=== PATIENT | female | born 1955 | race Caucasian/White ===

== ENCOUNTER 2023-03-20 06:59 | Emergency (ER) | payer MEDICARE, OTHER, SELFPAY ==
--- NOTE | ~2023-03-20 | XR_ITS ---
EXAMINATION: XR shoulder RT min 2V, XR humerus RT CLINICAL INFORMATION: Reason for Exam rt arm pain COMPARISON: None. TECHNIQUE: AP external rotated, Grashey, transscapular radiographs of the right shoulder; AP and lateral radiographs of the right humerus FINDINGS: A transverse fracture of the surgical neck of the humerus is present. Minimal inferior subluxation of the humeral head relative to glenoid is noted and may represent pseudosubluxation related to the presence of hemarthrosis. The humeral head demonstrates rotation relative to the glenoid. Marked diffuse osteopenia is present. No erosive osseous lesions identified. The clavicle and scapula appear intact. Chronic appearing posttraumatic deformity of the seventh rib posterior segment is noted. The T5 thoracic vertebral body demonstrates a mild inward deformity of the superior endplate. The T11 vertebral body demonstrates a mild anterior wedge deformity. Findings suspicious for calcified mediastinal and hilar lymph nodes are noted. XR/XR shoulder RT min 2V IMPRESSION: *Acute transverse fracture of the surgical neck of the right humerus with rotation and mild pseudosubluxation of the humeral head. *Marked diffuse osteopenia. *Age indeterminate mild compression deformities of the T5 and T11 vertebral bodies. *Partial visualization of multiple chronic appearing calcified mediastinal and hilar lymph nodes.
--- NOTE | ~2023-03-20 | XR_ITS ---
EXAMINATION: XR shoulder RT min 2V, XR humerus RT CLINICAL INFORMATION: Reason for Exam rt arm pain COMPARISON: None. TECHNIQUE: AP external rotated, Grashey, transscapular radiographs of the right shoulder; AP and lateral radiographs of the right humerus FINDINGS: A transverse fracture of the surgical neck of the humerus is present. Minimal inferior subluxation of the humeral head relative to glenoid is noted and may represent pseudosubluxation related to the presence of hemarthrosis. The humeral head demonstrates rotation relative to the glenoid. Marked diffuse osteopenia is present. No erosive osseous lesions identified. The clavicle and scapula appear intact. Chronic appearing posttraumatic deformity of the seventh rib posterior segment is noted. The T5 thoracic vertebral body demonstrates a mild inward deformity of the superior endplate. The T11 vertebral body demonstrates a mild anterior wedge deformity. Findings suspicious for calcified mediastinal and hilar lymph nodes are noted. XR/XR humerus RT IMPRESSION: *Acute transverse fracture of the surgical neck of the right humerus with rotation and mild pseudosubluxation of the humeral head. *Marked diffuse osteopenia. *Age indeterminate mild compression deformities of the T5 and T11 vertebral bodies. *Partial visualization of multiple chronic appearing calcified mediastinal and hilar lymph nodes.
[2023-03-20 07:04] VITALS: BP 116/79; PULSE 91; RESP 18; TEMP 36.5; O2SAT 98; BMI 21.6
--- NOTE | 2023-03-20 07:19 | ED_ITS ---
HPI - Extremity Problem General Chief complaint: Extremity Injury, Upper Stated complaint: fall r shoulder inj Time Seen by Provider: 03/20/23 07:18 Source: patient and RN notes reviewed Mode of arrival: ambulatory Limitations: no limitations History of Present Illness HPI Narrative: This is a 68-year-old female presenting to the emergency department for evaluation of right shoulder pain status post mechanical fall which occurred yesterday. Patient states that she dropped her keys while carrying in groceries and she tripped and fell on her right shoulder. She denies hitting her head or loss of consciousness. She states that she felt well prior to the fall. She was able to get up and she was able to put away her groceries but noticed she was having difficulty with moving her right arm. She states that since this injury she has had increased pain, bruising, difficulty moving her right arm and shoulder secondary to pain. She has not taken any medications at home to treat her current symptoms. No other complaints or concerns at this time. MD Complaint: extremity pain and extremity swelling Onset (ago): hour(s) Pain Consistency: constant Location: right and upper extremity Quality: aching Radiation: none Relieving factors: nothing Exacerbating factors: nothing Associated symptoms: denies other symptoms Related Data Previous Rx's Medication Instructions Recorded acetaminophen 500 mg tablet 500 mg PO Q6H PRN pain #45 tabs 03/20/23 (Tylenol Extra Strength) ibuprofen 600 mg tablet 600 mg PO Q6H PRN pain #45 tabs 03/20/23 oxycodone 5 mg tablet 5 mg PO Q6H PRN severe pain (scale 03/20/23 score 7-10) #14 tabs Allergies Allergy/AdvReac Type Severity Reaction Status Date / Time No Known Allergies Allergy Verified 03/23/23 16:39 [No Known Allergies*] Review of Systems Review of Systems: Yes all other systems are reviewed and are negative Constitutional: Constitutional: Reports as per [facility] Social History Social History Advance Directives: No Advance Directives Information Provided: No Physical Exam Vital Signs: Vital Signs: Last Vital Signs Temp 97.7 F 03/20/23 07:04 Pulse 91 03/20/23 07:04 Resp 18 03/20/23 07:04 BP 116/79 03/20/23 07:04 Pulse Ox 98 03/20/23 07:04 O2 Del Method Room Air 03/20/23 07:04 BMI result Body Mass Index 21.6 Const: General: cooperative, comfortable and no acute distress Orientation/consciousness: patient oriented x3 Limitations: no limitations HEENT: Head: Yes normal to inspection, Yes normocephalic and Yes atraumatic Ears: hearing grossly normal bilaterally General nose exam: Normal external nose present Face and sinus: Yes normal facial exam Mouth: Normal oral and palatal mucosa present, oropharynx normal and moist mucous membranes Throat: Yes posterior oropharynx normal Eyes: General: appearance normal, both eyes and all related structures Eyelids: Yes eyelids normal Conjunctivae: conjunctivae normal Sclerae: sclerae normal Pupils: Equal, round and reactive pupils present EOM: EOMs intact bilaterally Neck: Neck: Yes normal visual inspection, Yes full ROM and Yes no lymphadenopathy Lymphatic: no lymphadenopathy noted Chest: Chest palpation & inspection: normal inspection of the chest Resp: Effort & Inspection: normal respiratory effort and able to speak in complete sentences Auscultation: clear to auscultation bilaterally, no crackles, no rales, no rhonchi and no wheezes Cardio: Rate: regular rate Rhythm: regular rhythm Heart sounds: S1 normal heart sound present and S2 normal heart sound present GI: Inspection: Yes normal to inspection Skin: General skin exam: no rashes or lesions noted Trauma: no lacerations or abrasions Wounds: no wounds Neuro: General: patient oriented x3 and moves all extremities Cranial nerves: Yes Equal, round and reactive pupils present Extrem: Other: extensive ecchymosis noted to the anterior aspect of the right shoulder from the right humeral head distally to approximately 2 cm just superior to the olecranon. full range of motion of the elbow, limited range of motion of the right shoulder given pain. exquisite pain with internal and external rotation of the right shoulder. strong radial pulse. distal sensation circulation intact General: Yes normal to inspection Left upper extremity: normal to inspection Right lower extremity: normal to inspection Left lower extremity: normal to inspection Course Reevaluation(s) Reevaluation #1: I was called to the radiology room given humeral head fracture, I reviewed imaging with my attending physician, Dr. Harris. I spoke to orthopedic surgeon, Dr. Butt, who recommends outpatient follow-up, no surgery is indicated and to sling. Will await for official report for dispo Time: 08:17 Reevaluation #2: x-ray report revealing an acute transverse fracture of the right humerus with rotation and mild pseudo subluxation of the humeral head. There is also age indeterminate mild compression deformities of the T5 and T11 vertebral bodies. Discussed findings with patient As well as orthopedic follow-up. Will discharge patient on ibuprofen, Tylenol, and oxycodone for severe pain. Given return precautions. Patient understands and agrees with plan. Patient stable for discharge. Time: 09:12 Medications Administered Discontinued Medications Generic Name Dose Route Start Last Admin Trade Name Freq PRN Reason Stop Dose Admin Oxycodone HCl 5 mg 03/20/23 07:41 03/20/23 08:02 Oxycodone Hcl Immed Release 5 Mg Tablet PO 03/20/23 07:42 5 mg ONCE ONE Administration Medical Decision Making Medical Decision Making [facility] Narrative: This is a 68-year-old female, with a history of hypertension, presenting to the emergency department with complaints of right shoulder pain status post mechanical fall which occurred yesterday. She denies hitting her head, dizziness, lightheadedness. on arrival, vital signs within normal limits. Belkys ent has extensive ecchymosis noted to the right shoulder extending down into her biceps. Full range of motion of the right elbow, limited range of motion of the right shoulder secondary to pain. given presentation, will obtain x-rays. Will medicate patient with oxycodone 5 mg p.o. Plan: Xrays, oxycodone Differential Diagnosis Differential Diagnoses: The differential diagnosis associated with the presentation includes Fracture, contusion, dislocation Admission/Observation Consideration of admission/observation: Escalation of care including admission/observation considered Patient would have been admitted to the hospital had her work up had any findings where hospital admission was appropriate and her clinical presentation warranted hospital admission. Consult Healthcare Provider Management of the patient was discussed with: Pillow Filler Dr. Butt Radiology Impression Discussion of test interpretation with radiology: I have reviewed the radiologist's reading. Radiologist Impression: XR/XR humerus RT IMPRESSION: *Acute transverse fracture of the surgical neck of the right humerus with rotation and mild pseudosubluxation of the humeral head. *Marked diffuse osteopenia. *Age indeterminate mild compression deformities of the T5 and T11 vertebral bodies. *Partial visualization of multiple chronic appearing calcified mediastinal and hilar lymph nodes. Discharge Plan Discharge Clinical Impression: Fracture of humeral head, right, closed Patient Disposition: Home, Self-Care Instructions: Arm Fracture in Adults (ED), How to Use a Sling (ED), Proximal Humerus Fracture (ED), Shoulder Immobilizer (ED) Additional Instructions: You were seen in the emergency department today due to right shoulder pain. Your right shoulder is broken. This was discussed with the orthopedic surgeon who reviewed your case and recommends sling, and outpatient follow-up. Please call their office tomorrow morning to make an appointment. Please stay in sling until your seen by the orthopedic surgeon. You are unable to drive until you are medically cleared. It is very dangerous to be operating a vehicle wearing a sling. Please take prescribed medication as directed. Alternate between ibuprofen and Tylenol. You can do this by taking ibuprofen 600 mg every 6 hours. Two hours after taking ibuprofen you may take the tylenol dose. Take oxycodone for severe pain only. Please be advised that this can cause drowsiness, do not drink alcohol or drive while taking this medication. Please be advised that we cannot refill this medication from the emergency room. If you need further pain medication please follow-up with her primary care physician. Follow-up with your primary care physician regarding this visit. If any new or worsening symptoms occur including but not limited to headaches, dizziness, worsening pain, chest pain or shortness of breath, please return for re-evaluation. Prescriptions: New ibuprofen 600 mg tablet 600 mg PO Q6H PRN (Reason: pain) Qty: 45 0RF acetaminophen [Tylenol Extra Strength] 500 mg tablet 500 mg PO Q6H PRN (Reason: pain) Qty: 45 0RF oxycodone 5 mg tablet 5 mg PO Q6H PRN (Reason: severe pain (scale score 7-10)) Qty: 14 0RF Rx Instructions: Partial Fill upon patient request. Referrals: [facility] [place] Orthopedic Surgeons [Provider Group] Interventions: ED Discharge Assessment Last Done: 03/20/23 09:39 Discharge Date/Time: 03/20/23 09:40
[2023-03-20] MEDS: oxyCODONE HCl Immed Release 5 MG TABLET PO (08:02)
--- NOTE | 2023-03-20 08:27 | PC.NURSE ---
continues to rest quietly in room, medicated per the MAR. call briones within reach.
--- NOTE | 2023-03-20 08:52 | PC.NURSE ---
Addendum entered by Jemma Felix RN 03/20/23 09:05: PA in with pt Original Note: RN assumed care, pt assessed, pt reported no pain relief after the administration of pain medication WENDY aware
== END 2023-03-20 09:40 | disposition home or self-care (01) ==
PROVIDERS: Emergency Provider Student in an Organized Health Care Education/Training Program; PCP Internal Medicine
DX: S42.211A Unspecified displaced fracture of surgical neck of right humerus, initial encounter for closed fracture (principal); W01.0XXA Fall on same level from slipping, tripping and stumbling without subsequent striking against object, initial encounter; Y93.9 Activity, unspecified; Y92.9 Unspecified place or not applicable; Y99.9 Unspecified external cause status
CPT/HCPCS: 73030; 73060; 99284

== ENCOUNTER 2023-03-23 15:38 | Emergency (ER) | payer OTHER, SELFPAY ==
--- NOTE | ~2023-03-23 | US_ITS ---
EXAMINATION: US VENOUS WITH DOPPLER UPPER EXTREMITY, RIGHT CLINICAL INFORMATION: History of humeral head fracture. Swelling and pain. COMPARISON: None available. TECHNIQUE: Ultrasound of the upper extremity is performed using compression sonography and color and pulse Doppler flow with assessment of augmentation of flow. There is also imaging and Doppler assessment of the jugular and subclavian veins. Spectral analysis with color-flow imaging is performed. FINDINGS: Respiratory variation, normal compression, and augmented flow are noted throughout the right upper extremity including the axillary, brachial, cubital, and radial and ulnar veins. There is normal flow in the internal jugular and subclavian veins. There is no visible deep or superficial thrombophlebitis. If the patient's symptoms progress, a followup ultrasound in 5 -7 days might be of value to exclude proximal propagation from a nonvisualized distal arm vein. US/US venous duplex UE RT IMPRESSION: No DVT demonstrated in the right upper extremity.
--- NOTE | 2023-03-23 16:33 | ED_ITS ---
HPI - General Adult General Chief complaint: General Medical Stated complaint: fell 03/19 left hand swelling, dizziness Time Seen by Provider: 03/23/23 20:04 Source: patient Mode of arrival: ambulatory Limitations: no limitations History of Present Illness HPI narrative: 68 year old female with no significant pmhx presents to the ED today for evaluation of swelling and bruising to her right arm x1 day. She was evaluated in our ED on 03/20/2023 after a mechanical fall and was found to have an acute transverse fracture of the right humeral neck. Sling was placed at that time. States she has been feeling generally well, taking ibuprofen and Tylenol at home for pain and discomfort. She reports noticing swelling and ecchymoses to her right hand beginning yesterday. She also endorses ecchymoses to her right breast since the fall. Denies pain to her hand. She is not on anticoagulation. States that her neighbor came to her house today and recommended that she come to the ED to have this evaluated. She currently has follow up appointment with ortho on 04/09/22 (in 2 weeks). Denies recent travel or long car rides. Denies sob, chest pain, or palpitations. Related Data Previous Rx's Medication Instructions Recorded acetaminophen 500 mg tablet 500 mg PO Q6H PRN pain #45 tabs 03/20/23 (Tylenol Extra Strength) ibuprofen 600 mg tablet 600 mg PO Q6H PRN pain #45 tabs 03/20/23 oxycodone 5 mg tablet 5 mg PO Q6H PRN severe pain (scale 03/20/23 score 7-10) #14 tabs Allergies Allergy/AdvReac Type Severity Reaction Status Date / Time No Known Allergies Allergy Verified 03/23/23 16:39 [No Known Allergies*] Review of Systems 2 Review of Systems: Constitutional: No fever, chills, fatigue, night sweats, weight changes ENT/Mouth: No ear pain, hearing loss, nasal congestion, sinus pain, rhinorrhea, sore throat Eyes: No eye pain, swelling, redness, vision changes, discharge Cardio: No chest pain, palpitations, PAREDES, orthopnea, peripheral edema Pulm: No SOB, cough, sputum, wheezing, dyspnea, hemoptysis GI: No nausea, vomiting, hematemesis, abdominal pain, diarrhea, constipation, hematochezia, melena : No irregular bleeding, dysuria, frequency, urgency, hesitancy, hematuria, flank pain, urinary flow changes, urinary incontinence or retention MSK: No back pain, neck pain, joint pain, myalgias, +swelling to right hand, wrist Skin: No lesions, rashes Neuro: No weakness, numbness, paresthesias, LOC, dizziness, headache All other systems reviewed and are negative. [facility] Past Medical History Attestation statement: The following information was validated with the patient. Source: old records reviewed and nursing notes reviewed Social History Social History Advance Directives: No Advance Directives Information Provided: No Physical Exam ED Vital Signs: Vital Signs - 24 hr 03/23/23 16:34 03/23/23 20:08 Temperature 98.0 F Pulse Rate 89 89 Respiratory Rate 20 16 Blood Pressure 137/79 135/78 Pulse Oximetry 98 99 Oxygen Delivery Method Room Air Room Air BMI result Body Mass Index 21.7 Const General: cooperative, no acute distress, alert and awake Orientation/consciousness: patient oriented x3 Limitations: no limitations HENMT Head: Yes normal to inspection Ears: hearing grossly normal bilaterally General nose exam: Normal external nose present Eyes General: appearance normal, both eyes and all related structures Conjunctivae: conjunctivae normal Sclerae: sclerae normal Pupils: Equal, round and reactive pupils present Neck Neck: Yes normal visual inspection Chest Other: + see photo below + dependent ecchymosis noted to lateral aspect of the right breast extending up into the axilla in stages of healing, no palpable hematoma, warmth, area of fluctuance. Resp Effort & Inspection: normal respiratory effort Auscultation: clear to auscultation bilaterally Cardio Rate: regular rate Rhythm: regular rhythm Heart sounds: S1 normal heart sound present and S2 normal heart sound present Peripheral pulses: Peripheral pulses 2+ throughout Skin Other: + refer to photos General skin exam: no rashes or lesions noted Neuro General: patient oriented x3 and moves all extremities Cranial nerves: Yes Equal, round and reactive pupils present Extrem Other: + refer to photo below + RUE in sling. dependent non pitting edema noted to dorsal aspect of right hand. minimal ecchymosis noted to the dorsal and ventral aspects of the forearm. full rom intact to right wrist. full rom intact to all MCPs, PIPs, and DIPs on right hand. 2+ radial, ulnar, and brachial pulses. General: Yes normal to inspection and Yes full ROM Course Course Course Narrative: 1648-- I have discussed this case my attending physician Dr. Mcmahon who after reviewing the case and physical exam findings, agrees with venous duplex of the RUE to rule out subclavian clot although presentation is most consistent with dependent edema secondary to shoulder fracture with sling. There is no concern for compartment syndrome at this time. 1999-- Ultrasound right upper extremity does not demonstrate acute clot. Informed patient of imaging results. Advised her to elevate her hand as best she can while she is sleeping to help with the swelling. Advised her to keep her appointment with orthopedic specialists in March. Discussed worrisome signs and symptoms when to return to the ED. Patient has remained stable throughout ED visit today. All questions answered at this time. Patient is agreeable with disposition and stable for discharge. Medical Decision Making Medical Decision Making MDM Narrative: 68 year old female with no significant pmhx presents to the ED today for evaluation of swelling and bruising to her right arm x1 day. Vital signs stable. Patient is nontoxic appearing in no acute distress. On exam there is dependent ecchymosis noted to lateral aspect of the right breast extending up into the axilla in stages of healing, no palpable hematoma, warmth, area of fluctuance. RUE in sling. dependent non pitting edema noted to dorsal aspect of right hand. minimal ecchymosis noted to the dorsal and ventral aspects of the forearm. full rom intact to right wrist. full rom intact to all MCPs, PIPs, and DIPs on right hand. 2+ radial, ulnar, and brachial pulses. Concern for DVT, dependent edema status post fracture. Unlikely compartment syndrome, neurovascular compromise, threat to limb. Plan for US and disposition. Differential Diagnosis Differential Diagnoses: The differential diagnosis associated with the presentation includes As above. Admission/Observation Not indicated. Independent Interpretation I performed an independent interpretation of an: Ultrasound Interpretation: I have reviewed venous duplex ultrasound of the right upper extremity and agree with radiologist's interpretation. Radiology Impression Discussion of test interpretation with radiology: I have reviewed the radiologist's reading. Radiologist Impression: US venous duplex UE RT IMPRESSION: No DVT demonstrated in the right upper extremity External Record Review External record reviewed: Inpatient record Prescription Management I considered prescription management with: Pain Medication Critical Care Time Critical Care Time Critical Care Time: Yes Total Critical Care Time: 31 Attestation: Critical care time in the amount of 31 minutes has been provided to the patient in terms of direct patient care, frequent reevaluation, review and interpretation of medical data and results, and management of potentially life- threatening conditions. This is all outside of any medical procedures. Discharge Plan Discharge Clinical Impression: Localized swelling of right upper extremity Patient Disposition: Home, Self-Care Additional Instructions: The ultrasound of your right arm did not demonstrate acute clot today. The swelling in your arm/hand is likely dependent edema secondary to your arm being immobile post fracture. Please try and elevate the right arm while sleeping which will help alleviate some of the swelling. You may continue taking Tylenol/ibuprofen at home as needed for pain/discomfort. Please call the orthopedic doctor tomorrow and let them know that you were seen in the ED. If symptoms persist or worsen please return to the emergency department. The case of an emergency call 911. Prescriptions: No Action ibuprofen 600 mg tablet 600 mg PO Q6H PRN (Reason: pain) Qty: 45 0RF acetaminophen [Tylenol Extra Strength] 500 mg tablet 500 mg PO Q6H PRN (Reason: pain) Qty: 45 0RF oxycodone 5 mg tablet 5 mg PO Q6H PRN (Reason: severe pain (scale score 7-10)) Qty: 14 0RF Rx Instructions: Partial Fill upon patient request. [place] [facility] [place] [facility] [Provider Group] Interventions: ED Discharge Assessment Last Done: 03/23/23 20:12 Discharge Date/Time: 03/23/23 20:13
[2023-03-23 16:34] VITALS: BP 137/79; PULSE 89; RESP 20; TEMP 36.7; O2SAT 98; BMI 21.7
[2023-03-23 20:08] VITALS: BP 135/78; PULSE 89; RESP 16; O2SAT 99
== END 2023-03-23 20:13 | disposition home or self-care (01) ==
LOC: HO.ED 20:06
PROVIDERS: Emergency Provider Internal Medicine
DX: R60.0 Localized edema (principal); Z79.899 Other long term (current) drug therapy
CPT/HCPCS: 93971; 99282; 99284

== ENCOUNTER 2023-04-07 08:09 | Outpatient (AMB) | payer MEDICARE, OTHER, SELFPAY ==
--- NOTE | 2023-04-07 08:14 | A.OFFVIS_ITS ---
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 Patient reports she fell landing on her right hand. She states that she fell outside when she had too many things in her hands. Pain is more on the anterior aspect of the shoulder, however she is feeling better. 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 The patient presented to the ED on 03/20/2023 status post dropping her keys while carrying groceries causing her to trip and fall, which occurred on 03/19/2023. X-rays of the right upper extremity were obtained. She was placed into a sling and was discharged with a prescription for Ibuprofen 600 mg PO Q6H PRN, Acetaminophen 500 mg PO Q6H PRN, and Oxycodone 5 mg PO PRN for pain. The patient returned to the ED on 03/23/2023 with a complaint of edema and ecchymosis to her right arm. She reported ecchymosis to the right hand and breast presenting on 03/22/2023. An ultrasound was obtained. It was recommended for her to elevated the right upper extremity as much as she can. While in the office today the patient reports a fall where she landed on her right hand. She states she fell outside when she had to many things in her hands when she was coming home from a [employer] get together. She states she went to bed and woke up in the morning with pain and limited ROM. She reports the pain on the anterior aspect of the right shoulder. However, she states she is feeling better. She denies numbness or tingling. The patient denies smoking. She confirms occasional alcohol intake of beer. She denies a medical history of diabetes mellitus. She states she has neighbors that have been helping her since the injury and will be help postoperatively. Patient has no known allergy history. Patient is currently taking, as follows: -Acetaminophen 500 mg PO Q6H PRN -Ibuprofen 600 mg PO Q6H PRN -Oxycodone 5 mg PO Q5H PRN *Patient reports taking Doxycycline and Calcium, but did not states dosage. *Patient reports she takes blood pressure and cold sore medication, but did not state the names. Patient has a medical history, as follows: -Hypertension; per patient. Patient has no known surgical history. Patient has a social history, as follows: -Occasional beer intake. -Denies smoking. [facility] Social History (Updated 04/07/23 @ 08:27 by Serg Nayak) Alcohol intake: current Patient Tobacco Use Status: Current everyday Tobacco user Current occupational status: retired Current occupation: right hand dominant Review of Systems Const All systems reviewed & are unremarkable except as noted in HPI and below Physical Exam Vital Signs: BMI result Body Mass Index 21.6 Const General: cooperative and no acute distress Orientation/consciousness: patient oriented x3 HEENT Head: Yes normal to inspection, Yes normocephalic and Yes atraumatic Eyes General: appearance normal, both eyes and all related structures Neck Neck: Yes normal visual inspection and Yes no lymphadenopathy Resp Effort & Inspection: normal respiratory effort and able to speak in complete sentences Cardio Rate: regular rate Peripheral pulses: Peripheral pulses 2+ throughout GI Inspection: Yes normal to inspection Palpation (GI): Soft to palpation Skin General skin exam: no rashes or lesions noted Neuro General: patient oriented x3 Extrem Other: Right upper extremity: Circumferential resolving ecchymosis and edema at the proximal humerus. No ecchymosis, erythema, or edema of the right hand. Able to perform wrist flexion and extension. Able to perform full finger flexion, extension, abduction, adduction, finger cross, okay sign, and thumbs up without deficit. Able to make a closed fist. Sensation intact. Capillary refill is bris k. Radial pulse intact. Psych Mental Status: mental status grossly normal Assessment & Plan Assessment & Plan (1) Fracture of proximal end of right humerus: Code(s): S42.201A - Unspecified fracture of upper end of right humerus, initial encounter for closed fracture (2) Osteopenia: Code(s): M85.80 - Other specified disorders of bone density and structure, unspecified site Plan Ms. Taylor is a 68-year-old right hand dominant female who presents in the office today, as a new patient, for an evaluation of right shoulder pain. The patient presented to the ED on 03/20/2023 status post dropping her keys while carrying groceries causing her to trip and fall, which occurred on 03/19/2023. X-rays of the right upper extremity were obtained. She was placed into a sling and was discharged with a prescription for Ibuprofen 600 mg PO Q6H PRN, Acetaminophen 500 mg PO Q6H PRN, and Oxycodone 5 mg PO PRN for pain. The patient returned to the ED on 03/23/2023 with a complaint of edema and ecchymosis to her right arm. She reported ecchymosis to the right hand and breast presenting on 03/22/2023. An ultrasound was obtained. It was recommended for her to elevated the right upper extremity as much as she can. While in the office today the patient reports a fall where she landed on her right hand. She states she fell outside when she had to many things in her hands when she was coming home from a [employer] get together. She states she went to bed and woke up in the morning with pain and limited ROM. She reports the pain on the anterior aspect of the right shoulder. However, she states she is feeling better. She denies numbness or tingling. The patient denies smoking. She confirms occasional alcohol intake of beer. She denies a medical history of diabetes mellitus. She states she has neighbors that have been helping her since the injury and will be help postoperatively. Patient has no known allergy history. Patient is currently taking, as follows: -Acetaminophen 500 mg PO Q6H PRN -Ibuprofen 600 mg PO Q6H PRN -Oxycodone 5 mg PO Q5H PRN *Patient reports taking Doxycycline and Calcium, but did not states dosage. *Patient reports she takes blood pressure and cold sore medication, but did not state the names. Patient has a medical history, as follows: -Hypertension; per patient. Patient has no known surgical history. Patient has a social history, as follows: -Occasional beer intake. -Denies smoking. I discussed in detail the procedure and what to expect pre and post operatively. We discussed the risks, benefits and alternatives to the surgery as well as the rehabilitation course. The risks; which include, but are not limited to infection, bleeding, nerve injury, ongoing pain, swelling, and stiffness, perioperative risk of injury to bones and soft tissues, and blood clots. I have answered all questions and with their understanding they have consented to move forward with a right proximal humerus ORIF to be performed next week by Dr. Kristofer Butt. Follow up will be at the post operative appointment, or sooner if needed. X-rays of the right shoulder which were obtained while in the office today and were reviewed by me, Bessie Faustin PA-C, redemonstration of a right proximal humerus fracture with rotation of the humeral head. Osteopenia noted. X-rays of the right shoulder, obtained on 03/20/2023, revealed: *Acute transverse fracture of the surgical neck of the right humerus with rotation and mild pseudosubluxation of the humeral head. *Marked diffuse osteopenia. *Age indeterminate mild compression deformities of the T5 and T11 vertebral bodies. *Partial visualization of multiple chronic appearing calcified mediastinal and hilar lymph nodes. Ultrasound of the right upper extremity, obtained on 03/23/2023, revealed: No DVT demonstrated in the right upper extremity. Orders: Orders XR humerus RT Today S42.291A - Other displaced fracture of upper end of right humerus, initial encounter for closed fracture Patient Instructions: Scribed for Bessie Faustin PA-C by Kami Segundo medical technologist chemistry, on 04/04/2023 at 8:29 am, EST. Coding Level of Care Code New Pt Level 4 (20709) Diagnoses Fracture of proximal end of right humerus S42.201A Osteopenia M85.80
[2023-04-07 08:16] VITALS: BMI 21.6
== END 2023-04-07 08:54 | disposition home or self-care (01) ==
PROVIDERS: PCP Internal Medicine; Visit Provider Physician Assistant
DX: S42.211A Unspecified displaced fracture of surgical neck of right humerus, initial encounter for closed fracture (principal); M85.80 Other specified disorders of bone density and structure, unspecified site
CPT/HCPCS: 99204

== ENCOUNTER 2023-04-07 10:18 | Outpatient (REF) | payer MEDICARE, OTHER, SELFPAY ==
--- NOTE | ~2023-04-07 | XR_ITS ---
EXAMINATION: XR HUMERUS, RIGHT CLINICAL INFORMATION: Right humeral fracture. COMPARISON: Radiograph right humerus 03/20/2023. TECHNIQUE: AP and lateral views of the right humerus. FINDINGS: Increased impaction and displacement of right humeral neck fracture compared to 03/20/2023. Chronic nondisplaced fracture of the right posterior seventh rib. No new fractures. XR/XR humerus RT IMPRESSION: Worsening alignment of the right humeral fracture with significantly increased displacement and impaction.
== END 2023-04-07 10:19 | disposition home or self-care (01) ==
LOC: HO.HOSX 10:18
PROVIDERS: Visit Provider Physician Assistant
DX: S42.201A Unspecified fracture of upper end of right humerus, initial encounter for closed fracture (principal); M85.80 Other specified disorders of bone density and structure, unspecified site
CPT/HCPCS: 73060; 99202

== ENCOUNTER 2023-04-11 09:25 | Day surgery (SDC) | payer MEDICARE, OTHER, SELFPAY ==
--- NOTE | 2023-04-10 08:50 | HO.ANESPROP2 ---
Documented by User: Mare Randhawa NP 04/10/23 08:51 HPI - Anesthesia Eval Consult details Narrative: 68yo F for Right Humerus Fx ORIF Incomplete med hx by surgical provider. Oswaldoley htn and hld per external med history. PMF Active Problems Active Problems: All Active Problems (Updated 04/07/23 @ 08:47 by Kami Segundo) Osteopenia (Acute) Fracture of proximal end of right humerus (Acute) Past Medical History Medical History Hypercholesterolemia HTN (hypertension) Surgical History Surgical History History of foot surgery Social History Social History Alcohol intake: current Patient Tobacco Use Status: Never used Tobacco Use of substances other than those prescribed or required for medical reasons: No Are you DNR?: No Advance Directives: No Advance Directives Information Provided: Yes Current occupational status: retired Current occupation: right hand dominant Meds Allergies Allergy/AdvReac Type Severity Reaction Status Date / Time No Known Allergies Allergy Verified 04/07/23 08:15 [No Known Allergies*] Home Medications Medication Instructions Recorded Confirmed Last Taken Type amlodipine 10 mg tablet 10 mg PO DAILY 04/10/23 04/10/23 04/11/23 History atorvastatin 40 mg tablet 40 mg PO DAILY 04/10/23 04/11/23 03/28/23 History Assessment and Plan Assessment Anesthesia Assessment: Chart Reviewed Documented by User: Steffany Bartlett MD 04/11/23 10:44 [facility] Past Medical History Medical History Hypercholesterolemia HTN (hypertension) Surgical History Surgical History History of foot surgery History of Problems with Anesthesia: No Social History Social History Alcohol intake: current Patient Tobacco Use Status: Never used Tobacco Use of substances other than those prescribed or required for medical reasons: No Are you DNR?: No Advance Directives: No Advance Directives Information Provided: Yes Current occupational status: retired Current occupation: right hand dominant Meds Allergies Allergy/AdvReac Type Severity Reaction Status Date / Time No Known Allergies Allergy Verified 04/07/23 08:15 [No Known Allergies*] Home Medications Medication Instructions Recorded Confirmed Last Taken Type amlodipine 10 mg tablet 10 mg PO DAILY 04/10/23 04/10/23 04/11/23 History atorvastatin 40 mg tablet 40 mg PO DAILY 04/10/23 04/11/23 03/28/23 History Exam Airway Mallampati Class: II TM Dist: >3cm Neck ROM: Full Loose/Missing/Broken Teeth: No Heart: RRR Lungs: CTA Assessment and Plan Assessment Anesthesia Assessment: Anesthesia Plan Discussed Final Anesthetic Review History of Problems with Anesthesia: No NPO: Yes ASA Class: II Final Preanesthetic Review: Meds/Allgs Chart Reviewed, Consent Obtained/Reviewed and Anes Risks/Benef Reviewed Patient Risk: Low Procedure Risk: Intermediate Anesthetic Plan Anesthetic Plan: GA Disposition: Standard PACU
[2023-04-11] VITALS (15 sets, daily range): BP systolic 105–127; BP diastolic 66–83; PULSE 57–86; RESP 14–18; TEMP 36.3–37.4; O2SAT 95–100; BMI 21.3
--- NOTE | ~2023-04-11 | FL_ITS ---
INDICATION: Intraoperative fluoroscopy. FLUOROSCOPY: Fluoroscopy Time: 0.7 seconds Dose/air kerma: 8.49 mGy FINDINGS: Multiple intraoperative fluoroscopic images are submitted during reported procedure of the right humerus. Correlation with operative report. Evaluation is limited secondary to fluoroscopic technique. IMPRESSION: Intra-operative fluoroscopic imaging provided by radiology during reported procedure of the right humerus. Please refer to operative note for further information.
[2023-04-11] MEDS: Lactated Ringers 1,000 ML 100 ML IVCONT ×2 (10:13→17:47)
--- NOTE | 2023-04-11 11:17 | MHC.SHP ---
Pre-Procedural Eval Section A Date of Service: 04/11/23 The patient is an INPATIENT: No Changes since office visit: Yes Cold of Flu in the past 2 weeks, Yes New Medical Problems, Yes Changes in Medication and Yes Patient answered all questions The History & Physical has been completed within 30 days and I have reviewed it.: Yes Section B Chief Complaint: Unspecified fracture of upper end of right humerus Allergies: Allergies Allergy/AdvReac Type Severity Reaction Status Date / Time No Known Allergies Allergy Verified 04/07/23 08:15 [No Known Allergies*] Plan I have reviewed the history and physical and performed a pertinent physical examination on my patient. No changes have occurred unless specified. Time Spent With Patient Time: Total time managing care of this patient today ____ minutes.
--- NOTE | 2023-04-11 14:10 | PM.OP ---
Brief Operative Note Date of Service: 04/11/23 Pre-op diagnosis: right proximal humerus fracture Post-op diagnosis: same Procedure: right proximal humerus ORIF Implants: Amparo Surgeon: Kristofer Butt MD Anesthesia: GETA and regional Was an Captain/Airline Pilot used for this Procedure?: Yes Captain/Airline Pilot: Jennifer Be Estimated blood loss (mL): 200 IV fluids (mL): 1,000 Pathology: none sent Condition: stable Disposition: PACU
--- NOTE | 2023-04-11 17:26 | P.DS_ITS ---
DS: Providers Provider Date of Service: 04/13/23 Primary care physician: Vee Alvarez MD Consults: 04/11/23 16:51 Consult to Hospitalist Routine Comment: Consulting Provider: Hospitalist Reason For Exam: medical management, htn DS: Summary Hospital Course Hospital Course: The patient underwent a successful right humerus open reduction internal fixation, they were transferred to PACU and then to the floor to recover. During their stay, their vitals were stable, afebrile at 97.1. Labs were unremarkable, H/H 10.4/29.8. Prior to discharge, their dressing was clean dry and intact and right upper extremity was in the abduction sling placed appropriately. The plan was to be discharged home and followup with orthopedics out patient in 1 week. Time Attestation Discharge coordination time: Less than 30 minutes Quality: Safe Use of Opioids Does Pt have an Active Cancer Diagnosis on the Problem List?: No Quality: Stroke Does the patient have a stroke diagnosis?: No Physical Exam Vital Signs: Vital Signs: Last Vital Signs Temp 97.6 F 04/11/23 16:36 Pulse 81 04/11/23 16:36 Resp 18 04/11/23 16:36 BP 112/75 04/11/23 16:36 Pulse Ox 99 04/11/23 16:36 O2 Del Method Nasal Cannula 04/11/23 16:36 O2 Flow Rate 2 04/11/23 16:36 BMI result Body Mass Index 21.3 Const: General: cooperative, healthy appearing and no acute distress Resp: Effort & Inspection: normal respiratory effort and able to speak in complete sentences Cardio: Rate: regular rate Peripheral pulses: Peripheral pulses 2+ throughout GI: Palpation (GI): Soft to palpation Skin: Lesions: no lesions Rashes: no rashes Extrem: Other: RUE sling intact. Dressing is c/d/i. Able to perform wrist flexion and extension. Able to move all digits. Radial pulse intact. Sensation intact. Capillary refill is brisk. Discharge Plan Discharge Patient Disposition: Home, Self-Care Referrals: Jennifer Be PA-C [Physician Production Team Member] - 04/19/23 10:45 am Discharge Medications: New celecoxib 200 mg Capsule 200 mg PO BID 30 Days Qty: 60 0RF oxycodone 10 mg tablet 10 mg PO Q3H PRN (Reason: Pain, Moderate(Pain Scale 4-6)) 7 Days Qty: 56 0RF Rx Instructions: Partial Fill upon patient request. docusate sodium 100 mg Capsule 100 mg PO BID 30 Days Qty: 60 0RF oxycodone [OxyContin] 10 mg tablet,oral only,ext.rel.12 hr 10 mg PO Q12H PRN (Reason: pain (scale score 7-10)) 3 Days Qty: 6 0RF Rx Instructions: Partial Fill upon patient request. oxycodone [OxyContin] 10 mg tablet,oral only,ext.rel.12 hr 10 mg PO Q12H 3 Days Qty: 6 0RF Rx Instructions: Partial Fill upon patient request. Continued atorvastatin 40 mg tablet 40 mg PO DAILY amlodipine 10 mg tablet 10 mg PO DAILY ibuprofen 600 mg tablet 600 mg PO Q6H PRN (Reason: pain) Qty: 45 0RF acetaminophen [Tylenol Extra Strength] 500 mg tablet 500 mg PO Q6H PRN (Reason: pain) Qty: 45 0RF Discontinued oxycodone 5 mg tablet 5 mg PO Q6H PRN (Reason: severe pain (scale score 7-10)) Qty: 14 0RF Rx Instructions: Partial Fill upon patient request. Discharge Orders: Discharge Order (Routine); Ordered 04/13/23 Ordered By: Bessie Faustin Diet: Advance to usual diet Activity on Discharge: Use Splints or Immobilizers Activity Restrictions/Additional Instructions: Wear sling at all times, including sleeping-OK to remove for pendulum exercises throughout the day No lifting-OK to move arm at elbow and wrist Do not bathe or shower-- Keep dressing clean, dry and intact until seen at post op appointment in the office. Oxycodone 5mg by mouth every 4 hours as needed for pain Call [facility] orthopedics with any questions or concerns. Follow up with orthopedics in 7-10 days post op
[2023-04-11] MEDS: 0.9 % Sodium Chloride Flush 3 ML SYRINGE IVFLUSH ×2 (17:45→19:42)
[2023-04-11] MEDS: ceFAZolin Sodium/Dextrose,Iso 2 GM/50 ML PIGGYBACK IV (18:14)
[2023-04-11] MEDS: Docusate Sodium 100 MG CAPSULE PO (19:41)
[2023-04-11] MEDS: oxyCODONE HCl ER 10 MG TAB.ER.12H PO (19:41)
[2023-04-11] MEDS: Celecoxib 200 MG CAPSULE PO (19:42)
[2023-04-12 03:34] VITALS: BP 117/70; PULSE 77; RESP 18; TEMP 36.4; O2SAT 98
[2023-04-12] MEDS: Lactated Ringers 1,000 ML 100 ML IVCONT (04:05)
[2023-04-12] MEDS: ceFAZolin Sodium/Dextrose,Iso 2 GM/50 ML PIGGYBACK IV ×3 (04:06→18:05)
[2023-04-12] MEDS: HYDROmorphone HCl 0.5 MG/0.5 ML SYRINGE 0.25 MG IVPUSH (04:11)
[2023-04-12] MEDS: Acetaminophen 325 MG TABLET 650 MG PO (06:35)
[2023-04-12] MEDS: oxyCODONE HCl Immed Release 5 MG TABLET PO (06:36)
[2023-04-12 07:38] VITALS: BP 132/68; PULSE 67; RESP 18; TEMP 36.3; O2SAT 100
[2023-04-12 07:38] LABS: MANUAL DIFF FLAG NO
[2023-04-12 07:46] LABS: Basophils Percent Auto 0.3 % (0-2); Eosinophils Percent Auto 0.3 % (0-4); Hematocrit 28.8 % (37.0-47.0); Hemoglobin 9.9 g/dl (12.0-16.0); Imm Gran Abs Auto 0.03 X10*3/uL (0.00-0.03); Imm Gran Pct Auto 0.4 % (0.0-0.4); Lymphocytes Absolute Auto 1.3 X10*3/uL (1.2-4.9); Lymphocytes Percent Auto 17.8 % (20-40); Mean Corpuscular HGB Conc 34.4 g/dl (31.0-35.0); Mean Corpuscular Hemoglobin 35.5 pg (27.0-33.0); Mean Corpuscular Volume 103.2 fL (80.0-98.0); Mean Platelet Volume 10.3 fL (9.4-12.3); Monocytes Percent Auto 14.7 % (2-11); Neutrophils Absolute Auto 4.7 x10*3/uL (2.0-8.3); Neutrophils Percent Auto 66.5 % (45-73); Platelet Count 204 X10*3/uL (160-400); Red Blood Count 2.79 X10*6/uL (4.20-5.50); Red Cell Distribution Width 12.1 % (11.0-16.0)
[2023-04-12] MEDS: oxyCODONE HCl ER 10 MG TAB.ER.12H PO ×2 (07:50→18:26)
[2023-04-12] MEDS: Celecoxib 200 MG CAPSULE PO ×2 (07:51→18:26)
[2023-04-12] MEDS: Docusate Sodium 100 MG CAPSULE PO ×2 (07:51→18:26)
--- NOTE | 2023-04-12 07:56 | PM.PNORT ---
Subjective Subjective Date of Service: 04/12/23 Interval history: POD1 s/p right humerus ORIF Patient is resting in bed reports uncontrolled pain Pain is not managed No additional complaints Physical Exam Vital Signs: Vital Signs: Last Vital Signs Temp 97.3 F 04/12/23 07:38 Pulse 67 04/12/23 07:38 Resp 18 04/12/23 07:38 BP 132/68 04/12/23 07:38 Pulse Ox 100 04/12/23 07:38 O2 Del Method Room Air 04/12/23 07:38 O2 Flow Rate 2 04/11/23 16:36 BMI result Body Mass Index 21.3 Const: General: cooperative, healthy appearing and no acute distress Resp: Effort & Inspection: normal respiratory effort and able to speak in complete sentences Cardio: Rate: regular rate Peripheral pulses: Peripheral pulses 2+ throughout GI: Palpation (GI): Soft to palpation Skin: Lesions: no lesions Rashes: no rashes Extrem: Other: right shoudler dressing is c/d/i. Able to flex and extend all digits. Sensation intact. Pedal pulse intact. Procedures Date of Service Date of Service: 04/12/23 Progress Note: A&P Assessment and plan (1) Fracture of proximal end of right humerus: Status: Acute Assessment and Plan: Continue pain mgmnt Sling on at all times Encourage ROM at the hand and wrist begin OT for right shoulder s/p ORIF Pain management - Meds adjustement made Dispo planning-Pending OT eval, pain mgmnt (2) Osteopenia: Status: Acute Time Spent With Patient Time: Total time managing care of this patient today ____ minutes. Quality Stroke Does the patient have a stroke diagnosis?: No VTE Prior VTE?: No VTE Risk Level:: Surgical - moderate VTE Device Contraindication: N/A - Device Ordered VTE Drug Contraindication: N/A - Med Ordered
[2023-04-12] MEDS: Acetaminophen 1,000 MG/100 ML PIGGYBACK 400 MG IV ×3 (08:01→20:01)
[2023-04-12 08:05] LABS: Anion Gap 13 (12-20); Blood Urea Nitrogen 9 mg/dL (9-16); Calcium 8.6 mg/dL (8.4-10.2); Carbon Dioxide 22 mmol/L (22-29); Chloride 105 mmol/L (96-108); Creatinine Clr Calc Pharmacy 73.3; Estimated Glomerular Filt Rate > 60; Glucose Fasting 96 mg/dL (60-99); Potassium 3.6 mmol/L (3.3-5.1); Sodium 136 mmol/L (135-145)
--- NOTE | 2023-04-12 08:56 | HO.POSTANES ---
Post Anesthesia Evaluation Post Anesthesia Evaluation Date of Service: 04/12/23 Vital Signs: Vital Signs Temp Pulse Resp BP Pulse Ox O2 Del Method 04/12/23 07:38 97.3 F 67 18 132/68 100 Room Air 04/12/23 03:34 97.5 F 77 18 117/70 98 Room Air Anesthesia: Nerve Block and General Mental Status: Awake Pain Control: Satisfactory (difficulty managing pain) Nausea/Vomiting: None Hydration: Adequate Anesthesia-Related Issues: No Anes. Related Issues
--- NOTE | 2023-04-12 11:19 | HO.PM.IMCN ---
History of Present Illness Data of Consult Service Date: 04/12/23 Requesting physician: Jennifer Be Primary Care Provider: Vee Alvarez MD HPI Reason for consult: medical managemnet, htn 68 year old female with history of htn,hld admitted to orthopedic surgery for management of right humerus fracture with consult placed to hospitalist service for medical management. Blood pressures have been well controlled since admission. She reports pain at surgical site but otherwise has no complaint. Review of Systems Review of Systems: Yes all other systems are reviewed and are negative PMFSH Medical History Hypercholesterolemia HTN (hypertension) Surgical History History of foot surgery Social History Household Members: None Housing: House Do you presently have visiting nurse or other home services: No Alcohol intake: current Comment: counts correct Patient Tobacco Use Status: Never used Tobacco Use of substances other than those prescribed or required for medical reasons: No Currently Displaying Signs/Symptoms of Drug Intoxication Withdrawal: No Have you been hit, kicked, punched, or otherwise hurt by someone within the past year? If so, by whom?: No Do you feel safe in your current relationship?: No Current Relationship Is there a partner from a previous relationship who is making you feel unsafe now?: No Are you made to feel afraid or neglected: No Are you DNR?: No Advance Directives: No Advance Directives Information Provided: Yes Do you have thoughts of harming others: None Do you have a plan to hurt others: No Plan Recently lost weight without trying: No Eating poorly because of decreased appetite: No Nutrition Risks: No Nutritional Risk Patient : No : No Poor oral hygiene: No Current occupational status: retired Current occupation: right hand dominant Meds Allergies Allergy/AdvReac Type Severity Reaction Status Date / Time No Known Allergies Allergy Verified 04/07/23 08:15 [No Known Allergies*] Active Medications: Current Medications Celecoxib (Celecoxib 200 Mg Capsule) 200 mg PO BID [facility] Last Admin: 04/12/23 07:51 Dose: 200 mg Docusate Sodium (Docusate Sodium 100 Mg Capsule) 100 mg PO BID [facility] Last Admin: 04/12/23 07:51 Dose: 100 mg Lactated Ringer's (Lr) 1,000 mls @ 100 mls/hr IVCONT .Q10H [facility] Stop: 04/12/23 14:06 Last Infusion: 04/12/23 08:43 Dose: 0 mls/hr Cefazolin Sodium/Dextrose (Ancef) 2 gm in 50 mls @ 100 mls/hr IV Q8H [facility] Last Infusion: 04/12/23 04:40 Dose: Infused Acetaminophen (Ofirmev) 1,000 mg in 100 mls @ 400 mls/hr IV Q6H [facility] Stop: 04/13/23 02:14 Last Infusion: 04/12/23 09:34 Dose: Infused Ondansetron HCl (Ondansetron Hcl 4 Mg/2 Ml Vial) 4 mg IVPUSH Q8H PRN PRN Reason: Nausea and Vomiting Oxycodone HCl (Oxycodone Hcl Er 10 Mg Tab.Er.12h) 10 mg PO BID [facility] Last Admin: 04/12/23 07:50 Dose: 10 mg Oxycodone HCl (Oxycodone Hcl Immed Release 5 Mg Tablet) 10 mg PO Q3H PRN PRN Reason: Pain, Moderate(Pain Scale 4-6) Sodium Chloride (0.9 % Sodium Chloride Flush 3 Ml Syringe) 3 ml IVFLUSH QSHIFT [facility] Last Admin: 04/12/23 08:08 Dose: Not Given Home Medications Medication Instructions Recorded Confirmed Last Taken Type amlodipine 10 mg tablet 10 mg PO DAILY 04/10/23 04/10/23 04/11/23 History atorvastatin 40 mg tablet 40 mg PO DAILY 04/10/23 04/11/23 03/28/23 History Physical Exam Vital Signs and Narrative: Vital Signs: Last Vital Signs Temp 97.3 F 04/12/23 07:38 Pulse 67 04/12/23 07:38 Resp 18 04/12/23 07:38 BP 132/68 04/12/23 07:38 Pulse Ox 100 04/12/23 07:38 O2 Del Method Room Air 04/12/23 07:38 O2 Flow Rate 2 04/11/23 16:36 BMI result Body Mass Index 21.3 Constitutional - Awake and Alert, No apparent distress Eyes - PERRLA, EOMI Cardiovascular - S1S2, RRR, No edema Respiratory - Normal lung expansion, Normal respiratory effort, No respiratory distress, CTA bilaterally Gastrointestinal - NT / ND; +BS; No rebound or guarding Extremities - no calf tenderness bilaterally, no swelling Skin - Warm/Dry Neurological - Alert & oriented x3 Psychological - Appropriate affect Results Labs 04/12/23 06:56 04/12/23 06:56 Labs: Laboratory Results - last 24 hr 04/12/23 06:56 MCV 103.2 H MCH 35.5 H MCHC 34.4 RDW 12.1 Plt Count 204 MPV 10.3 Immature Gran % (Auto) 0.4 Neut % (Auto) 66.5 Lymph % (Auto) 17.8 L [place] % (Auto) 14.7 H Eos % (Auto) 0.3 Baso % (Auto) 0.3 Lymph # (Auto) 1.3 [place] # (Auto) 1.0 Eos # (Auto) 0.0 Baso # (Auto) 0.0 Abs Immat Gran (auto) 0.03 Absolute Neuts (auto) 4.7 Absolute Nucleated RBC 0.000 Nucleated RBC % (auto) 0.0 Anion Gap 13 Estim Creat Clear Calc 73.3 Estimated GFR > 60 Fasting Glucose 96 Calcium 8.6 Assessment and Plan (1) Fracture of proximal end of right humerus: Status: Acute Plan 68 year old female with history of htn,hld admitted to orthopedic surgery for management of right humerus fracture with consult placed to hospitalist service for medical management. #Right humerus fracture - plan per ortho surgery #htn -blood pressures well controlled -continue amlodipine 10mg daily #hld -continue lipitor Thank you for allowing me to participate in this consult. Signing off at this time. Please do not hesitate to call for further questions.
[2023-04-12] MEDS: oxyCODONE HCl Immed Release 5 MG TABLET 10 MG PO ×4 (11:53→21:41)
[2023-04-12 15:51] VITALS: BP 121/65; PULSE 70; RESP 18; TEMP 36.9; O2SAT 97
[2023-04-12 18:59] VITALS: BP 138/74; PULSE 82; RESP 18; TEMP 36.6; O2SAT 99
[2023-04-12] MEDS: 0.9 % Sodium Chloride Flush 3 ML SYRINGE IVFLUSH (20:02)
[2023-04-13] MEDS: oxyCODONE HCl Immed Release 5 MG TABLET 10 MG PO (03:17)
[2023-04-13 03:21] VITALS: BP 125/74; PULSE 79; RESP 18; TEMP 36.6; O2SAT 95
[2023-04-13] MEDS: Acetaminophen 1,000 MG/100 ML PIGGYBACK 400 MG IV (03:23)
[2023-04-13] MEDS: ceFAZolin Sodium/Dextrose,Iso 2 GM/50 ML PIGGYBACK IV (03:43)
[2023-04-13 06:30] LABS: MANUAL DIFF FLAG NO
[2023-04-13 06:37] LABS: Basophils Percent Auto 0.7 % (0-2); Eosinophils Absolute Auto 0.1 X10*3/uL (0.0-0.4); Eosinophils Percent Auto 2.4 % (0-4); Hematocrit 29.8 % (37.0-47.0); Hemoglobin 10.4 g/dl (12.0-16.0); Imm Gran Abs Auto 0.01 X10*3/uL (0.00-0.03); Imm Gran Pct Auto 0.2 % (0.0-0.4); Lymphocytes Absolute Auto 0.8 X10*3/uL (1.2-4.9); Lymphocytes Percent Auto 15.4 % (20-40); Mean Corpuscular HGB Conc 34.9 g/dl (31.0-35.0); Mean Corpuscular Hemoglobin 36.5 pg (27.0-33.0); Mean Corpuscular Volume 104.6 fL (80.0-98.0); Mean Platelet Volume 10.4 fL (9.4-12.3); Monocytes Absolute Auto 0.9 X10*3/uL (0.1-1.2); Monocytes Percent Auto 17.3 % (2-11); Neutrophils Absolute Auto 3.5 x10*3/uL (2.0-8.3); Platelet Count 187 X10*3/uL (160-400); Red Blood Count 2.85 X10*6/uL (4.20-5.50); Red Cell Distribution Width 12.3 % (11.0-16.0); White Blood Count 5.4 X10*3/uL (4.8-10.8)
[2023-04-13 06:52] LABS: Anion Gap 12 (12-20); Blood Urea Nitrogen 7 mg/dL (9-16); Calcium 8.4 mg/dL (8.4-10.2); Carbon Dioxide 26 mmol/L (22-29); Chloride 107 mmol/L (96-108); Creatinine Clr Calc Pharmacy 79.2; Estimated Glomerular Filt Rate > 60; Glucose Fasting 91 mg/dL (60-99); Potassium 3.6 mmol/L (3.3-5.1); Sodium 141 mmol/L (135-145)
[2023-04-13 07:24] VITALS: BP 115/66; PULSE 77; RESP 12; TEMP 36.2; O2SAT 97
[2023-04-13] MEDS: Celecoxib 200 MG CAPSULE PO (08:03)
[2023-04-13] MEDS: oxyCODONE HCl ER 10 MG TAB.ER.12H PO (08:03)
[2023-04-13] MEDS: 0.9 % Sodium Chloride Flush 3 ML SYRINGE IVFLUSH (08:04)
[2023-04-13] MEDS: Docusate Sodium 100 MG CAPSULE PO (08:04)
--- NOTE | 2023-04-13 08:38 | MHC.CM.PN ---
Pt has been medically cleared for DC, no services recommended.
--- NOTE | 2023-04-13 11:10 | PC.NURSE ---
Patient discharged home follow up with ortho - appt scheduled for 04/19, patient educated on importance of wearing sling at all times. Medication retrieved from pharmacy and given back to patient. All questions answered, patient advised to call ortho with any questions. Patient was taken down in wheelchair by hospital employee.
--- NOTE | 2023-04-16 10:52 | W.PM.OPN ---
Operative Note Operative Note Date of Service: 04/11/23 Narrative: Date of Service: 04/11/23 Pre-op diagnosis: right proximal humerus fracture Post-op diagnosis: same Procedure: right proximal humerus ORIF Implants: Amparo Surgeon: Kristofer Butt MD Anesthesia: GETA and regional Was an Annealing Furnace Tender used for this Procedure?: Yes Annealing Furnace Tender: Jennifer Be Estimated blood loss (mL): 200 IV fluids (mL): 1,000 Pathology: none sent Condition: stable Disposition: PACU procedure in detail: Patient was brought to the operating room and placed beach chair on the surgical table. She was prepped and draped in standard sterile fashion and a time out was called to identify proper site, proper procedure and IV antibiotics per weight were administered. Patient was brought to the operating room and placed in the beach chair position on the surgical table. The limb was prepped and draped in standard sterile fashion and a time out was called to identify proper site, proper procedure and IV antibiotics per weight were administered. I began by making a deltopectoral incision from the coracoid to the pectoralis insertion.? Blunt dissection identified the cephalic vein which was retracted laterally.? Blunt dissection was taken down to the subscapularis. I then bluntly dissected under the deltoid. The humeral head was displaced and rotated 180 deg. I placed a large steinmen pin through the head and reduced the head using direct visualization and biplanar fluoro. Once I was satisfied that the calcar and neck shaft angle had been restored a proximal humerus locking plate was selected. The lesser was retracted with the subscapularis attached. Using biplanar fluoro I placed 3 bicortical shaft screws and 7 screws into the head using standard AO technique. I was satisfied weith the stability and alignement. I then irrigated and repaired the subscapularis/lesser with fiberwire.? I closed in a layered fashion with absorbable suture and jorge and the patient was placed in a sterile dressing and an abduction sling.? She was extubated brought to recovery room stable condition there were no known complications.
== END 2023-04-13 11:12 | disposition home or self-care (01) ==
LOC: HO.SSS 09:27 → HO.S3 16:02
PROVIDERS: Physician Assistant; PCP Internal Medicine; Visit Provider Orthopaedic Surgery
PROC: (CPT 23615; principal; 2023-04-11 11:50)
DX: S42.201A Unspecified fracture of upper end of right humerus, initial encounter for closed fracture (principal); M85.80 Other specified disorders of bone density and structure, unspecified site; W01.0XXA Fall on same level from slipping, tripping and stumbling without subsequent striking against object, initial encounter; Y93.01 Activity, walking, marching and hiking; Y92.89 Other specified places as the place of occurrence of the external cause; Y99.8 Other external cause status; I10 Essential (primary) hypertension; E78.00 Pure hypercholesterolemia, unspecified; Z79.899 Other long term (current) drug therapy
CPT/HCPCS: 23615; 36415; 80048; 85025; 97166; 97535; 99024; C1713; J0131; J0665; J0690; J1100; J1170; J2250; J2371; J2405; J2704; J3010; J7120

== ENCOUNTER → 2023-04-11 09:25 | Outpatient (BNV) | payer MEDICARE, OTHER, SELFPAY | PROVIDERS: PCP Internal Medicine; Visit Provider Physician Assistant | DX: S42.201A Unspecified fracture of upper end of right humerus, initial encounter for closed fracture (principal) | CPT/HCPCS: 99222 ==

== ENCOUNTER → 2023-04-11 09:25 | Outpatient (BNV) | payer MEDICARE, OTHER, SELFPAY | PROVIDERS: PCP Internal Medicine; Visit Provider Orthopaedic Surgery | DX: S42.201A Unspecified fracture of upper end of right humerus, initial encounter for closed fracture (principal) | CPT/HCPCS: 23615; 99024 ==

== ENCOUNTER 2023-04-19 13:47 | Outpatient (REF) | payer MEDICARE, OTHER, SELFPAY ==
--- NOTE | ~2023-04-19 | XR_ITS ---
EXAMINATION: XR SHOULDER, RIGHT CLINICAL INFORMATION: Pain COMPARISON: 04/07/2023 TECHNIQUE: AP view of the right shoulder. FINDINGS: Surgical skin jorge now seen about the right shoulder. There has been ORIF of displaced right humeral neck fracture. Side plate and screws are now seen with improved alignment of the fracture fragments. 7 mm displacement is seen medial aspect of the fracture site. Free bony fragment identified medially. Humeral head remains seated in the glenoid. Air identified superior to the humeral head. Acromioclavicular joint space narrowing and demineralization. Degenerative changes thoracic spine. Surgical skin jorge seen about the XR/XR shoulder RT min 2V IMPRESSION: Right shoulder ORIF. Air identified superior to the right humeral head following surgery 04/11, infected nature not excluded, correlate clinically.
== END 2023-04-19 13:48 | disposition home or self-care (01) ==
LOC: HO.HOSX 13:47
PROVIDERS: Visit Provider Physician Assistant
DX: M25.511 Pain in right shoulder (principal)
CPT/HCPCS: 73030

== ENCOUNTER 2023-04-20 14:04 | Outpatient (AMB) | payer OTHER, SELFPAY ==
--- NOTE | 2023-04-20 14:24 | A.OFFVIS_ITS ---
Intake Intake Visit Reasons: PO-Rt Humerus ORIF 04/11/23 NE Intake Note: Yamilet 68 year old female presents today for a post operative right humerus ORIF on 04/11/23 NE. Patient reports she is doing well, her pain improves daily. She has concerns of lump on the underside of arm. Allergies No Known Allergies [No Known Allergies*] Allergy (Verified 04/20/23 14:26) HPI PO-Rt Humerus ORIF 04/11/23 NE HPI Details 68-year-old female who returns to the [facility] today for post-op right humerus ORIF, 04/11/[address] Butt. She states she has improvement in her pain everyday and is doing well overall. She also c/o a lump on the underside of her arm. She has no other concerns today. [facility] Medical History Hypercholesterolemia HTN (hypertension) Surgical History History of foot surgery Social History Household Members: None Housing: House Do you presently have visiting nurse or other home services: No Alcohol intake: current Comment: counts correct Patient Tobacco Use Status: Never used Tobacco Current occupational status: retired Current occupation: right hand dominant Review of Systems Const All systems reviewed & are unremarkable except as noted in HPI and below Physical Exam Extrem Other: Right shoulder: Incision clean, dry and intact. No erythema or drainage. Sensation is intact. She does have a baseball size hematoma along the bicep region of the shoulder. Results Reviewed Results Reviewed: Xrays were obtained in the office today and personally reviewed by me of the right shoulder show intact hardware with stable fracture pattern Assessment & Plan Assessment & Plan (1) Fracture of proximal end of right humerus: Code(s): S42.201A - Unspecified fracture of upper end of right humerus, initial encounter for closed fracture Qualifiers: Encounter type: subsequent encounter Fracture type: closed Fracture morphology: other fracture Fracture alignment: displaced Fracture healing: with routine healing Qualified Code(s): S42.291D - Other displaced fracture of upper end of right humerus, subsequent encounter for fracture with routine healing Plan Ankita removed today, steri strips applied. She will continue working with her home exercises, no activation of RTC muscles at this time. She will work on scapular and postural training. I would like to see her back in 4 weeks with new x-rays, sooner if needed. Orders: Orders XR shoulder RT min 2V Today M25.511 - Pain in right shoulder Patient Instructions: Scribed for Jennifer Be PA-C, by Kris Conn medical doctor md/medical director, on 04/20/2023 at 2:15 PM EST. Jennifer Fonseca PA-C, have personally reviewed and agree with the information entered by the scribe. Coding Level of Care Code Global (06132) Diagnoses Other closed displaced fracture of proximal end of right humerus with routine healing, subsequent encounter S42.291D Encounter type: subsequent encounter Fracture type: closed Fracture morphology: other fracture Fracture alignment: displaced Fracture healing: with routine healing
== END 2023-04-20 14:53 | disposition home or self-care (01) ==
PROVIDERS: Referring Provider Physician Assistant; Visit Provider Physician Assistant
DX: S42.291D Other displaced fracture of upper end of right humerus, subsequent encounter for fracture with routine healing (principal)
CPT/HCPCS: 99024

== ENCOUNTER → 2023-04-20 14:04 | Outpatient (BNVA) | payer OTHER, SELFPAY | PROVIDERS: Visit Provider Physician Assistant | DX: S42.291D Other displaced fracture of upper end of right humerus, subsequent encounter for fracture with routine healing (principal) | CPT/HCPCS: 99212 ==

== ENCOUNTER 2023-05-22 07:02 | Outpatient (REF) | payer MEDICARE, OTHER, SELFPAY ==
--- NOTE | ~2023-05-22 | XR_ITS ---
EXAMINATION: XR SHOULDER, RIGHT CLINICAL INFORMATION: Pain. COMPARISON: Prior radiographs, most recently 04/21/2023. TECHNIQUE: AP neutral and scapular Y views of the right shoulder are submitted. FINDINGS: There is bony demineralization. An intact orthopedic fixator plate and fixator screws are applied to the proximal right humerus, without hardware failure or loosening noted. There is stable alignment of healing fracture of the right humeral neck. The glenohumeral joint is intact. The acromioclavicular and coracoclavicular intervals are normal. There is mild osteoarthritic change of the acromioclavicular joint. No soft tissue calcification or foreign body is seen. There is no right pneumothorax. XR/XR shoulder RT min 2V IMPRESSION: There is well-maintained alignment of a right humeral neck fracture status-post ORIF. No hardware failure or loosening is seen.
== END 2023-05-22 07:03 | disposition home or self-care (01) ==
LOC: HO.HOSX 07:02
PROVIDERS: Visit Provider Orthopaedic Surgery
DX: S42.291D Other displaced fracture of upper end of right humerus, subsequent encounter for fracture with routine healing (principal)
CPT/HCPCS: 73030; 99212

== ENCOUNTER 2023-05-22 09:37 | Outpatient (AMB) | payer OTHER, MEDICARE, SELFPAY ==
--- NOTE | 2023-05-22 08:24 | A.OFFVIS_ITS ---
Intake Intake Visit Reasons: PO-Rt Humerus ORIF 04/11/23 NE-w/xray Intake Note: Yamilet is a 68 year old female who presents to the office today for a PO Rt Humerus ORIF 04/11/23. Pt states she is feeling well and states she doesn't have to much pain. Pt states she only takes ibuprofen when neccessary. Accompanied by: Friend Allergies No Known Allergies [No Known Allergies*] Allergy (Verified 05/22/23 09:45) HPI PO-Rt Humerus ORIF 04/11/23 NE-w/xray HPI Details 6 weeks s/p ORIF right proximal humerus She says she is doing well and has only minimal pain. She takes Ibuprofen prn for her pain PFSH Medical History Hypercholesterolemia HTN (hypertension) Surgical History (Updated 05/22/23 @ 09:59 by Tiera Avendano MA) History of open reduction and internal fixation (ORIF) procedure (04/11/23) History of foot surgery Social History Household Members: None Housing: House Do you presently have visiting nurse or other home services: No Alcohol intake: current Comment: counts correct Patient Tobacco Use Status: Never used Tobacco Current occupational status: retired Current occupation: right hand dominant Review of Systems Const All systems reviewed & are unremarkable except as noted in HPI and below Physical Exam Const General: no acute distress, alert and awake Orientation/consciousness: patient oriented x3 HEENT Head: Yes normocephalic and Yes atraumatic Eyes EOM: EOMs intact bilaterally Resp Effort & Inspection: normal respiratory effort and able to speak in complete sentences Cardio Jugular venous distension: no JVD Skin General skin exam: turgor normal Rashes: no rashes Neuro General: patient oriented x3 Extrem Other: inc c/d/i SILT lateral deltoid Psych Appearance: grossly normal Affect: normal affect Attitude: cooperative Results Reviewed Results Reviewed: I personally reviewed relevant radiographs. S/p ORIF right prox humerus. Healing fracture. No hardware complications Assessment & Plan Assessment & Plan (1) Fracture of proximal end of right humerus: Code(s): S42.201A - Unspecified fracture of upper end of right humerus, initial encounter for closed fracture Qualifiers: Encounter type: subsequent encounter Fracture alignment: displaced Fracture healing: with routine healing Fracture morphology: other fracture Fracture type: closed Qualified Code(s): S42.291D - Other displaced fracture of upper end of right humerus, subsequent encounter for fracture with routine healing Plan: 6 weeks s/p ORIF right proximal humerus. PT for ROM NO resistance f/u 6 weeks Plan Prepared for Kristofer Butt MD by Hira Lim, medical technologist chemistry, on 05/22/23 at 8:55 AM, EST. Orders: Orders XR shoulder RT min 2V Today M25.519 - Pain in unspecified shoulder PT Evaluation and Treatment Today S42.201A - Unspecified fracture of upper end of right humerus, initial encounter for closed fracture Coding Level of Care Code Global (63856) Diagnoses Other closed displaced fracture of proximal end of right humerus with routine healing, subsequent encounter S42.291D Encounter type: subsequent encounter Fracture alignment: displaced Fracture healing: with routine healing Fracture morphology: other fracture Fracture type: closed
== END 2023-05-22 10:21 | disposition home or self-care (01) ==
PROVIDERS: Referring Provider Orthopaedic Surgery; Visit Provider Orthopaedic Surgery
DX: S42.291D Other displaced fracture of upper end of right humerus, subsequent encounter for fracture with routine healing (principal)
CPT/HCPCS: 99024

== ENCOUNTER 2023-07-03 08:14 | Outpatient (AMB) | payer MEDICARE, SELFPAY ==
--- NOTE | 2023-07-03 08:17 | MHC.OFFVIS ---
Intake Vital Signs 07/03/23 08:27 Height 5 ft 5 in Weight 125 lb BMI 20.8 Handedness Right Intake Visit Reasons: PO-Rt Humerus ORIF 04/11/23 NE-w/xray Intake Note: Yamilet 68 year old right hand dominant female presents today for a post operative visit s/p right humerus ORIF on 04/11/23 NE. Patient reports she is showing improvement with PT. Her ROM is limited and is experiencing pain with over head movement. Allergies No Known Allergies [No Known Allergies*] Allergy (Verified 07/03/23 08:27) HPI PO-Rt Humerus ORIF 04/11/23 NE-w/xray HPI Details Yamilet 68 year old right hand dominant female presents today for a post operative visit s/p right humerus ORIF on 04/11/23 NE. Patient reports she is showing improvement with PT. Her ROM is limited and is experiencing pain with over head movement. [facility] Medical History Hypercholesterolemia HTN (hypertension) Surgical History History of open reduction and internal fixation (ORIF) procedure (04/11/23) History of foot surgery Social History Household Members: None Housing: House Do you presently have visiting nurse or other home services: No Alcohol intake: current Comment: counts correct Patient Tobacco Use Status: Never used Tobacco Current occupational status: retired Current occupation: right hand dominant Physical Exam Vital Signs: BMI result Body Mass Index 20.8 Extrem Other: 25 deg abduction 10 deg ER No pain Well healed incision Results Reviewed Results Reviewed: I personally reviewed relevant radiographs. Healing right proximal humerus fracture No hardware complications Assessment & Plan Assessment & Plan (1) Fracture of proximal end of right humerus: Code(s): S42.201A - Unspecified fracture of upper end of right humerus, initial encounter for closed fracture Qualifiers: Encounter type: subsequent encounter Fracture type: closed Fracture morphology: other fracture Fracture alignment: displaced Fracture healing: with routine healing Qualified Code(s): S42.291D - Other displaced fracture of upper end of right humerus, subsequent encounter for fracture with routine healing Plan: Continue PT F/u 2 months Orders: Orders XR humerus RT Today S42.291D - Other displaced fracture of upper end of right humerus, subsequent encounter for fracture with routine healing Coding Level of Care Code Global (36540) Diagnoses Other closed displaced fracture of proximal end of right humerus with routine healing, subsequent encounter S42.291D Encounter type: subsequent encounter Fracture type: closed Fracture morphology: other fracture Fracture alignment: displaced Fracture healing: with routine healing
[2023-07-03 08:27] VITALS: BMI 20.8
== END 2023-07-03 08:47 | disposition home or self-care (01) ==
PROVIDERS: PCP Student in an Organized Health Care Education/Training Program; Visit Provider Orthopaedic Surgery
DX: S42.291D Other displaced fracture of upper end of right humerus, subsequent encounter for fracture with routine healing (principal)
CPT/HCPCS: 99024

== ENCOUNTER 2023-07-03 09:55 | Outpatient (REF) | payer MEDICARE, OTHER, SELFPAY ==
--- NOTE | ~2023-07-03 | XR_ITS ---
EXAMINATION: XR HUMERUS, RIGHT CLINICAL INFORMATION: ORIF. Fracture. COMPARISON: Most recent right shoulder radiographs dated 05/22/2023. TECHNIQUE: AP and lateral views of the right humerus. FINDINGS: Lateral stabilization plate with fixation screws at the proximal humerus. No hardware fracture. No perihardware lucency to suggest loosening or infection. Redemonstration of a comminuted proximal humeral fracture in unchanged anatomic alignment when compared to prior radiographs. Exact degree of osseous bridging is difficult to evaluate on plain radiographs, however, there appears to be increased sclerosis in the region of the fracture line, likely indicating interval healing. No new fracture or dislocation. No concerning lytic or blastic osseous lesion. XR/XR humerus RT IMPRESSION: 1. Proximal humeral ORIF without evidence of hardware complication. 2. Comminuted proximal humeral fracture in unchanged anatomic alignment with increased sclerosis in the region of the fracture line, likely indicating interval healing.
== END 2023-07-03 09:56 | disposition home or self-care (01) ==
LOC: HO.HOSX 09:55
PROVIDERS: Visit Provider Orthopaedic Surgery
DX: S42.291D Other displaced fracture of upper end of right humerus, subsequent encounter for fracture with routine healing (principal); X58.XXXD Exposure to other specified factors, subsequent encounter
CPT/HCPCS: 73060; 99212

== ENCOUNTER 2023-09-12 08:00 | Outpatient (RCR) | payer MEDICARE, OTHER, SELFPAY ==
--- NOTE | 2023-06-07 09:38 | MHC.PT.EP ---
[facility] [place] Office [place] Office [place] Office [address] John Gaspar [address] [phone] F: [phone] F: [phone] F: [phone] F: [phone] Physical Therapy Plan of Care Date of Evaluation: 06/07/23 Date of Surgery: 04/11/23 Diagnosis: unspecified fracture of upper end of right humerus s/p R proximal humerus fracture (No resistance for 6 weeks, ROM as tolerated) Assessment: Patient is a 68 year old R handed female who presents with s/s consistent with s/p R humerus fracture, ORIF performed on 04/11/23. She does not work but does like to be active in the community and social with friends. Patient past medical history is non-contributory. Current impairments include pain, posture, ROM, strength, activity tolerance and functional mobility. Functional limitations include decreased ability to sleep, dress, push, pull, lift and perform all activities with R UE. Patient is motivated with good rehab potential. Skilled PT will address impairments and functional limitations in order to achieve goals. Frequency and Duration: The patient will be seen 2x/week for 8 weeks Short Term Goals: I with HEP - 2 weeks AAROM flexion and scaption 100 - 4 weeks ER 40 - 4 weeks IR 40 - 4 weeks Initiate strength program - 4 weeks Dock Clerk Goals: AROM flexion and scaption - 120 - 8 weeks SPADI 30/130 or better - 8 weeks Strength 4/5 grossly - 8 weeks ER and IR AROM 55 - 8 weeks Pain free sleep - 8 weeks Treatment Plan: Modalities to reduce pain, spasms and effusion. Manual therapy to restore motion and function. Therapeutic exercise to improve strength and flexibility. Neuromuscular re-education for posture and balance. Therapeutic activities to return to functional activities of daily living. Electronically signed by: Zoran Samano, PT Please sign and return to therapist. Thank you for your referral.
--- NOTE | 2024-01-04 09:52 | MHC.PT.DC ---
[facility] [place] Office [place] Office [place] Office [address] John Gaspar [address] [phone] F: [phone] F: [phone] F: [phone] F: [phone] Physical Therapy Discharge Report Diagnosis: unspecified fracture of upper end of right humerus s/p R proximal humerus fracture (No resistance for 6 weeks, ROM as tolerated) Date of Surgery: 04/11/23 Date of Evaluation: 06/07/23 Date of Discharge: 10/16/23 Treatments to Date: 25 Cancellations to Date: No Shows to Date: Discharge Status: Independent with HEP Patient Elected to Stop Recommend MD Follow-up Discharge Summary: 09/11; Pt likes KT. Pt has 1 remaining visits and will be discharged NV to cont with HEP and f/u with MD. 09/06; Pt c/o sharp pain today with PB flexion modified angle to robert. Pt subs UT for RTC and deltoid muscle. Pt has 2 regina visits remianing. 09/04; Pt exs daily. Pt able to A flex sh 45 flexion. 08/28; Pt conts with working hard with HEP. Pt has slowly improved with function. 08/23; Pt is able to A abd 45 degrees and s/l A to 90 degrees. 5.23; Pt has laxity in AC ligament. KT decreases cracking with 3 strips. Pt working hard with HEP.08/15/23: pt has been progressing slowly still. seemingly discouraged with slow progress. we did discuss options for plan moving forward. pt and PT will discern. 08/09; Pt wasn't able to A perform shelf stack initially, but was able to for a few reps at the end. Pt likes KT. Pt had palpable cracking with movement. DC UB due to it. 08/02; Pt had less cracking with KT. Pt was able to A s/l abd to 90 without assist. 07/31; Pt had less cracking when I stabilized GH head with my hand.Pt was able to A hold her sh for longer periods of time with A/AA exs. 07/26; Pt has a lot of crunching with movement. Trial KT today. Pt was able to A flex and abd sh a little better after working it. 07/24; Pt conts with dif with A ROM. Pt progressed with A/AA and passive exs. 07/20/23: pt progressing slowly. encouraged her much today. updated HEP and issued bands. 07/17; Pt c/o clicking in jt with pulleys. Pt compensated with sh flex and abd. Needed v/c to keep elbow straight. Pt fatigued after exs and reported increased soreness. Pt 07/13/23: pt still have difficulty with ORM due to pain. we discussed this at length. we will intiate strength NV. 07/06/23: pt having difficulty progressing ROM through HEP limited by pain. we did not achieve ROM progress today as pt was more painful than normal. We will continue to pursue this next visit. 07/04/23: pt progressing well with skilled PT. no adverse reactions. ROM is improving with ER but slowly. pt required encouragement with ex and rehab process today. 06/29/23: due to increased soreness since last visit, we have been unable to progress today. we will attempt NV. encouraged her to continue HEP as able. 06/27/23: pt progressing well with skilled PT. no adverse reactions. AAROM flexion to 92. 06/22/23: ER to 24. Flexion to 85. Continue to progress. responded well, improved ROM with PROM today. 06/20/23: PROM abd improving. encouraged pt 1-2 degrees every day for ROM gains. we will continue to progress ROM. still fighting significant compensatory patterns. Responded well to manual intervention today. we will continue to progress ROM as tolerated with pain management. Electronically signed by: Zoran Samano, PT Please sign and return to therapist. Thank you for your referral.
== END 2024-01-04 09:52 | disposition home or self-care (01) ==
LOC: HO.PTCHIC 08:00
PROVIDERS: PCP Student in an Organized Health Care Education/Training Program; Visit Provider Orthopaedic Surgery
DX: S42.201A Unspecified fracture of upper end of right humerus, initial encounter for closed fracture (principal)
CPT/HCPCS: 97110; 97140; 97161

== ENCOUNTER 2023-10-30 08:14 | Outpatient (AMB) | payer MEDICARE, OTHER, SELFPAY ==
[2023-10-30 08:15] VITALS: BMI 20.8
--- NOTE | 2023-10-30 08:15 | MHC.OFFVIS ---
Vital Signs 10/30/23 08:15 Height 5 ft 5 in Weight 125 lb BMI 20.8 Intake Visit Reasons: ov-Rt Humerus ORIF 04/11/23 NE Intake Note: Yamilet 68 year old right hand dominant female presents today for a post operative visit s/p right humerus ORIF on 04/11/23. Patient reports that she has some mild pain with significant zaps of pain. Her ROM is significantly limited and she has been discharged from PT. Allergies No Known Allergies [No Known Allergies*] Allergy (Verified 07/03/23 08:27) HPI HPI ov-Rt Humerus ORIF 04/11/23 NE: Details: Yamilet 68 year old right hand dominant female presents today for a post operative visit s/p right humerus ORIF on 04/11/23. Patient reports that she has some mild pain with significant zaps of pain. Her ROM is significantly limited and she has been discharged from PT. [facility] Medical History Hypercholesterolemia HTN (hypertension) Surgical History History of open reduction and internal fixation (ORIF) procedure (04/11/23) History of foot surgery Social History Household Members: None Housing: House Do you presently have visiting nurse or other home services: No Alcohol intake: current Comment: counts correct Patient Tobacco Use Status: Never used Tobacco Current occupational status: retired Current occupation: right hand dominant Physical Exam Vital Signs: BMI result Body Mass Index 20.8 Extrem Other: 0 deg ER + drop arm passive abd to 70 with pain Results Reviewed Results Reviewed: I personally reviewed relevant radiographs. Right humeral head collapse with protruding hardware Assessment & Plan Assessment & Plan (1) Fracture of proximal end of right humerus: Code(s): S42.201A - Unspecified fracture of upper end of right humerus, initial encounter for closed fracture Category: Medical Qualifiers: Encounter type: subsequent encounter Fracture type: closed Fracture morphology: other fracture Fracture alignment: displaced Fracture healing: with routine healing Qualified Code(s): S42.291D - Other displaced fracture of upper end of right humerus, subsequent encounter for fracture with routine healing Plan: This is a 68-year-old woman who is proximally 6 months status post ORIF right proximal humerus fracture. 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 I recommend reverse total shoulder arthroplasty. She is young and active and healthy and has limited motion with pain. I discussed this with her. I explained the procedure to her. She would like to proceed forward. We will initiate our preoperative process. I discussed the risks benefits and alternatives including but not limited to the risk of pain, infection, stiffness, need for further surgery as well as potential medical complications such as blood clots, pulmonary embolism and cardiac complications. Orders: Orders XR shoulder RT min 2V Today M25.519 - Pain in unspecified shoulder Coding Level of Care Code Est Pt Level 4 (76364) Diagnoses Other closed displaced fracture of proximal end of right humerus with routine healing, subsequent encounter S42.291D Encounter type: subsequent encounter Fracture type: closed Fracture morphology: other fracture Fracture alignment: displaced Fracture healing: with routine healing
== END 2023-10-30 09:19 | disposition home or self-care (01) ==
PROVIDERS: PCP Student in an Organized Health Care Education/Training Program; Visit Provider Orthopaedic Surgery
DX: S42.291D Other displaced fracture of upper end of right humerus, subsequent encounter for fracture with routine healing (principal)
CPT/HCPCS: 99213

== ENCOUNTER 2023-10-30 08:14 | Outpatient (REF) | payer MEDICARE, OTHER, SELFPAY ==
--- NOTE | ~2023-10-30 | XR_ITS ---
EXAMINATION: XR SHOULDER, RIGHT CLINICAL INFORMATION: Shoulder pain COMPARISON: Shoulder radiographs 05/22/2023 and humerus radiographs for a 24 TECHNIQUE: Three views of the right shoulder. FINDINGS: Again seen is an ORIF of a fracture of the proximal humerus in similar alignment with persistent lucency along the fracture margins in the humeral head. Clavicle appears mildly superiorly subluxed with respect to the acromion similar to prior. No evidence of hardware fracture or complication. Soft tissues are unremarkable. XR/XR shoulder RT min 2V IMPRESSION: 1. Again seen is an ORIF of a fracture of the proximal humerus in similar alignment with persistent lucency along the fracture margins in the humeral head. 2. Clavicle appears mildly superiorly subluxed with respect to the acromion similar to prior.
== END 2023-10-30 08:15 | disposition home or self-care (01) ==
LOC: HO.HOSX 08:14
PROVIDERS: PCP Student in an Organized Health Care Education/Training Program; Visit Provider Orthopaedic Surgery
DX: S42.291D Other displaced fracture of upper end of right humerus, subsequent encounter for fracture with routine healing (principal); X58.XXXD Exposure to other specified factors, subsequent encounter
CPT/HCPCS: 73030; 99212

== ENCOUNTER → 2023-12-01 10:50 | Outpatient (BNVA) | payer MEDICARE, OTHER, SELFPAY | PROVIDERS: PCP Student in an Organized Health Care Education/Training Program | DX: Z01.818 Encounter for other preprocedural examination (principal) ==

== ENCOUNTER 2023-12-21 09:28 | Outpatient (AMB) | payer MEDICARE, OTHER, SELFPAY ==
--- NOTE | 2023-12-21 09:42 | A.OFFVIS_ITS ---
Vital Signs 12/21/23 09:45 Height 5 ft 5 in Weight 125 lb BMI 20.8 Intake Visit Reasons: Pre-Op: R Reverse TSA w/NE 12/26/23 Intake Note: Yamilet a 68 year old female who presents today for a preoperative right reverse TSA, DOS 12/26/23. Pain management agreement reviewed and signed. Allergies No Known Allergies [No Known Allergies*] Allergy (Verified 12/21/23 09:45) Medication List - Last Reconciled 12/21/23 by Jennifer Be PA-C acetaminophen (Tylenol Extra Strength) 500 mg PO Q6H PRN amlodipine 10 mg PO DAILY atorvastatin 40 mg PO DAILY doxycycline hyclate 50 mg PO DAILY valacyclovir 500 mg PO BID HPI Comments Details: Ms Taylor is a 68-year-old female who is approximately 8 months status post ORIF right proximal humerus fracture. 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 She is young and active and healthy and has limited motion with pain which is affecting her qualify of life; therefore, she has elected to move forward with surgery. [facility] Medical History Hypercholesterolemia HTN (hypertension) Surgical History History of open reduction and internal fixation (ORIF) procedure (04/11/23) History of foot surgery Social History Household Members: None Housing: House Do you presently have visiting nurse or other home services: No Alcohol intake: current Comment: counts correct Patient Tobacco Use Status: Never used Tobacco Current occupational status: retired Current occupation: right hand dominant Review of Systems Const All systems reviewed & are unremarkable except as noted in HPI and below Physical Exam Vital Signs: BMI result Body Mass Index 20.8 Const General: cooperative, healthy appearing, comfortable, no acute distress, well developed and alert Orientation/consciousness: patient oriented x3 HEENT Head: Yes normal to inspection, Yes normocephalic and Yes atraumatic Eyes General: appearance normal, both eyes and all related structures Neck Neck: Yes normal visual inspection and Yes no lymphadenopathy Resp Effort & Inspection: normal respiratory effort and able to speak in complete sentences Cardio Rate: regular rate Peripheral pulses: Peripheral pulses 2+ throughout GI Inspection: Yes normal to inspection Palpation (GI): Soft to palpation Skin General skin exam: no rashes or lesions noted Neuro General: patient oriented x3 Extrem Other: 0 deg ER + drop arm passive abd to 70 with pain Psych Appearance: grossly normal Mental Status: mental status grossly normal Assessment & Plan Assessment & Plan (1) Fracture of proximal end of right humerus: Code(s): S42.201A - Unspecified fracture of upper end of right humerus, initial encounter for closed fracture Category: Medical Qualifiers: Encounter type: subsequent encounter Fracture alignment: displaced Fracture healing: with routine healing Fracture morphology: other fracture Fracture type: closed Qualified Code(s): S42.291D - Other displaced fracture of upper end of right humerus, subsequent encounter for fracture with routine healing Plan I discussed in detail the procedure and what to expect pre and post operatively.?I discussed the risks benefits and alternatives including but not limited to the risk of pain, infection, stiffness, need for further surgery as well as potential medical complications such as blood clots, pulmonary embolism and cardiac complications. ? I?ve answered all questions and with their understanding they have consented to move forward with Removal hardware right shoulder with right reverse total sh oulder arthroplasty with Dr. Butt The patient was fit for a sling in the office today. Patient Instructions: Scribed for Jennifer Be PA-C, by Kris Conn diagnostic medical sonographer, on 12/21/2023 at 9:45 AM EST.? I, Jennifer Be PA-C, have personally reviewed and agree with the information entered by the scribe. Coding Level of Care Code Est Pt Level 3 (27626) Complex EM visit Add On G2211 Diagnoses Other closed displaced fracture of proximal end of right humerus with routine healing, subsequent encounter S42.291D Encounter type: subsequent encounter Fracture alignment: displaced Fracture healing: with routine healing Fracture morphology: other fracture Fracture type: closed
[2023-12-21 09:45] VITALS: BMI 20.8
== END 2023-12-21 10:09 | disposition home or self-care (01) ==
PROVIDERS: PCP Student in an Organized Health Care Education/Training Program; Visit Provider Physician Assistant
DX: S42.291D Other displaced fracture of upper end of right humerus, subsequent encounter for fracture with routine healing (principal)
CPT/HCPCS: 99024

== ENCOUNTER → 2023-12-21 09:28 | Outpatient (BNVA) | payer MEDICARE, OTHER, SELFPAY | PROVIDERS: PCP Student in an Organized Health Care Education/Training Program; Visit Provider Physician Assistant | DX: Z01.818 Encounter for other preprocedural examination (principal); S42.291D Other displaced fracture of upper end of right humerus, subsequent encounter for fracture with routine healing; X58.XXXD Exposure to other specified factors, subsequent encounter | CPT/HCPCS: 99212 ==

== ENCOUNTER 2023-12-25 10:09 | Outpatient (REF) | payer MEDICARE, OTHER, SELFPAY ==
--- NOTE | ~2023-12-25 | CT_ITS ---
EXAMINATION: CT SHOULDER WITHOUT CONTRAST, RIGHT CLINICAL INFORMATION: Preoperative evaluation. ORIF. Fracture. COMPARISON: Multiple priors, most recent right shoulder radiographs dated 10/30/2023. TECHNIQUE: Contiguous axial CT images of the right shoulder were obtained without contrast. Multiplanar reformats were provided and reviewed. This CT examination was performed using dose optimization techniques as appropriate, variously including the following: *Automated exposure control *Adjustment of mA and/or kV according to patient size (this includes techniques or standardized protocols for targeted exams where dose is matched to indication/reason for exam; i.e. extremities or head) *Use of iterative reconstruction technique DLP: 220 mGy-cm FINDINGS: Redemonstration of a chronic proximal humeral fracture with a lateral stabilization plate and fixation screws. No hardware fracture. No perihardware lucency to suggest loosening or infection. There is a dominant oblique component through the humeral neck with partial osseous bridging ventrally involving approximately 20 percent of the fracture surface. The persistent fracture gap measures up to 0.7 cm medially. Cortical step-off along the superior aspect of the comminuted fracture measures up to 1.0 cm with one of the orthopedic screws extending into the superior joint space. Severe posterior glenohumeral joint space narrowing with moderate marginal osteophytes. Mild bony remodeling of the posterior glenoid with mild retroversion. The glenoid depth measures approximately 1.8 cm. Small glenohumeral joint effusion. No soft tissue mass or fluid collection. No axillary lymphadenopathy. Somewhat nodular areas of linear densities throughout the periphery of the right lung in the subpleural space with associated calcifications. This extends along the right major fissure. Grossly intact rotator cuff tendons; however, evaluation limited on CT examination. CT/CT shoulder RT wo IV con IMPRESSION: 1. Redemonstration of a chronic proximal humeral fracture with a lateral stabilization plate and fixation screws. No evidence of hardware complication. There is partial osseous bridging ventrally involving approximately 20 percent of the fracture surface. The persistent fracture gap measures up to 0.7 cm medially. Cortical step-off along the superior aspect of the comminuted fracture measures up to 1.0 cm with one of the orthopedic screws extending into the superior joint space. 2. Severe glenohumeral osteoarthritis with mild bony remodeling of the posterior glenoid and mild retroversion. Small glenohumeral joint effusion. 3. Somewhat nodular areas of linear densities throughout the periphery of the right lung with associated calcifications. This extends along the right major fissure. Dedicated CT chest could help further evaluate if clinically indicated. Electronically signed by: Brian Oh MD 12/27/2023 12:00 PM EDT RP
== END 2023-12-25 10:10 | disposition home or self-care (01) ==
LOC: HO.CT 10:09
PROVIDERS: PCP Student in an Organized Health Care Education/Training Program; Visit Provider Physician Assistant
DX: M12.811 Other specific arthropathies, not elsewhere classified, right shoulder (principal)
CPT/HCPCS: 73200

== ENCOUNTER 2024-01-03 06:06 | Day surgery (SDC) | payer MEDICARE, OTHER, SELFPAY ==
[2023-12-22 09:56] VITALS: BP 165/86; PULSE 84; RESP 16; O2SAT 98; BMI 20.8
--- NOTE | 2023-12-22 10:20 | P.CONAN_ITS ---
Documented by User: Mare Randhawa NP 01/02/24 10:23 HPI - Anesthesia Eval Consult details Narrative: 68yo F for Right REVERSE Shoulder Total Arthroplasty, 01/03/24 s/p R humerus ORIF 03/2023 with GA-ETT 7 and block - no issues per patient Medically optimized No recent illness No CP/SOB with walking ~ 1 hour daily PMFSH Active Problems Active Problems: All Active Problems Osteopenia (Acute) Fracture of proximal end of right humerus (Acute) Past Medical History Medical History Hx of cold sores Hx of rosacea Osteoporosis Arthritis Hypercholesterolemia HTN (hypertension) Family History Family history of problems with anesthesia: No Surgical History Surgical History Hx of colonoscopy History of open reduction and internal fixation (ORIF) procedure (04/11/23) History of foot surgery History of Problems with Anesthesia: No Social History Social History Household Members: None Housing: House Are you a primary child care attendant to a significant other at home: No Do you presently have visiting nurse or other home services: No (supportive friends) Alcohol intake: current Comment: counts correct Patient Tobacco Use Status: Former Tobacco user Tobacco use type: Cigarette Smoked in Last 30 Days: No Use of substances other than those prescribed or required for medical reasons: No Have you been hit, kicked, punched, or otherwise hurt by someone within the past year? If so, by whom?: No Spiritual Healthcare Practices: none Mormon Healthcare Practices: none Cultural Healthcare Practices: none Are you DNR?: No Advance Directives: No Advance Directives Information Provided: Yes Advance Directives on File: No Recently lost weight without trying: No Nutrition Risks: No Nutritional Risk Poor oral hygiene: No Current occupational status: retired Current occupation: right hand dominant Meds Allergies Allergy/AdvReac Type Severity Reaction Status Date / Time No Known Allergies Allergy Verified 12/21/23 09:45 [No Known Allergies*] Home Medications ?Medication ?Instructions ?Recorded ?Confirmed ?Last Taken ?Type amlodipine 10 mg tablet 10 mg PO DAILY 04/10/23 12/22/23 01/03/24 History atorvastatin 40 mg tablet 40 mg PO BEDTIME 04/10/23 12/22/23 01/02/24 History doxycycline hyclate 50 mg tablet 50 mg PO DAILY 12/01/23 12/22/23 Unknown History valacyclovir 500 mg tablet 500 mg PO BID 12/01/23 12/22/23 01/03/24 History calcium carbonate 600 mg-vitamin 1 tab PO DAILY 12/22/23 12/22/23 12/20/23 History D3 5 mcg (200 unit) tablet cholecalciferol (vitamin D3) 25 25 mcg PO DAILY 12/22/23 12/22/23 12/20/23 History mcg (1,000 unit) capsule (Vitamin D3) Exam Height,Weight and Vital Signs: Height 5 ft 5 in Weight 56.699 kg Last Vital Signs Pulse 84 12/22/23 09:56 Resp 16 12/22/23 09:56 BP 165/86 H 12/22/23 09:56 Pulse Ox 98 12/22/23 09:56 O2 Del Method Room Air 12/22/23 09:56 Pertinent Lab Results Pertinent Lab Results: CBC and BMP from outside facility WNL Narrative Narrative: EKG NSR Nonspecific ST Airway Mallampati Class: II TM Dist: >3cm Neck ROM: Full Loose/Missing/Broken Teeth: Yes (1 x molar pulled, 2 x crowns) Heart: RRR Lungs: CTAB Assessment and Plan Assessment Anesthesia Assessment: Anesthesia Plan Discussed and PAT Visit Final Anesthetic Review Family History of Problems with Anesthesia: No History of Problems with Anesthesia: No Documented by User: Lo Morley MD 01/03/24 08:09 [facility] Past Medical History Medical History Hx of cold sores Hx of rosacea Osteoporosis Arthritis Hypercholesterolemia HTN (hypertension) Surgical History Surgical History Hx of colonoscopy History of open reduction and internal fixation (ORIF) procedure (04/11/23) History of foot surgery Social History Social History Household Members: None Housing: House Are you a primary child care attendant to a significant other at home: No Do you presently have visiting nurse or other home services: No (supportive friends) Alcohol intake: current Comment: counts correct Patient Tobacco Use Status: Former Tobacco user Tobacco use type: Cigarette Smoked in Last 30 Days: No Use of substances other than those prescribed or required for medical reasons: No Have you been hit, kicked, punched, or otherwise hurt by someone within the past year? If so, by whom?: No Spiritual Healthcare Practices: none Mormon Healthcare Practices: none Cultural Healthcare Practices: none Are you DNR?: No Advance Directives: No Advance Directives Information Provided: Yes Advance Directives on File: No Recently lost weight without trying: No Nutrition Risks: No Nutritional Risk Poor oral hygiene: No Current occupational status: retired Current occupation: right hand dominant Meds Allergies Allergy/AdvReac Type Severity Reaction Status Date / Time No Known Allergies Allergy Verified 12/21/23 09:45 [No Known Allergies*] Home Medications ?Medication ?Instructions ?Recorded ?Confirmed ?Last Taken ?Type amlodipine 10 mg tablet 10 mg PO DAILY 04/10/23 12/22/23 01/03/24 History atorvastatin 40 mg tablet 40 mg PO BEDTIME 04/10/23 12/22/23 01/02/24 History doxycycline hyclate 50 mg tablet 50 mg PO DAILY 12/01/23 12/22/23 Unknown History valacyclovir 500 mg tablet 500 mg PO BID 12/01/23 12/22/23 01/03/24 History calcium carbonate 600 mg-vitamin 1 tab PO DAILY 12/22/23 12/22/23 12/20/23 History D3 5 mcg (200 unit) tablet cholecalciferol (vitamin D3) 25 25 mcg PO DAILY 12/22/23 12/22/23 12/20/23 History mcg (1,000 unit) capsule (Vitamin D3) Assessment and Plan Final Anesthetic Review NPO: Yes ASA Class: III Final Preanesthetic Review: No Changes in Pt Med Stat, Meds/Allgs Chart Reviewed, Consent Obtained/Reviewed and Anes Risks/Benef Reviewed Patient Risk: Intermediate Procedure Risk: Intermediate Anesthetic Plan Anesthetic Plan: GA Disposition: Standard PACU
[2023-12-22 12:03] LABS: MRSA Nasal PCR POSITIVE (Negative); SA Nasal PCR POSITIVE (Negative)
[2024-01-03] VITALS (15 sets, daily range): BP systolic 92–132; BP diastolic 57–80; PULSE 74–88; RESP 16–18; TEMP 36.5–36.9; O2SAT 93–97; BMI 20.5
[2024-01-03] MEDS: Lactated Ringers 1,000 ML 100 ML IVCONT ×3 (06:57→23:54)
[2024-01-03] MEDS: vancomycin HCL 1,000 MG in 0.9 % Sodium Chloride 250 ML 270 MG IV ×2 (07:06→19:50)
--- NOTE | 2024-01-03 07:26 | MHC.SHP ---
Pre-Procedural Eval Section A - 24 Hr Update-Section A only Date of Service: 01/03/24 Section B - Complete if H&P > 30 days Chief Complaint: Rtsa RT Details of Present Illness: failed ORIF Relevant Social History: None Present Medications: see Short Stay Collaborative assessment Medical History: No relevant PMH History of Previous Operations: Relevant previous surgery/procedure and date(s) Allergies: Allergies Allergy/AdvReac Type Severity Reaction Status Date / Time No Known Allergies Allergy Verified 12/21/23 09:45 [No Known Allergies*] Plan Diagnosis/Plan: Unchanged I have reviewed the history and physical and performed a pertinent physical examination on my patient. No changes have occurred unless specified. Removal of hardware and shoulder arthroplasty Time Spent With Patient Time: Total time managing care of this patient today ____ minutes.
--- NOTE | 2024-01-03 14:23 | PHA.MEDREC ---
Pharmacy Consult ? Medication Reconciliation Pharmacy has reviewed the medication reconciliation completed by nursing. Claims match home meds.
--- NOTE | 2024-01-03 15:56 | PM.OP ---
Brief Operative Note Date of Service: 01/03/24 Pre-op diagnosis: Right humeral head avascular necrosis Post-op diagnosis: same Procedure: Reverse TSA Removal of hardware Implants: Tornier rTSA Cerclage x 1 Surgeon: Kristofer Butt MD Anesthesia: GETA and regional Was an Plate Gauger used for this Procedure?: Yes Plate Gauger: Bessie Faustin Estimated blood loss (mL): 250 IV fluids (mL): 1,500 Pathology: other Condition: stable Disposition: PACU
[2024-01-03] MEDS: valACYclovir HCL 500 MG TABLET PO (19:46)
[2024-01-03] MEDS: oxyCODONE HCl ER 10 MG TAB.ER.12H PO (19:46)
[2024-01-03] MEDS: Celecoxib 200 MG CAPSULE PO (19:46)
[2024-01-03] MEDS: Atorvastatin Calcium 40 MG TABLET PO (19:46)
[2024-01-03] MEDS: Docusate Sodium 100 MG CAPSULE PO (19:47)
[2024-01-03] MEDS: oxyCODONE HCl Immed Release 5 MG TABLET PO (23:52)
[2024-01-03] MEDS: Acetaminophen 325 MG TABLET 650 MG PO (23:53)
[2024-01-04 03:11] VITALS: BP 101/61; PULSE 74; RESP 18; TEMP 36.6; O2SAT 95
[2024-01-04] MEDS: HYDROmorphone HCl 0.5 MG/0.5 ML SYRINGE 0.25 MG IVPUSH ×2 (03:20→09:10)
[2024-01-04 06:39] LABS: MANUAL DIFF FLAG NO
[2024-01-04 06:46] LABS: Basophils Percent Auto 0.3 % (0-2); Hematocrit 28.4 % (37.0-47.0); Hemoglobin 9.9 g/dl (12.0-16.0); Imm Gran Abs Auto 0.04 X10*3/uL (0.00-0.03); Imm Gran Pct Auto 0.4 % (0.0-0.4); Lymphocytes Absolute Auto 0.6 X10*3/uL (1.2-4.9); Mean Corpuscular HGB Conc 34.9 g/dl (31.0-35.0); Mean Corpuscular Volume 103.3 fL (80.0-98.0); Mean Platelet Volume 10.3 fL (9.4-12.3); Monocytes Absolute Auto 1.3 X10*3/uL (0.1-1.2); Monocytes Percent Auto 13.3 % (2-11); Neutrophils Absolute Auto 7.9 x10*3/uL (2.0-8.3); Platelet Count 166 X10*3/uL (160-400); Red Blood Count 2.75 X10*6/uL (4.20-5.50); Red Cell Distribution Width 13.1 % (11.0-16.0); White Blood Count 9.8 X10*3/uL (4.8-10.8)
[2024-01-04 06:58] LABS: Anion Gap 11 (12-20); Blood Urea Nitrogen 10 mg/dL (9-16); Calcium 8.6 mg/dL (8.4-10.2); Carbon Dioxide 23 mmol/L (22-29); Chloride 108 mmol/L (96-108); Creatinine Clr Calc Pharmacy 70.8; Estimated Glomerular Filt Rate > 60; Glucose Fasting 115 mg/dL (60-99); Potassium 4.2 mmol/L (3.3-5.1); Sodium 138 mmol/L (135-145)
[2024-01-04 07:54] VITALS: BP 114/61; PULSE 72; RESP 18; TEMP 36.7; O2SAT 99
[2024-01-04] MEDS: valACYclovir HCL 500 MG TABLET PO (07:55)
[2024-01-04] MEDS: Celecoxib 200 MG CAPSULE PO (07:55)
[2024-01-04] MEDS: Cholecalciferol (Vitamin D3) 25 MCG TABLET PO (07:55)
[2024-01-04] MEDS: oxyCODONE HCl Immed Release 5 MG TABLET PO (07:55)
[2024-01-04] MEDS: Calcium + Vitamin D 250 MG TABLET 500 MG PO (07:55)
[2024-01-04] MEDS: amLODIPine Besylate 10 MG TABLET PO (07:55)
[2024-01-04] MEDS: Docusate Sodium 100 MG CAPSULE PO (07:56)
[2024-01-04] MEDS: oxyCODONE HCl ER 10 MG TAB.ER.12H PO (07:56)
--- NOTE | 2024-01-04 09:12 | P.DS_ITS ---
DS: Providers Provider Date of Service: 01/04/24 Primary care physician: Vee Alvarez MD DS: Summary Hospital Course Hospital Course: The patient underwent a successful right shoulder removal f hardware with reve rse total shoulder arthroplasty, they were transferred to PACU and then to the floor to recover. During their stay, their vitals were stable, afebrile at 98.1. Labs were unremarkable, H/H 9.9/28.4. POD 1 they were recieved Occupational Therapy services twice a day. Prior to discharge, their dressing was clean dry and intact, and the plan was to be discharged home with VNA services. Time Attestation Discharge Coordination Time (in mins): 30 Quality: Safe Use of Opioids Does Pt have an Active Cancer Diagnosis on the Problem List?: No Quality: Stroke Does the patient have a stroke diagnosis?: No Physical Exam Vital Signs: Vital Signs: Last Vital Signs Temp 98.1 F 01/04/24 07:54 Pulse 72 01/04/24 07:54 Resp 18 01/04/24 07:54 BP 114/61 01/04/24 07:54 Pulse Ox 99 01/04/24 07:54 O2 Del Method Room Air 01/04/24 07:54 BMI result Body Mass Index 20.5 Const: General: cooperative, healthy appearing and no acute distress Resp: Effort & Inspection: normal respiratory effort and able to speak in complete sentences Cardio: Rate: regular rate Peripheral pulses: Peripheral pulses 2+ throughout GI: Palpation (GI): Soft to palpation Skin: Lesions: no lesions Rashes: no rashes Extrem: Other: Right shoulder dressing is c/d/i. Able to flex and extend at the wrist. Sensation intact. Radial pulse intact. DS: Data Data Completed and Pending Pending studies at discharge: Pending at discharge 01/03/24 12:07 Surgical [PTH] Routine Labs on day of discharge: Laboratory Results - last 24 hr 01/04/24 05:27 WBC 9.8 RBC 2.75 L Hgb 9.9 L Hct 28.4 L MCV 103.3 H MCH 36.0 H MCHC 34.9 RDW 13.1 Plt Count 166 MPV 10.3 Immature Gran % (Auto) 0.4 Neut % (Auto) 80.0 H Lymph % (Auto) 6.0 L [place] % (Auto) 13.3 H Eos % (Auto) 0.0 Baso % (Auto) 0.3 Lymph # (Auto) 0.6 L [place] # (Auto) 1.3 H Eos # (Auto) 0.0 Baso # (Auto) 0.0 Abs Immat Gran (auto) 0.04 H Absolute Neuts (auto) 7.9 Absolute Nucleated RBC 0.000 Nucleated RBC % (auto) 0.0 Sodium 138 Potassium 4.2 Chloride 108 Carbon Dioxide 23 Anion Gap 11 L BUN 10 Creatinine 0.68 Estim Creat Clear Calc 70.8 Estimated GFR > 60 Fasting Glucose 115 H Calcium 8.6 Discharge Plan Discharge Patient Disposition: Home, Self-Care Referrals: Jennifer Be PA-C [Physician Registered Nurses] - 01/18/24 11:30 am Discharge Medications: No Action atorvastatin 40 mg tablet 40 mg PO BEDTIME amlodipine 10 mg tablet 10 mg PO DAILY calcium carbonate-vitamin D3 [Calcium + D] 600 mg-5 mcg (200 unit) Tablet 1 tab PO DAILY cholecalciferol (vitamin D3) [Vitamin D3] 25 mcg (1,000 unit) Capsule 25 mcg PO DAILY acetaminophen [Tylenol Extra Strength] 500 mg tablet 500 mg PO Q6H PRN (Reason: pain) Qty: 45 0RF valacyclovir 500 mg tablet 500 mg PO BID doxycycline hyclate 50 mg tablet 50 mg PO DAILY Discharge Orders: Discharge Order (Routine); Ordered 01/04/24 Ordered By: Bessie Faustin Diet: Advance to usual diet Activity on Discharge: Use Splints or Immobilizers Activity Restrictions/Additional Instructions: Wear sling at all times, including sleeping-OK to remove for pendulum exercises throughout the day No lifting-OK to move arm at elbow and wrist Do not bathe or shower - Keep bandage aba, dry and intact Call [facility] orthopedics with any questions or concerns. Follow up with orthopedics in 14 days post op Print Language: Portuguese
--- NOTE | 2024-01-04 09:13 | MHC.CM.PN ---
Addendum entered by vIis Rao 01/04/24 09:20: DP: PT HAS BEEN MEDICALLY CLEARED FOR HOME WITH NEW [facility] FOR O.T. [facility] HAS BEEN NOTIFIED OF TODAY'S DC. Original Note: CM MET WITH PT AT BEDSIDE. PT LIVES ALONE. 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 +HCP ON FILE. PCP DR. VALADEZ. DP: HOME WITH NEW [facility] FOR PT/OT. PT HAS OWN [facility] HOME. CM WILL CONTINUE TO FOLLOW FOR ANY CHANGE TO PLAN.
--- NOTE | 2024-01-04 09:14 | P.F2F_ITS ---
Service Date Service Date: 01/04/24 Encounter Date of encounter: 01/04/24 Reasons for Services Signs and symptoms assessed: s/p right shoulder removal of orthopedic hardware with reverse total soulder arthroplasty. Pt. is considered homebound due to recent surgery. Unable to drive, poor balance, poor gait mechanics. Reason for occupational therapy: home safety and mobility, therapeutic exercises, restore joint function and ADL training Homebound: Leaving the home is medically contraindicated at this time without the asist of a device and/or another person due th the listed conditions above and below. Reason homebound: unsteady gait / fall risk, leg weakness, pain with ambulation, pain with transfers, poor balance / fall risk and unable to drive Certification: Based on the above findings, I certify that this patient is confined to the home and needs intermittent half-way care, physical therapy and/or speech therapy, or continues to need occupational therapy. The patient is under my care, and I have initiated the establishment of the plan of care. The patient will be followed by a physician who will periodically review the plan of care. Time Spent With Patient Time: Total time managing care of this patient today ____ minutes.
--- NOTE | 2024-01-04 09:19 | HO.POSTANES ---
Post Anesthesia Evaluation Post Anesthesia Evaluation Date of Service: 01/03/24 Vital Signs: Vital Signs Temp Pulse Resp BP Pulse Ox O2 Del Method 01/04/24 07:54 98.1 F 72 18 114/61 99 Room Air 01/04/24 03:11 97.8 F 74 18 101/61 95 Room Air Anesthesia: Regional and General Endotracheal-GETA Mental Status: Awake Pain Control: Satisfactory Nausea/Vomiting: None Hydration: Adequate Anesthesia-Related Issues: No Anes. Related Issues
--- NOTE | 2024-01-04 11:30 | P.F2F_ITS ---
Service Date Service Date: 01/04/24 Encounter Date of encounter: 01/04/24 Reasons for Services Signs and symptoms assessed: s/p right shoulder removal of orthopedic hardware with reverse total soulder arthroplasty. Pt. is considered homebound due to recent surgery. Unable to drive, poor balance, poor gait mechanics. Reason for physical therapy: home safety and mobility, therapeutic exercises, restore joint function and ADL training Reason for occupational therapy: home safety and mobility, therapeutic exercises, restore joint function and ADL training Homebound: Leaving the home is medically contraindicated at this time without the asist of a device and/or another person due th the listed conditions above and below. Reason homebound: unsteady gait / fall risk, pain with ambulation and unable to drive Certification: Based on the above findings, I certify that this patient is confined to the home and needs intermittent detention care, physical therapy and/or speech therapy, or continues to need occupational therapy. The patient is under my care, and I have initiated the establishment of the plan of care. The patient will be followed by a physician who will periodically review the plan of care. Time Spent With Patient Time: Total time managing care of this patient today ____ minutes.
--- NOTE | 2024-01-22 14:10 | W.PM.OPN ---
Operative Note Operative Note Date of Service: 01/03/24 Narrative: Date of Service: 01/03/24 Pre-op diagnosis: Right humeral head avascular necrosis Post-op diagnosis: same Procedure: Reverse TSA Removal of hardware Implants: Tornier partially porous-coated 90 mm stem with a 20 mm mechanical press operator and a 40 mm x 9 body with a +12 reverse tray and a +3 39 glenosphere Cerclage x 1 Surgeon: Kristofer Butt MD Anesthesia: GETA and regional Was an Welfare Project Manager used for this Procedure?: Yes Welfare Project Manager: Bessie Faustin Estimated blood loss (mL): 250 IV fluids (mL): 1,500 Pathology: other Condition: stable Disposition: PACU Patient was brought to the operating room and placed in the beach chair position on the surgical table. The limb was prepped and draped in standard sterile fashion and a time out was called to identify proper site, proper procedure and IV antibiotics per weight were administered. I began by making a deltopectoral incision from the coracoid to the pectoralis insertion. Blunt dissection identified the cephalic vein which was retracted laterally. The lateral plate was easily identified and I began removing the fibrous tissue adherent to it using Bovie and blunt dissection. I then sequentially removed the screws and the plate without difficulty. The subscapularis was identified and incised and the hip joint was visualized. The humeral head was in poor condition with partial malunion and partial necrosis and it was piecemeal removed. The proximal femoral shaft was also in poor condition with the bone quality very poor. I removed the remnants of the rotator cuff. The subscapularis was largely torn and on identifiable. Once the remainder of the head was well visualized a neck cut was made in. A starter awl was not required as the proximal humerus was essentially non-existent and the canal was easily identified. At this point it was clear that I would need a long stem given the bone quality adjacent to the locking plate was poor. I then placed my head protector and turned my attention to the glenoid. Posterior anterior and superior glenoid retractors were placed and the biceps was tenotomized and labral tissue was removed. Based on the preoperative CT and templating a guide pin was placed in approximately 5 degrees of retroversion and neutral inclination. Using a wedge Reamer I reamed down to bleeding bone mostly inferiorly and placed the glenoid drill guide. My central screw was drilled to a depth of 35 mm and a 25 mm base plate with a 35 x 6.5 mm screw was placed. implant was placed. I then placed the proximal 2 locking screws superiorly and anterior inferiorly around the central screw. I then placed a provisional glenosphere. I then returned to the humerus where I trialed a 150 mm stem. I was satisfied with the stability and height of the implants. Therefore I irrigated copiously and mixed a bag of bone cement on the back table using 3rd generation cementation technique. I then placed a proximally coated 90 mm distal stem approximately 60 mm past the bony defect. This was attached to a 40 mm x 9 proximal body and there was a 20 mm mechanical press operator. A cement restrictor was placed prior to placement and these were implanted and held in place until the cement was dry. Once all the cement was dry I added a cerclage wire with some remnants of cortical bone that were adjacent to the plate. This established some bone stock in the medial calcar. I then trialed with saved several components and elected to place a +3 39 glenosphere with a +12 offset tray. I was satisfied with the stability of the implants. Full range of motion was achieved and there was no instability. My final glenosphere and reverse tray were placed and the shoulder was reduced. I then irrigated copiously. The Subscapularis was not repairable. I closed in a layered fashion with absorbable suture and jorge and the patient was placed in a sterile dressing and an abduction sling. She was extubated brought to recovery room stable condition there were no known complications.
== END 2024-01-04 11:32 | disposition home health service (06) ==
LOC: HO.SSS 07:34 → HO.S3 14:43
PROVIDERS: Orthopaedic Surgery; Physician Assistant; PCP Internal Medicine; Visit Provider Physician Assistant
PROC: (CPT 23472; principal; 2024-01-03 07:30)
DX: S42.291A Other displaced fracture of upper end of right humerus, initial encounter for closed fracture (principal); S42.201A Unspecified fracture of upper end of right humerus, initial encounter for closed fracture; M87.021 Idiopathic aseptic necrosis of right humerus; I10 Essential (primary) hypertension; Z79.899 Other long term (current) drug therapy
CPT/HCPCS: 23472; 36415; 80048; 85025; 86850; 86900; 86901; 87640; 87641; 88304; 88305; 88311; 97166; C1713; C1776; J0131; J0171; J0665; J1100; J1171; J2003; J2250; J2405; J2704; J3010; J3370; J7120

== ENCOUNTER → 2024-01-03 06:06 | Outpatient (BNV) | payer MEDICARE, OTHER, SELFPAY | PROVIDERS: PCP Internal Medicine; Visit Provider Orthopaedic Surgery | DX: M87.011 Idiopathic aseptic necrosis of right shoulder (principal); Z96.611 Presence of right artificial shoulder joint | CPT/HCPCS: 20680; 23472; 99024; 99212; G0180 ==

== ENCOUNTER 2024-01-18 10:20 | Outpatient (REF) | payer MEDICARE, OTHER, SELFPAY ==
--- NOTE | ~2024-01-18 | XR_ITS ---
EXAMINATION: XR SHOULDER, RIGHT CLINICAL INFORMATION: Pain in the right shoulder COMPARISON: X-ray of the right shoulder 10/30/2023 CT scan of the right shoulder November 2023 TECHNIQUE: AP external rotation, Grashey, scapular Y, and axillary views of the right shoulder. FINDINGS: Reverse right total shoulder arthroplasty noted with the components in usual position. Cerclage wire surrounds proximal humerus. Skin jorge in place. Arthrosis of the acromioclavicular joint. Incidental note made of spondylosis of the partially visualized cervical spine and dorsal spine. XR/XR shoulder RT min 2V IMPRESSION: Reverse right total shoulder arthroplasty without complication by x-ray. Electronically signed by: Radu Ferreira MD 01/18/2024 03:56 PM EDT
== END 2024-01-18 10:21 | disposition home or self-care (01) ==
LOC: HO.HOSX 10:20
PROVIDERS: Visit Provider Physician Assistant
DX: M25.511 Pain in right shoulder (principal); S42.291D Other displaced fracture of upper end of right humerus, subsequent encounter for fracture with routine healing; Z98.890 Other specified postprocedural states
CPT/HCPCS: 73030; 99212

== ENCOUNTER 2024-01-18 11:09 | Outpatient (AMB) | payer MEDICARE, OTHER, SELFPAY ==
--- NOTE | 2024-01-18 11:20 | A.OFFVIS_ITS ---
Intake Visit Reasons: 2WK PO: R Reverse TSA w/NE 01/03/24 Intake Note: Yamilet a 68 year old female who presents today for a post operative visit s/p right reverse TSA on NE. Patient reports she is doing well, states incision area is painful for the past couple of days. She is requesting a refill on her pain medication. Allergies No Known Allergies [No Known Allergies*] Allergy (Verified 01/18/24 11:24) Medication List - Last Reconciled 01/18/24 by Jennifer Be PA-C acetaminophen 650 mg (2 x 325 mg) PO Q6H PRN 30 days amlodipine 10 mg PO DAILY atorvastatin 40 mg PO BEDTIME calcium carbonate-vitamin D3 600 mg-5 mcg (200 unit) 1 tab PO DAILY celecoxib 200 mg PO BID 30 days cholecalciferol (vitamin D3) (Vitamin D3) 25 mcg PO DAILY docusate sodium 100 mg PO BID 30 days doxycycline hyclate 50 mg PO DAILY oxycodone 5 mg PO Q4H PRN 7 days valacyclovir 500 mg PO BID HPI HPI 2WK PO: R Reverse TSA w/NE 01/03/24: Details: 68-year-old female who returns to the office today for a follow-up of post-op right reverse TSA, 01/03/[address] Butt. She reports her incision area is painful for a couple of days. Her pain is aggravated at night that causes her to wake up from sleep. She is requesting a refill on her pain medication. [facility] Medical History Hx of cold sores Hx of rosacea Osteoporosis Arthritis Hypercholesterolemia HTN (hypertension) Surgical History Hx of colonoscopy History of open reduction and internal fixation (ORIF) procedure (04/11/23) History of foot surgery Social History Household Members: None Housing: House Are you a primary critical care educator to a significant other at home: No Do you presently have visiting nurse or other home services: No Alcohol intake: current Comment: counts correct Patient Tobacco Use Status: Former Tobacco user Tobacco use type: Cigarette service: No Current occupational status: retired Current occupation: right hand dominant Review of Systems Const All systems reviewed & are unremarkable except as noted in HPI and below Physical Exam Extrem Other: Right shoulder: Incision clean, dry and intact. No redness or drainage. NVI. Results Reviewed Results Reviewed: Xrays were obtained in the office today and personally reviewed by me of the right shoulder show intact hardware Assessment & Plan Assessment & Plan (1) Fracture of proximal end of right humerus: Code(s): S42.201A - Unspecified fracture of upper end of right humerus, initial encounter for closed fracture Category: Medical Qualifiers: Encounter type: subsequent encounter Fracture alignment: displaced Fracture healing: with routine healing Fracture morphology: other fracture Fracture type: closed Qualified Code(s): S42.291D - Other displaced fracture of upper end of right humerus, subsequent encounter for fracture with routine healing Plan Champlain removed, steri strips applied. She will begin to transition to Outpatient PT to continue working on rom, periscap stabilization No RTC strength, no reaching above or behind the body, no pushing off with the right arm. No driving for another 4 weeks. . She will f/u in 4 weeks, sooner if needed. Orders: Orders PT Evaluation and Treatment Today S42.291D - Other displaced fracture of upper end of right humerus, subsequent encounter for fracture with routine healing Patient Instructions: Scribed for Jennifer Be PA-C, by Kris Conn medical technologist blood bank, on 01/18/2024 at 11:30 AM EST.? I, Jennifer Be PA-C, have personally reviewed and agree with the information entered by the scribe. Coding Level of Care Code Global (63260) Diagnoses Other closed displaced fracture of proximal end of right humerus with routine healing, subsequent encounter S42.291D Encounter type: subsequent encounter Fracture alignment: displaced Fracture healing: with routine healing Fracture morphology: other fracture Fracture type: closed
== END 2024-01-18 13:46 | disposition home or self-care (01) ==
PROVIDERS: PCP Student in an Organized Health Care Education/Training Program; Visit Provider Physician Assistant
DX: S42.291D Other displaced fracture of upper end of right humerus, subsequent encounter for fracture with routine healing (principal)
CPT/HCPCS: 99024

== ENCOUNTER 2024-02-08 08:41 | Outpatient (REF) | payer MEDICARE, OTHER, SELFPAY | END 2024-02-08 08:42 | disposition home or self-care (01) | LOC: HO.HOSX 08:41 | PROVIDERS: Visit Provider Orthopaedic Surgery | DX: M25.511 Pain in right shoulder (principal); Z96.611 Presence of right artificial shoulder joint | CPT/HCPCS: 73030; 99212 ==

== ENCOUNTER 2024-02-08 09:24 | Outpatient (AMB) | payer MEDICARE, OTHER, SELFPAY ==
--- NOTE | 2024-02-08 09:57 | A.OFFVIS_ITS ---
Intake Visit Reasons: PO -Right Reverse TSA & EVENS 01/03/24 Intake Note: Yamilet is a 68 year old right hand dominant female who presents today for a post operative appointment s/p Right Reverse TSA with EVENS 01/03/2024. Patient reports that she is still working with in home therapy and is transitioning to to outpatient PT Monday02/13/24. Her pain has improved, but she is feeling sore. Takes Tylenol for this pain which is helpful. Allergies No Known Allergies [No Known Allergies*] Allergy (Verified 02/08/24 09:58) HPI HPI PO -Right Reverse TSA & EVENS 01/03/24: Details: Yamilet is a 68 year old right hand dominant female who presents today for a post operative appointment s/p Right Reverse TSA with EVENS 01/03/2024. Patient reports that she is still working with in home therapy and is transitioning to to outpatient PT Monday02/13/24. Her pain has improved, but she is feeling sore. Takes Tylenol for this pain which is helpful. [facility] Medical History Hx of cold sores Hx of rosacea Osteoporosis Arthritis Hypercholesterolemia HTN (hypertension) Surgical History Hx of colonoscopy History of open reduction and internal fixation (ORIF) procedure (04/11/23) History of foot surgery Social History Household Members: None Housing: House Are you a primary childcare attendant to a significant other at home: No Do you presently have visiting nurse or other home services: No Alcohol intake: current Comment: counts correct Patient Tobacco Use Status: Former Tobacco user Tobacco use type: Cigarette service: No Current occupational status: retired Current occupation: right hand dominant Physical Exam Extrem Other: Active forward flexion to 100 degrees and active abduction to 60 with 0 degrees of external rotation. Passive external rotation of 35 degrees Passive abduction to 80 degrees Passive forward flexion to 90 Results Reviewed Results Reviewed: I personally reviewed relevant radiographs. Right rTS arthroplasty in expected post operative position with no hardware complications or evidence of loosening Assessment & Plan Assessment & Plan (1) Status post reverse arthroplasty of right shoulder: Code(s): Z96.611 - Presence of right artificial shoulder joint Category: Surgical Plan: Status post the her arthroplasty right shoulder for fracture with revision stem. Doing well. May discontinue sling and continue physical therapy. Follow up 6 weeks. Orders: Orders XR shoulder RT min 2V Today M25.519 - Pain in unspecified shoulder Coding Level of Care Code Global (02362) Diagnoses Status post reverse arthroplasty of right shoulder Z96.611
== END 2024-02-08 10:17 | disposition home or self-care (01) ==
PROVIDERS: PCP Student in an Organized Health Care Education/Training Program; Visit Provider Orthopaedic Surgery
DX: Z96.611 Presence of right artificial shoulder joint (principal)
CPT/HCPCS: 99024

== ENCOUNTER 2024-03-18 11:49 | Outpatient (REF) | payer MEDICARE, OTHER, SELFPAY ==
--- OUTSIDE RECORDS SUMMARY | 2024-03-18 11:53 | XMS_ITS ---
Author Name [facility] [place] Organization [facility] [place] Address [address] [place] [address] Support Name Relationship Address Phone MACY BYRD Next of Kin [address] [place] [address] [phone] LESVIA MILLER Emergency Contact [address] [place], [place] [phone] Insurance Providers: All historical and current Section Date Range: From patient's date of to the date document was created. This section includes the names of all active insurance providers for the patient. Insurance Provider Type of Coverage Plan Name Start of Policy Coverage End of Policy Coverage Group Number Member ID Insurance Provider's Telephone Number Policy James's Name Patient's Relationship to Policy James [facility] PREFERRED PROVIDER ORGANIZAT ION (PPO) ARASELI WALKER* Mar 27, 2016 [id number] [phone] ISIAAS MILLER PATIENT [facility] PRESCRIPT ION [id number] Mar 27, 2019 [id number] ISAIAS MILLER PATIENT [employer] ([id number]) PRESCRIPT ION [facility]ASS [employer] S HEALT H Mar 27, 2014 YGPA [id number] ISAIAS MILLER ISRAGHAV PATIENT [facility] RX PRESCRIPT ION RX Mar 27, 2022 THPRX [id number] ISAIAS MILLER ISRAGHAV PATIENT [facility] RX PRESCRIPT ION RX Mar 27, 2022 THPRX [id number] [phone] PAUL,ISAIAS ISTINA PATIENT [facility] Mar 27, 2019 [facility] [id number] PAULISAIAS ISTINA PATIENT [facility] KEVIN Webb Mar 27, 2019 [facility] EMERG[facility]PARTMENT [id number] 30 ISAIAS MILLER PATIENT Selected Encounter This section includes the information on record at [place] for the Encounter. Date/Time Encounter Type Encounter Description Reason Pro vider Source Apr 21, 2023 01:40 PM Outpatient Encounter COMMUNITY CARE CONSULT IHE Encounter Template Text not used by [facility] Social History: Smoking Status (Most current) and Tobacco Use (All prior to encounter date) This section includes the most current, and the historical, smoking and tobacco- related health factors from the [place] facility where the Encounter took place. Current Smoking Status This section includes the most current smoking, or tobacco-related health factor, from the [place] facility where the Encounter took place. Date/Time Current Smoking Status Comment Jasmeet ity Oct 10, 2015 09:23 AM QUIT TOBACCO USE > 7 YEARS AGO . [facility] Tobacco Use History This section includes a history of the smoking, or tobacco-related health factors, that were collected on or before the date of the Encounter. The data comes from the [place] facility where the Encounter took place. Date/Time Smoking Status/Tobacco Use Comment F acility Oct 05, 2013 08:55 AM QUIT TOBACCO USE > 7 YEARS AGO . [facility] Encounter Notes: All associated encounter notes This section contains the clinical notes associated to the Encounter. Date/Time Encounter Note(s) Provider Source Apr 21, 2023 01:40 PM NONVA NOTE: LOCAL TITLE: [facility] PRESENTING CARE COORD PLAN STANDARD TITLE: NONVA NOTE DATE OF NOTE: APR 21, 2023@13:40 ENTRY DATE: APR 21, 2023@13:40:04 AUTHOR: ROME GUPTA EXP COSIGNER: URGENCY: STATUS: COMPLETED Emergency Notification Intake Date Presenting to the Facility: Feb Method of Contact: Notified from ECR worklist Notification ID: [id number] [facility] Referral #: [facility] Hospital Name: Hospital: [facility] Address: City: [place] State: [place] Zip Code: Phone : [facility] Facility Point of Contact: Name: Pallavi Phone: Chief complaint: FELL ON 03/19 LEFT HAND SWELLING, DIZZINESS Primary Diagnosis: Disposition Discharged Date of discharge: Feb Discharge to Comment: ER Only /es/ ROME POPE Signed: 04/21/2023 13:41 Receipt Acknowledged By: 04/27/2023 13:58 /es/ Dorota Mcintosh RN-BS History Teacher ROME GUPTA BUCHANAN
--- OUTSIDE RECORDS SUMMARY | 2024-03-18 11:53 | XMS_ITS | Encounter Summary ---
Author Name [facility] [place] Address [address] [place] [address] Support Name Relationship Address Phone MACY BYRD Next of Kin [address] [place] [address] [phone] LESVAI MILLER Emergency Contact [address] [place], [place] [phone] Insurance Providers: All historical and current Section Date Range: From patient's date of to the date document was created. This section includes the names of all active insurance providers for the patient. Insurance Provider Type of Coverage Plan Name Start of Policy Coverage End of Policy Coverage Group Number Member ID Insurance Provider's Telephone Number Policy James's Name Patient's Relationship to Policy James [facility] PREFERRED PROVIDER ORGANIZAT ION (PPO) ARASELI WALKER* Mar 27, 2016 [id number] ISAIAS MILLER PATIENT [employer] PRESCRIPT ION [id number] Mar 27, 2019 [id number] [phone] ISAIAS MILLER PATIENT [employer] ([id number]) PRESCRIPT ION [employer] S HEALT H Mar 27, 2014 YGPA [id number] [phone] ISAIAS MILLER ISRAGHAV PATIENT [facility] RX PRESCRIPT ION RX Mar 27, 2022 THPRX [id number] [phone] ISAIAS MILLER ISRAGHAV PATIENT [employer] RX PRESCRIPT ION RX Mar 27, 2022 THPRX [id number] PAUL,ISAIAS ISTINA PATIENT [facility] Mar 27, 2019 [facility] [id number] [phone] ISAIAS MILLER PATIENT [facility] KEVIN Webb Mar 27, 2019 [facility] [id number] 30 ISAIAS MILLER PATIENT Selected Encounter This section includes the information on record at [place] for the Encounter. Date/Time Encounter Type Encounter Description Reason Provider Source Nov 07, 2023 08:53 AM FIT SPECTACLES MULTIFOCAL OPTOMETRY ICD-10-CM Z46.0 Encounter for fit/adjst of spectacles and contact lenses KARTHIK MICHELLE Tracey Encounter Template Text not used by [place] Assessments - Encounter Diagnoses This section includes the primary and secondary diagnoses documented for the Encounter. Date/Time Primary/Secondary Diagnosis Diagnosis Name Provider Source Nov 07, 2023 08:53 AM PRIMARY Encounter for fit/adjst of spectacles and contact lenses YOHANA JIMÉNEZ [facility] Social History: Smoking Status (Most current) and Tobacco Use (All prior to encounter date) This section includes the most current, and the historical, smoking and tobacco- related health factors from the [place] facility where the Encounter took place. Current Smoking Status This section includes the most current smoking, or tobacco-related health factor, from the [place] facility where the Encounter took place. Date/Time Current Smoking Status Comment Jasmeet edward Oct 10, 2015 09:23 AM QUIT TOBACCO USE > 7 YEARS AGO . [facility] Tobacco Use History This section includes a history of the smoking, or tobacco-related health factors, that were collected on or before the date of the Encounter. The data comes from the [place] facility where the Encounter took place. Date/Time Smoking Status/Tobacco Use Comment F abhilash Oct 05, 2013 08:55 AM QUIT TOBACCO USE > 7 YEARS AGO . [facility] Encounter Notes: All associated encounter notes This section contains the clinical notes associated to the Encounter. Date/Time Encounter Note(s) Provider Source Nov 07, 2023 08:53 AM OPTOMETRY NOTE: LOCAL TITLE: OPTOMETRY NOTE STANDARD TITLE: OPTOMETRY NOTE DATE OF NOTE: NOV 07, 2023@08:53 ENTRY DATE: NOV 07, 2023@08:53:14 AUTHOR: JOEY KENYON EXP COSIGNER: URGENCY: STATUS: COMPLETED OPTOMETRY NOTE Has ADDENDA The quote provided below is for informational purposes only. Please verify prior to the creation of a purchase order. LUAN MILLER 6030 RX INFORMATION OD +2.75 -0.75 X165 Add:+2.50 Pzm:0.00 Dir: Prz2:0.00 Dir2: OS +3.00 -1.00 X30 Add:+2.50 Pzm:0.00 Dir: Prz2:0.00 Dir2: FITTING INFORMATION FPD: NPD: Elliott:R:32.5 L:31.5 SEG HT:R:20 L:20 Tint:JENKINS Shade:3 VA Billable Items FRAME: [id number] [place] [address] Right Lens: POLY VA PROGRESSIVE 1.586 POLY Left Lens: POLY [place] PROGRESSIVE 1.586 POLY SOLID TINT ------ The quote provided below is for informational purposes only. Please verify prior to the creation of a purchase order. 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 OPT HT entered consult(s) as requested for provider signature. /rigo Jiménez LPN Licensed Practical Nurse Signed: 11/07/2023 08:58 JOEY KENYON [facility]
--- OUTSIDE RECORDS SUMMARY | 2024-03-18 11:53 | XMS_ITS ---
Author Name [facility] [place] [facility] [place] Organization [place] Address [address] [place] [address] Support Name Relationship Address Phone MACY BYRD Next of Kin [address] [place], [place] [phone] LESVIA MILLER Emergency Contact [address] [place], [place] [phone] Insurance Providers: All historical and current Section [...] ION (PPO) ARASELI WALKER* Mar 27, 2016 [id number] ISAIAS MILLER PATIENT [employer] PRESCRIPT ION [id number] Mar 27, 2019 [id number] [phone] SIAIAS MILLER PATIENT [employer] ([id number]) PRESCRIPT ION MASS [employer] S HEALT H Mar 27, 2014 YGPA [id number] ISAIAS MILLER ISRAGHAV PATIENT [facility] RX PRESCRIPT ION RX Mar 27, 2022 THPRX [id number] ISAIAS MILLER ISRAGHAV PATIENT [employer] RX PRESCRIPT ION RX Mar 27, 2022 THPRX [id number] [phone] ISAIAS MILLER ISRAGHAV PATIENT [facility] Mar 27, 2019 [facility] [id number] WALAS,CHR ISTINA PATIENT [facility] KEVIN Webb Mar 27, 2019 [facility] EMERGENCY DEPARTMENT [id number] 30 ISAIAS MILLER ISRAGHAV PATIENT Selected Encounter This section includes the information on record at [place] for the Encounter. Date/Time Encounter Type Encounter Description Reason Pro vider Source Nov 07, 2023 03:55 PM Outpatient Encounter OPTOMETRY IHE Encounter Template Text not used by [facility] Social History: Smoking Status (Most current) and Tobacco Use (All prior to encounter date) This section includes the most current, and the historical, smoking and tobacco- related health factors from the [place] facility where the Encounter took place. Current Smoking Status This section includes the most current smoking, or tobacco-related health factor, from the [place] facility where the Encounter took place. Date/Time Current Smoking Status Comment Facil ity Oct 10, 2015 09:23 AM QUIT TOBACCO USE > 7 YEARS AGO . [facility] Tobacco Use History This section includes a history of the smoking, or tobacco-related health factors, that were collected on or before the date of the Encounter. The data comes from the [place] facility where the Encounter took place. Date/Time Smoking Status/Tobacco Use Comment F acility Oct 05, 2013 08:55 AM QUIT TOBACCO USE > 7 YEARS AGO . [facility] Encounter Notes: All associated encounter notes This section contains the clinical notes associated to the Encounter. Date/Time Encounter Note(s) Provider Source Nov 07, 2023 03:55 PM ADMINISTRATIVE NOTE: LOCAL TITLE: ADMINISTRATIVE NOTE STANDARD TITLE: ADMINISTRATIVE NOTE DATE OF NOTE: NOV 07, 2023@15:55 ENTRY DATE: NOV 07, 2023@15:55:14 AUTHOR: XIN DE SANTIAGO SA COSIGNER: URGENCY: STATUS: COMPLETED Dispositioned RTC PID 10/27/2025. Changed to 2 year recall. Dispositioned on 11/07/2023. /prudence/ XIN DE SANTIAGO Signed: 11/07/2023 16:07 XIN DE SANTIAGO [facility]
--- OUTSIDE RECORDS SUMMARY | 2024-03-18 11:53 | XMS_ITS | Encounter Summary ---
Author Name [facility] Organization [facility] [place] Address [address] [place] [id number] Support Name Relationship Address Phone MACY BYRD Next of Kin [address] [place] [address] LESVIA MILLER Emergency Contact [address], [place] [id number] Insurance Providers: All historical and current Section Date Range: From patient's date of to the date document was created. This section includes the names of all active insurance providers for the patient. Insurance Provider Type of Coverage Plan Name Start of Policy Coverage End of Policy Coverage Group Number Member ID Insurance Provider's Telephone Number Policy James's Name Patient's Relationship to Policy James [facility] PREFERRED PROVIDER ORGANIZAT ION (PPO) ARASELI WALKER* Mar 27, 2016 [id number] ISAIAS MILLER ISRAGHAV PATIENT [employer] PRESCRIPT ION [id number] Mar 27, 2019 [id number] [phone] ISAIAS MILLER ISRAGHAV PATIENT [employer] ([id number]) PRESCRIPT ION [employer] [facility] H Mar 27, 2014 [id number] [phone] PAUL,ISAIAS ISTINA PATIENT [employer] [facility] PRESCRIPT ION RX Mar 27, 2022 THPRX [id number] [phone] PAUL,ISAIAS ISTINA PATIENT [employer] RX PRESCRIPT ION RX Mar 27, 2022 THPRX [id number] PAUL,ISAIAS ISTINA PATIENT [facility] Mar 27, 2019 [facility] [id number] ISAIAS MILLER PATIENT [facility] KEVIN Webb Mar 27, 2019 [facility] [id number] ISAIAS MILLER PATIENT Selected Encounter This section includes the information on record at AL for the Encounter. Date/Time Encounter Type Encounter Description Reason Provider Source Nov 07, 2023 08:00 AM COMPRE OPH EXAM EST PT 1/> OPTOMETRY ICD-10-CM H25.13 Age-related nuclear cataract, bilateral KARTHIK MICHELLE Tracey Encounter Template Text not used by [place] Assessments - Encounter Diagnoses This section includes the primary and secondary diagnoses documented for the Encounter. Date/Time Primary/Secondary Diagnosis Diagnosis Name Provider Source Nov 07, 2023 09:12 AM PRIMARY Age-related nuclear cataract, bilateral KARTHIK MICHELLE [facility] Nov 07, 2023 09:12 AM SECONDARY Presbyopia KARTHIK MICHELLE [facility] Social History: Smoking Status (Most current) and Tobacco Use (All prior to encounter date) This section includes the most current, and the historical, smoking and tobacco- related health factors from the AL facility where the Encounter took place. Current Smoking Status This section includes the most current smoking, or tobacco-related health factor, from the AL facility where the Encounter took place. Date/Time Current Smoking Status Comment Jasmeet edward Oct 10, 2015 09:23 AM QUIT TOBACCO USE > 7 YEARS AGO . [facility] Tobacco Use History This section includes a history of the smoking, or tobacco-related health factors, that were collected on or before the date of the Encounter. The data comes from the AL facility where the Encounter took place. Date/Time Smoking Status/Tobacco Use Comment Tracey hung Oct 05, 2013 08:55 AM QUIT TOBACCO USE > 7 YEARS AGO . [facility] Encounter Notes: All associated encounter notes This section contains the clinical notes associated to the Encounter. Date/Time Encounter Note(s) Provider Source Nov 07, 2023 07:32 AM OPTOMETRY NOTE: LOCAL TITLE: OPTOMETRY NOTE STANDARD TITLE: OPTOMETRY NOTE DATE OF NOTE: NOV 07, 2023@07:32 ENTRY DATE: NOV 07, 2023@07:32:12 AUTHOR: DIANA AGUILERA JR EXP COSIGNER: KARTHIK MICHELLE URGENCY: STATUS: COMPLETED OPTOMETRY NOTE Has ADDENDA Active problems - Computerized Problem List is the source for the followin. Rosacea Active Outpatient Medications (including Supplies): Active Non-VA Medications Status 1) Non-VA ACETAMINOPHEN 325MG TAB 325MG BY MOUTH EVERY ACTIVE DAY NEEDED 2) Non-VA CALCIUM 250MG/VITAMIN D 125UNIT TAB 600MG BY ACTIVE MOUTH TWICE DAILY 3) Non-VA DOXYCYCLINE TAB 50MG BY MOUTH TWICE DAILY ACTIVE 4) Non-VA MULTIVITAMIN W/MINERAL TAB BY MOUTH ACTIVE 5) Non-VA VALACYCLOVIR HCL 500MG TAB 500MG BY MOUTH ACTIVE DAILY Allergies: Patient has answered NKA All medications including those prescribed by outside VA's, community providers, and all OTC meds were reviewed and reconciled with patient to the best of their abilities. This 68 year old FEMALE is seen today for CEE NAZ: 10/2022 Chief Complaint: Pt. has not noticed changes to vision since last year. Has no new complaints. Feels current glasses work well. Uses them currently for driving and reading. Does not want to be dilated today due to longer drive and having felt dizzy in the past & having to wait in her car for too long. Would like to arrange ride for next time if possible. 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 Ocular Medications: - Uses visine ~ 2-3x per month (-) Pain: (-) JOE: (-) Diplopia: (-) Flashes: (-) Floaters: (-) Amaurosis Fugax/Tia's: (-) Eye Injury: (-) Eye Surgery: (-) TBI FOHx: (+) Glaucoma: Father (-) ARMD/Blindness VITALS (most recent, as listed in the electronic record): B/P: 172/96 (10/10/2015 09:19) Pulse: 91 (10/10/2015 09:19) Temperature: 98.9 F [37.2 C] (10/10/2015 09:19) Weight: 121 lb [54.88 kg] (10/10/2015 09:19) Height: 63.75 in [161.9 cm] (10/10/2015 09:19) BMI: BMI: 21.0 PERTINENT LABS: HEMOGLOBIN A1C TREND No data available (-) Smoker/Length of Time/PPD: Current Rx with last BCVA: OD: +2.75-0.90x022 20/20 OS: +3.00-1.38o952 20/20 Add: +2.50 DVA ( )sc ( x)cc - phoropter OD: 2020-2 OS: 2020-1 Pupils: PERRL (-)APD EOMs: SAFE OU, (-)Pain/Diplopia CVF (facial, peripheral): FTFC OU Subjective Refraction: OD: +2.75-0.17e534 20/20-2 OS: +3.00-1.36i564 2020-1 OU 20/20 Add: +2.50 All the above performed by student, reviewed by attending Anterior segment: Performed by student, repeated by attending * Lids: Tr debris UL OU Conj: white and quiet OU Cornea: clear OU AC: D&Q OU Angles: 4x4 OU Iris: flat and clear OU Lens: 1-2+ NS seen through undilated pupils OU Tonometry: Performed by student, reviewed by attending * [x ] GAT [ ] iCare OD 18 mmHg OS 18 mmHg Time: 8:12 am Fundus exam: Non dilated: XX Pt. deferred. Encouraged to make arrangements to be dilated at next visit Performed by student, repeated by attending * Views to extent seen undilated OU Vit: clear OU (+) PVD OS C/D: 0.30 OD, 0.20 OS; pink healthy & distinct Macula: OD: flat, tr. ERM superior nasally OS: flat & clear PPole: clear OU to extent seen undilated A/V: 2/3 Vessels: normal caliber OU Periph: Not viewed - Undilated 90D performed Assessment/Plan: 1. Nuclear sclerotic cataracts OU - Not visually significant at this time - Pt. ed. on findings - continue to monitor 2. 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 ed. on findings - Is going to look at new frames for 1x clear and 1x sun PAL - Monitor Return to Clinic 2 Year or earlier PRN Suicide Screen: C-SSRS Screening [place]-Suicide Severity Rating Scale (C-SSRS Screener) 1. Over the past month, have you wished you were or wished you could go to sleep and not wake up? No 2. Over the past month, have you had any actual thoughts of killing yourself? No 3. Over the past month, have you been thinking about how you might do this? Response not required due to responses to other questions. 4. Over the past month, have you had these thoughts and had some intention of acting on them? Response not required due to responses to other questions. 5. Over the past month, have you started to work out or worked out the details of how to kill yourself? Response not required due to responses to other questions. 6. If yes, at any time in the past month did you intend to carry out this plan? Response not required due to responses to other questions. 7. In your lifetime, have you ever done anything, started to do anything, or prepared to do anything to end your life (for example, collected pills, obtained a gun, gave away valuables, went to the roof but didn't jump)? No 8. If YES, was this within the past 3 months? Response not required due to responses to other questions. Medication Reconciliation: Outpatient: Has the patient been taking medications as documented in the EMLR? YES: The patient has been taking medications as documented in the EMLR. Essential Medication List for Review used to complete this medication reconciliation. INCLUDED IN THIS LIST: Alphabetical list of active outpatient prescriptions dispensed from this AL (local) and dispensed from another AL or DoD facility (remote) as well as inpatient orders (local, pending and active), local clinic medications, locally documented non-VA medications, and local prescriptions that have or been discontinued in the past 90 days. - All changes in medications, including all non-VA/Herbal/OTC medications were entered into CPRS. - If there were any medications the patient should no longer take, they were discontinued. - The patient/caregiver was instructed to update this list, discard old lists, and take this list to the next appointment, whether with a VA or non-VA provider. Medication List: JLV Link Data on this list may not be complete. Please check JLStockleap. Allergies/ADRs (Tool #5) FACILITY ALLERGY/ADR -------- No Remote Allergy/ADR Data available for this patient [place] [facility] No Known Allergies Med. Reconciliation (Tool #1) INCLUDED IN THIS LIST: Alphabetical list of active outpatient prescriptions dispensed from this VA (local) and dispensed from another VA or DoD facility (remote) as well as inpatient orders (local pending and active), local clinic medications, locally documented non-VA medications, and local prescriptions that have or been discontinued in the past 90 days. Non-VA Meds Last Documented On: Oct 05, 2013 NOTE The display of VA prescriptions dispensed from another AL or [facility] facility (remote) is limited to active outpatient prescription entries matched to National Drug File at the originating site and may not include some items such as investigational drugs, compounds, etc. NOT INCLUDED IN THIS LIST: Medications self-entered by the patient into personal health records (i.e. Glance App) are NOT included in this list. Non-VA medications documented outside this AL, remote inpatient orders (regardless of status) and remote clinic medications are NOT included in this list. The patient and provider must always discuss medications the patient is taking, regardless of where the medication was dispensed or obtained. Non-VA ACETAMINOPHEN 325MG TAB TAKE ONE TABLET BY MOUTH EVERY DAY NEEDED Non-VA CALCIUM 250MG/VITAMIN D 125UNIT TAB TAKE 600MG BY MOUTH TWICE DAILY She also eats dairy products about tid. Non-VA DOXYCYCLINE TAB TAKE 50MG BY MOUTH TWICE DAILY Non-VA MULTIVITAMIN W/MINERAL TAB TAKE BY MOUTH Non-VA VALACYCLOVIR HCL 500MG TAB TAKE ONE TABLET BY MOUTH DAILY SUPPLIES PHARMACY TERMS AND POSSIBLE PATIENT ACTIONS INPT = AL inpatient order IV = VA intravenous medication OUTPT = VA outpatient prescription PHARMACY POSSIBLE PATIENT TERMS EXPLANATION ACTIONS -------- ------ ACTIVE A prescription that can be If you have refills, filled at the local VA pharmacy. you may request a refill of this prescription from your VA pharmacy. CLINIC A medication you received during If you have questions a visit to a VA clinic or about this medication emergency department. contact your VA healthcare team. DISCONTINUED A prescription your provider has Contact your VA stopped. It is no longer healthcare team if you available to be sent to you or need more of this picked up at the AL pharmacy medication. window. A prescription which is too old Contact your VA to fill. This does not refer to healthcare team if you the expiration date of the need more of this medication in the container. medication. NON-VA A medication that came from If this medication someplace other than a VA information is pharmacy. This may be a incorrect or out of prescription from either the VA date, please tell your or non VA providers that was VA healthcare team. filled outside the VA. Or, it may be an [id number] (OTC), herbal, dietary supplements or sample medication. ON HOLD An active prescription that will Contact your VA not be filled until pharmacy pharmacy when you need resolves the issue. more of this medication. PARKED An active prescription that will Contact your VA not be filled until the patient pharmacy when you need requests it. this medication. PENDING This prescription order has been If you have been sent to the pharmacy for review instructed to start and is not ready yet. this medication now, contact your VA pharmacy. SUSPENDED An active prescription that is Contact your AL not scheduled to be filled yet. pharmacy if you need You should receive it before this medication now. you run out. (x) Printed Medication Reconciliation List Offered and Declined by [facility] () Medication Reconciliation List Printed for at Exam () Optometry HT Please Print and Mail Copy of Medication Reconciliation List () AMSA Please Print and Mail Copy of Medication Reconciliation List /prudence/ DIANA AGUILERA JR OPTOMETRY STUDENT Signed: 11/07/2023 14:27 /prudence/ KARTHIK MICHELLE OD HIGH RAW SUGAR BOILER Cosigned: 11/07/2023 14:40 11/07/2023 ADDENDUM STATUS: COMPLETED The optometry technology development intern participated in this exam, I saw this [facility] in conjunction with the optometry student. The entrance tests and refraction were performed by the student and reviewed by me. I personally met with the patient, confirmed the hisory, complaints and the student's findings, and performed slit lamp and fundus evaluation as indicated. I reviewed and agree with the stated findings, assessment and plan. I have added/edited the documentation to reflect my exam findings and changes to the assessment and plan. Ed re today's findings. repeated back the plan and education. All reminders completed by attending and documented in student note. /prudence/ KARTHIK MICHELLE OD H[employer] RAW SUGAR BOILER Signed: 11/07/2023 14:40 DIANA AGUILERA JR AL [facility]
--- OUTSIDE RECORDS SUMMARY | 2024-03-18 11:53 | XMS_ITS | Continuity of Care Document ---
Author Name [facility] Organization [facility] Care Team Providers Care Marketing Operations Associate Name Role Phone [facility] Unavailable Unavailable Problems Combined list of problems from Department of [facility] and [facility] facilities. It does not include entries that were removed or entered in error. Problem Status Onset Date Problem Type Date of Resolution Comments Source Rosacea Active Condition [facility] Diagnosis: ICD-10-CM Z46.0 Encounter for fit/adjst of spectacles and contact lenses Active Diagnosis [facility] Diagnosis: ICD-10-CM H25.13 Age-related nuclear cataract, bilateral Active Diagnosis [facility] Medications Combined list of outpatient medications from Department of [facility] and [facility] facilities.Medications provided include 1) outpatient medications from the last 15 months, and 2) patient-reported medications. Medication Details Route Status Patient Instructions Prescription Expires Prescription Number Last Dispense Date Ordering Provider Order Date Order Qty Source ACETAMINOPH EN 325MG TAB TAKE ONE TABLET BY MOUTH EVERY DAY NEEDED ORAL ACTIVE MANOHAR KENNEDY 2013 [facility] AMLODIPINE BESYLATE (AMLODIPINE BESYLATE), 10 MG, TABLET, ORAL, [employer], 1000 ea. BOTTLE Active [id number] 4 2023 90 Pharmac y Data Transac tion Service Facilit y AMLODIPINE BESYLATE (AMLODIPINE BESYLATE), 10 MG, TABLET, ORAL, [employer], 1000 ea. BOTTLE Active [id number] 4 2023 90 Pharmac y Data Transac tion Service Facilit y ATORVASTATI N CALCIUM (atorvastat in calcium), 40 MG, TABLET, ORAL, [employer], 1000 ea. BOTTLE Active [id number] 4 2023 90 Pharmac y Data Transac tion Service Facilit y CALCIUM 250MG/VITAM IN D 125UNIT TAB TAKE 600MG BY MOUTH TWICE DAILY ORAL ACTIVE MANOHAR KENNEDY 2013 [facility] DOXYCYCLINE HYCLATE (doxycyclin e hyclate), 50 MG, CAPSULE, ORAL, [facility], 500 ea. BOTTLE Active [id number] 4 2023 90 Pharmac y Data Transac tion Service Facilit y DOXYCYCLINE TAB TAKE 50MG BY MOUTH TWICE DAILY ORAL ACTIVE MANOHAR KENNEDY 2013 [facility] IBUPROFEN (ibuprofen) , 600 MG, TABLET, ORAL, [employer], 500 ea. BOTTLE Active [id number] 3 2022 45 Pharmac y Data Transac tion Service Facilit y MULTIVITAMI N W/MINERAL TAB TAKE BY MOUTH ORAL ACTIVE MANOHAR KENNEDY 2013 [facility] OXYCODONE HCL (OXYCODONE HCL), 5MG, TABLET, ORAL, [employer] 100 ea. BOTTLE Active [id number] 3 2022 14 Pharmac y Data Transac tion Service Facilit y OXYCODONE HCL ER (oxycodone HCl), 10 MG, TAB ER 12H, ORAL, AMNEAL PHARMACE, 100 ea. BOTTLE Cancele d [id number] : 2023 0 Pharmac y Data Transac tion Service Facilit y VALACYCLOVI R HCL 500MG TAB TAKE ONE TABLET BY MOUTH DAILY ORAL ACTIVE MANOHAR KENNEDY 2013 [facility] Immunizations Combined list of available immunizations from the Department of Defense and Veterans Affairs facilities. Immunization Series Date Given Administered By Site Reaction Lot Number CVX Code Drug Ditcher Status Comments Source COVID-19, mRNA, LNP-S, PF, 30 mcg/0.3 mL dose 2020 SOPHIA, [employer] (PFR) Not Given COVID-19, mRNA, LNP-S, PF, 30 mcg/0.3 mL dose DoD COVID-19 (PFIZER), MRNA, LNP-S, PF, 30 MCG/0.3 ML DOSE 2 2020 208 complet ed PFR; [id number]; 1 [facility] COVID-19 (PFIZER), MRNA, LNP-S, PF, 30 MCG/0.3 ML DOSE 1 2020 208 complet ed PFR; [id number]; 1 [facility] INFLUENZA, SEASONAL, INJECTABLE 2016 141 complet ed cvs [facility] FLU,3 YRS (HISTORICAL) 2015 88 complet ed CVS [facility] DTAP 2015 20 complet ed Site: Right Deltoid [facility] DTAP, UNSPECIFIED FORMULATION 2015 107 complet ed [facility] FLU,3 YRS (HISTORICAL) 2012 88 complet ed [facility] influenza virus vaccine, split virus (incl. purified surface antigen)-reti red CODE 1 2006 Unknown, Provider [id number] [facility] ([facility]) complet ed influenza virus vaccine, split virus (incl. purified surface antigen)- retired CODE DoD typhoid Vi capsular polysaccharid e vaccine 1 2006 Unknown, Provider [id number] Sanofi Pasteur ([facility]) complet ed typhoid Vi capsular polysacch aride vaccine DoD influenza virus vaccine, split virus (incl. purified surface antigen)-reti red CODE 1 2006 Unknown, Provider [id number] Other ([place]) complet ed influenza virus vaccine, split virus (incl. purified surface antigen)- retired CODE DoD influenza virus vaccine, split virus (incl. purified surface antigen)-reti red CODE 1 2004 Unknown, Provider [id number] Sanofi Pasteur ([facility]) complet ed influenza virus vaccine, split virus (incl. purified surface antigen)- retired CODE [facility] tetanus and diphtheria toxoids, adsorbed, preservative free, for adult use (2 Lf of tetanus toxoid and 2 Lf of diphtheria toxoid) 1 2004 Unknown, Provider [id number] Sanofi Pasteur ([facility]) complet ed tetanus and diphtheri a toxoids, adsorbed, preservat adin free, for adult use (2 Lf of tetanus toxoid and 2 Lf of diphtheri a toxoid) DoD typhoid vaccine, parenteral, other than acetone-kille d, dried 1 2004 Unknown, Provider [id number] Sanofi Pasteur ([facility]) complet ed typhoid vaccine, parentera l, other than acetone-k illed, dried DoD influenza virus vaccine, live, attenuated, for intranasal use 1 2004 Unknown, Provider [id number] [employer] (MED) complet ed influenza virus vaccine, live, attenuate d, for intranasa l use DoD hepatitis B vaccine, adult dosage 3 2003 Unknown, Provider [id number] 43 [employer]line (SKB) complet ed hepatitis B vaccine, adult dosage DoD tuberculin skin test; purified protein derivative solution, intradermal 1 2003 Unknown, Provider [id number] Sanofi Pasteur ([facility]) complet ed tuberculi n skin test; purified protein derivativ e solution, intraderm al DoD influenza virus vaccine, whole virus 1 2002 Unknown, Provider [id number] 16 Sanofi Pasteur ([facility]) complet ed influenza virus vaccine, whole virus DoD hepatitis B vaccine, adult dosage 2 2002 Unknown, Provider [id number] 43 [employer] (SKB) complet ed hepatitis B vaccine, adult dosage DoD meningococcal polysaccharid e vaccine (MPSV4) 1 2002 Unknown, Provider [id number] Sanofi Pasteur ([facility]) complet ed meningoco ccal polysacch aride vaccine (MPSV4) DoD typhoid vaccine, parenteral, other than acetone-kille d, dried 1 2002 Unknown, Provider [id number] Sanofi Pasteur ([facility]) complet ed typhoid vaccine, parentera l, other than acetone-k illed, dried DoD hepatitis B vaccine, adult dosage 1 2002 Unknown, Provider [id number] Merck (MSD) complet ed hepatitis B vaccine, adult dosage DoD influenza virus vaccine, whole virus 1 2001 Unknown, Provider [id number] 16 Sanofi Pasteur ([facility]) complet ed influenza virus vaccine, whole virus DoD tuberculin skin test; purified protein derivative solution, intradermal 1 2001 Unknown, Provider [id number] Sanofi Pasteur (PMC) complet ed tuberculi n skin test; purified protein derivativ e solution, intraderm al DoD influenza virus vaccine, whole virus 1 2000 Unknown, Provider [id number] Sanofi Pasteur (PMC) complet ed influenza virus vaccine, whole virus DoD tuberculin skin test; purified protein derivative solution, intradermal 1 2000 Unknown, Provider [id number] 96 Giovannaelliott (CON) complet ed tuberculi n skin test; purified protein derivativ e solution, intraderm al DoD typhoid vaccine, parenteral, other than acetone-kille d, dried 1 2000 Unknown, Provider [id number] Emma (CON) complet ed typhoid vaccine, parentera l, other than acetone-k illed, dried DoD tuberculin skin test; purified protein derivative solution, intradermal 1 2000 Unknown, Provider 96 () complet ed tuberculi n skin test; purified protein derivativ e solution, intraderm al DoD influenza virus vaccine, whole virus 1 2000 Unknown, Provider [id number] Beth ([facility]) complet ed influenza virus vaccine, whole virus DoD anthrax vaccine 5 1999 Unknown, Provider [id number] [facility] ([facility]) complet ed anthrax vaccine DoD tuberculin skin test; purified protein derivative solution, intradermal 1 1999 Unknown, Provider [id number] Giovannaelliott (CON) complet ed tuberculi n skin test; purified protein derivativ e solution, intraderm al DoD anthrax vaccine 4 1999 Unknown, Provider [id number] [facility] ([facility]) complet ed anthrax vaccine DoD influenza virus vaccine, whole virus 1 1998 Unknown, Provider [id number] Beth ([facility]) complet ed influenza virus vaccine, whole virus DoD anthrax vaccine 3 1998 Unknown, Provider [id number] [facility] [place] ([facility]) complet ed anthrax vaccine DoD anthrax vaccine 2 1998 Unknown, Provider [id number] [facility] ([facility]) complet ed anthrax vaccine DoD anthrax vaccine 1 1998 Unknown, Provider [id number] [facility] ([facility]) complet ed anthrax vaccine DoD tuberculin skin test; purified protein derivative solution, intradermal 1 1998 Unknown, Provider 96 () complet ed tuberculi n skin test; purified protein derivativ e solution, intraderm al DoD measles, mumps and rubella virus vaccine 2 1997 Unknown, Provider [id number] [place] (AB) complet ed measles, mumps and rubella virus vaccine DoD influenza virus vaccine, whole virus 2 1997 Unknown, Provider [id number] Emma (CON) complet ed influenza virus vaccine, whole virus DoD hepatitis A vaccine, adult dosage 3 1997 Unknown, Provider [id number] Merck (MSD) complet ed hepatitis A vaccine, adult dosage DoD hepatitis A vaccine, adult dosage 2 1997 Unknown, Provider [id number] Merck (MSD) complet ed hepatitis A vaccine, adult dosage DoD influenza virus vaccine, whole virus 1 1996 Unknown, Provider 16 () complet ed influenza virus vaccine, whole virus DoD tuberculin skin test; purified protein derivative solution, intradermal 1 1996 Unknown, Provider [id number] Emma (CON) complet ed tuberculi n skin test; purified protein derivativ e solution, intraderm al DoD tuberculin skin test; purified protein derivative solution, intradermal 1 1996 Unknown, Provider [id number] Emma (CON) complet ed tuberculi n skin test; purified protein derivativ e solution, intraderm al DoD yellow fever vaccine 2 1996 Unknown, Provider [id number] Emma (CON) complet ed yellow fever vaccine DoD meningococcal polysaccharid e vaccine (MPSV4) 1 1996 Unknown, Provider [id number] Emma (CON) complet ed meningoco ccal polysacch aride vaccine (MPSV4) DoD hepatitis A vaccine, adult dosage 1 1996 Unknown, Provider [id number] [place] (SKB) complet ed hepatitis A vaccine, adult dosage DoD typhoid vaccine, parenteral, acetone-kille d, dried ([place] ) 2 1996 Unknown, Provider [id number] Beth (Inactive) ([place]) complet ed typhoid vaccine, parentera l, acetone-k illed, dried ([place] ) DoD tetanus and diphtheria toxoids, adsorbed, preservative free, for adult use (2 Lf of tetanus toxoid and 2 Lf of diphtheria toxoid) 1 1994 Unknown, Provider 09 () complet ed tetanus and diphtheri a toxoids, adsorbed, preservat adin free, for adult use (2 Lf of tetanus toxoid and 2 Lf of diphtheri a toxoid) [facility] typhoid vaccine, parenteral, acetone-kille d, dried ([place] ) 1 1992 Unknown, Provider [id number] Merck (MSD) complet ed typhoid vaccine, parentera l, acetone-k illed, dried ([place] ) DoD trivalent poliovirus vaccine, live, oral 1 1984 Unknown, Provider 02 () complet ed trivalent polioviru s vaccine, live, oral DoD yellow fever vaccine 1 1984 Unknown, Provider [id number] [place] (CON) complet ed yellow fever vaccine [facility] Encounters Combined list of: 1) Encounters from Department of Veterans Affairs facilities going back up to thelast 18 months. 2) Encounters from the Department of Defense facilities going back up to 280 months. Location Location Details Encounter Type Encounter Number Reason For Visit Attending Provider ADM Date DC Date Status Disposition Source [facility] EYE EXAM NEW PATIENT [id number] Diagnos is: ICD-10- CM H25.13 Age-rel ated nuclear catarac t, bilater al
PANCHO MICHELLE Y J 10/26 [facility] Outpatient Encounter [id number] 10/26 [facility] [place] [facility] FIT SPECTACLES MULTIFOCAL [id number] Diagnos is: ICD-10- CM Z46.0 Encount er for fit/adj st of spectac les and contact lenses< br/> ERASMO TA 10/26 [facility] [place] [facility] FIT SPECTACLES MULTIFOCAL [id number] Diagnos is: ICD-10- CM Z46.0 Encount er for fit/adj st of spectac les and contact lenses< br/> KRISH SEAMAN LILLY 12/02 [facility] En[facility] [id number] 12/19 [facility] En[facility] [id number] 04/21 [facility] [place] [id number] Diagnos is: ICD-10- CM H25.13 Age-rel ated nuclear catarac t, bilater al
PANCHO MICHELLE 11/06 [facility] FIT SPECTACLES MULTIFOCAL [id number] Diagnos is: ICD-10- CM Z46.0 Encount er for fit/adj st of spectac les and contact lenses< br/> PANCHO MICHELLE 11/06 [facility] Outpatient Encounter [id number] 11/06 [facility] Social History Combined list of available smoking, tobacco, and other social history from Department of Defense and Veterans Affairs facilities. Social History Type Response Date Comment Sour e Tobacco smoking status NHIS QUIT TOBACCO USE > 7 YEARS AGO 10/10/2015 . [facility] History of tobacco use QUIT TOBACCO USE > 7 YEARS AGO 10/05/2013 . [facility] [place] [facility] This section is an empty social history section. DoD
== END 2024-03-18 11:50 | disposition home or self-care (01) ==
LOC: HO.HOSX 11:49
PROVIDERS: Visit Provider Orthopaedic Surgery
DX: M25.511 Pain in right shoulder (principal); Z96.611 Presence of right artificial shoulder joint
CPT/HCPCS: 73030; 99212

== ENCOUNTER 2024-03-18 12:34 | Outpatient (AMB) | payer MEDICARE, OTHER, SELFPAY ==
--- OUTSIDE RECORDS SUMMARY | 2024-03-18 12:37 | XMS_ITS | Clinical Summary ---
Author Organization Unknown Care Team Providers Care Hydrator Operator Name Role Phone GABRIEL JACOBS, ENDER Unavailable Unavailable VALENTINA PT, RAFAELA Unavailable Unavailable ANA PLISSE MACHINE OPERATOR, ZHEN Unavailable Unavailable SPAFFORD OT, MARTIN Unavailable Unavailable CONDINO CONTRACTS INTERN/HERRERA, DUNIA Unavailable Unav ailable Payers Payer Name Policy Type Policy Number Effective Date Expira tion Date MEDICARE.NGS.PDGM [id number] Problems Condition Name Condition Details Condition Category Status Onset Date Resolution Date Last Treatment Date Treating Clinician Comments UNSP FX SHAFT OF HUMER, RIGHT ARM, SUBS FOR FX W ROUTN HEAL Active 2023-03 00:00: 00 PRESENCE OF RIGHT ARTIFICIAL SHOULDER JOINT Active 2023-03 00:00: 00 ESSENTIAL (PRIMARY) HYPERTENSION Active 2023-03 0 00:00: 00 SNF (CURRENT) USE OF ANTIBIOTICS Active 2023-03 00:00: 00 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 Ordering Clinician Indication Dosage Frequency Signature (SIG) Comments Components amlodipine 10 mg tablet 2023-03 00:00: 00 Yes [id number] HTN 1 tablet DAILY 1 tablet DAILY (route: oral) Med Classific ation: Cardiovas cular Therapy Agents atorvastati n 40 mg tablet 2023-03 00:00: 00 Yes [id number] HLD 1 tablet DAILY 1 tablet DAILY (route: oral) Med Classific ation: Cardiovas cular Therapy Agents Calcium 600 + D(3) 600 mg-5 mcg (200 unit) capsule 2023-03 00:00: 00 Yes [id number] SUPPLEMENT 1 capsule DAILY 1 capsule DAILY (route: oral) Med Classific ation: Electroly te Balance-N utritiona l Products Celebrex 200 mg capsule 2023-03 00:00: 00 Yes [id number] ANTI INFLAMMATOR Y 1 capsule 2 TIMES DAILY 1 capsule 2 TIMES DAILY (route: oral) Med Classific ation: Analgesic , Anti-infl ammatory or Antipyret ic docusate sodium 100 mg tablet 2023-03 00:00: 00 Yes [id number] STOOL SOFTNER 1 tablet 2 TIMES DAILY 1 tablet 2 TIMES DAILY (route: oral) Med Classific ation: Gastroint estinal Therapy Agents doxycycline hyclate 50 mg tablet 2023-03 00:00: 00 Yes [id number] ROSACEA 1 tablet DAILY 1 tablet DAILY (route: oral) Med Classific ation: Anti-Infe ctive Agents oxycodone 5 mg tablet 2023-03 00:00: 00 Yes [id number] PAIN 1 tablet EVERY 4 HOURS 1 tablet EVERY 4 HOURS (route: oral) Med Classific ation: Analgesic , Anti-infl ammatory or Antipyret ic Tylenol 325 mg tablet 2023-03 00:00: 00 Yes [id number] PAIN 2 tablet EVERY 6 HOURS 2 tablet EVERY 6 HOURS (route: oral) Med Classific ation: Analgesic , Anti-infl ammatory or Antipyret ic valacyclovi r 500 mg tablet 2023-03 00:00: 00 Yes [id number] COLD SORES 1 tablet 2 TIMES DAILY 1 tablet 2 TIMES DAILY (route: oral) Med Classific ation: Anti-Infe ctive Agents Vitamin D3 25 mcg (1,000 unit) capsule 2023-03 00:00: 00 Yes [id number] SUPPLEMENT 1 capsule DAILY 1 capsule DAILY (route: oral) Med Classific ation: Electroly te Balance-N utritiona l Products Vital Signs Vital Name Observation Time Observation Value Commen ts Temperature 2024-02-06 10:29:00.000 98.4 [degF] Temperature 2024-01-30 10:47:00.000 97.8 [degF] Temperature 2024-01-22 10:49:00.000 97.5 [degF] Temperature 2024-01-19 09:55:00.000 98.4 [degF] Temperature 2024-01-08 14:35:00.000 98.4 [degF] Temperature 2024-01-05 13:15:00.000 97.5 [degF] BMI (%) 2024-01-05 13:15:00.000 20 kg/m2 Height 2024-01-05 13:15:00.000 65 [in_us] Pulse 2024-02-06 10:29:00.000 84 /min Pulse 2024-01-30 10:47:00.000 73 /min Pulse 2024-01-22 10:49:00.000 73 /min Pulse 2024-01-19 09:55:00.000 64 /min Pulse 2024-01-08 14:35:00.000 86 /min Pulse 2024-01-05 13:15:00.000 77 /min O2 Saturation (%) 2024-02-06 10:29:00.000 99 % O2 Saturation (%) 2024-01-30 10:47:00.000 98 % O2 Saturation (%) 2024-01-19 09:55:00.000 99 % O2 Saturation (%) 2024-01-08 14:35:00.000 98 % Respirations 2024-02-06 10:29:00.000 18 /min Respirations 2024-01-30 10:47:00.000 18 /min Respirations 2024-01-22 10:49:00.000 18 /min Respirations 2024-01-19 09:55:00.000 18 /min Respirations 2024-01-08 14:35:00.000 18 /min Respirations 2024-01-05 13:15:00.000 18 /min Weight (lbs) 2024-01-05 13:15:00.000 123 [lb_av] Systolic Blood Pressure 2024-02-06 10:29:00.000 124 mm [Hg] Systolic Blood Pressure 2024-01-30 10:47:00.000 120 mm [Hg] Systolic Blood Pressure 2024-01-22 10:49:00.000 134 mm [Hg] Systolic Blood Pressure 2024-01-19 09:55:00.000 122 mm [Hg] Systolic Blood Pressure 2024-01-08 14:35:00.000 120 mm [Hg] Systolic Blood Pressure 2024-01-05 13:15:00.000 116 mm [Hg] Diastolic Blood Pressure 2024-02-06 10:29:00.000 76 mm [Hg] Diastolic Blood Pressure 2024-01-30 10:47:00.000 68 mm [Hg] Diastolic Blood Pressure 2024-01-22 10:49:00.000 80 mm [Hg] Diastolic Blood Pressure 2024-01-19 09:55:00.000 72 mm [Hg] Diastolic Blood Pressure 2024-01-08 14:35:00.000 76 mm [Hg] Diastolic Blood Pressure 2024-01-05 13:15:00.000 64 mm [Hg] Plan of Treatment Planned Activity Planned Date Details Comments Future Scheduled Test PT/PLISSE MACHINE OPERATOR TO PROVIDE GAIT TRAINING FOR IMPROVED MOBILITY AND /OR TO NORMALIZE GAIT PATTERN [code = PT/PLISSE MACHINE OPERATOR TO PROVIDE GAIT TRAINING FOR IMPROVED MOBILITY AND /OR TO NORMALIZE GAIT PATTERN] Future Scheduled Test PT/PLISSE MACHINE OPERATOR TO IDENTIFY FALL RISK FACTORS; EDUCATE THE PATIENT/CAREGIVER ON WAYS TO REDUCE FALL RISK FACTORS AND ESTABLISH HOME EXERCISE PROGRAM TO MINIMIZE FALL RISK. MAY TEACH THE PATIENT FLOOR RECOVERY WHEN CLINICALLY APPROPRIATE [code = PT/PLISSE MACHINE OPERATOR TO IDENTIFY FALL RISK FACTORS; EDUCATE THE PATIENT/CAREGIVER ON WAYS TO REDUCE FALL RISK FACTORS AND ESTABLISH HOME EXERCISE PROGRAM TO MINIMIZE FALL RISK. MAY TEACH THE PATIENT FLOOR RECOVERY WHEN CLINICALLY APPROPRIATE] Future Scheduled Test PT/PLISSE MACHINE OPERATOR TO PROVIDE STAIR TRAINING [code = PT/PLISSE MACHINE OPERATOR TO PROVIDE STAIR TRAINING] Future Scheduled Test PT / PLISSE MACHINE OPERATOR T O MONITOR AND EDUCATE ON OXYGEN SATURATION DURING ADLS/IADLS, NOTIFY PHYSICIAN AND/OR THE RN CLINICAL OPEN HEARTH FURNACE LABORER FOR PHYSICIAN NOTIFICATION AND IF O2 SATS BELOW PHYSICIAN ORDERED PARAMETERS AFTER 10 MIN OF REST [code = PT / PLISSE MACHINE OPERATOR TO MONITOR AND EDUCATE ON OXYGEN SATURATION DURING ADLS/IADLS, NOTIFY PHYSICIAN AND/OR THE RN CLINICAL OPEN HEARTH FURNACE LABORER FOR PHYSICIAN NOTIFICATION AND IF O2 SATS BELOW PHYSICIAN ORDERED PARAMETERS AFTER 10 MIN OF REST] Future Scheduled Test PT / PLISSE MACHINE OPERATOR M AY EDUCATE ON PAIN MANAGEMENT CLINICALLY INDICATED, INCLUDING NON-PHARMACOLOGICAL PAIN REDUCTION TECHNIQUES [code = PT / PLISSE MACHINE OPERATOR MAY EDUCATE ON PAIN MANAGEMENT CLINICALLY INDICATED, INCLUDING NON-PHARMACOLOGICAL PAIN REDUCTION TECHNIQUES ] Future Scheduled Test AGENCY MAY PERFORM A RESUMPTION OF CARE VISIT FOLLOWING ANY HOSPITAL ADMISSION. PT TO EVALUATE, OBSERVE / ASSESS, AND MONITOR, PLISSE MACHINE OPERATOR TO OBSERVE AND MONITOR, PROVIDE SKILLED THERAPEUTIC INTERVENTION, ACTIVITY, EDUCATION, AND TRAINING TO ADDRESS; [code = AGENCY MAY PERFORM A RESUMPTION OF CARE VISIT FOLLOWING ANY HOSPITAL ADMISSION. PT TO EVALUATE, OBSERVE / ASSESS, AND MONITOR, PLISSE MACHINE OPERATOR TO OBSERVE AND MONITOR, PROVIDE SKILLED THERAPEUTIC INTERVENTION, ACTIVITY, EDUCATION, AND TRAINING TO ADDRESS;] Future Scheduled Test PT / PLISSE MACHINE OPERATOR T O EDUCATE ON SHOULDER REPLACEMENT SELF-MANAGEMENT. [code = PT / PLISSE MACHINE OPERATOR TO EDUCATE ON SHOULDER REPLACEMENT SELF-MANAGEMENT.] Future Scheduled Test PT / PLISSE MACHINE OPERATOR T O OBSERVE WOUND/INCISION AND/OR INTACT DRESSING ON RIGHT SHOULDER AND REPORT EARLY SIGNS AND SYMPTOMS OF WOUND DETERIORATION, COMPLICATIONS, OR INFECTION TO PHYSICIAN AND/OR THE RN CLINICAL OPEN HEARTH FURNACE LABORER FOR PHYSICIAN NOTIFICATION. [code = PT / PLISSE MACHINE OPERATOR TO OBSERVE WOUND/INCISION AND/OR INTACT DRESSING ON RIGHT SHOULDER AND REPORT EARLY SIGNS AND SYMPTOMS OF WOUND DETERIORATION, COMPLICATIONS, OR INFECTION TO PHYSICIAN AND/OR THE RN CLINICAL OPEN HEARTH FURNACE LABORER FOR PHYSICIAN NOTIFICATION.] Future Scheduled Test AGENCY MAY PERFORM A RESUMPTION OF CARE VISIT FOLLOWING ANY HOSPITAL ADMISSION. OT TO EVALUATE, OBSERVE / ASSESS, AND MONITOR, CONTRACTS INTERN TO OBSERVE AND MONITOR, PROVIDE SKILLED THERAPEUTIC INTERVENTION, ACTIVITY, EDUCATION, AND TRAINING TO ADDRESS; SURGICAL ORTHOPEDIC AFTERCARE, R SH CONDITIONING PROGRAM TRAINING, FALL PREVENTION MANAGEMENT, PAIN MANAGEMENT, DECLINE IN ADLS AND IADLS. BATHING/SHOWERING (OT/CONTRACTS INTERN) OT/CONTRACTS INTERN TO MONITOR AND EDUCATE ON OXYGEN SATURATION DURING ADLS/IADLS, NOTIFY PHYSICIAN AND/OR THE RN CLINICAL OPEN HEARTH FURNACE LABORER FOR PHYSICIAN NOTIFICATION AND IF O2 SATS BELOW 90% AFTER 10 MIN OF REST. OT / CONTRACTS INTERN TO IDENTIFY FALL RISK FACTORS; EDUCATE THE PATIENT/CAREGIVER ON WAYS TO REDUCE FALL RISK FACTORS AND ESTABLISH HOME EXERCISE PROGRAM TO MINIMIZE FALL RISK. MAY TEACH THE PATIENT FLOOR RECOVERY WHEN CLINICALLY APPROPRIATE. OT/PHUONG TO TEACH SHOULDER REPLACEMENT REPAIR SELF-MANAGEMENT [code = AGENCY MAY PERFORM A RESUMPTION OF CARE VISIT FOLLOWING ANY HOSPITAL ADMISSION. OT TO EVALUATE, OBSERVE / ASSESS, AND MONITOR, CONTRACTS INTERN TO OBSERVE AND MONITOR, PROVIDE SKILLED THERAPEUTIC INTERVENTION, ACTIVITY, EDUCATION, AND TRAINING TO ADDRESS; SURGICAL ORTHOPEDIC AFTERCARE, R SH CONDITIONING PROGRAM TRAINING, FALL PREVENTION MANAGEMENT, PAIN MANAGEMENT, DECLINE IN ADLS AND IADLS. BATHING/SHOWERING (OT/CONTRACTS INTERN) OT/CONTRACTS INTERN TO MONITOR AND EDUCATE ON OXYGEN SATURATION DURING ADLS/IADLS, NOTIFY PHYSICIAN AND/OR THE RN CLINICAL OPEN HEARTH FURNACE LABORER FOR PHYSICIAN NOTIFICATION AND IF O2 SATS BELOW 90% AFTER 10 MIN OF REST. OT / CONTRACTS INTERN TO IDENTIFY FALL RISK FACTORS; EDUCATE THE PATIENT/CAREGIVER ON WAYS TO REDUCE FALL RISK FACTORS AND ESTABLISH HOME EXERCISE PROGRAM TO MINIMIZE FALL RISK. MAY TEACH THE PATIENT FLOOR RECOVERY WHEN CLINICALLY APPROPRIATE. OT/PHUNOG TO TEACH SHOULDER REPLACEMENT REPAIR SELF-MANAGEMENT] Goal 2024-02-06 Patient Goal - HEAL WITHOUT COMPLICATIONS Goal Provider Goal - PT LTG: PATIENT WILL DEMONSTRATE REDUCED GAIT DEVIATIONS TO REDUCE THE RISK FOR FALLING AND MINIMIZE STRAIN ON KNEES/HIPS AND BACK EVIDENCED BY IMPROVED HEEL STRIKE AND ADEQUATE STEP LENGTH WITHOUT AD TO WALK INDEPENDENTLY IN ORDER TO ACCESS ALL AREAS OF THE HOME AND TRANSPORTATION WITHIN 3 WEEKS PT LTG: PATIENT WILL DEMONSTRATE REDUCED FALL RISK EVIDENCED BY IMPROVED SELF- SELECTED WALKING SPEED (SSWS CUT SCORE 0.6 TO 0.9 INDICATES MODERATE FALL RISK, 0.6 M/S INDICATES HIGH FALL RISK) FROM 0.8M/SEC TO 1.0M/SEC WITHIN 3 WEEKS Goal Provider Goal - PT LTG: PATIENT/CAREGIVER WILL DEMONSTRATE ADHERENCE TO FALL REDUCTION SELF-MANAGEMENT AND REDUCING FALL RISK FACTORS TO MINIMIZE FALL RISK BY END OF EPISODE. Goal Provider Goal - PT LTG: PATIENT WILL DEMONSTRATE IMPROVED ABILITY TO SAFELY NEGOTIATE STAIRS FROM CGA TO INDEPENDENT WITH RAIL IN ORDER TO SAFELY ENTER AND EXIT HOME WITHIN 3 WEEKS Goal Provider Goal - PT LTG: PATIENT WILL MAINTAIN OXYGEN SATURATION WITHIN PHYSICIAN ORDERED PARAMETERS THROUGHOUT EPISODE OF CARE. Goal Provider Goal - PT GOAL: PATIENT WILL DEMONSTRATE UNDERSTANDING OF PAIN MANAGEMENT TECHNIQUES EVIDENCED BY REDUCED PAIN Goal Provider Goal - Goal Provider Goal - PT GOAL: PATIENT WILL DEMONSTRATE OPTIMAL OUTCOMES INCLUDING INCREASED ROM AND STRENGTH WITH NO COMPLICATIONS FOLLOWING SHOULDER REPLACEMENT BY END OF EPISODE. Goal Provider Goal - PT GOAL: THE PATIENT WILL NOT DEMONSTRATE ANY WOUND COMPLICATIONS DURING THE EPISODE OF CARE. Goal Provider Goal - OT STG: PATIENT WILL DEMONSTRATE IMPROVED SHOWER ROUTINE WITH SBA WITHIN 2 WEEKS. OT LTG: PATIENT WILL DEMONSTRATE IMPROVED ABILITY TO PERFORM BATHING/SHOWERING AND REDUCE CAREGIVER BURDEN FROM MIN ASSIST TO INDEPENDENT WITHIN 6 WEEKS. OT LTG: PATIENT WILL MAINTAIN OXYGEN SATURATION WITHIN PHYSICIAN ORDERED PARAMETERS THROUGHOUT THE EPISODE OF CARE. OT LTG: PATIENT/CAREGIVER WILL BE ABLE TO IMPLEMENT RECOMMENDATIONS SPECIFIC TO FALL REDUCTION FOR IMPROVED ADL/IADL COMPLETION AND HOME SAFETY BY END OF EPISODE. OT LTG: PATIENT WILL BE INDEPENDENT WITH IMPLEMENTATION OF HEP WITHIN 8 WEEKS. OT GOAL: PATIENT WILL DEMONSTRATE OPTIMAL OUTCOMES INCLUDING INCREASED ROM AND STRENGTH TO IMPROVE INDEPENDENCE WITH ADLS AND WITH NO COMPLICATIONS FOLLOWING SHOULDER REPLACEMENT BY END OF EPISODE Reason for Visit INDEPENDENT IN THE HOME Encounters Start Date/Time End Date/Time Encounter Type Admission Type Attending [facility] Care Department Encounter ID Discharge Date Discharge Status Discharge Condition Discharge Reason Percent Goals Met 2024-01-05 00:00:00 2024-02-06 00:00:00 Outpatient RAFAELA CONNER [facility] [id number] 2024-02-06 00:00:00 DISCHARGE TO HOME OR SELF CARE INDEPENDEN T IN THE HOME HH ONLY - OUT PATIENT 100.00
--- OUTSIDE RECORDS SUMMARY | 2024-03-18 12:37 | XMS_ITS | Clinical Summary ---
Author Organization Unknown Care Team Providers Care Food Checkers And Cashiers Supervisor Name Role Phone GABRIEL JACOBS, ENDER Unavailable Unavailable VALENTINA PT, RAFAELA Unavailable Unavailable ANA BISCUITWARE BRUSHER, ZHEN Unavailable Unavailable SPAFFORD OT, MARTIN Unavailable Unavailable CONDINO NEWSCAST DIRECTOR/HERRREA, DUNIA Unavailable Unav ailable Payers Payer Name Policy Type Policy Number Effective Date Expira tion Date MEDICARE.NGS.PDGM [id number] Problems Condition Name Condition Details Condition Category Status Onset Date Resolution Date Last Treatment Date Treating Clinician Comments UNSP FX SHAFT OF HUMER, RIGHT ARM, SUBS FOR FX W ROUTN HEAL Active 2023-03 00:00: 00 PRESENCE OF RIGHT ARTIFICIAL SHOULDER JOINT Active 2023-03 00:00: 00 ESSENTIAL (PRIMARY) HYPERTENSION Active 2023-03 0 00:00: 00 LONGTERM (CURRENT) USE OF ANTIBIOTICS Active 2023-03 00:00: 00 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 Active 2023-03 [...] 10 mg tablet 2023-03 00:00: 00 Yes [id number] HTN 1 tablet DAILY 1 tablet DAILY (route: oral) Med Classific ation: Cardiovas cular Therapy Agents atorvastati n 40 mg tablet 2023-03 00:00: 00 Yes [id number] HLD 1 tablet DAILY 1 tablet DAILY (route: oral) Med Classific ation: Cardiovas cular Therapy Agents Calcium 600 + D(3) 600 mg-5 mcg (200 unit) capsule 2023-03 00:00: 00 Yes [id number] SUPPLEMENT 1 capsule DAILY 1 capsule DAILY (route: oral) Med Classific ation: Electroly te Balance-N utritiona l Products Celebrex 200 mg capsule 2023-03 00:00: 00 Yes [id number] ANTI INFLAMMATOR Y 1 capsule 2 TIMES DAILY 1 capsule 2 TIMES DAILY (route: oral) Med Classific ation: Analgesic , Anti-infl ammatory or Antipyret ic docusate sodium 100 mg tablet 2023-03 00:00: 00 Yes [id number] STOOL SOFTNER 1 tablet 2 TIMES DAILY 1 tablet 2 TIMES DAILY (route: oral) Med Classific ation: Gastroint estinal Therapy Agents doxycycline hyclate 50 mg tablet 2023-03 00:00: 00 Yes [id number] ROSACEA 1 tablet DAILY 1 tablet DAILY (route: oral) Med Classific ation: Anti-Infe ctive Agents oxycodone 5 mg tablet 2023-03 00:00: 00 Yes [id number] PAIN 1 tablet EVERY 4 HOURS 1 tablet EVERY 4 HOURS (route: oral) Med Classific ation: Analgesic , Anti-infl ammatory or Antipyret ic Tylenol 325 mg tablet 2023-03 00:00: 00 Yes [id number] PAIN 2 tablet EVERY 6 HOURS 2 tablet EVERY 6 HOURS (route: oral) Med Classific ation: Analgesic , Anti-infl ammatory or Antipyret ic valacyclovi r 500 mg tablet 2023-03 00:00: 00 Yes [id number] COLD SORES 1 tablet 2 TIMES DAILY 1 tablet 2 TIMES DAILY (route: oral) Med Classific ation: Anti-Infe ctive Agents Vitamin D3 25 mcg (1,000 unit) capsule 2023-03 00:00: 00 Yes [id number] SUPPLEMENT 1 capsule DAILY 1 capsule DAILY [...] Planned Date Details Comments Future Scheduled Test PT/BISCUITWARE BRUSHER TO PROVIDE GAIT TRAINING FOR IMPROVED MOBILITY AND /OR TO NORMALIZE GAIT PATTERN [code = PT/BISCUITWARE BRUSHER TO PROVIDE GAIT TRAINING FOR IMPROVED MOBILITY AND /OR TO NORMALIZE GAIT PATTERN] Future Scheduled Test PT/BISCUITWARE BRUSHER TO IDENTIFY FALL RISK FACTORS; EDUCATE THE PATIENT/CAREGIVER ON WAYS TO REDUCE FALL RISK FACTORS AND ESTABLISH HOME EXERCISE PROGRAM TO MINIMIZE FALL RISK. MAY TEACH THE PATIENT FLOOR RECOVERY WHEN CLINICALLY APPROPRIATE [code = PT/BISCUITWARE BRUSHER TO IDENTIFY FALL RISK FACTORS; EDUCATE THE PATIENT/CAREGIVER ON WAYS TO REDUCE FALL RISK FACTORS AND ESTABLISH HOME EXERCISE PROGRAM TO MINIMIZE FALL RISK. MAY TEACH THE PATIENT FLOOR RECOVERY WHEN CLINICALLY APPROPRIATE] Future Scheduled Test PT/BISCUITWARE BRUSHER TO PROVIDE STAIR TRAINING [code = PT/BISCUITWARE BRUSHER TO PROVIDE STAIR TRAINING] Future Scheduled Test PT / BISCUITWARE BRUSHER T O MONITOR AND EDUCATE ON OXYGEN SATURATION DURING ADLS/IADLS, NOTIFY PHYSICIAN AND/OR THE RN CLINICAL MANAGER LANDSCAPE FOR PHYSICIAN NOTIFICATION AND IF O2 SATS BELOW PHYSICIAN ORDERED PARAMETERS AFTER 10 MIN OF REST [code = PT / BISCUITWARE BRUSHER TO MONITOR AND EDUCATE ON OXYGEN SATURATION DURING ADLS/IADLS, NOTIFY PHYSICIAN AND/OR THE RN CLINICAL MANAGER LANDSCAPE FOR PHYSICIAN NOTIFICATION AND IF O2 SATS BELOW PHYSICIAN ORDERED PARAMETERS AFTER 10 MIN OF REST] Future Scheduled Test PT / BISCUITWARE BRUSHER M AY EDUCATE ON PAIN MANAGEMENT CLINICALLY INDICATED, INCLUDING NON-PHARMACOLOGICAL PAIN REDUCTION TECHNIQUES [code = PT / BISCUITWARE BRUSHER MAY EDUCATE ON PAIN MANAGEMENT CLINICALLY INDICATED, INCLUDING NON-PHARMACOLOGICAL PAIN REDUCTION TECHNIQUES ] Future Scheduled Test AGENCY MAY PERFORM A RESUMPTION OF CARE VISIT FOLLOWING ANY HOSPITAL ADMISSION. PT TO EVALUATE, OBSERVE / ASSESS, AND MONITOR, BISCUITWARE BRUSHER TO OBSERVE AND MONITOR, PROVIDE SKILLED THERAPEUTIC INTERVENTION, ACTIVITY, EDUCATION, AND TRAINING TO ADDRESS; [code = AGENCY MAY PERFORM A RESUMPTION OF CARE VISIT FOLLOWING ANY HOSPITAL ADMISSION. PT TO EVALUATE, OBSERVE / ASSESS, AND MONITOR, BISCUITWARE BRUSHER TO OBSERVE AND MONITOR, PROVIDE SKILLED THERAPEUTIC INTERVENTION, ACTIVITY, EDUCATION, AND TRAINING TO ADDRESS;] Future Scheduled Test PT / BISCUITWARE BRUSHER T O EDUCATE ON SHOULDER REPLACEMENT SELF-MANAGEMENT. [code = PT / BISCUITWARE BRUSHER TO EDUCATE ON SHOULDER REPLACEMENT SELF-MANAGEMENT.] Future Scheduled Test PT / BISCUITWARE BRUSHER T O OBSERVE WOUND/INCISION AND/OR INTACT DRESSING ON RIGHT SHOULDER AND REPORT EARLY SIGNS AND SYMPTOMS OF WOUND DETERIORATION, COMPLICATIONS, OR INFECTION TO PHYSICIAN AND/OR THE RN CLINICAL MANAGER LANDSCAPE FOR PHYSICIAN NOTIFICATION. [code = PT / BISCUITWARE BRUSHER TO OBSERVE WOUND/INCISION AND/OR INTACT DRESSING ON RIGHT SHOULDER AND REPORT EARLY SIGNS AND SYMPTOMS OF WOUND DETERIORATION, COMPLICATIONS, OR INFECTION TO PHYSICIAN AND/OR THE RN CLINICAL MANAGER LANDSCAPE FOR PHYSICIAN NOTIFICATION.] Future Scheduled Test AGENCY MAY PERFORM A RESUMPTION OF CARE VISIT FOLLOWING ANY HOSPITAL ADMISSION. OT TO EVALUATE, OBSERVE / ASSESS, AND MONITOR, NEWSCAST DIRECTOR TO OBSERVE AND MONITOR, PROVIDE SKILLED THERAPEUTIC INTERVENTION, ACTIVITY, EDUCATION, AND TRAINING TO ADDRESS; SURGICAL ORTHOPEDIC AFTERCARE, R SH CONDITIONING PROGRAM TRAINING, FALL PREVENTION MANAGEMENT, PAIN MANAGEMENT, DECLINE IN ADLS AND IADLS. BATHING/SHOWERING (OT/NEWSCAST DIRECTOR) OT/NEWSCAST DIRECTOR TO MONITOR AND EDUCATE ON OXYGEN SATURATION DURING ADLS/IADLS, NOTIFY PHYSICIAN AND/OR THE RN CLINICAL MANAGER LANDSCAPE FOR PHYSICIAN NOTIFICATION AND IF O2 SATS BELOW 90% AFTER 10 MIN OF REST. OT / NEWSCAST DIRECTOR TO IDENTIFY FALL RISK FACTORS; EDUCATE THE PATIENT/CAREGIVER ON WAYS TO REDUCE FALL RISK FACTORS AND ESTABLISH HOME EXERCISE PROGRAM TO MINIMIZE FALL RISK. MAY TEACH THE PATIENT FLOOR RECOVERY WHEN CLINICALLY APPROPRIATE. OT/PHUONG TO TEACH SHOULDER REPLACEMENT REPAIR SELF-MANAGEMENT [code = AGENCY MAY PERFORM A RESUMPTION OF CARE VISIT FOLLOWING ANY HOSPITAL ADMISSION. OT TO EVALUATE, OBSERVE / ASSESS, AND MONITOR, NEWSCAST DIRECTOR TO OBSERVE AND MONITOR, PROVIDE SKILLED THERAPEUTIC INTERVENTION, ACTIVITY, EDUCATION, AND TRAINING TO ADDRESS; SURGICAL ORTHOPEDIC AFTERCARE, R SH CONDITIONING PROGRAM TRAINING, FALL PREVENTION MANAGEMENT, PAIN MANAGEMENT, DECLINE IN ADLS AND IADLS. BATHING/SHOWERING (OT/NEWSCAST DIRECTOR) OT/NEWSCAST DIRECTOR TO MONITOR AND EDUCATE ON OXYGEN SATURATION DURING ADLS/IADLS, NOTIFY PHYSICIAN AND/OR THE RN CLINICAL MANAGER LANDSCAPE FOR PHYSICIAN NOTIFICATION AND IF O2 SATS BELOW 90% AFTER 10 MIN OF REST. OT / NEWSCAST DIRECTOR TO IDENTIFY FALL RISK FACTORS; EDUCATE THE PATIENT/CAREGIVER ON WAYS TO REDUCE FALL RISK FACTORS AND ESTABLISH HOME EXERCISE PROGRAM TO MINIMIZE FALL RISK. MAY TEACH THE PATIENT FLOOR RECOVERY WHEN CLINICALLY APPROPRIATE. OT/PHUONG TO TEACH SHOULDER REPLACEMENT REPAIR SELF-MANAGEMENT] Goal [...] End Date/Time Encounter Type Admission Type Attending [facility] Care Department Encounter ID Discharge Date Discharge Status Discharge Condition Discharge Reason Percent Goals Met 2024-01-05 00:00:00 2024-02-06 00:00:00 Outpatient RAFAELA CONNER [facility] [id number] 2024-02-06 00:00:00 DISCHARGE TO HOME OR SELF CARE INDEPENDEN T IN THE HOME HH ONLY - OUT PATIENT 100.00
--- NOTE | 2024-03-18 12:43 | A.OFFVIS_ITS ---
Intake Visit Reasons: PO -Right Reverse TSA & EVENS 01/03/24 Intake Note: Yamilet is a 69 year old right hand dominant female who presents today for a post operative visit s/p Right Reverse TSA & EVENS 01/03/2024. Patient reports that she is doing well, she has some soreness after PT but no pain. She is concerned of a popping that she is feeling when she is getting dressed or doing some AROM, sometimes while at PT. Allergies No Known Allergies [No Known Allergies*] Allergy (Verified 02/08/24 09:58) HPI HPI PO -Right Reverse TSA & EVENS 01/03/24: Details: Yamilet is a 69 year old right hand dominant female who presents today for a post operative visit s/p Right Reverse TSA & EVENS 01/03/2024. Patient reports that she is doing well, she has some soreness after PT but no pain. She is concerned of a popping that she is feeling when she is getting dressed or doing some AROM, sometimes while at PT. PFSH Medical History Hx of cold sores Hx of rosacea Osteoporosis Arthritis Hypercholesterolemia HTN (hypertension) Surgical History Hx of colonoscopy History of open reduction and internal fixation (ORIF) procedure (04/11/23) History of foot surgery Social History Household Members: None Housing: House Are you a primary primary care provider to a significant other at home: No Do you presently have visiting nurse or other home services: No Alcohol intake: current Comment: counts correct Patient Tobacco Use Status: Former Tobacco user Tobacco use type: Cigarette service: No Current occupational status: retired Current occupation: right hand dominant Physical Exam Extrem Other: Incision clean dry and intact. Abduction to 40 degrees. Deltoid intact. Forward flexion to 90. External rotation to 15 degrees. Results Reviewed Results Reviewed: I personally reviewed relevant radiographs. Right reverse total shoulder arthroplasty in position unchanged from prior. No hardware complications. Assessment & Plan Assessment & Plan (1) Status post reverse arthroplasty of right shoulder: Code(s): Z96.611 - Presence of right artificial shoulder joint Category: Surgical Plan: Yamilet continues to improve. Continue physical therapy. Follow up in 3 months. No heavy lifting but otherwise no restrictions. Orders: Orders XR shoulder RT min 2V Today M25.519 - Pain in unspecified shoulder Coding Level of Care Code Global (27981) Diagnoses Status post reverse arthroplasty of right shoulder Z96.611
== END 2024-03-18 13:08 | disposition home or self-care (01) ==
PROVIDERS: PCP Internal Medicine; Visit Provider Orthopaedic Surgery
DX: Z96.611 Presence of right artificial shoulder joint (principal)
CPT/HCPCS: 99024

== ENCOUNTER 2024-06-20 08:40 | Outpatient (REF) | payer MEDICARE, OTHER, SELFPAY ==
--- NOTE | ~2024-06-20 | XR_ITS ---
EXAMINATION: XR SHOULDER 2 OR MORE VIEWS RIGHT HISTORY: M25.519 - Pain in unspecified shoulder COMPARISON: Comparison is made with the prior examination dated 03/18/2024. FINDINGS: Three views of the right shoulder are submitted. The patient is again noted to be status post reverse total shoulder arthroplasty. The orthopedic elements are in anatomic alignment. Again seen is a large amount of callus on the proximal humerus. There is no evidence of acute fracture or dislocation. The soft tissues are unremarkable. XR/XR shoulder RT min 2V IMPRESSION: Status post reverse left shoulder arthroplasty. Electronically signed by: Luiz Ulrich MD 06/20/2024 09:36 AM EDT
== END 2024-06-20 08:41 | disposition home or self-care (01) ==
LOC: HO.HOSX 08:40
PROVIDERS: Visit Provider Orthopaedic Surgery
DX: M25.511 Pain in right shoulder (principal); Z96.611 Presence of right artificial shoulder joint
CPT/HCPCS: 73030; 99212

== ENCOUNTER 2024-06-20 09:19 | Outpatient (AMB) | payer MEDICARE, OTHER, SELFPAY ==
--- NOTE | 2024-06-20 09:46 | A.OFFVIS_ITS ---
Vital Signs 06/20/24 09:55 Height 5 ft 5 in Weight 125 lb BMI 20.8 Intake Visit Reasons: OV- Right Reverse TSA & EVENS 01/03/24 Intake Note: Yamilet is a 69 year old right hand dominant female who presents today for a post operative visit s/p Right Reverse TSA & EVENS 01/03/2024. At her last visit she was given restrictions of no heavy lifting. Patient reports that she is doing well , she feels some popping and clicking. She was working with physical therapy but was discharged and she has been doing home exercise. She has no pain. Allergies No Known Allergies [No Known Allergies*] Allergy (Verified 02/08/24 09:58) HPI HPI OV- Right Reverse TSA & EVENS 01/03/24: Details: The patient is a 69-year-old female presenting with concerns about her right shoulder joint function following rTSA for for failed ORIF approximately five months ago. She has engaged seriously with her post-surgical rehabilitation program, engaging in two months of physical therapy and ongoing home exercises with the use of bands and pulleys. She reports no pain but mentions experiencing occasional popping and cracking in her shoulder. The patient indicates that the noises are not accompanied by pain but by minor soreness, which does not require medication. Her post-surgical recovery includes gradually increasing range of motion, which is facilitated by adherence to prescribed exercises and avoiding heavy lifting. She reports functional improvements in her ability to conduct daily activities. [facility] Medical History Hx of cold sores Hx of rosacea Osteoporosis Arthritis Hypercholesterolemia HTN (hypertension) Surgical History Hx of colonoscopy History of open reduction and internal fixation (ORIF) procedure (04/11/23) History of foot surgery Social History Household Members: None Housing: House Are you a primary overnight caregiver to a significant other at home: No Do you presently have visiting nurse or other home services: No Alcohol intake: current Comment: counts correct Patient Tobacco Use Status: Former Tobacco user Tobacco use type: Cigarette service: No Current occupational status: retired Current occupation: right hand dominant Physical Exam Vital Signs: BMI result Body Mass Index 20.8 Extrem Other: - Musculoskeletal- Forward flexion of the shoulder to 90 degrees. Abduction to about 70 degrees with recruitment. External rotation to approximately 15 degrees. She can get her hand to her right pocket in the hand to the back of h er head. Incision is clean dry and intact Results Reviewed Results Reviewed: I personally reviewed relevant radiographs. Right reverse total shoulder arthroplasty with no changes compared to prior. No hardware complications. Assessment & Plan Assessment & Plan (1) Status post reverse arthroplasty of right shoulder: Code(s): Z96.611 - Presence of right artificial shoulder joint Category: Surgical Plan: I discussed with the patient that her current post-surgical rehabilitation is progressing well, with expected outcomes such as popping due to tendon movement over bone irregularities but not indicating any structural defects. I reassured the patient of the adequacy of her at-home therapy, emphasizing the importance of avoiding heavy lifting to promote long-term joint integrity. The benefits of continuing a balanced exercise routine tailored to her current physical ability were discussed, alongside the option of taking Celecoxib for soreness. A follow- up was scheduled in six months to continue monitoring her recovery progression. The patient will maintain her current home exercise routine, focusing on moder ate shoulder movements while avoiding heavy lifting. She may continue using Celecoxib for occasional soreness. Regular activities, including light use of equipment such as bands and light weights, are encouraged, but professional physical therapy is optional unless the patient notes a need for further intervention. These measures are intended to support ongoing recovery and mobility. A follow-up is scheduled in six months to monitor progress and adjust care as necessary. - Continue with post-surgical home exercises focusing on moderate shoulder movements. - Avoid heavy lifting to protect the joint. - Celecoxib can be taken as needed for occasional soreness. - Regular physical therapy is optional unless further guidance is desired. - Schedule a follow-up appointment in six months. - Enjoy vacations but be cautious with physical activities. Patient was informed and verbally consented to the use of an ambient scribe for clinic note documentation during this visit. Orders: Orders XR shoulder RT min 2V Today M25.519 - Pain in unspecified shoulder Coding Level of Care Code Est Pt Level 3 (86512) Diagnoses Status post reverse arthroplasty of right shoulder Z96.611
[2024-06-20 09:55] VITALS: BMI 20.8
== END 2024-06-20 10:32 | disposition home or self-care (01) ==
LOC: HO.HOS 09:20
PROVIDERS: PCP Internal Medicine; Visit Provider Orthopaedic Surgery
DX: Z47.1 Aftercare following joint replacement surgery (principal); Z96.611 Presence of right artificial shoulder joint
CPT/HCPCS: 99213

== ENCOUNTER → 2024-06-20 09:21 | Outpatient (BNV) | payer MEDICARE, OTHER, SELFPAY | PROVIDERS: Visit Provider Radiology Diagnostic Radiology | DX: M25.511 Pain in right shoulder (principal) | CPT/HCPCS: 73030 ==

== ENCOUNTER 2024-06-24 09:57 | Outpatient (RCR) | payer MEDICARE, OTHER, SELFPAY ==
--- NOTE | 2024-02-13 14:21 | MHC.PT.EP ---
[facility] [place] Office [place] Office [place] Office [address] John Gaspar [address] [phone] F: [phone] F: [phone] F: [phone] F: [phone] Physical Therapy Plan of Care Date of Evaluation: 02/13/24 Date of Surgery: 01/03/2024 Diagnosis: PRE SURGICAL DX: Fracture of proximal end of RIGHT humerus (DOI: 03/18/23, DOS: 04/11/23 ORIF) (per MD) POST SURGICAL DX: RIGHT shoulder pain and weakness s/p reverse TSA with removal of hardware (DOS: 01/03/24) RS Assessment: Yamilet is a 68 yo female who was referred by Jennifer Be PA-C for pre-surgical Dx of fracture of proximal end of RIGHT humerus (DOI:03/18/23). PT diagnosis is post surgical RIGHT shoulder pain and weakness s/p reverse TSA and removal of hardware (DOS:01/03/24). Pt recovery of first surgery (ORIF performed 04/11/23) was impeded by avascular necrosis and osteoporosis, leading to reverse TSA surgery. Therefore fair prognosis for current rehabilitation is given. Impairments include decreased shoulder ROM, decreased shoulder strength, and mild swelling at incision site resulting in their inability to reach, lift, or carry without limitation. These deficits are impacting their ability to participate in household ADLs and playing bowling. Pt will benefit from skilled PT to address impairments and meet their goals. Frequency and Duration: The patient will be seen 2x/week for 4 weeks Short Term Goals: 2 weeks Patient will be able to perform HEP to independently manage condition. Patient will decrease visualized swelling above incision site to improve shoulder mobility. [ End ] Senior Care Goals: 4 weeks Patient will increase shoulder flexion ROM to 90 deg to be able to reach upper cabinets. Patient will increase bicep strength to 4/5 to be able to carry 2 lb without limitation. Treatment Plan: Modalities to reduce pain, spasms and effusion. Manual therapy to restore motion and function. Therapeutic exercise to improve strength and flexibility. Neuromuscular re-education for posture and balance. Therapeutic activities to return to functional activities of daily living. Electronically signed by: Racelle Doss, PT, DPT Please sign and return to therapist. Thank you for your referral.
--- NOTE | 2024-06-24 15:37 | MHC.PT.DC ---
[facility] [place] [facility] [place] Office [place] Office [address] John Gaspar [address] [phone] F: [phone] F: [phone] F: [phone] F: [phone] Physical Therapy Discharge Report Diagnosis: PRE SURGICAL DX: Fracture of proximal end of RIGHT humerus (DOI: 03/18/23, DOS: 04/11/23 ORIF) (per MD) POST SURGICAL DX: RIGHT shoulder pain and weakness s/p reverse TSA with removal of hardware (DOS: 01/03/24) RS Date of Surgery: 01/03/2024 Date of Evaluation: 02/13/24 Date of Discharge: 06/24/24 Treatments to Date: 18 Cancellations to Date: No Shows to Date: Discharge Status: Achieved Goals Improved Function Independent with HEP Discharge Summary: Yamilet has made significant progress since beginning PT. Imaging performed by ortho shows good alignment of joint components and continued bone healing. She can perform ADLs with more independence and without pain. We discuss continued progress with HEP slowly, no heavy lifting, still small, light items close to body. She is appropriate for discharge from PT this session and agrees to plan. Electronically signed by: Angelina Doss, PT, DPT Please sign and return to therapist. Thank you for your referral.
== END 2024-06-24 15:37 | disposition home or self-care (01) ==
LOC: HO.PT 09:57
PROVIDERS: PCP Internal Medicine; Visit Provider Physician Assistant
DX: S42.291D Other displaced fracture of upper end of right humerus, subsequent encounter for fracture with routine healing (principal); Z96.611 Presence of right artificial shoulder joint
CPT/HCPCS: 97110; 97116; 97140; 97161; 97162; 97530; 97535

== ENCOUNTER 2024-12-16 08:14 | Outpatient (REF) | payer MEDICARE, OTHER, SELFPAY ==
--- NOTE | ~2024-12-16 | XR_ITS ---
EXAMINATION: XR SHOULDER, RIGHT CLINICAL INFORMATION: M25.519 - Pain in unspecified shoulder COMPARISON: 06/20/2024, 03/18/2024, 01/18/2024. TECHNIQUE: Three views of the right shoulder. FINDINGS: Bony demineralization is present. Redemonstration of reverse shoulder arthroplasty in place. The humeral and glenoid components are in anatomic alignment and grossly appear well seated. There is a proximal humeral metadiaphyseal cerclage wire. Again noted is a large amount of bony callus in the proximal humerus abutting the prosthetic element. This has a similar appearance. There is no definite acute fracture or dislocation. The soft tissues are unremarkable in appearance. Old healed right rib fracture noted. XR/XR shoulder RT min 2V IMPRESSION: No significant interval change in the appearance of the right shoulder. Electronically signed by: Shreyas Brush MD 12/16/2024 09:43 AM EDT
--- OUTSIDE RECORDS SUMMARY | 2024-12-16 09:20 | XMS_ITS | Clinical Summary ---
Author Organization [facility] [address] [facility] Address [address] [place] [id number] Phone Care Team Providers Care Tibco Developer Name Role Phone Vee Alvarez MD Primary Care Provider [phone] Allergies No known active allergies Medications CALCIUM CARBONATE ORAL Calcium Carb-Choleca lciferol 1000-800 MG-UNIT Tab Take by mouth. Active cholecalciferol (VITAMIN D-3) 25 mcg (1,000 unit) capsule Take 1 Capsule by mouth daily. 09/25/2023 Active doxycycline (VIBRAMYCIN) 50 mg capsule Take 1 Capsule by mouth daily. 08/30/2021 Active valACYclovir (VALTREX) 500 mg tablet 250 mg. 08/30/2021 Active celecoxib (CeleBREX) 200 mg capsule Take 1 capsule (200 mg total) by mouth 2 (two) times a day. 01/03/2024 Active amLODIPine (NORVASC) 10 mg tablet Take 1 tablet (10 mg total) by mouth 1 (one) time each day. 90 tablet 1 10/09/2024 Active atorvastatin (LIPITOR) 40 mg tablet Take 1 tablet (40 mg total) by mouth at bedtime. at bedtime. 90 tablet 1 10/09/2024 Active Active Problems Problem Noted Date Diagnosed Date Vaginal discharge 04/28/2022 Overview (03/05/2024): Last Assessment & Plan: GC/CT and wet prep collected, will treat as indicated. Patient asymptomatic. Mixed hyperlipidemia 06/23/2021 Assessment & Plan (10/09/2024 11:12 AM EDT): Continue with atorvastatin Orders: Lipid panel with reflex to direct LDL; Future Abnormal CT scan of lung 06/22/2021 Overview (03/05/2024): CT on 12multiple pleural-based nodules of the right upper lobe, right middle lobe and right lower lobe, abutting the right minor fissure and right major fissure. The largest measures 0.9 x 1.0 x 1.8 cm centimeters centered on image 116, and this may represent rounded atelectasis. There are also multiple pleural-based nodules of the left upper lobe and left lower lobe. Closed fracture of left distal fibula 01/15/2020 Essential hypertension 06/20/2017 Overview (03/05/2024): Last Assessment & Plan: BP elevated. Did not take medication today. Asympatomic. Has f/u with PCP scheduled. 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 Orders: Vitamin D 25 hydroxy; Future Compression fracture of L4 v ertebra ([facility] V24, [facility] V28) 02/03/2014 Overview (03/05/2024): Dr. Ez Adams Nontraumatic rupture of tendons of foot and ankl e 04/15/2010 Overview (03/05/2024): Scheduled for tendinorrhaphy by Dr. Jorge Young 01/25/2010 Michelle 12/26/2007 Encounters Date Type Department Care Team Description 12/09/2024 10:07 AM EDT - 12/09/2024 11:59 PM EDT Hospital Encounter XRAY - [place] [address] [place] [address] Rib pain on left side Discharge Disposition: Home or Self Care 12/09/2024 9:45 AM EDT Office Visit [address] [phone] Riley Rand PA Rib pain on left side (Primary Dx); Age related osteoporosis, unspecified pathological fracture presence; Essential hypertension 10/09/2024 10:30 AM EDT Office Visit [address] [phone] Vee Alvarez MD Encounter for annual wellness visit (AWV) in Medicare patient (Primary Dx); Essential hypertension; Mixed hyperlipidemia; Pathological fracture of vertebra due to age-related osteoporosis with routine healing, subsequent encounter; Acute right-sided low back pain without sciatica; Mammogram declined from Last 3 Months Immunizations Name Administration Dates Next Due Anthrax 09/18/1999, 0,10/29/1998,10/15,10/01/1998 DTaP (Infanrix) 6wks to less than 7yo 10/10/2015 Hepatitis A Adult (Havrix; V aqta) 19yo and older 08/10/1997,08/09/1997,11/02/1996 Hepatitis B (Wbnsmwt-M-Inpiu , Recombivax HB-Adult) 19yo and older 07/12/2003,01/07/2003,10/06/2002 Influenza Quadravalent, 0.5m l (Fluad) 65yo and older 11/14/2022 Influenza Quadravalent, 0.5m l (Fluzone High-dose) 65yo and older 12/15/2021 Influenza Quadravalent, MDCK , 0.5ml, preservative free (Flucelvax) 6mo and older 12/19/2016 Influenza Quadrivalent, 0.5m l, preservative free (Fluarix; FluLaval; Fluzone) ages 6mo and older (Afluria) 3yo and older 12/29/2020,11/28/2019,11/16/2018,12/01,12/11/2015 Influenza trivalent, 0.5mL ( Fluad) 65yo and older 11/14/2022 Influenza trivalent, 0.5mL ( Fluzone High-dose) 65yo and older 11/06/2023 Influenza trivalent, 0.5mL, preservative free (Fluarix; FluLaval; Fluzone) ages 6mo and older (Afluria) 3 years and older 12/29/2020,11/28/2019,11/16/2018,12/01,12/11/2015 Influenza, Unspecified 12/15/2021,01/08/2015 MMR, measles mumps and rubel la Live (Priorix; M-M-R II) 12mo and older 02/17/1998 Meningococcal Polysaccharide 10/16/2002,11/02/18 97 OPV 03/31/1984 PPD Test 07/12/2003, 2,01/15/2001,07/15,08/15/1999,09/19/1998,02/17/1997 ,02/15/1997 Pfizer (ages 12 & older) Biv alent, COVID-19 01/08/2023,12/15/2021 Pfizer SARS-CoV-2 COVID-19, mRNA, LNP-S, preservative free 12/15/2021,06/23/2020,06/02/2020 Pneumococcal conjugate 20 va lent (Prevnar 20, PCV 20) 2mo and older 03/09/2023 Pneumococcal polysaccharide 23 valent (Pneumovax 23) 2yo and older 02/19/2021 RSV, bivalent, protein subun it RSVpreF, 0.5mL, Preservative Free (ABRYSVO) 60yo and older or 32 through 36 wks of 07/15/2024 Td Tetanus diptheria (Tdvax) 7yo and older 12/05/2004,01/10/1995 Tdap Tetanus diptheria acell ular pertussis (Boostrix; Adacel) 7yo and older 07/08/2024 Typhoid VICPS (Typhim Vi) 2y o and older 02/24/2007 Typhoid Vaccine, Parental, Acetone-Killed, Dried (U.S. ) 11/02/1996,03/30/1992 Typhoid Vaccine, Parenteral, Other Than Acetone-killed, Dried 12/05/2004,10/06/2002,07/15/2000 Yellow Fever (YF-VAX) 9mo and older 11/03/1996,0 03/31/1984 Zoster recombinant (Shingrix ) 19yo and older 06/08/2022,04/18/2022,04/10/2022 Surgical History Surgery Date Site/Laterality Comments FOOT SURGERY 2009 PROCEDURE: HISTORICAL FOOT SURGERY; COMMENT: left and right bunionectomies SHOULDER SURGERY 03/27/2022 - 03/26/2023 Right Medical History Medical History Date Comments Rosacea 12/26/2007 DX:Rosacea Family History Medical History Relation Name Comments Prostate cancer Father onset around age 70's Arthritis Mother ? RA Arthritis Sister Breast cancer Neg Hx Relation Name Status Comments Father Mother Sister Social History Tobacco Use Types Packs/Day Years Used Date Smoking Tobacco: Former Cigarettes 0.3 9.1 1 04/19/1973 - 03/27/1983 Smokeless Tobacco: Never Tobacco Cessation:Counseling Given: Not Answered Alcohol Use Standard Drinks/Week Comments Yes 0 (1 standard drink = 0.6 oz pur e alcohol) Housing Instability Answer Date Recorde d Are you worried that in the next 2 months you may not have stable housing? No 10/09/2024 Health Literacy Answer Date Recorded How often do you need to hav e someone help you when you read instructions, pamphlets, or other written material from your doctor or pharmacy? Never 10/09/2024 Caregiver: How often do you need to have someone help you when you read instructions, pamphlets, or other written material from your doctor or pharmacy? Not on file 10/09/2024 Financial Risk Answer Date Recorded How hard is it for you to pa y for the very basics like food, housing, medical care, and air conditioning / heating? Not very hard 10/09/2024 Transportation Answer Date Recorded Has the lack of transportati on kept you from meetings, work, or from getting things needed for daily living? No 10/09/2024 Has the lack of transportati on kept you from medical appointments or from getting medications? Not on file 10/09/2024 Social Isolation Answer Date Recorded How often do you feel lonely or isolated from th ose around you? Never 10/09/2024 Food Risk Answer Date Recorded Within the past 12 months we worried whether our food would run out before we got money to buy more. Never true 10/09/2024 Within the past 12 months th e food we bought just didn't last and we didn't have money to get more. Never true 10/09/2024 Education Answer Date Recorded Do you think completing more education or training, like finishing a GED, going to college, or learning a trade, would be helpful for you? No 10/09/2024 Employment and Income Answer Date Recor ded During the last four weeks, have you been actively looking for work? No 10/09/2024 Living Situation Answer Date Recorded What is your living situation? 0 10/09/2024 Comments No Sex and Gender Information Value Date Recorded Sex Assigned at Not on file Legal Sex Female 9:23 AM EST Gender Identity Not on file Sexual Orientation Not on file Obstetrics History Last Filed Vital Signs Vital Sign Reading Time Taken Comments Blood Pressure 132/80 12/09/2024 9:47 AM EDT Pulse 82 12/09/2024 9:47 AM EDT Temperature 36.3 C (97.4 F) 12/09/2024 9:47 AM EDT Respiratory Rate 14 12/09/2024 9:47 AM EDT Oxygen Saturation 98% 10/09/2024 10:17 AM EDT Inhaled Oxygen Concentration - - Weight 58.3 kg (128 lb 8 oz) 12/09/2024 9:47 AM EDT Height 165.1 cm (5' 5 ) 12/09/2024 9:47 AM EDT Body Mass Index 21.38 12/09/2024 9:47 AM EDT Plan of Treatment Upcoming Encounters Date Type Department Care Team (Late st Contact Info) Description 02/12/2025 8:30 AM EST Office Visit Adult Medicine [address] [phone] Vee Alvarez MD [address] [place] [address] Health Maintenance Due Date Last Done Comments IPV Vaccines (2 of 3 - Adult catch-up series) 04/28/1984 03/31/1984 Breast Cancer Screening 04/25/2024 04/25/19 23, 04/20/2021, 04/09/2020, Additional history exists COVID-19 Vaccine ( season) 2024 01/08/2023, 12/15/2021, 12/15/2021, Additional history exists Colorectal Cancer Screening: Colonoscopy 06/20/2025 06/21/2015 Falls Risk Assessment 10/09/2025 10/09/2024, 023 Medicare Annual Wellness Visit 10/09/2025 10/09/2024 Social Influencers of Health Screening 10/09/2025 10/09/2024 Hypertension/CHF/CAD Annual BMP Blood Test 10/10/2025 10/10/2024, 09/04/2023, 09/04/2023 Cholesterol Screening (Lipid Panel) 10/10/2029 10/10/2024, 09/04/2023, 09/04/2023 Osteoporosis Screening (Bone Density Screening) 03/24/2032 03/24/2022 DTaP,Tdap,and Td Vaccines (5 - Td or Tdap) 07/08/2034 07/08/2024, 10/10/2015, 10/10/2015, Additional history exists Hepatitis A Vaccines Aged Out 08/10/1997, 08/09/1997, 11/02/1996 No longer eligible based on patient's age to complete this topic MMR Vaccines Aged Out 02/17/1998 No longer eligi ble based on patient's age to complete this topic Meningococcal ACWY Vaccine Aged Out 10/16/2002, No longer eligible based on patient's age to complete this topic Hepatitis B Vaccines Completed 07/12/2003, 01/07/2003, 10/06/2002 Hepatitis C Screening Completed 01/02/2018 Zoster Vaccines Completed 06/08/2022, 03/28, 04/10/2022 Pneumococcal Vaccine: 50+ Years Completed 03/09/2023, 02/19/2021 RSV Immunization Adult Patients Completed 07/15/2024 Depression Screening Completed 10/09/2024, 03/09/20 23 Influenza Vaccine Completed 12/03/2024, , 11/14/2022, Additional history exists HIB Vaccines Aged Out No longer eligi ble based on patient's age to complete this topic HPV Vaccines Aged Out No longer eligi ble based on patient's age to complete this topic Meningococcal B Vaccine Aged Out No l onger eligible based on patient's age to complete this topic RSV Immunization Patients Under 20 months Aged Out No longer eligible based on patient's age to complete this topic Varicella Vaccines Aged Out No longer eligible based on patient's age to complete this topic Procedures Procedure Name Priority Date/Time Associated Diagnosis Comments XR RIBS W CHEST 3+ VIEWS LEFT Routine 12/09/2024 10:15 AM EDT Rib pain on left side CBC WITH AUTO DIFFERENTIAL Routine 10/10/2024 8:06 AM EDT Essential hypertension CBC AND DIFFERENTIAL Routine 10/10/2024 8:06 AM EDT Essential hypertension COMPREHENSIVE METABOLIC PANEL Routine 10/10/2024 8:06 AM EDT Essential hypertension LIPID PANEL WITH REFLEX TO DIRECT LDL Routine 10/10/2024 8:06 AM EDT Mixed hyperlipidemia VITAMIN D 25 HYDROXY Routine 10/10/2024 8:06 AM EDT Pathological fracture of vertebra due to age-related osteoporosis with routine healing, subsequent encounter DEPRESSION SCREENING Routine 03/09/2023 FALLS RISK ASSESSMENT Routine 03/09/2023 SCREENING MAMMOGRAPHY BI 2-VIEW BREAST INC CAD Routine 04/25/2022 7:49 AM EST Encounter for screening mammogram for malignant neoplasm of breast DXA BONE DENSITY STUDY 1+ SITS AXIAL SKEL Routine 03/24/2022 9:26 AM EST Other osteoporosis with current pathological fracture, unspecified site, sequela HEPATITIS C SCREENING Routine 01/02/2018 COLONOSCOPY Routine 06/21/2015 from Last 3 Months or Most Recently Relevant to Health Maintenance Results * XR Ribs w Chest 3+ Views Left (12/09/2024 10:15 AM EDT) Anatomical Region Laterality Modality Body Left Radiographic Elyssa ging 12/09/2024 10:5 9 AM EDT Narrative 12/09/2024 11:05 AM EDT PA view of the chest. Left RIBS, 2 views. History pain after the fall. Comparison with prior examination from 02/24/2021. Examination is limited due to overlying pulmonary markings as well as prominence of the costochondral calcifications of the hips. No visible displaced fractures identified. There is no pneumothorax, pleural effusions. There is no congestive heart failure. Again noted are reticular nodular opacities more prominent in the upper lobes. There is total right shoulder replacement prosthesis. CONCLUSIONS: Limited examination. No visible displaced left ribs fractures. -------- FINAL REPORT -------- Dictated By: Harper Alvarado Dictated Date: 12/09/2024 10:59 ET Assigned Physician: Harper Alvarado Reviewed and Electronically Signed By: Harper Alvarado Signed Date: 12/09/2024 11:05 ET Workstation ID: [id number] Transcribed By: Self Edit Transcribed Date: 12/09/2024 10:59 ET Procedure Note Harper Alvarado MD - 12/09/2024 PA view of the chest. Left RIBS, 2 views. History pain after the fall. Comparison with prior examination from 02/24/2021. Examination is limited due to overlying pulmonary markings as well asprominence of the costochondral calcifications of the hips. No visibledisplaced fractures identified. There is no pneumothorax, pleuraleffusions. There is no congestive heart failure. Again noted are reticularnodular opacities more prominent in the upper lobes. There is total rightshoulder replacement prosthesis. CONCLUSIONS: Limited examination. No visible displaced left ribsfractures. -------- FINAL REPORT -------- Dictated By: Harper Alvarado Dictated Date: 12/09/2024 10:59 ET Assigned Physician: Harper Alvarado Reviewed and Electronically Signed By: Harper Alvarado Signed Date: 12/09/2024 11:05 ET Workstation ID: [id number] Transcribed By: Self Edit Transcribed Date: 12/09/2024 10:59 ET us Riley NGUYEN IMG XR PROCEDURES Final Result * Lipid panel with reflex to direct LDL (10/10/2024 8:06 AM EDT) Cholesterol 174 0 - 200 mg/dL LAB CHEMISTRY METHOD 10/10/2024 12:[address] [facility] Triglycerides 71 0 - 150 mg/dL LAB CHEMISTRY METHOD 10/10/2024 12:[address] [facility] HDL 66 >=40 mg/dL LAB CHEMISTRY METHOD 10/10/2024 12:[address] [facility] LDL Calculated 94 0 - 100 mg/dL LAB CHEMISTRY METHOD 10/10/2024 12:[address] [facility] VLDL Cholesterol Jus 14.2 mg/dL LAB CHEMISTRY METHOD 10/10/2024 12:[address] [facility] Non HDL Chol. (LDL+VLDL) 108 <145 mg/dL LAB CHEMISTRY METHOD 10/10/2024 12:[address] [facility] Chol/HDL Ratio 2.6 0.0 - 4.4 LAB CHEMISTRY METHOD 10/10/2024 12:[address] [facility] Blood Venous blood specimen / Unknown Venipuncture / Unknown 10/10/2024 8:06 AM EDT 10/10/2024 8:06 AM EDT us Vee Alvarez MD LAB BLOOD ORDERABLES Final Resul t [facility] [address] [place] [address], * (ABNORMAL) CBC auto differential (10/10/2024 8:06 AM EDT) WBC 5.9 4.8 - 10.8 K/[facility] LAB HEMETOLOGY METHOD 10/10/2024 10:25 AM [facility] RBC 4.20 3.80 - 4.80 M/mcL LAB HEMETOLOGY METHOD 10/10/2024 10:25 AM [facility] Hemoglobin 14.7 11.5 - 16.0 g/dL LAB HEMETOLOGY METHOD 10/10/2024 10:25 AM [facility] Hematocrit 42.6 35.0 - 47.0 % LAB HEMETOLOGY METHOD 10/10/2024 10:25 AM [facility] MCV 101.2(H) 79.0 - 98.0 FL LAB HEMETOLOGY METHOD 10/10/2024 10:25 AM [facility] MCH 34.9(H) 27.0 - 32.0 pcg LAB HEMETOLOGY METHOD 10/10/2024 10:25 AM [facility] MCHC 34.5 32.0 - 37.0 g/dL LAB HEMETOLOGY METHOD 10/10/2024 10:25 AM [facility] RDW 12.6 11.0 - 15.0 % LAB HEMETOLOGY METHOD 10/10/2024 10:25 AM [facility] Platelets 231 130 - 400 K/[facility] LAB HEMETOLOGY METHOD 10/10/2024 10:25 AM [facility] MPV 10.3 7.0 - 11.0 FL LAB HEMETOLOGY METHOD 10/10/2024 10:25 AM [facility] NRBC 0.0 <1.0 % LAB HEMETOLOGY METHOD 10/10/2024 10:25 AM [facility] NRBC Absolute 0.00 <0.10 K/mcL LAB HEMETOLOGY METHOD 10/10/2024 10:25 AM [facility] Neutrophils Relative 58.5 % LAB HEMETOLOGY METHOD 10/10/2024 10:25 AM [facility] Lymphocytes Relative 24.0 % LAB HEMETOLOGY METHOD 10/10/2024 10:25 AM [facility] Monocytes Relative 14.1 % LAB HEMETOLOGY METHOD 10/10/2024 10:25 AM [facility] Eosinophils Relative 2.2 % LAB HEMETOLOGY METHOD 10/10/2024 10:25 AM [facility] Basophils Relative 1.0 % LAB HEMETOLOGY METHOD 10/10/2024 10:25 AM [facility] Immature Granulocytes Relative 0.2 % LAB HEMETOLOGY METHOD 10/10/2024 10:25 AM [facility] Neutrophils Absolute 3.44 1.50 - 7.00 K/mcL LAB HEMETOLOGY METHOD 10/10/2024 10:25 AM [facility] Lymphocytes Absolute 1.41 1.00 - 5.00 K/mcL LAB HEMETOLOGY METHOD 10/10/2024 10:25 AM [facility] Monocytes Absolute 0.83 0.20 - 1.00 K/mcL LAB HEMETOLOGY METHOD 10/10/2024 10:25 AM [facility] Eosinophils Absolute 0.13 0.00 - 0.50 K/mcL LAB HEMETOLOGY METHOD 10/10/2024 10:25 AM [facility] Basophils Absolute 0.06 0.00 - 0.20 K/mcL LAB HEMETOLOGY METHOD 10/10/2024 10:25 AM [facility] Immature Granulocytes Absolute 0.01 0.00 - 0.03 K/mcL LAB HEMETOLOGY METHOD 10/10/2024 10:25 AM [facility] Blood Venous blood specimen / Unknown Venipuncture / Unknown 10/10/2024 8:06 AM EDT 10/10/2024 8:06 AM EDT us Vee Alvarez MD LAB BLOOD ORDERABLES Final Resul t Performing Organization Address City/[facility]/ZIP Co de Phone Number [facility] [address] [place] [address], [place] [phone] * Vitamin D 25 hydroxy (10/10/2024 8:06 AM EDT) [facility] Vit D, 25-Hydroxy 66.6 30.0 - 80.0 ng/mL LAB CHEMISTRY METHOD 10/10/2024 1:[address] [facility] Blood Venous blood specimen / Unknown Venipuncture / Unknown 10/10/2024 8:06 AM EDT 10/10/2024 8:06 AM EDT us Vee Alvarez MD LAB BLOOD ORDERABLES Final Resul t Performing Organization Address [place]/[facility]/ZIP Co de Phone Number [facility] [address] [place] [address], [place] [phone] * Comprehensive metabolic panel (10/10/2024 8:06 AM EDT) [facility] Sodium 140 133 - 145 mmol/L LAB CHEMISTRY METHOD 10/10/2024 12:[address] [facility] Potassium 4.6 3.5 - 5.5 mmol/L LAB CHEMISTRY METHOD 10/10/2024 12:[address] [facility] Chloride 105 96 - 110 mmol/L LAB CHEMISTRY METHOD 10/10/2024 12:19 PM [facility] CO2 25 21 - 32 mmol/L LAB CHEMISTRY METHOD 10/10/2024 12:[address] [facility] Anion Gap 10 3 - 11 LAB CHEMISTRY METHOD 10/10/2024 12:[address] [facility] Glucose 83 70 - 100 mg/dL LAB CHEMISTRY METHOD 10/10/2024 12:19 PM [facility] BUN 11 5 - 25 mg/dL LAB CHEMISTRY METHOD 10/10/2024 12:19 PM [facility] Creatinine 0.75 0.50 - 1.10 mg/dL LAB CHEMISTRY METHOD 10/10/2024 12:19 PM [facility] eGFR 87 >=60 mL/min/1. 73m2 LAB CHEMISTRY METHOD 10/10/2024 12:19 PM [facility] Comment:Calculation based on the Chronic Kidney Disease Epidemiology Collaboration (CKD-EPI) equation refit without adjustment for race. BUN/Creatinine Ratio 14.7 LAB CHEMISTRY METHOD 10/10/2024 12:19 PM [facility] Calcium 9.8 8.5 - 10.5 mg/dL LAB CHEMISTRY METHOD 10/10/2024 12:19 PM [facility] AST (SGOT) 38 10 - 42 unit/L LAB CHEMISTRY METHOD 10/10/2024 12:19 PM [facility] ALT (SGPT) 38 10 - 60 unit/L LAB CHEMISTRY METHOD 10/10/2024 12:19 PM [facility] Alkaline Phosphatase 94 42 - 121 unit/L LAB CHEMISTRY METHOD 10/10/2024 12:19 PM [facility] Total Protein 7.8 6.0 - 8.0 g/dL LAB CHEMISTRY METHOD 10/10/2024 12:19 PM [facility] Albumin 4.2 3.2 - 5.0 g/dL LAB CHEMISTRY METHOD 10/10/2024 12:19 PM [facility] Total Bilirubin 0.6 0.0 - 1.4 mg/dL LAB CHEMISTRY METHOD 10/10/2024 12:19 PM [facility] Blood Venous blood specimen / Unknown Venipuncture / Unknown 10/10/2024 8:06 AM EDT 10/10/2024 8:06 AM EDT Vee Alvarez MD LAB BLOOD ORDERABLES Final Resul t [facility] [address] [place] [address], [place] [phone] * Falls Risk Assessment (03/09/2023) Falls Risk Assessment Abstracted Historical Provider MD HEALTH MAINTENANCE Final Result * Depression Screening (03/09/2023) HM Depression Screening Abstracted Historical Provider MD HEALTH MAINTENANCE Final Result * SCREENING MAMMOGRAPHY BI 2-VIEW BREAST INC CAD (04/25/2022 7:49 AM EST) Anatomical Region Laterality Modality Radiographic Elyssa ging 04/20/2021 7:40 AM EST Narrative 04/25/2022 7:55 PM EST This is a summary report. The complete report is available in the patient's medical record. If you cannot access the medical record, please contact the sending organization for a detailed fax or copy. Exam: Screening mammogram Findings: Digital bilateral full-field screening mammography is performed with tomosynthesis and interpreted with the aid of computer-aided detection. Comparison is made with 04/20/2021 and as far back as 04/02/2018. Breast parenchyma is heterogeneously dense, limiting mammographic sensitivity. No new suspicious mass, architectural distortion, or suspicious calcifications. Impression: No mammographic evidence of malignancy. BI-RADS 1 - negative Procedure Note Erica Stevens MD - 05/01/2023 This is a summary report. The complete report is available in thepatient's medical record. If you cannot access the medical record, pleasecontact the sending organization for a detailed fax or copy. Exam: Screening mammogram Findings: Digital bilateral full-field screening mammography is performedwith tomosynthesis and interpreted with the aid of computer-aideddetection. Comparison is made with 04/20/2021 and as far back 04/02/2018. Breast parenchyma is heterogeneously dense, limiting mammographicsensitivity. No new suspicious mass, architectural distortion, orsuspicious calcifications. Impression: No mammographic evidence of malignancy. BI-RADS 1 - negative Vee Alvarez MD IMG XR PROCEDURES Final Result * DXA BONE DENSITY STUDY 1+ SITS AXIAL SKEL (03/24/2022 9:26 AM EST) Anatomical Region Laterality Modality Bone Densitometr y 12/24/2021 8:43 AM EDT Narrative 03/24/2022 7:03 PM EST BONE DENSITY Lumbar Spine T-score is +02. (SD relative to 20-29 y/o adult) Z-score is +2.0 (SD relative to age matched peers) This is normal by criteria defined by the WHO. Left Hip T-score is -3.1 Z-score is -1.5 This is consistent with osteoporosis by criteria defined by the WHO. Impression: Based on the World Health Organization criteria, Yamilet Taylor should be classified as having osteoporosis. The [facility] Department of Internal Medicine recommends using National Osteoporosis Foundation (NOF) guidelines in treatment decisions related to osteoporosis. NOF guidelines suggest considering treatment for postmenopausal women and men aged 50 or older presenting with the following: History of hip or vertebral fracture. T-score less than or equal to -2.5 (DXA) at the femoral neck, total hip, or spine, after appropriate evaluation to exclude secondary causes. Low bone mass (T-score between -1.0 and -2.5 at the femoral neck or spine) AND a 10-year probability of a hip fracture greater than or equal to 3% OR a 10-year probability of a major osteoporosis-related fracture greater than or equal to 20% based on the [place]-adapted WHO algorithm Please note that all treatment decisions require clinical judgment and consideration of individual patient factors, including patient preferences, co-morbidities, previous drug use, risk factors not captured in the FRAX model (e.g., frailty, falls, vitamin D deficiency, increased bone turnover, interval significant decline in bone density) and possible under- or over-estimation of fracture risk by FRAX. Procedure Note Harper Alvarado MD - 05/01/2023 BONE DENSITY Lumbar Spine T-score is +02. (SD relative to 20-29 y/o adult) Z-score is +2.0 (SD relative to age matched peers) This is normal by criteria defined by the WHO. Left Hip T-score is -3.1 Z-score is -1.5 This is consistent with osteoporosis by criteria defined by the WHO. Impression: Based on the World Health Organization criteria, Yamilet Wahl Gulshanseferino shouldbe classified as having osteoporosis. The [facility] Department of Internal Medicine recommendsusing National Osteoporosis Foundation (NOF) guidelines in treatmentdecisions related to osteoporosis. NOF guidelines suggest consideringtreatment for postmenopausal women and men aged 50 or older presentingwith the following: History of hip or vertebral fracture. T-score less than or equal to -2.5 (DXA) at the femoral neck, total hip,or spine, after appropriate evaluation to exclude secondary causes. Low bone mass (T-score between -1.0 and -2.5 at the femoral neck or spine)AND a 10-year probability of a hip fracture greater than or equal to 3% ORa 10-year probability of a major osteoporosis-related fracture greaterthan or equal to 20% based on the [place]-adapted WHO algorithm Please note that all treatment decisions require clinical judgment andconsideration of individual patient factors, including patientpreferences, co-morbidities, previous drug use, risk factors not capturedin the FRAX model (e.g., frailty, falls, vitamin D deficiency, increasedbone turnover, interval significant decline in bone density) and possibleunder- or over-estimation of fracture risk by FRAX. Vee Alvarez MD [facility] [place] DXA PROCEDURES Final Result * Hepatitis C Screening (01/02/2018) [facility] Hepatitis C Screening Abstracted Historical Provider HEALTH MAINTENANCE Final Result * Colonoscopy (06/21/2015) [facility] Colonoscopy No Interpretation , Abstracted Anatomical Region Laterality Modality Other Historical Provider HEALTH MAINTENANCE Final Result from Last 3 Months or Most Recently Relevant to Health Maintenance Insurance MEDICARE [facility] Care Teams Tib[employer] Developer Relationship Specialty Start Date End Date Vee Alvarez MD [address] [place] [phone] PCP - General Internal Medicine 03/04/24
--- OUTSIDE RECORDS SUMMARY | 2024-12-16 09:20 | XMS_ITS ---
Author Name [facility] Organization Unknown Care Team Organization Name Specialty Phone Email Start Date End Da te [facility] ACO 11/13/2024 [facility] Archie, PROVIDER Primary Care 03/08/202310/25 [facility] Fannie Michael Primary Care 08/01/2022 11/13/2023 [facility] Vee Alvarez Primary Care 04/04/2022 024
== END 2024-12-16 08:15 | disposition home or self-care (01) ==
LOC: HO.HOSX 08:14
PROVIDERS: Visit Provider Orthopaedic Surgery
DX: M25.511 Pain in right shoulder (principal); Z96.611 Presence of right artificial shoulder joint
CPT/HCPCS: 73030; 99212

== ENCOUNTER 2024-12-16 09:25 | Outpatient (AMB) | payer MEDICARE, OTHER, SELFPAY ==
[2024-12-16 09:33] VITALS: BMI 20.8
--- NOTE | 2024-12-16 09:33 | MHC.OFFVIS ---
Vital Signs 12/16/24 09:33 Height 5 ft 5 in Weight 125 lb BMI 20.8 Intake Visit Reasons: OV- Right Reverse TSA & EVENS 01/03/24 Intake Note: Yamilet is a 69 year old right hand dominant female who presents today for a post operative visit s/p Right Reverse TSA & EVENS 01/03/2024 Ather last visit she was advise to continue home exercise, continue to take anti- inflammatories and to avoid heavy lifting. Today patient states she is still limited ROM improving slowly daily. 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 Allergies No Known Allergies (No Known Allergies*) Allergy (Verified 12/16/24 09:38) HPI HPI OV- Right Reverse TSA & EVENS 01/03/24: Details: Yamilet is a 69 year old right hand dominant female who presents today for a post operative visit s/p Right Reverse TSA & EVENS 01/03/2024 Ather last visit she was advise to continue home exercise, continue to take anti- inflammatories and to avoid heavy lifting. Today patient states she is still limited ROM improving slowly daily. 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 [facility] Medical History Hx of cold sores Hx of rosacea Osteoporosis Arthritis Hypercholesterolemia HTN (hypertension) Surgical History Hx of colonoscopy History of open reduction and internal fixation (ORIF) procedure (04/11/23) History of foot surgery Social History Household Members: None Housing: House Are you a primary transitions rn care coordinator to a significant other at home: No Do you presently have visiting nurse or other home services: No Alcohol intake: current Comment: counts correct Patient Tobacco Use Status: Former Tobacco user Tobacco use type: Cigarette service: No Current occupational status: retired Current occupation: right hand dominant Physical Exam Vital Signs: BMI result Body Mass Index 20.8 Extrem Other: On physical exam she has a well-healed incision. She can get her hand to the back of her head with only slight forward flexion of her neck. She has external rotation to 30 degrees and forward flexion to 100. Results Reviewed Results Reviewed: I personally reviewed relevant radiographs. Reverse total shoulder in place with no changes compared to prior. Assessment & Plan Assessment & Plan (1) Status post reverse arthroplasty of right shoulder: Code(s): Z96.611 - Presence of right artificial shoulder joint Category: Surgical Plan: Status post our TSA. She is doing well considering and happy with her recovery. I recommend she continue activity as tolerated but I would avoid any lifting over 10 lb. She understands this. She will see me back in 1 year's time. Orders: Orders XR shoulder RT min 2V Today M25.519 - Pain in unspecified shoulder Coding Level of Care Code Est Pt Level 3 (03667) Diagnoses Status post reverse arthroplasty of right shoulder Z96.611
== END 2024-12-16 09:46 | disposition home or self-care (01) ==
LOC: HO.HOS 09:26
PROVIDERS: Visit Provider Orthopaedic Surgery
DX: Z47.89 Encounter for other orthopedic aftercare (principal); Z96.611 Presence of right artificial shoulder joint
CPT/HCPCS: 99213

== ENCOUNTER → 2024-12-16 09:29 | Outpatient (BNV) | payer MEDICARE, OTHER, SELFPAY | PROVIDERS: Visit Provider Radiology Diagnostic Radiology | DX: M25.511 Pain in right shoulder (principal) | CPT/HCPCS: 73030 ==

== ENCOUNTER 2024-12-24 15:30 | Emergency (ER) | payer MEDICARE, OTHER, SELFPAY ==
[2024-12-24 16:03] VITALS: BP 113/70; PULSE 101; RESP 18; TEMP 36.7; O2SAT 98; BMI 20.1
--- NOTE | 2024-12-24 16:07 | ED.NAVMDI ---
HPI - Nausea/Vomiting/Diarrhea General Chief complaint: Nausea/Vomiting/Diarrhea Stated complaint: ?Food poisoning, dehydrated sent by pcp Time Seen by Provider: 12/24/24 19:48 Source: patient Mode of arrival: ambulatory Limitations: no limitations History of Present Illness ED Provider: Dr. Emelia Esparza HPI Narrative: Patient comes to the emergency room complaining of nausea vomiting and diarrhea for 9 days. Patient states that 9 days ago she ate a industrial coffee grinder that she lived in the car for couple of hours in the trunk in the heat. After she ate it, few hours later she started having nausea vomiting and diarrhea. For about a week she has been having ongoing symptoms. Patient states that she took 1 dose of Pepto-Bismol without any relief. Patient did not take any other meds. Patient states that she has been trying to drink fluids but she vomits everything. Denies fever chills, denies hematuria or dysuria Related Data Home Medications ?Medication ?Instructions ?Recorded ?Confirmed amlodipine 10 mg tablet 10 mg PO DAILY 04/10/23 01/18/24 atorvastatin 40 mg tablet 40 mg PO BEDTIME 04/10/23 01/18/24 doxycycline hyclate 50 mg tablet 50 mg PO DAILY 12/01/23 01/18/24 valacyclovir 500 mg tablet 500 mg PO BID 12/01/23 01/18/24 calcium 600 mg (as 1 tab PO DAILY 12/22/23 01/18/24 carbonate)-vitamin D3 5 mcg (200 unit) tablet cholecalciferol (vitamin D3) 25 25 mcg PO DAILY 12/22/23 01/18/24 mcg (1,000 unit) capsule (Vitamin D3) Previous Rx's ?Medication ?Instructions ?Recorded acetaminophen 325 mg tablet 650 mg (2 x 325 mg) PO Q6H PRN 01/04/24 Pain, Mild (Pain Scale 1-3), fever or headache 30 days #240 tabs oxycodone 5 mg tablet 5 mg PO Q4H PRN Pain, 01/04/24 Moderate(Pain Scale 4-6) 7 days #42 tabs docusate sodium 100 mg capsule 200 mg (2 x 100 mg) PO BID 30 days 02/13/24 #60 caps docusate sodium 100 mg capsule 200 mg (2 x 100 mg) PO DAILY #60 02/13/24 (Colace) caps celecoxib 200 mg capsule 200 mg PO DAILY #30 caps 11/08/24 diphenoxylate-atropine 2.5 1 tab PO BID PRN diarrhea #7 tabs 12/25/24 mg-0.025 mg tablet (Lomotil) ondansetron 4 mg disintegrating 4 mg PO Q6H PRN nausea and 12/25/24 tablet vomiting #14 tabs Allergies Allergy/AdvReac Type Severity Reaction Status Date / Time No Known Allergies (No Known Allergy Verified 12/24/24 16:09 Allergies*) Review of Systems Review of Systems: Constitutional : No Weight loss, No Fever, No Chills, No Night Sweats, No Fatigue, No Malaise ENT/Mouth : No Hearing loss, No Ear Pain, No Nasal Congestion, No Sinus Pain, No Hoarseness, No sore throat, No Rhinorrhea, No Swallowing Difficulty Eyes: No Eye Pain, No Swelling, No Redness, No Foreign Body, No Discharge, No Vision Changes Cardiovascular : No Chest Pain, No SOB, No Dyspnea on Exertion, No Orthopnea, No Edema, No Palpitations Respiratory : No Cough, No Sputum, No Wheezing, No Smoke Exposure, No Dyspnea Gastrointestinal : Complaining of nausea vomiting and diarrhea, complaining of abdominal cramping Genitourinary : no irregular bleeding, No Dysuria, No Urinary Frequency, No Hematuria, No Urinary Incontinence, No Urgency, No Flank Pain, No Urinary Flow Changes, No Hesitancy Musculoskeletal : No joint pain, No Myalgias, No Joint Swelling Skin : No Skin Lesions, No rash Neuro : No Weakness, No Numbness, No Paresthesias, No Loss of Consciousness, No Dizziness, No Headache Psych : No Anxiety/Panic, No Depression, No SI/HI/AH/VH, No Social Issues, Heme/Lymph: No Bruising, No Bleeding,No Lymphadenopathy Endocrine : No Polyuria, No Polydipsia, No Temperature Intolerance PMFSH Past Medical History Medical History Hx of cold sores Hx of rosacea Osteoporosis Arthritis Hypercholesterolemia HTN (hypertension) Surgical History Hx of colonoscopy History of open reduction and internal fixation (ORIF) procedure (04/11/23) History of foot surgery Social History Social History (Reviewed 09/22/25 @ 09:40 by SARAH Ruiz Household Members: None Housing: House Are you a primary acute care certified nursing assistant to a significant other at home: No Do you presently have visiting nurse or other home services: No Alcohol intake: current Comment: counts correct Patient Tobacco Use Status: Former Tobacco user Tobacco use type: Cigarette Smoked in Last 30 Days: No Use of substances other than those prescribed or required for medical reasons: No Advance Directives: No Advance Directives Information Provided: No service: No Current occupational status: retired Current occupation: right hand dominant Physical Exam Exam: Exam: Appearance: Alert. Oriented X3. No acute distress. Eyes: Pupils equal, round and reactive to light. ENT: Pharynx normal. Dry mucous membranes Neck: Normal inspection. Neck supple. No lymph nodes noted. No crepitus CVS: Normal heart rate and rhythm. Pulses normal. Normal S1 and S2 Respiratory: No respiratory distress. Breath sounds normal. No Wheezing. No rales Abdomen: Soft , nondistended, nontender , complaining of cramping rather than pain Skin: Skin warm and dry. Normal skin color. Normal skin turgor. Extremities: No lower extremity edema. No Lacerations. No Rash Neuro: Oriented X 3. No motor deficit. No sensory deficit. Moving all extremities. No slurred speech. CN 2 through 12 grossly intact Psych: calm, cooperative, normal affect Vital Signs: Vital Signs: Last Vital Signs Temp 100.1 F 12/25/24 02:35 Pulse 87 12/25/24 02:35 Resp 16 12/25/24 02:35 BP 116/58 L 12/25/24 02:35 Pulse Ox 96 12/25/24 02:35 O2 Del Method Room Air 12/25/24 02:35 BMI result Body Mass Index 20.1 Course Course Course Narrative: This is an RME: Additional HPI, ROS, PE not included below will be deferred to primary provider. RME assessment and note performed by: Tiara Camarillo PA-C This is a 69-year-old female, with a hx of HTN, hypercholesterolemia, who presents emergency department with concerns of abdominal pain, decreased urination. Patient reports that she has been drinking a lot but has not been voiding. Endorsing nausea and vomiting. No diarrhea. She states that she ate a industrial coffee grinder 1 week ago that was left in her vehicle for a prolonged period of time. Abdomen is soft, with tenderness palpation in the suprapubic region. No rebound or guarding. Plan: Labs, UA, EKG, further ER eval needed Medications Administered Discontinued Medications Generic Name Dose Route Start Last Admin Trade Name Andrew PRN Reason Stop Dose Admin Diphenoxylate HCl/Atropine 1 tab 12/25/24 01:13 12/25/24 01:34 Diphenoxylate/Atrop 2.5/0.025 Tablet PO 12/25/24 01:14 1 tab ONCE ONE Administration Lactated Ringer's 2,000 mls @ 999 mls/hr 12/24/24 21:15 12/24/24 23:53 Lr IV 12/24/24 23:15 Infused .Q2H1M LOTUS Infusion Loperamide HCl 4 mg 12/24/24 21:12 12/24/24 21:19 Loperamide Hcl 2 Mg Capsule PO 12/24/24 21:13 4 mg ONCE ONE Administration Ondansetron HCl 4 mg 12/24/24 21:12 12/24/24 21:19 Ondansetron Hcl 4 Mg/2 Ml Vial IVPUSH 12/24/24 21:13 4 mg ONCE ONE Administration Potassium Chloride 60 meq 12/24/24 21:12 12/24/24 22:04 Potassium Chloride Packet 20 Meq Packet PO 12/24/24 21:13 60 meq ONCE ONE Administration Prochlorperazine Edisylate 10 mg 12/25/24 01:13 12/25/24 01:34 Prochlorperazine Edisylate 10 Mg/2 Ml Vial IVPUSH 12/25/24 01:14 10 mg ONCE ONE Administration Medical Decision Making Medical Decision Making [facility] Narrative: My interpretation of labs: Patient's white blood cell count 14.2, potassium 2.9, LFTs within normal limits, troponin negative. Urinalysis negative for UTI Patient receiving lactated Ringer's, Zofran and loperamide Patient had a few more episodes of diarrhea. Patient was given Lomotil. After what is, patient had no further episodes of diarrhea nausea or vomiting. Patient was able to tolerate p.o. challenge. Patient likely had an infection secondary to eating a sandwich that was left in the car for hours in the sun in the trunk. Differential Diagnosis Differential Diagnoses: The differential diagnosis associated with the presentation includes (Gastritis, gastroenteritis, viral syndrome) Admission/Observation Consideration of admission/observation: Escalation of care including admission/observation considered (Given patient's presentation and double of dehydration and electrolyte imbalance, observation/admission has been considered) Lab Data 12/24/24 16:34 12/25/24 01:20 Labs: Lab Results 12/24/24 12/24/24 12/25/24 Range/Units 16:34 17:45 01:20 WBC 14.2 H (4.8-10.8) X10*3/uL RBC 4.00 L D (4.20-5.50) X10*6/uL Hgb 13.8 D (12.0-16.0) g/dl Hct 39.0 D (37.0-47.0) % MCV 97.5 (80.0-98.0) fL MCH 34.5 H (27.0-33.0) pg MCHC 35.4 H (31.0-35.0) g/dl RDW 12.3 (11.0-16.0) % Plt Count 328 D (160-400) X10*3/uL MPV 9.2 L (9.4-12.3) fL Immature Gran % (Auto) 0.9 H (0.0-0.4) % Neut % (Auto) 74.1 H (45-73) % Lymph % (Auto) 11.4 L (20-40) % [place] % (Auto) 12.6 H (2-11) % Eos % (Auto) 0.4 (0-4) % Baso % (Auto) 0.6 (0-2) % Lymph # (Auto) 1.6 (1.2-4.9) X10*3/uL [place] # (Auto) 1.8 H (0.1-1.2) X10*3/uL Eos # (Auto) 0.1 (0.0-0.4) X10*3/uL Baso # (Auto) 0.1 (0.0-0.2) X10*3/uL Abs Immat Gran (auto) 0.13 H (0.00-0.03) X10*3/uL Absolute Neuts (auto) 10.5 H (2.0-8.3) x10*3/uL Absolute Nucleated RBC 0.000 (0.0-0.012) X10*3/uL Nucleated RBC % (auto) 0.0 (0.0-0.2) /100WBC Smear Tech's Comments VERIFIED Sodium 136 141 (135-145) mmol/L Potassium 2.9 L* D 4.1 D (3.3-5.1) mmol/L Chloride 98 106 (96-108) mmol/L Carbon Dioxide 27 28 (22-29) mmol/L Anion Gap 14 11 L (12-20) BUN 5 L 4 L (9-16) mg/dL Creatinine 0.64 0.58 (0.5-1.4) mg/dL Estim Creat Clear Calc 72.8 80.2 Estimated GFR > 60 > 60 Random Glucose 107 99 (60-115) mg/dL Calcium 9.6 D 8.9 D (8.4-10.2) mg/dL Magnesium 1.9 (1.6-2.6) mg/dL Total Bilirubin 0.4 (0.0-1.0) mg/dL Direct Bilirubin 0.2 (0.0-0.5) mg/dL AST 20 (5-31) U/L ALT 8 (0-31) U/L Alkaline Phosphatase 96 (39-117) U/L Troponin I High Sens < 2.7 (<3.5-17.0) ng/L Total Protein 7.4 (6.5-8.0) g/dL Albumin 3.8 (3.5-5.0) g/dL Lipase 25 (8-78) U/L Urine Color Yellow Urine Appearance Clear Urine pH 7.0 (5.0-9.0) Ur Specific Dresser <= 1.005 (1.005-1.025) Urine Protein Negative (Neg-Trace) mg/dL Urine Glucose (UA) Negative (Negative) mg/dL Urine Ketones Negative (Negative) mg/dL Urine Blood Negative (Negative) Urine Nitrite Negative (Negative) Ur Leukocyte Esterase Negative (Negative) Urine Opiates Screen Not Detected (Not Detect) Ur Buprenorphine Scrn Not Detected (Not Detect) ng/mL Ur Oxycodone Screen Not Detected (Not Detect) ng/mL Urine Methadone Screen Not Detected (Not Detect) ng/mL Urine Fentanyl Screen Not Detected (Not Detect) Ur Barbiturates Screen Not Detected (Not Detect) Ur Phencyclidine Scrn Not Detected (Not Detect) Ur Amphetamines Screen Not Detected (Not Detect) U Benzodiazepines Scrn Not Detected (Not Detect) Urine Cocaine Screen Not Detected (Not Detect) U Marijuana (THC) Screen Not Detected (Not Detect) Ethyl Alcohol < 10 mg/dL Critical Care Time Critical Care Time Critical Care Time: Yes Total Critical Care Time: 50 Attestation: I have personally provided critical care time. Time includes review of lab data, radiology results, discussion with consultants, and monitoring for potential decompensation. Intervention performed as documented. Discharge Plan Discharge Clinical Impression: Gastroenteritis, Nausea vomiting and diarrhea, Acute hypokalemia, Dehydration Patient Disposition: Home, Self-Care Instructions: Hypokalemia (ED), Acute Nausea and Vomiting (DC), Acute Diarrhea (ED) Additional Instructions: Please follow-up with your primary care physician tomorrow. If you have any worsening or new symptoms, please return to the emergency room or call 911 Prescriptions: New ondansetron 4 mg tablet,disintegrating 4 mg PO Q6H PRN (Reason: nausea and vomiting) Qty: 14 0RF diphenoxylate-atropine [Lomotil] 2.5-0.025 mg tablet 1 tab PO BID PRN (Reason: diarrhea) Qty: 7 0RF No Action docusate sodium [Colace] 100 mg capsule 200 mg PO DAILY Qty: 60 0RF docusate sodium 100 mg capsule 200 mg PO BID 30 Days Qty: 60 0RF celecoxib 200 mg capsule 200 mg PO DAILY Qty: 30 2RF atorvastatin 40 mg tablet 40 mg PO BEDTIME amlodipine 10 mg tablet 10 mg PO DAILY calcium carbonate-vitamin D3 600 mg-5 mcg (200 unit) Tablet 1 tab PO DAILY cholecalciferol (vitamin D3) [Vitamin D3] 25 mcg (1,000 unit) Capsule 25 mcg PO DAILY acetaminophen 325 mg Tablet 650 mg PO Q6H PRN (Reason: Pain, Mild (Pain Scale 1-3), fever or headache) 30 Days Qty: 240 0RF oxycodone 5 mg Tablet 5 mg PO Q4H PRN (Reason: Pain, Moderate(Pain Scale 4-6)) 7 Days Qty: 42 0RF Rx Instructions: Partial Fill upon patient request. valacyclovir 500 mg tablet 500 mg PO BID doxycycline hyclate 50 mg tablet 50 mg PO DAILY Print Language: Tanzanian
--- NOTE | 2024-12-24 16:08 | ECG_ITS ---
Test Reason : CP Blood Pressure : */* mmHG Vent. Rate : 90 BPM Atrial Rate : 90 BPM P-R Int : 166 ms QRS Dur : 90 ms QT Int : 356 ms P-R-T Axes : 23 13 32 degrees QTcB Int : 435 ms Normal sinus rhythm Nonspecific ST and T wave abnormality Borderline ECG When compared with ECG of 10-Dec-2001 15:28, Nonspecific ST and T wave abnormality slightly more prominent Referred By: Tiara Camarillo Electronically Signed By: JEROMY RUBIO
[2024-12-24 16:47] LABS: Hematocrit 39.0 % (37.0-47.0); Hemoglobin 13.8 g/dl (12.0-16.0); Imm Gran Abs Auto 0.13 X10*3/uL (0.00-0.03); Imm Gran Pct Auto 0.9 % (0.0-0.4); Lymphocytes Absolute Auto 1.6 X10*3/uL (1.2-4.9); MANUAL DIFF FLAG SCAN; Mean Corpuscular HGB Conc 35.4 g/dl (31.0-35.0); Mean Corpuscular Hemoglobin 34.5 pg (27.0-33.0); Mean Corpuscular Volume 97.5 fL (80.0-98.0); NRBC Abs Auto 0.000 X10*3/uL (0.0-0.012); NRBC Pct Auto 0.0 /100WBC (0.0-0.2); Platelet Count 328 X10*3/uL (160-400); Red Blood Count 4.00 X10*6/uL (4.20-5.50); SCAN SMEAR FLAG 1; White Blood Count 14.2 X10*3/uL (4.8-10.8)
[2024-12-24 16:58] LABS: Alanine Aminotransferase 8 U/L (0-31); Albumin Level 3.8 g/dL (3.5-5.0); Alkaline Phosphatase 96 U/L (39-117); Anion Gap 14 (12-20); Aspartate Amino Transferase 20 U/L (5-31); Blood Urea Nitrogen 5 mg/dL (9-16); Calcium 9.6 mg/dL (8.4-10.2); Carbon Dioxide 27 mmol/L (22-29); Chloride 98 mmol/L (96-108); Creatinine Clr Calc Pharmacy 72.8; Estimated Glomerular Filt Rate > 60; Lipase 25 U/L (8-78); Magnesium 1.9 mg/dL (1.6-2.6); Potassium 2.9 mmol/L (3.3-5.1); Sodium 136 mmol/L (135-145); Total Protein 7.4 g/dL (6.5-8.0)
[2024-12-24 17:03] LABS: Troponin-I High Sensitivity < 2.7 ng/L (<3.5-17.0)
[2024-12-24 17:55] LABS: Appearance Urine Clear; Glucose Urine UA Negative (Negative); PH 7.0 (5.0-9.0); Specific Gravity - Urine <= 1.005 (1.005-1.025)
--- OUTSIDE RECORDS SUMMARY | 2024-12-24 19:49 | XMS_ITS | Clinical Summary ---
Author Organization [facility] Address [address] [place] [phone] Phone Care Team Providers Care Postal Sorting Officer Name Role Phone Vee Alvarez MD Primary Care Provider [phone] Allergies No known active allergies Medications CALCIUM [...] Future Compression fracture of L4 v ertebra ([facility] V24, [facility] V28) 02/03/2014 Overview (03/05/2024): Dr. Ez Adams Nontraumatic rupture of tendons of foot and ankl e 04/15/2010 Overview (03/05/2024): Scheduled for tendinorrhaphy by Dr. Joreg Young 01/25/2010 Michelle 12/26/2007 Encounters Date Type Department Care Team Description 12/24/2024 Telephone Adult Medicine [address] [phone] Vee Alvarez MD 12/09/2024 10:07 AM EDT - 12/09/2024 11:59 PM EDT Hospital Encounter [address] [phone] Rib pain on left side Discharge Disposition: Home or Self Care 12/09/2024 9:45 AM EDT Office Visit Adult Medicine [address] [phone] Riley Rand PA Rib pain on left side (Primary Dx); Age related osteoporosis, unspecified pathological fracture presence; Essential hypertension 10/09/2024 10:30 AM EDT Office Visit [address] [phone] Vee Alvarez MD Encounter for annual wellness visit (AWV) in Medicare patient (Primary Dx); Essential hypertension; Mixed hyperlipidemia; Pathological fracture of vertebra due to age-related osteoporosis with routine healing, subsequent encounter; Acute right-sided low back pain without sciatica; Mammogram declined from Last 3 Months Immunizations Immunization Administration Dates Next Due Anthrax 09/18/1999, 0,10/29/1998,10/15,10/01/1998 DTaP (Infanrix) 6wks to less than 7yo 10/10/2015 Hepatitis A Adult (Havrix; V aqta) 19yo and older 08/10/1997,08/09/1997,11/02/1996 Hepatitis B (Cwxaobt-H-Vlary , Recombivax HB-Adult) 19yo and older 07/12/2003,01/07/2003,10/06/2002 [...] subun it RSVpreF, 0.5mL, Preservative Free (ABRYSVO) 50yo and older or 32 through 36 wks [...] Date Recorded What is your living situation? Unrecognized valu e 10/09/2024 Comments No Sex and Gender Information [...] 8:30 AM EST Office Visit Adult Medicine [address] [phone] Vee Alvarez MD [address] [place] [address] Health Maintenance Due Date Last Done Comments [...] Completed 07/15/2024 Depression Screening Completed 10/09/2024, 03/09/20 Influenza Vaccine Completed 12/03/2024, , 11/14/2022, Additional [...] Signed Date: 12/09/2024 11:05 ET Workstation ID: [id number] Transcribed By: Self Edit Transcribed Date: 12/09/2024 [...] Signed Date: 12/09/2024 11:05 ET Workstation ID: [id number] Transcribed By: Self Edit Transcribed Date: 12/09/2024 10:59 ET Riley NGUYEN IMG XR PROCEDURES Final Result * Lipid panel with reflex to direct LDL (10/10/2024 8:06 AM EDT) Cholesterol 174 0 - 200 mg/dL LAB CHEMISTRY METHOD 10/10/2024 12:19 PM EDT [facility] Triglycerides 71 0 - 150 mg/dL LAB CHEMISTRY METHOD 10/10/2024 12:19 PM EDT [facility] HDL 66 >=40 mg/dL LAB CHEMISTRY METHOD 10/10/2024 12:19 PM EDT [facility] LDL Calculated 94 0 - 100 mg/dL LAB CHEMISTRY METHOD 10/10/2024 12:19 PM EDT [facility] VLDL Cholesterol Jus 14.2 mg/dL LAB CHEMISTRY METHOD 10/10/2024 12:19 PM EDT [facility] Non HDL Chol. (LDL+VLDL) 108 <145 mg/dL LAB CHEMISTRY METHOD 10/10/2024 12:19 PM EDT [facility] Chol/HDL Ratio 2.6 0.0 - 4.4 LAB CHEMISTRY METHOD 10/10/2024 12:19 PM T [facility] Blood Venous blood specimen / Unknown Venipuncture / Unknown 10/10/2024 8:06 AM EDT 10/10/2024 8:06 AM EDT us Vee Alvarez MD LAB BLOOD ORDERABLES Final Resul t [facility] [address] [place] [address], [place] [phone] * (ABNORMAL) CBC auto differential (10/10/2024 8:06 AM EDT) [facility] WBC 5.9 4.8 - 10.8 K/mcL LAB HEMETOLOGY METHOD 10/10/2024 10:25 AM [facility] RBC 4.20 3.80 - 4.80 M/mcL LAB HEMETOLOGY METHOD 10/10/2024 10:25 AM T [facility] Hemoglobin 14.7 11.5 - 16.0 g/dL LAB HEMETOLOGY METHOD 10/10/2024 10:25 AM [facility] Hematocrit 42.6 35.0 - 47.0 % LAB HEMETOLOGY METHOD 10/10/2024 10:25 AM [facility] MCV 101.2(H) 79.0 - 98.0 FL LAB HEMETOLOGY METHOD 10/10/2024 10:25 AM [facility] MCH 34.9(H) 27.0 - 32.0 pcg LAB HEMETOLOGY METHOD 10/10/2024 10:25 AM [facility] MCHC 34.5 32.0 - 37.0 g/dL LAB HEMETOLOGY METHOD 10/10/2024 10:25 AM [facility] RDW 12.6 11.0 - 15.0 % LAB HEMETOLOGY METHOD 10/10/2024 10:25 AM [facility] Platelets 231 130 - 400 K/mcL LAB HEMETOLOGY METHOD 10/10/2024 10:25 AM [facility] MPV 10.3 7.0 - 11.0 FL LAB HEMETOLOGY METHOD 10/10/2024 10:25 AM [facility] NRBC 0.0 <1.0 % LAB HEMETOLOGY METHOD 10/10/2024 10:25 AM [facility] NRBC Absolute 0.00 <0.10 K/mcL LAB HEMETOLOGY METHOD 10/10/2024 10:25 AM [facility] Neutrophils Relative 58.5 % LAB HEMETOLOGY METHOD 10/10/2024 10:25 AM [facility] Lymphocytes Relative 24.0 % LAB HEMETOLOGY METHOD 10/10/2024 10:25 AM [facility] Monocytes Relative 14.1 % LAB HEMETOLOGY METHOD 10/10/2024 10:25 AM [facility] Eosinophils Relative 2.2 % LAB HEMETOLOGY METHOD 10/10/2024 10:25 AM [facility] Basophils Relative 1.0 % LAB HEMETOLOGY METHOD 10/10/2024 10:25 AM [facility] Immature Granulocytes Relative 0.2 % LAB HEMETOLOGY METHOD 10/10/2024 10:25 AM [facility] Neutrophils Absolute 3.44 1.50 - 7.00 K/mcL LAB HEMETOLOGY METHOD 10/10/2024 10:25 AM [facility] Lymphocytes Absolute 1.41 1.00 - 5.00 K/mcL LAB HEMETOLOGY METHOD 10/10/2024 10:25 AM [facility] Monocytes Absolute 0.83 0.20 - 1.00 K/mcL LAB HEMETOLOGY METHOD 10/10/2024 10:25 AM [facility] Eosinophils Absolute 0.13 0.00 - 0.50 K/mcL LAB HEMETOLOGY METHOD 10/10/2024 10:25 AM [facility] Basophils Absolute 0.06 0.00 - 0.20 K/mcL LAB HEMETOLOGY METHOD 10/10/2024 10:25 AM [facility] Immature Granulocytes Absolute 0.01 0.00 - 0.03 K/mcL LAB HEMETOLOGY METHOD 10/10/2024 10:25 AM EDT [facility] Blood Venous blood specimen / Unknown Venipuncture / Unknown 10/10/2024 8:06 AM EDT 10/10/2024 8:06 AM EDT us Vee Alvarez MD LAB BLOOD ORDERABLES Final Resul t Performing Organization Address City/[facility]/ZIP Co de Phone Number [facility] [address] [place] [address], [place] [phone] * Vitamin D 25 hydroxy (10/10/2024 8:06 AM EDT) Vit D, 25-Hydroxy 66.6 30.0 - 80.0 ng/mL LAB CHEMISTRY METHOD 10/10/2024 1:24 PM EDT [facility] Blood Venous blood specimen / Unknown Venipuncture / Unknown 10/10/2024 8:06 AM EDT 10/10/2024 8:06 AM EDT us Vee Alvarez MD LAB BLOOD ORDERABLES Final Resul t Performing Organization Address City/[facility]/ZIP Co de Phone Number [facility] [address] [place] [address], [place] [phone] * Comprehensive metabolic panel (10/10/2024 8:06 AM EDT) Sodium 140 133 - 145 mmol/L LAB CHEMISTRY METHOD 10/10/2024 12:19 PM EDT [facility] Potassium 4.6 3.5 - 5.5 mmol/L LAB CHEMISTRY METHOD 10/10/2024 12:19 PM EDT [facility] Chloride 105 96 - 110 mmol/L LAB CHEMISTRY METHOD 10/10/2024 12:19 PM EDT [facility] CO2 25 21 - 32 mmol/L LAB CHEMISTRY METHOD 10/10/2024 12:19 PM EDT [facility] Anion Gap 10 3 - 11 LAB CHEMISTRY METHOD 10/10/2024 12:19 PM [facility] Glucose 83 70 - 100 mg/dL LAB CHEMISTRY METHOD 10/10/2024 12:19 PM [facility] BUN 11 5 - 25 mg/dL LAB CHEMISTRY METHOD 10/10/2024 12:19 PM [facility] Creatinine 0.75 0.50 - 1.10 mg/dL LAB CHEMISTRY METHOD 10/10/2024 12:19 PM [facility] eGFR 87 >=60 mL/min/1. 73m2 LAB CHEMISTRY METHOD 10/10/2024 12:19 PM [facility] Comment:Calculation based on the Chronic Kidney Disease Epidemiology Collaboration (CKD-EPI) equation refit without adjustment for race. BUN/Creatinine Ratio 14.7 LAB CHEMISTRY METHOD 10/10/2024 12:19 PM [facility] Calcium 9.8 8.5 - 10.5 mg/dL LAB CHEMISTRY METHOD 10/10/2024 12:19 PM [facility] AST (SGOT) 38 10 - 42 unit/L LAB CHEMISTRY METHOD 10/10/2024 12:19 PM [facility] ALT (SGPT) 38 10 - 60 unit/L LAB CHEMISTRY METHOD 10/10/2024 12:19 PM [facility] Alkaline Phosphatase 94 42 - 121 unit/L LAB CHEMISTRY METHOD 10/10/2024 12:19 PM [facility] Total Protein 7.8 6.0 - 8.0 g/dL LAB CHEMISTRY METHOD 10/10/2024 12:19 PM [facility] Albumin 4.2 3.2 - 5.0 g/dL LAB CHEMISTRY METHOD 10/10/2024 12:19 PM [facility] Total Bilirubin 0.6 0.0 - 1.4 mg/dL LAB CHEMISTRY METHOD 10/10/2024 12:19 PM [facility] Blood Venous blood specimen / Unknown Venipuncture / Unknown 10/10/2024 8:06 AM EDT 10/10/2024 8:06 AM EDT Vee Alvarez MD LAB BLOOD ORDERABLES Final Resul t [facility] [address] [place] [address], * Falls Risk Assessment (03/09/2023) Falls Risk Assessment Abstracted Historical Provider HEALTH MAINTENANCE Final Result * Depression Screening (03/09/2023) Depression Screening Abstracted Historical Provider HEALTH MAINTENANCE Final Result * SCREENING MAMMOGRAPHY [...] evidence of malignancy. BI-RADS 1 - negative us Vee Alvarez MD IMG XR PROCEDURES Final [...] should be classified as having osteoporosis. The [facility] Department of Internal Medicine recommends using [...] the World Health Organization criteria, Yamilet Taylor shouldbe classified as having osteoporosis. The [facility] Department of Internal Medicine recommendsusing National [...] fracture risk by FRAX. Vee Alvarez MD IM DXA PROCEDURES Final Result * Hepatitis C Screening (01/02/2018) [facility] Hepatitis C Screening Abstracted Historical Provider HEALTH MAINTENANCE Final Result * Colonoscopy (06/21/2015) [facility] Colonoscopy No Interpretation , Abstracted Anatomical Region Laterality Modality Other Historical Eva JACOBS HEALTH MAINTENANCE Final Result from Last 3 Months or Most Recently Relevant to Health Maintenance Insurance MEDICARE [facility] Care Teams Postal Sorting Officer Relationship Specialty Start Date End Date Vee Alvarez MD [address] [place] [phone] PCP - General Internal Medicine 03/04/24
--- OUTSIDE RECORDS SUMMARY | 2024-12-24 19:49 | XMS_ITS | Encounter Summary ---
Author Organization [facility] Address [address] [place] [address] Care Team Providers Care Anesthesia Assistant Name Role Phone Vee Alvarez MD Primary Care Provider [phone] Reason for Visit * Reason Onset Date Comments GI Problem 12/24/2024 Encounter Details Date Type Department Care Team ([facility] Contact Info) Description 12/24/2024 Telephone Adult Medicine [address] [phone] Vee Alvarez MD [address] [place] [address] Social History Tobacco Use Types Packs/Day Years Used Date Smoking Tobacco: Former Cigarettes 0.3 9.1 1 04/19/1973 - 03/27/1983 Smokeless Tobacco: Never Alcohol Use Standard Drinks/Week Comments Yes 0 [...] on file Sexual Orientation Not on file documented as of this encounter Progress Notes * Ree Brandon RN - 12/24/2024 2:49 PM EDT Pt has N/V/D and cramps for a week, was improving, started to eat then diarrhea started again Pt has not had any chest pain or SOB , she has nausea , no vomiting ( did have vomiting x 3 days last week) has had watery stools all day , if she eats anything she has cramping lower abd pain and then watery diarrhea, taking po fluids, but is voiding less than usual no fever Pt advised to go to the ed , she understands and agrees * Kylah Jones - 12/24/2024 2:43 PM EDT Patient call requires triage: Symptoms patient is presenting: food poisoning, vomiting, diarrhea, fatigue, cramps How long has patient had these symptoms?: 1 week For ALL patients calling to schedule any appointment (routine, sick visit, follow up, consult, etc.) in the outpatient setting please ask the following questions: Do you have fever of higher than 101, sore throat with difficulty swallowing or severe shortness ofbreath? no If YES to any of these above symptoms, send a message to triage and do not book. Red dot. If no, an audio or video visit should be booked. Have you had close contact with someone with Coronavirus in the last 14 days? no Have you traveled abroad? no Have you traveled recently to another state outside of [place], [place], [place], [place], [place], [place], [place]? no o If yes, did you quarantine for 14 days or have a negative covid test? no If yes to any of the above, patient is not to be scheduled in office until after 14 day quarantine or negative covid test. If pain or injury related was it due to an accident at work or from a motor vehicle accident? If yes, date of accident/Injury: No If yes, gather 3rd democrat insurance information Third Libertarian Information: not applicable PCP: Vee Alvarez MD Payor: MEDICARE / Plan: MEDICARE PART A & B / Product Type: Medicare / documented in this encounter Plan of Treatment Upcoming Encounters Date Type Department Care Team (Late st Contact Info) Description 02/12/2025 8:30 AM EST Office Visit Adult Medicine [address] [phone] eVe Alvarez MD [address] [place] [address] documented as of this encounter Visit Diagnoses Not on filedocumented in this encounter Additional Health Concerns Assessment Noted Time PHQ-9 Depression Total Score: 0 10/10/19 25 10:21 AM EDT documented as of this encounter Care Teams Anesthesia Assistant Relationship Specialty Start Date End Date Vee Alvarez MD [address] [place] [address] PCP - General Internal Medicine 03/04/24 documented as of this encounter
[2024-12-24 20:15] VITALS: BP 120/75; PULSE 92; RESP 18; TEMP 37.2; O2SAT 97
[2024-12-24] MEDS: Lactated Ringers 2,000 ML 999 ML IV (21:21)
[2024-12-24 21:40] LABS: Cannabinoid Screen Urine Not Detected (Not Detect)
[2024-12-24 22:00] VITALS: BP 124/66; PULSE 79; RESP 18; O2SAT 95
[2024-12-24] MEDS: Potassium Chloride Packet 20 MEQ PACKET 60 MEQ PO (22:04)
--- NOTE | 2024-12-24 22:50 | PC.NURSE ---
pt tolerated PO potassium well. denies nausea after
--- NOTE | 2024-12-24 23:16 | PC.NURSE ---
pt had jello, tolerated well
[2024-12-25 01:57] LABS: Anion Gap 11 (12-20); Blood Urea Nitrogen 4 mg/dL (9-16); Calcium 8.9 mg/dL (8.4-10.2); Carbon Dioxide 28 mmol/L (22-29); Chloride 106 mmol/L (96-108); Creatinine Clr Calc Pharmacy 80.2; Estimated Glomerular Filt Rate > 60; Potassium 4.1 mmol/L (3.3-5.1); Sodium 141 mmol/L (135-145)
[2024-12-25 02:35] VITALS: BP 116/58; PULSE 87; RESP 16; TEMP 37.8; O2SAT 96
[2024-12-25 03:18] VITALS: BP 116/58; PULSE 87; RESP 16; TEMP 37.8; O2SAT 96
== END 2024-12-25 03:26 | disposition home or self-care (01) ==
PROVIDERS: Physician Assistant Medical; Emergency Provider Emergency Medicine; PCP Internal Medicine
DX: K29.70 Gastritis, unspecified, without bleeding (principal); R11.2 Nausea with vomiting, unspecified; R19.7 Diarrhea, unspecified; E87.6 Hypokalemia; E86.0 Dehydration; R07.9 Chest pain, unspecified; I10 Essential (primary) hypertension; E78.00 Pure hypercholesterolemia, unspecified; Z87.891 Personal history of nicotine dependence; Z79.899 Other long term (current) drug therapy
CPT/HCPCS: 36415; 80048; 80076; 80307; 81003; 83690; 83735; 84484; 85025; 93005; 96361; 96374; 96375; 99284; 99285; J0737; J2405; J7120

== ENCOUNTER → 2024-12-24 16:08 | Outpatient (BNV) | payer MEDICARE, OTHER, SELFPAY | PROVIDERS: Emergency Provider Emergency Medicine; PCP Internal Medicine; Visit Provider Internal Medicine | DX: R07.9 Chest pain, unspecified (principal) | CPT/HCPCS: 93010 ==

== ENCOUNTER 2024-12-29 18:36 | Inpatient (IN) | payer OTHER, SELFPAY ==
--- NOTE | ~2024-12-29 | CT_ITS ---
CLINICAL HISTORY: diverticulitis r o lower belly pain CT abdomen and pelvis with contrast Comparison: None provided Findings: Mild bibasilar atelectasis/pneumonitis superimposed on scarring, emphysematous changes, and chronic lung disease. Multiple peripheral nodular opacities are pleural-based. Index in the lateral basal segment of the right lower lobe measures 5 mm (image 40 of series 4). No liver mass by CT. The spleen is nonenlarged. Adrenal glands are within limits of the normal. Mild volume loss of the pancreas is nonspecific with moderate pancreatic duct dilatation measuring 5 mm diameter. Wall thickening of the gallbladder likely due to underdistention. Imaged CBD measures 7 mm diameter. No definite or defined mass of the pancreas by CT at this time. No hydronephrosis. Small retroperitoneal mesenteric lymph nodes are nonspecific and may be reactive. Mild small bowel dilatation including mid-lower abdomen is nonspecific and may reflect sentinel loop ileus from adjacent or separate inflammation. Wall thickening of the large intestine is nonspecific and concerning for colitis. Other mural pathology of the large intestine is not excluded by CT. Fluid in the abdomen and pelvis likely secondary to combination colitis and diverticulitis. Pneumatosis noted in the imaged colon, potentially in both the sigmoid colon and distended cecum. Borders and margins of the cecum not well defined, inferiorly. Separate collection and/or abscess also considered prevertebral soft tissues. Mural abscess favored by CT measuring up to 7 cm. No definite free intraperitoneal air defined by CT. The appendix is not definitively seen. Uterus is anteverted. Calcifications of the uterus likely due to fibroids measuring 1.4 cm. No adnexal soft tissue mass. Multilevel compression fractures are age indeterminate by CT and likely old/chronic given sclerosis of the remodeling. Transitional vertebral anatomy with lumbarized S1 for the purposes of this dictation only. Moderate to severe height losses appears most pronounced of the L3 by this numbering system. Facet arthropathy and degenerative disc changes are multifocal with spinal stenosis, including foraminal narrowing. IMPRESSION: 1. Abnormal appearance of the large intestine concerning for combination of the colitis and diverticulitis with pneumatosis 2. Additional abnormal fluid in the prevertebral soft tissues/dorsal abdomen and pelvis nonspecific and concerning for developing abscess such as mural abscess by CT. Post enteric contrast imaging may be informative for potential abscess definition, if clinically indicated and if clinically able. 3. Nonspecific dilatation of the main pancreatic duct. This is concerning for stenosis versus mass of the mass-effect of the ampulla. This document has been electronically signed by: Hira Keene MD on 12/29/2024 22:20:23
--- NOTE | ~2024-12-29 | CT_ITS ---
PROCEDURE: CT GUIDED DRAINAGE CLINICAL INFORMATION: Pelvic abscess COMPARISON: Previous CT of the abdomen and pelvis most recent December 29, 2024 TECHNIQUE: Following informed consent including risks and benefits of the procedure, the patient was positioned in the prone position. Limited axial images through the pelvis were performed. The right buttock was prepped and draped in the usual sterile fashion. Skin and soft tissues were anesthetized with 1% lidocaine plain. Using CT guidance and a 22-gauge Chiba needle, access to the pelvic collection was obtained. Over an 018 wire, a 6 Moroccan AccuStick system was positioned in the collection. Over an 035 guidewire, a 10.2 Moroccan pigtail drainage catheter was positioned in the collection. 220 mL of purulent fluid was aspirated. Specimen was sent for Gram stain culture and cytology. The catheter was left to bulb suction. Conscious sedation was provided by a registered nurse under my direct supervision with continuous hemodynamic monitoring. Patient received Versed 4 mg and fentanyl 150 mcg IV during the procedure. Total sedation time [address] examination was performed using dose optimization techniques as appropriate, variously including the following: *Automated exposure control *Adjustment of mA and/or kV according to patient size (this includes techniques or standardized protocols for targeted exams where dose is matched to indication/reason for exam; i.e. extremities or head) *Use of iterative reconstruction technique DLP 463 mgy/cm FINDINGS: There is a large right and midline pelvic collection similar to yesterday's exam. There is diverticulosis and wall thickening of the adjacent sigmoid colon, question diverticulitis versus colitis. There is surrounding fat stranding. Appearance is similar to yesterday's exam. Images post drain placement demonstrates a pigtail drainage catheter and interval decrease in size in the collection. CT/CT guided drainage IMPRESSION: CT-guided 10 Moroccan pelvic drainage catheter placement. Electronically signed by: Steffany Houston MD 12/30/2024 03:41 PM EDT
[2024-12-29 18:43] VITALS: BP 117/69; PULSE 108; RESP 22; TEMP 37.2; O2SAT 99; BMI 19.5
--- NOTE | 2024-12-29 18:43 | ED_ITS ---
HPI - General Adult General Chief complaint: Abdominal Pain Stated complaint: stomach cramps, diarrhea, worsening symptoms Time Seen by Provider: 12/29/24 20:10 Source: patient Limitations: no limitations History of Present Illness ED Provider: Sunita Mckeon PA-C HPI narrative: 69-year-old female with a history of hypertension, hyperlipidemia who presents with abdominal pain x 5 days. Pain across entire lower abdomen, it is increased in severity. Unable to describe the nature of her discomfort. Associated fever of 102 at home, nausea, vomiting, diarrhea. Denies distention, inability to pass flatus, constipation. Patient was seen here in the emergency room 5 days ago for same complaint, she was diagnosed with viral gastroenteritis and discharged home. She did not have imaging at that time. Denies recent travel, use of antibiotics, or hospitalization. Related Data Home Medications ?Medication ?Instructions ?Recorded ?Confirmed amlodipine 10 mg tablet 10 mg PO DAILY 04/10/2312/26 atorvastatin 40 mg tablet 40 mg PO BEDTIME 04/10/23 doxycycline hyclate 50 mg tablet 50 mg PO DAILY 01/18/24 valacyclovir 500 mg tablet 500 mg PO BID 12/01/2312/26 calcium 600 mg (as 1 tab PO DAILY 12/22/2312/26 carbonate)-vitamin D3 5 mcg (200 unit) tablet cholecalciferol (vitamin D3) 25 25 mcg PO DAILY 01/18/24 mcg (1,000 unit) capsule (Vitamin D3) Previous Rx's ?Medication ?Instructions ?Recorded acetaminophen 325 mg tablet 650 mg (2 x 325 mg) PO Q6H PRN 01/04/24 Pain, Mild (Pain Scale 1-3), fever or headache 30 days #240 tabs oxycodone 5 mg tablet 5 mg PO Q4H PRN Pain, Moderate(Pain Scale 4-6) 7 days #42 tabs docusate sodium 100 mg capsule 200 mg (2 x 100 mg) PO BID 30 days 02/13/24 #60 caps docusate sodium 100 mg capsule 200 mg (2 x 100 mg) PO DAILY #60 02/13/24 (Colace) caps celecoxib 200 mg capsule 200 mg PO DAILY #30 caps diphenoxylate-atropine 2.5 1 tab PO BID PRN diarrhea # 7 tabs 12/25/24 mg-0.025 mg tablet (Lomotil) ondansetron 4 mg disintegrating 4 mg PO Q6H PRN nausea and 12/25/24 tablet vomiting #14 tabs Allergies Allergy/AdvReac Type Severity Reaction Status Date / Time No Known Allergies (No Known Allergy Verified 12/29/24 18:44 Allergies*) Review of Systems 2 Review of Systems: Yes all other systems are reviewed and are negative Constitutional: Constitutional: Denies fatigue and Reports fever(s) Cardiovascular: Cardiovascular: Denies chest pain and Denies dyspnea Respiratory: Respiratory: Denies dyspnea Gastrointestinal: Gastrointestinal: Reports abdominal pain, Denies bloating, Denies constipation, Reports diarrhea, Reports nausea and Reports vomiting Genitourinary: Genitourinary: Denies dysuria and Denies flank pain Endocrine: Endocrine: Denies fatigue PMFSH Past Medical History Attestation statement: The following information was validated with the patient. Medical History Hx of cold sores Hx of rosacea Osteoporosis Arthritis Hypercholesterolemia HTN (hypertension) Surgical History Hx of colonoscopy History of open reduction and internal fixation (ORIF) procedure (04/11/23) History of foot surgery Social History Social History Household Members: None Housing: House Are you a primary early breastfeeding care specialist to a significant other at home: No Do you presently have visiting nurse or other home services: No Alcohol intake: current Comment: counts correct Patient Tobacco Use Status: Former Tobacco user Tobacco use type: Cigarette Smoked in Last 30 Days: No Use of substances other than those prescribed or required for medical reasons: No Advance Directives: Yes Advance Directives on File: Yes Advance Directives Date on File: 01/03/24 Do you have a plan to hurt others: No Plan service: No Current occupational status: retired Current occupation: right hand dominant Physical Exam ED Vital Signs: Vital Signs - 24 hr 12/29/24 18:43 12/29/24 19:42 12/29/24 23:10 Temperature 98.9 F 99 F 98.8 F Pulse Rate 108 H 90 81 Respiratory Rate 22 H 16 16 Blood Pressure 117/69 135/77 105/64 Pulse Oximetry 99 98 96 Oxygen Delivery Method Room Air Room Air Room Air BMI result Body Mass Index 19.5 Const Other: Alert, ill-appearing appears uncomfortable Orientation/consciousness: patient oriented x3 Resp Effort & Inspection: normal respiratory effort Cardio Other: Normal peripheral perfusion GI Other: Abdomen is soft, objectively somewhat distended, moderate to severe tenderness across entire lower abdomen, right greater than left, moderate involuntary guarding Skin Other: Warm dry no rash Neuro General: patient oriented x3, gait normal, no focal motor deficits and CN's II- XI intact bilaterally Psych Other: Cooperative Course Course Course Narrative: 69 year old female presents with abdominal pain of the lower abdomen and periumbilical area. She reports a fever of 102F, diarrhea earlier today, and reports she has not been able to eat for 2 weeks. Pain is severe, she is unable sleep. She was here Monday with gastroenteritis. She has not had any prior abdominal surgery. Consultations Consultation #1: per Dr. Veronica..... She will be in to assessed the patient, unclear if she will [facility], we will make her NPO for now, she suggested to DC the [facility], she feels Zosyn should be sufficient, she will be here momentarily Time: 22:29 Consultation #2: Dr. Veronica is admitting the patient to her service Medications Administered Discontinued Medications Generic Name Dose Route Start Last Admin Trade Name Freq PRN Reason Stop Dose Admin Hydromorphone HCl 1 mg 12/29/24 22:28 12/29/24 22:55 Hydromorphone Hcl 1 Mg/Ml Syringe IVPUSH 12/29/24 22:29 1 mg ONCE ONE Administration Protocol Potassium Chloride 10 meq in 100 mls @ 100 mls/hr 12/29/24 20:15 12/30/24 00:36 Potassium Chloride/H20 IV 12/30/24 00:14 Infused Q1H LOTUS Infusion Sodium Chloride 1,000 mls @ 999 mls/hr 12/29/24 20:30 12/29/24 21:40 Ns IV 12/29/24 21:30 Infused .Q1H1M LOTUS Infusion Piperacillin Sod/Tazobactam 50 mls @ 100 mls/hr 12/29/24 22:28 12/29/24 23:27 Sod 3.375 gm/ Sodium Chloride IV 12/29/24 22:57 Infused ONCE ONE Infusion Iohexol 85 ml 12/29/24 21:04 12/29/24 21:04 Iohexol 350 Mg/Ml 100 Ml Infus..Btl IV 12/29/24 21:05 85 ml ONCE ONE Administration Morphine Sulfate 4 mg 12/29/24 20:27 12/29/24 20:35 Morphine Sulfate 4 Mg/Ml Cartridge IVPUSH 12/29/24 20:28 4 mg ONCE ONE Administration Protocol Ondansetron HCl 4 mg 12/29/24 20:27 12/29/24 20:36 Ondansetron Hcl 4 Mg/2 Ml Vial IVPUSH 12/29/24 20:28 4 mg ONCE ONE Administration Ondansetron HCl 4 mg 12/29/24 22:45 12/29/24 23:00 Ondansetron Hcl 4 Mg/2 Ml Vial IVPUSH 12/29/24 22:46 4 mg ONCE ONE Administration Medical Decision Making Medical Decision Making MDM Narrative: 69-year-old female with a history of hypertension, hyperlipidemia who presents with abdominal pain x 5 days. Pain across entire lower abdomen, it is increased in severity. Unable to describe the nature of her discomfort. Associated fever of 102 at home, nausea, vomiting, diarrhea. Denies distention, inability to pass flatus, constipation. Patient was seen here in the emergency room 5 days ago for same complaint, she was diagnosed with viral gastroenteritis and discharged home. She did not have imaging at that time. Denies recent travel, use of antibiotics, or hospitalization. Problem: Age, hypertension History: Per patient I have considered the following differential diagnoses: C diff, traveler's diarrhea, colitis, diverticulitis, viral gastroenteritis Plan: I am concerned the patient has a an acute abdomen, likely colitis versus diverticulitis. She has no risk factors for C diff or traveler's diarrhea. This is likely not viral gastroenteritis, she was just seen in the emergency department, her symptoms have progressed, her abdominal exam was concerning, and she has an increase with the her leukocytosis. Obtaining a CT scan. Giving morphine Zofran and fluid. Her screening labs were completed, she is also hypokalemic, we will give 40 mEq IV. I have independently reviewed the following tests: Labs: Increased leukocytosis of 16.9 with left shift, not anemic, no electrolyte abnormality other than potassium which is 3.2, lactic 0.8, urine not infected CT abdomen and pelvis:MPRESSION: 1. Abnormal appearance of the large intestine concerning for combination of the colitis and diverticulitis with pneumatosis 2. Additional abnormal fluid in the prevertebral soft tissues/dorsal abdomen and pelvis nonspecific and concerning for developing abscess such as mural abscess by CT. Post enteric contrast imaging may be informative for potential abscess definition, if clinically indicated and if clinically able. 3. Nonspecific dilatation of the main pancreatic duct. This is concerning for stenosis versus mass of the mass-effect of the ampulla. Differential Diagnosis Differential Diagnoses: The differential diagnosis associated with the presentation includes See medical decision-making Admission/Observation Consideration of admission/observation: Escalation of care including admission/observation considered Admission, surgical consult Consult Healthcare Provider Management of the patient was discussed with: Tank Cleaning Supervisor Surgery Lab Data MDM Lab Attestation statement: I reviewed the patient's lab results. 12/29/24 19:48 12/29/24 19:48 Labs: Lab Results 12/29/24 12/29/24 12/29/24 Range/Units 19:48 21:33 23:05 WBC 16.9 H (4.8-10.8) X10*3/uL RBC 3.64 L (4.20-5.50) X10*6/uL Hgb 12.8 (12.0-16.0) g/dl Hct 34.8 L (37.0-47.0) % MCV 95.6 (80.0-98.0) fL MCH 35.2 H (27.0-33.0) pg MCHC 36.8 H (31.0-35.0) g/dl RDW 12.9 (11.0-16.0) % Plt Count 367 (160-400) X10*3/uL MPV 8.9 L (9.4-12.3) fL Immature Gran % (Auto) 0.6 H (0.0-0.4) % Neut % (Auto) 84.2 H (45-73) % Lymph % (Auto) 4.8 L (20-40) % [place] % (Auto) 10.2 (2-11) % Eos % (Auto) 0.0 (0-4) % Baso % (Auto) 0.2 (0-2) % Lymph # (Auto) 0.8 L (1.2-4.9) X10*3/uL [place] # (Auto) 1.7 H (0.1-1.2) X10*3/uL Eos # (Auto) 0.0 (0.0-0.4) X10*3/uL Baso # (Auto) 0.0 (0.0-0.2) X10*3/uL Abs Immat Gran (auto) 0.11 H (0.00-0.03) X10*3/uL Absolute Neuts (auto) 14.3 H (2.0-8.3) x10*3/uL Absolute Nucleated RBC 0.000 (0.0-0.012) X10*3/uL Nucleated RBC % (auto) 0.0 (0.0-0.2) /100WBC Smear Tech's Comments VERIFIED Sodium 132 L (135-145) mmol/L Potassium 3.2 L D (3.3-5.1) mmol/L Chloride 97 (96-108) mmol/L Carbon Dioxide 24 (22-29) mmol/L Anion Gap 14 (12-20) BUN 8 L (9-16) mg/dL Creatinine 0.62 (0.5-1.4) mg/dL Estim Creat Clear Calc 72.8 Estimated GFR > 60 Random Glucose 116 H (60-115) mg/dL Lactic Acid 0.8 (0.5-2.0) mmol/L Calcium 8.8 (8.4-10.2) mg/dL Magnesium 1.9 (1.6-2.6) mg/dL Total Bilirubin 0.5 (0.0-1.0) mg/dL AST 23 (5-31) U/L ALT 7 (0-31) U/L Alkaline Phosphatase 83 (39-117) U/L Total Protein 7.0 (6.5-8.0) g/dL Albumin 3.4 L (3.5-5.0) g/dL Lipase 24 (8-78) U/L Urine Color Dark Yellow Urine Appearance Cloudy Urine pH 6.0 (5.0-9.0) Ur Specific [place] >= 1.030 H (1.005-1.025) Urine Protein 100 (2+) H (Neg-Trace) mg/dL Urine Glucose (UA) Negative (Negative) mg/dL Urine Ketones 80 (Negative) mg/dL Urine Blood Negative (Negative) Urine Nitrite Negative (Negative) Ur Leukocyte Esterase Small (1+) H (Negative) Urine RBC 0-2 (0-2) /HPF Urine WBC 0-5 (0-5) /HPF Ur Squamous Epith Cells 6-10 (0-2) /HPF Urine Bacteria None Seen (None Seen) Hyaline Casts 11-20 (0-2) /LPF Radiology Impression Discussion of test interpretation with radiology: I have reviewed the radiologist's reading. Critical Care Time Critical Care Time Critical Care Time: Yes Total Critical Care Time: 40 Attestation: I Sunita Mckeon PA-C have personally performed 40 minutes of critical care time not including lines and procedures; need for IV pain medication, IV antibiotics, acute abdomen, surgical consult, hospital admission Discharge Plan Discharge Clinical Impression: Diverticulitis, Pneumatosis of intestines Patient Disposition: Admitted As Inpatient Print Language: Uzbek
[2024-12-29 19:42] VITALS: BP 135/77; PULSE 90; RESP 16; TEMP 37.2; O2SAT 98
--- NOTE | 2024-12-29 19:53 | PC.NURSE ---
pt reports having food poisoning a couple weeks ago and not feeling better since. she reports nausea and diarrhea intermittently since the food poisoning. Reports 4 loose stools today. Pt tearful confirms 8/10 pain, 99 temp at triage, will continue to monitor, all other v/s WNL. blood work and UA ordered.
[2024-12-29 19:55] LABS: Hematocrit 34.8 % (37.0-47.0); Hemoglobin 12.8 g/dl (12.0-16.0); Imm Gran Abs Auto 0.11 X10*3/uL (0.00-0.03); Imm Gran Pct Auto 0.6 % (0.0-0.4); Lymphocytes Absolute Auto 0.8 X10*3/uL (1.2-4.9); MANUAL DIFF FLAG SCAN; Mean Corpuscular HGB Conc 36.8 g/dl (31.0-35.0); Mean Corpuscular Hemoglobin 35.2 pg (27.0-33.0); Mean Corpuscular Volume 95.6 fL (80.0-98.0); NRBC Abs Auto 0.000 X10*3/uL (0.0-0.012); NRBC Pct Auto 0.0 /100WBC (0.0-0.2); Platelet Count 367 X10*3/uL (160-400); Red Blood Count 3.64 X10*6/uL (4.20-5.50); SCAN SMEAR FLAG 1; White Blood Count 16.9 X10*3/uL (4.8-10.8)
[2024-12-29 20:09] LABS: Alanine Aminotransferase 7 U/L (0-31); Albumin Level 3.4 g/dL (3.5-5.0); Alkaline Phosphatase 83 U/L (39-117); Anion Gap 14 (12-20); Aspartate Amino Transferase 23 U/L (5-31); Blood Urea Nitrogen 8 mg/dL (9-16); Calcium 8.8 mg/dL (8.4-10.2); Carbon Dioxide 24 mmol/L (22-29); Chloride 97 mmol/L (96-108); Creatinine Clr Calc Pharmacy 72.8; Estimated Glomerular Filt Rate > 60; Lipase 24 U/L (8-78); Magnesium 1.9 mg/dL (1.6-2.6); Potassium 3.2 mmol/L (3.3-5.1); Sodium 132 mmol/L (135-145); Total Protein 7.0 g/dL (6.5-8.0)
--- OUTSIDE RECORDS SUMMARY | 2024-12-29 20:23 | XMS_ITS | Clinical Summary ---
Author Organization [facility] [address] [facility] Address [address] [place] [id number] Phone Care Team Providers Care Glaze Carrier Name Role Phone Vee Alvarez MD Primary Care Provider [phone] Allergies No known active allergies Medications CALCIUM [...] Future Compression fracture of L4 v ertebra ([facility] V24, [facility] V28) 02/03/2014 Overview (03/05/2024): Dr. Ez Adams Nontraumatic rupture of tendons of foot and ankl e 04/15/2010 Overview (03/05/2024): Scheduled for tendinorrhaphy by Dr. Jorge Young 01/25/2010 Michelle 12/26/2007 Encounters Date Type Department Care Team Description 12/24/2024 Telephone Adult Medicine [address] [phone] Vee Alvarez MD 12/09/2024 10:07 AM EDT - 12/09/2024 11:59 PM EDT Hospital Encounter [address] [phone] Rib pain on left side Discharge Disposition: Home or Self Care 12/09/2024 9:45 AM EDT Office Visit Adult Medicine [address] [phone] Riley Rand PA Rib pain on left side (Primary Dx); Age related osteoporosis, unspecified pathological fracture presence; Essential hypertension 10/09/2024 10:30 AM EDT Office Visit [address] [phone] Vee Alvarez MD Encounter for annual wellness [...] aqta) 19yo and older 08/10/1997,08/09/1997,11/02/1996 Hepatitis B (Pscotmf-J-Brxni , Recombivax HB-Adult) 19yo and older 07/12/2003,01/07/2003,10/06/2002 [...] 8:30 AM EST Office Visit Adult Medicine [address] [phone] Vee Alvarez MD [address] [place] [address] Health Maintenance Due Date Last Done Comments [...] Signed Date: 12/09/2024 11:05 ET Workstation ID: [id number] Transcribed By: Self Edit Transcribed Date: 12/09/2024 [...] Signed Date: 12/09/2024 11:05 ET Workstation ID: [id number] Transcribed By: Self Edit Transcribed Date: 12/09/2024 10:59 ET Riley NGUYEN IMG XR PROCEDURES Final Result * Lipid panel with reflex to direct LDL (10/10/2024 8:06 AM EDT) Cholesterol 174 0 - 200 mg/dL LAB CHEMISTRY METHOD 10/10/2024 12:19 PM EDT [facility] Triglycerides 71 0 - 150 mg/dL LAB CHEMISTRY METHOD 10/10/2024 12:19 PM EDT [facility] HDL 66 >=40 mg/dL LAB CHEMISTRY METHOD 10/10/2024 12:19 PM EDT [facility] LDL Calculated 94 0 - 100 mg/dL LAB CHEMISTRY METHOD 10/10/2024 12:19 PM EDT [facility] VLDL Cholesterol Jus 14.2 mg/dL LAB CHEMISTRY METHOD 10/10/2024 12:19 PM EDT [facility] Non HDL Chol. (LDL+VLDL) 108 <145 mg/dL LAB CHEMISTRY METHOD 10/10/2024 12:19 PM EDT [facility] Chol/HDL Ratio 2.6 0.0 - 4.4 LAB CHEMISTRY METHOD 10/10/2024 12:19 PM T [facility] Blood Venous blood specimen / Unknown Venipuncture / Unknown 10/10/2024 8:06 AM EDT 10/10/2024 8:06 AM EDT us Vee Alvarez MD LAB BLOOD ORDERABLES Final Resul t [facility] [address] [place] [address], [place] [phone] * (ABNORMAL) CBC auto differential (10/10/2024 8:06 AM EDT) [facility] WBC 5.9 4.8 - 10.8 K/mcL LAB HEMETOLOGY METHOD 10/10/2024 10:25 AM [facility] RBC 4.20 3.80 - 4.80 M/mcL LAB HEMETOLOGY METHOD 10/10/2024 10:25 AM T [facility] Hemoglobin 14.7 11.5 - 16.0 g/dL LAB HEMETOLOGY METHOD 10/10/2024 10:25 AM [facility] Hematocrit 42.6 35.0 - 47.0 % LAB HEMETOLOGY METHOD 10/10/2024 10:25 AM [facility] MCV 101.2(H) 79.0 - 98.0 FL LAB HEMETOLOGY METHOD 10/10/2024 10:25 AM [facility] MCH 34.9(H) 27.0 - 32.0 pcg LAB HEMETOLOGY METHOD 10/10/2024 10:25 AM [facility] MCHC 34.5 32.0 - 37.0 g/dL LAB HEMETOLOGY METHOD 10/10/2024 10:25 AM [facility] RDW 12.6 11.0 - 15.0 % LAB HEMETOLOGY METHOD 10/10/2024 10:25 AM [facility] Platelets 231 130 - 400 K/mcL LAB HEMETOLOGY METHOD 10/10/2024 10:25 AM [facility] MPV 10.3 7.0 - 11.0 FL LAB HEMETOLOGY METHOD 10/10/2024 10:25 AM [facility] NRBC 0.0 <1.0 % LAB HEMETOLOGY METHOD 10/10/2024 10:25 AM [facility] NRBC Absolute 0.00 <0.10 K/mcL LAB HEMETOLOGY METHOD 10/10/2024 10:25 AM [facility] Neutrophils Relative 58.5 % LAB HEMETOLOGY METHOD 10/10/2024 10:25 AM [facility] Lymphocytes Relative 24.0 % LAB HEMETOLOGY METHOD 10/10/2024 10:25 AM [facility] Monocytes Relative 14.1 % LAB HEMETOLOGY METHOD 10/10/2024 10:25 AM [facility] Eosinophils Relative 2.2 % LAB HEMETOLOGY METHOD 10/10/2024 10:25 AM [facility] Basophils Relative 1.0 % LAB HEMETOLOGY METHOD 10/10/2024 10:25 AM [facility] Immature Granulocytes Relative 0.2 % LAB HEMETOLOGY METHOD 10/10/2024 10:25 AM [facility] Neutrophils Absolute 3.44 1.50 - 7.00 K/mcL LAB HEMETOLOGY METHOD 10/10/2024 10:25 AM [facility] Lymphocytes Absolute 1.41 1.00 - 5.00 K/mcL LAB HEMETOLOGY METHOD 10/10/2024 10:25 AM [facility] Monocytes Absolute 0.83 0.20 - 1.00 K/mcL LAB HEMETOLOGY METHOD 10/10/2024 10:25 AM [facility] Eosinophils Absolute 0.13 0.00 - 0.50 K/mcL LAB HEMETOLOGY METHOD 10/10/2024 10:25 AM [facility] Basophils Absolute 0.06 0.00 - 0.20 K/mcL LAB HEMETOLOGY METHOD 10/10/2024 10:25 AM [facility] Immature Granulocytes Absolute 0.01 0.00 - 0.03 K/mcL LAB HEMETOLOGY METHOD 10/10/2024 10:25 AM EDT [facility] Blood Venous blood specimen / Unknown Venipuncture / Unknown 10/10/2024 8:06 AM EDT 10/10/2024 8:06 AM EDT us Vee Alvarez MD LAB BLOOD ORDERABLES Final Resul t Performing Organization Address City/[facility]/ZIP Co de Phone Number [facility] [address] [place] [address], [place] [phone] * Vitamin D 25 hydroxy (10/10/2024 8:06 AM EDT) Vit D, 25-Hydroxy 66.6 30.0 - 80.0 ng/mL LAB CHEMISTRY METHOD 10/10/2024 1:24 PM EDT [facility] Blood Venous blood specimen / Unknown Venipuncture / Unknown 10/10/2024 8:06 AM EDT 10/10/2024 8:06 AM EDT us Vee Alvarez MD LAB BLOOD ORDERABLES Final Resul t Performing Organization Address City/[facility]/ZIP Co de Phone Number [facility] [address] [place] [address], [place] [phone] * Comprehensive metabolic panel (10/10/2024 8:06 AM EDT) Sodium 140 133 - 145 mmol/L LAB CHEMISTRY METHOD 10/10/2024 12:19 PM EDT [facility] Potassium 4.6 3.5 - 5.5 mmol/L LAB CHEMISTRY METHOD 10/10/2024 12:19 PM EDT [facility] Chloride 105 96 - 110 mmol/L LAB CHEMISTRY METHOD 10/10/2024 12:19 PM EDT [facility] CO2 25 21 - 32 mmol/L LAB CHEMISTRY METHOD 10/10/2024 12:19 PM EDT [facility] Anion Gap 10 3 - 11 LAB CHEMISTRY METHOD 10/10/2024 12:19 PM [facility] Glucose 83 70 - 100 mg/dL LAB CHEMISTRY METHOD 10/10/2024 12:19 PM [facility] BUN 11 5 - 25 mg/dL LAB CHEMISTRY METHOD 10/10/2024 12:19 PM [facility] Creatinine 0.75 0.50 - 1.10 mg/dL LAB CHEMISTRY METHOD 10/10/2024 12:19 PM [facility] eGFR 87 >=60 mL/min/1. 73m2 LAB CHEMISTRY METHOD 10/10/2024 12:19 PM [facility] Comment:Calculation based on the Chronic Kidney Disease Epidemiology Collaboration (CKD-EPI) equation refit without adjustment for race. BUN/Creatinine Ratio 14.7 LAB CHEMISTRY METHOD 10/10/2024 12:19 PM [facility] Calcium 9.8 8.5 - 10.5 mg/dL LAB CHEMISTRY METHOD 10/10/2024 12:19 PM [facility] AST (SGOT) 38 10 - 42 unit/L LAB CHEMISTRY METHOD 10/10/2024 12:19 PM [facility] ALT (SGPT) 38 10 - 60 unit/L LAB CHEMISTRY METHOD 10/10/2024 12:19 PM [facility] Alkaline Phosphatase 94 42 - 121 unit/L LAB CHEMISTRY METHOD 10/10/2024 12:19 PM [facility] Total Protein 7.8 6.0 - 8.0 g/dL LAB CHEMISTRY METHOD 10/10/2024 12:19 PM [facility] Albumin 4.2 3.2 - 5.0 g/dL LAB CHEMISTRY METHOD 10/10/2024 12:19 PM [facility] Total Bilirubin 0.6 0.0 - 1.4 mg/dL LAB CHEMISTRY METHOD 10/10/2024 12:19 PM [facility] Blood Venous blood specimen / Unknown Venipuncture / Unknown 10/10/2024 8:06 AM EDT 10/10/2024 8:06 AM EDT Vee Alvarez MD LAB BLOOD ORDERABLES Final Resul t [facility] ([facility]) [facility] [address] [place] [address], * Falls Risk Assessment (03/09/2023) Falls Risk [...] should be classified as having osteoporosis. [facility] Department of Internal Medicine recommends using National [...] Taylor shouldbe classified as having osteoporosis. The [facility] Department of Internal Medicine recommendsusing National Osteoporosis [...] Final Result * Hepatitis C Screening (01/02/2018) [facility] Hepatitis C Screening Abstracted Historical Provider HEALTH MAINTENANCE Final Result * Colonoscopy (06/21/2015) [facility] Colonoscopy No Interpretation , Abstracted Anatomical Region Laterality Modality Other Historical Eva JACOBS HEALTH MAINTENANCE Final Result from Last 3 Months or Most Recently Relevant to Health Maintenance Insurance MEDICARE [facility] Care Teams Glaze Carrier Relationship Specialty Start Date End Date Vee Alvarez MD [address] [place] [phone] PCP - General Internal Medicine 03/04/24
--- OUTSIDE RECORDS SUMMARY | 2024-12-29 20:23 | XMS_ITS | Encounter Summary ---
Author Organization [facility] Address [address] [place] [address] Care Team Providers Care Terrazzo Helper Name Role Phone Vee Alvarez MD Primary Care Provider [phone] Reason for Visit * Reason Onset Date Comments GI Problem 12/24/2024 Encounter Details Date Type Department Care Team ([facility] Contact Info) Description 12/24/2024 Telephone Adult Medicine [address] [phone] Vee Alvarez MD [address] [place] [address] Social History Tobacco Use Types Packs/Day Years [...] traveled recently to another state outside of [place], [place], [place], [place], [place], [place], [place]? no o If yes, did you quarantine [...] of accident/Injury: No If yes, gather 3rd libertarian insurance information [employer] Party Information: not applicable PCP: Vee Alvarez MD Payor: MEDICARE / Plan: MEDICARE PART A & B / Product Type: Medicare / documented in this encounter Plan of Treatment Upcoming Encounters Date Type Department Care Team (Late st Contact Info) Description 02/12/2025 8:30 AM EST Office Visit Adult Medicine [address] [phone] Vee Alvarez MD [address] [place] [address] documented as of this encounter Visit Diagnoses Not on filedocumented in this encounter Additional Health Concerns Assessment Noted Time PHQ-9 Depression Total Score: 0 10/10/19 25 10:21 AM EDT documented as of this encounter Care Teams Terrazzo Helper Relationship Specialty Start Date End Date Vee Alvarez MD [address] [place] [address] PCP - General Internal Medicine 03/04/24 documented as of this encounter
[2024-12-29] MEDS: Potassium Chloride/H20 10 MEQ/100 ML PIGGYBACK 100 MEQ IV ×3 (20:36→23:28)
--- NOTE | 2024-12-29 20:40 | PC.NURSE ---
pt medicated per MAR. provider at bedside discussing symptoms with pt.
[2024-12-29] MEDS: iohexoL 350 MG/ML 100 ML INFUS..BTL 85 ML IV (21:04)
[2024-12-29 21:38] LABS: Appearance Urine Cloudy; Glucose Urine UA Negative (Negative); PH 6.0 (5.0-9.0); Specific Gravity - Urine >= 1.030 (1.005-1.025); UMIC TRIGGER UACC YES
[2024-12-29 21:49] LABS: UACC Culture Trigger YES
--- NOTE | 2024-12-29 22:01 | PC.NURSE ---
when pulling second bag of potassium the pyxus opened but there were no more bags in the bin, wasted the amount pulled as i was unable to obtain, relief charge nurse aware and pharmacy advised. Pharmacy confirms they will bring it up now.
[2024-12-29 23:10] VITALS: BP 105/64; PULSE 81; RESP 16; TEMP 37.1; O2SAT 96
[2024-12-30] VITALS (24 sets, daily range): BP systolic 100–139; BP diastolic 54–71; PULSE 72–88; RESP 16–20; TEMP 36.1–37.5; O2SAT 91–100; BMI 19.5; BMI 20.7
[2024-12-30] MEDS: Potassium Chloride/H20 10 MEQ/100 ML PIGGYBACK 100 MEQ IV (00:44)
--- NOTE | 2024-12-30 00:48 | P.HPGS_ITS ---
History of Present Illness History of Present Illness Date of Service: 12/30/24 Chief complaint: Abdominal pain Narrative: Yamilet Taylor is a 69 year old female it was increasing and worsening abdominal pain fever at home and as a result came to the emergency room where her white count was noted to be at 16,[address] scan of her abdomen and pelvis showed evidence of colitis/diverticulitis with abscess collection in the pelvis area. Patient was here in the emergency room with the end of November discharged December 25 from in the ER with diagnosis of gastroenteritis. She says on December 16 she ate food that have been sitting in her car for the day and thinks that she got gastroenteritis from the. She had nausea and vomiting she had diarrhea and this extensively got worse. When she came in on December 24 to the emergency room her white count was elevated and at the time her diagnosis was believed to be gastroenteritis and she was discharged. Since then she has not improved and in fact felt worse with increasing abdominal pain and no appetite and not able to eat very much so she came to the emergency room. She denies any chest pain shortness of breath. She has had some operations on her right shoulder and gets physical therapy for this. She has had a colonoscopy in the past about 8 years ago and was told that she should have another 1 in 10 years' time without any concerning findings. She was unaware that she may have diverticulosis Review of Systems Review of Systems: Yes all other systems are reviewed and are negative PMFSH Past Medical History Medical History Hx of cold sores Hx of rosacea Osteoporosis Arthritis Hypercholesterolemia HTN (hypertension) Surgical History Surgical History Hx of colonoscopy History of open reduction and internal fixation (ORIF) procedure (04/11/23) History of foot surgery Social History Social History Household Members: None Housing: House Are you a primary child caregiver to a significant other at home: No Do you presently have visiting nurse or other home services: No Alcohol intake: current Comment: counts correct Patient Tobacco Use Status: Former Tobacco user Tobacco use type: Cigarette Smoked in Last 30 Days: No Use of substances other than those prescribed or required for medical reasons: No Advance Directives: Yes Advance Directives on File: Yes Advance Directives Date on File: 01/03/24 Do you have a plan to hurt others: No Plan service: No Current occupational status: retired Current occupation: right hand dominant Meds Allergies Allergy/AdvReac Type Severity Reaction Status Date / Time No Known Allergies (No Known Allergy Verified 12/29/24 18:44 Allergies*) Active Medications: Current Medications Acetaminophen (Acetaminophen 325 Mg Tablet) 650 mg PO Q6H PRN PRN Reason: Pain, Mild 1-3,fever,headache Enoxaparin Sodium (Enoxaparin Sodium 40 Mg/0.4 Ml Syringe) 40 mg SUBCUT 2200 LOTUS Piperacillin Sod/Tazobactam (Sod 3.375 gm/ Sodium Chloride) 50 mls @ 100 mls/hr IV RQ6H [facility] Potassium Chloride/Sodium Chloride (Kcl 20 Meq In 0.9 % Sodium Chl) 20 meq in 1,000 mls @ 125 mls/hr IVCONT .Q8H [facility] Melatonin (Melatonin 3 Mg Tablet) 6 mg PO BEDTIME PRN PRN Reason: Insomnia Morphine Sulfate (Morphine Sulfate 4 Mg/Ml Cartridge) 4 mg IVPUSH RQ4H PRN; Protocol PRN Reason: Pain, Severe (Pain Scale 7-10) Ondansetron HCl (Ondansetron Hcl 4 Mg/2 Ml Vial) 4 mg IVPUSH Q8H PRN PRN Reason: Nausea and Vomiting Pantoprazole Sodium (Pantoprazole Sodium 40 Mg/10 Ml Vial) 40 mg IVPUSH DAILY@0630 [facility] Sodium Chloride (0.9 % Sodium Chloride Flush 3 Ml Syringe) 3 ml IVFLUSH QSHIFT [facility] Home Medications ?Medication ?Instructions ?Recorded ?Confirmed ?Last Taken ?Type amlodipine 10 mg tablet 10 mg PO DAILY 04/10/2312/2601/03/24 History atorvastatin 40 mg tablet 40 mg PO BEDTIME 04/10/2301/02/24 History doxycycline hyclate 50 mg tablet 50 mg PO DAILY 01/18/24 Unknown History valacyclovir 500 mg tablet 500 mg PO BID 12/01/2312/2601/03/24 History calcium 600 mg (as 1 tab PO DAILY 12/22/2312/2612/20/23 History carbonate)-vitamin D3 5 mcg (200 unit) tablet cholecalciferol (vitamin D3) 25 25 mcg PO DAILY 01/18/24 12/20/23 History mcg (1,000 unit) capsule (Vitamin D3) Physical Exam Vital Signs: Vital Signs: Last Vital Signs Temp 98.8 F 12/29/24 23:10 Pulse 81 12/29/24 23:10 Resp 16 12/29/24 23:10 BP 105/64 12/29/24 23:10 Pulse Ox 96 12/29/24 23:10 O2 Del Method Room Air 12/29/24 23:10 BMI result Body Mass Index 19.5 Const: General: cooperative, healthy appearing and acute distress mild N utritional Appearance: thin Orientation/consciousness: patient oriented x3 Resp: Effort & Inspection: normal respiratory effort Auscultation: clear to auscultation bilaterally Cardio: Rate: regular rate Rhythm: regular rhythm GI: Other: Abdomen is soft she is tender in the lower abdomen a little more on the right side compared to the left side little guarding no true peritoneal signs. She has active bowel sounds. Neuro: General: patient oriented x3 Psych: Appearance: grossly normal Mental Status: mental status grossly normal Speech and movement: Normal speech and movement present Affect: normal affect Attitude: cooperative Thought process: Normal thought process present Thought content: Normal thought content present Insight: Good insight present (Psych) Judgement: Good judgement present (Psych) Results Results Labs: Short CBC 12/29/24 Range/Units 19:48 WBC 16.9 H (4.8-10.8) X10*3/uL Hgb 12.8 (12.0-16.0) g/dl Hct 34.8 L (37.0-47.0) % Plt Count 367 (160-400) X10*3/uL BMP 12/29/24 19:48 Sodium 132 L Potassium 3.2 L D Chloride 97 Carbon Dioxide 24 BUN 8 L Creatinine 0.62 Calcium 8.8 Liver Function 12/29/24 Range/Units 19:48 Total Bilirubin 0.5 (0.0-1.0) mg/dL AST 23 (5-31) U/L ALT 7 (0-31) U/L Alkaline Phosphatase 83 (39-117) U/L Albumin 3.4 L (3.5-5.0) g/dL Urine 12/29/24 Range/Units 21:33 Urine Color Dark Yellow Urine Appearance Cloudy Urine pH 6.0 (5.0-9.0) Ur Specific [place] >= 1.030 H (1.005-1.025) Urine Protein 100 (2+) H (Neg-Trace) mg/dL Urine Glucose (UA) Negative (Negative) mg/dL Abdomen CT scan report/results: report reviewed and image reviewed CT scan - pelvis: report reviewed and image reviewed Additional studies: Patient: Yamilet Taylor MR#: [id number] : 1955 Acct:[id number] Age/Sex: 69 / F ADM Date: 12/29/24 Loc: HO.ED Attending Dr: Ordering Physician: Sunita Mckeon Date of Service: 12/29/24 Procedure(s): CT abdomen pelvis w IV con Accession Number(s): [id number] cc: Sunita Mckeon; Vee Alvarez MD~ Report Number: [id number]: Total DLP = 355.00 mGy-cm Reason for Exam: diverticulitis r/o lower belly pain ADDENDUMThis document has been electronically signed by: Hira Keene MD on 12/29/2024 22:20:23 ADDENDUM: This report was discussed with Sunita Mckeon on Dec 29, 2024 22:25:00 EDT. This document has been electronically signed by: Reina Maynard on 12/29/2024 22:26:11 Addendum Dictated By: Hira Keene MD Addendum Signed By: <Electronically signed by Hira Keene MD in [place]> 12/29/242225 Addendum Cosigned By: DD/ /19/2219 TD/TT: 12/29/2408/18/2225 CLINICAL HISTORY: diverticulitis r o lower belly pain CT abdomen and pelvis with contrast Comparison: None provided Findings: Mild bibasilar atelectasis/pneumonitis superimposed on scarring, emphysematous changes, and chronic lung disease. Multiple peripheral nodular opacities are pleural-based. Index in the lateral basal segment of the right lower lobe measures 5 mm (image 40 of series 4). No liver mass by CT. The spleen is nonenlarged. Adrenal glands are within limits of the normal. Mild volume loss of the pancreas is nonspecific with moderate pancreatic duct dilatation measuring 5 mm diameter. Wall thickening of the gallbladder likely due to underdistention. Imaged CBD measures 7 mm diameter. No definite or defined mass of the pancreas by CT at this time. No hydronephrosis. Small retroperitoneal mesenteric lymph nodes are nonspecific and may be reactive. Mild small bowel dilatation including mid-lower abdomen is nonspecific and may reflect sentinel loop ileus from adjacent or separate inflammation. Wall thickening of the large intestine is nonspecific and concerning for colitis. Other mural pathology of the large intestine is not excluded by CT. Fluid in the abdomen and pelvis likely secondary to combination colitis and diverticulitis. Pneumatosis noted in the imaged colon, potentially in both the sigmoid colon and distended cecum. Borders and margins of the cecum not well defined, inferiorly. Separate collection and/or abscess also considered prevertebral soft tissues. Mural abscess favored by CT measuring up to 7 cm. No definite free intraperitoneal air defined by CT. The appendix is not definitively seen. Uterus is anteverted. Calcifications of the uterus likely due to fibroids measuring 1.4 cm. No adnexal soft tissue mass. Multilevel compression fractures are age indeterminate by CT and likely old/chronic given sclerosis of the remodeling. Transitional vertebral anatomy with lumbarized S1 for the purposes of this dictation only. Moderate to severe height losses appears most pronounced of the L3 by this numbering system. Facet arthropathy and degenerative disc changes are multifocal with spinal stenosis, including foraminal narrowing. IMPRESSION: 1. Abnormal appearance of the large intestine concerning for combination of the colitis and diverticulitis with pneumatosis 2. Additional abnormal fluid in the prevertebral soft tissues/dorsal abdomen and pelvis nonspecific and concerning for developing abscess such as mural abscess by CT. Post enteric contrast imaging may be informative for potential abscess definition, if clinically indicated and if clinically able. 3. Nonspecific dilatation of the main pancreatic duct. This is concerning for stenosis versus mass of the mass-effect of the ampulla. This document has been electronically signed by: Hira Keene MD on 12/29/2024 22:20:23 Dictated By: Hira Keene MD Signed By: <Electronically signed by Hira Keene MD in [place]> 12/29/242220 DD/ 19 TD/TT: 12/29/242219 Hyperbaric Nurse: Assessment and Plan (1) Diverticulitis: Status: Acute Plan 69-year-old female with probable colitis/diverticulitis combination with abscess in the lower pelvic area. Elevated white count tender to palpation. Although the patient is sick and this is been ongoing for several weeks I think that we have time to see if she can be admitted treated with IV antibiotics and be evaluated by Interventional Radiology to see if they can drain this abscess area. It would be great to be able to do this and get better control of this infection of her colon. At some point most likely she will need some degree of sigmoid colectomy but if we could do this electively that would be best. Her risks however if requiring emergent/urgent surgery with colectomy and colostomy creation is high. Patient would prefer not to do this but understands that she wants to get better. Tonight we will plan on admitting her at p.o. with sips of liquids and ice chips IV Zosyn serial abdominal exam and review with Radiology team tomorrow. She understands and agrees with the above plan Quality Stroke Does the patient have a stroke diagnosis?: No VTE Prior VTE?: No VTE Risk Level:: Surgical - moderate VTE Device Contraindication: N/A - Device Ordered VTE Drug Contraindication: N/A - Med Ordered Procedures Date of Service Date of Service: 12/30/24
[2024-12-30] MEDS: KCl 20 mEq in 0.9 % Sodium ChL 20 MEQ/1,000 ML IV.SOLN 125 MEQ IVCONT ×3 (01:23→17:58)
--- NOTE | 2024-12-30 01:27 | PC.NURSE ---
medicated pt per MAR. pt calm and feeling a bit better.
[2024-12-30 05:49] LABS: Hematocrit 31.2 % (37.0-47.0); Hemoglobin 11.2 g/dl (12.0-16.0); Imm Gran Abs Auto 0.09 X10*3/uL (0.00-0.03); Imm Gran Pct Auto 0.6 % (0.0-0.4); Lymphocytes Absolute Auto 0.7 X10*3/uL (1.2-4.9); MANUAL DIFF FLAG SCAN; Mean Corpuscular HGB Conc 35.9 g/dl (31.0-35.0); Mean Corpuscular Hemoglobin 34.5 pg (27.0-33.0); Mean Corpuscular Volume 96.0 fL (80.0-98.0); NRBC Abs Auto 0.000 X10*3/uL (0.0-0.012); NRBC Pct Auto 0.0 /100WBC (0.0-0.2); Platelet Count 339 X10*3/uL (160-400); Red Blood Count 3.25 X10*6/uL (4.20-5.50); SCAN SMEAR FLAG 1; White Blood Count 14.5 X10*3/uL (4.8-10.8)
[2024-12-30 06:05] LABS: Anion Gap 12 (12-20); Blood Urea Nitrogen 6 mg/dL (9-16); Carbon Dioxide 21 mmol/L (22-29); Chloride 105 mmol/L (96-108); Creatinine Clr Calc Pharmacy 85.2; Estimated Glomerular Filt Rate > 60; Potassium 3.9 mmol/L (3.3-5.1); Sodium 134 mmol/L (135-145)
[2024-12-30 06:06] LABS: Calcium 7.9 mg/dL (8.4-10.2)
--- NOTE | 2024-12-30 06:19 | PC.NURSE ---
pt oral temp of 99.5, feeling some chills, will medicated per MAY.
--- NOTE | 2024-12-30 06:27 | PC.NURSE ---
pt medicated per MAY for fever
--- NOTE | 2024-12-30 08:06 | P.PNGS_ITS ---
Subjective Subjective Date of Service: 12/30/24 Interval history: Continued abdominal pain in the LLQ, 09/03 severity with pain meds. Reports diarrhea, no nausea currently. Physical Exam 2 Vital Signs: Vital Signs: Last Vital Signs Temp 99.5 F 12/30/24 06:35 Pulse 88 12/30/24 06:35 Resp 16 12/30/24 06:35 BP 107/62 12/30/24 06:35 Pulse Ox 91 L 12/30/24 06:35 O2 Del Method Room Air 12/30/24 06:35 BMI result Body Mass Index 19.5 Const: General: no acute distress Nutritional Appearance: thin O rientation/consciousness: patient oriented x3 Resp: Effort & Inspection: normal respiratory effort GI: Other: Soft, voluntary guarding, no rebound or rigidity. No abdominal scars, no hernias. Tender in the left lower quadrant to deep palpation. No palpable mass Neuro: General: patient oriented x3 Extrem: General: Yes no clubbing, cyanosis or edema Objective Data Active Medications Acetaminophen (Acetaminophen 325 Mg Tablet) 650 mg PO Q6H PRN PRN Reason: Pain, Mild 1-3,fever,headache Last Admin: 12/30/24 06:26 Dose: 650 mg Documented By: TRACEY Enoxaparin Sodium (Enoxaparin Sodium 40 Mg/0.4 Ml Syringe) 40 mg SUBCUT 2200 [facility] Last Admin: 12/30/24 01:23 Dose: 40 mg Documented By: TRACEY Piperacillin Sod/Tazobactam (Sod 3.375 gm/ Sodium Chloride) 50 mls @ 100 mls/hr IV RQ6H [facility] Last Infusion: 12/30/24 07:08 Dose: Infused Documented By: BREANNE Potassium Chloride/Sodium Chloride (Kcl 20 Meq In 0.9 % Sodium Chl) 20 meq in 1,000 mls @ 125 mls/hr IVCONT .Q8H [facility] Last Admin: 12/30/24 01:23 Dose: 125 mls/hr Documented By: TRACEY Melatonin (Melatonin 3 Mg Tablet) 6 mg PO BEDTIME PRN PRN Reason: Insomnia Last Admin: 12/30/24 02:26 Dose: 6 mg Documented By: TRACEY Morphine Sulfate (Morphine Sulfate 4 Mg/Ml Cartridge) 4 mg IVPUSH RQ4H PRN; Protocol PRN Reason: Pain, Severe (Pain Scale 7-10) Ondansetron HCl (Ondansetron Hcl 4 Mg/2 Ml Vial) 4 mg IVPUSH Q8H PRN PRN Reason: Nausea and Vomiting Pantoprazole Sodium (Pantoprazole Sodium 40 Mg/10 Ml Vial) 40 mg IVPUSH DAILY@0630 [facility] Last Admin: 12/30/24 06:13 Dose: 40 mg Documented By: TRACEY Sodium Chloride (0.9 % Sodium Chloride Flush 3 Ml Syringe) 3 ml IVFLUSH QSHIFT [facility] Last Admin: 12/30/24 07:16 Dose: Not Given Documented By: BREANNE Non-Admin Reason: IV Running Labs 12/30/24 05:23 12/30/24 05:23 Labs: Laboratory Results - last 24 hr 12/29/24 12/29/24 12/29/24 19:48 21:33 23:05 MCV 95.6 MCH 35.2 H MCHC 36.8 H RDW 12.9 Plt Count 367 MPV 8.9 L Immature Gran % (Auto) 0.6 H Neut % (Auto) 84.2 H Lymph % (Auto) 4.8 L Edmunds % (Auto) 10.2 Eos % (Auto) 0.0 Baso % (Auto) 0.2 Lymph # (Auto) 0.8 L Edmunds # (Auto) 1.7 H Eos # (Auto) 0.0 Baso # (Auto) 0.0 Abs Immat Gran (auto) 0.11 H Absolute Neuts (auto) 14.3 H Absolute Nucleated RBC 0.000 Nucleated RBC % (auto) 0.0 Smear Tech's Comments VERIFIED Anion Gap 14 Estim Creat Clear Calc 72.8 Estimated GFR > 60 Random Glucose 116 H Lactic Acid 0.8 Calcium 8.8 Magnesium 1.9 Total Bilirubin 0.5 AST 23 ALT 7 Alkaline Phosphatase 83 Total Protein 7.0 Albumin 3.4 L Lipase 24 Urine Color Dark Yellow Urine Appearance Cloudy Urine pH 6.0 Ur Specific [place] >= 1.030 H Urine Protein 100 (2+) H Urine Glucose (UA) Negative Urine Ketones 80 Urine Blood Negative Urine Nitrite Negative Ur Leukocyte Esterase Small (1+) H Urine RBC 0-2 Urine WBC 0-5 Ur Squamous Epith Cells 6-10 Urine Bacteria None Seen Hyaline Casts 11-20 10/06/25 05:23 MCV 96.0 MCH 34.5 H MCHC 35.9 H RDW 13.0 Plt Count 339 MPV 9.2 L Immature Gran % (Auto) 0.6 H Neut % (Auto) 83.7 H Lymph % (Auto) 4.8 L Edmunds % (Auto) 10.5 Eos % (Auto) 0.1 Baso % (Auto) 0.3 Lymph # (Auto) 0.7 L Edmunds # (Auto) 1.5 H Eos # (Auto) 0.0 Baso # (Auto) 0.0 Abs Immat Gran (auto) 0.09 H Absolute Neuts (auto) 12.1 H Absolute Nucleated RBC 0.000 Nucleated RBC % (auto) 0.0 Smear Tech's Comments VERIFIED Anion Gap 12 Estim Creat Clear Calc 85.2 Estimated GFR > 60 Random Glucose 100 Lactic Acid Calcium 7.9 L D Magnesium Total Bilirubin AST ALT Alkaline Phosphatase Total Protein Albumin Lipase Urine Color Urine Appearance Urine pH Ur Specific [place] Urine Protein Urine Glucose (UA) Urine Ketones Urine Blood Urine Nitrite Ur Leukocyte Esterase Urine RBC Urine WBC Ur Squamous Epith Cells Urine Bacteria Hyaline Casts Procedures Date of Service Date of Service: 12/30/24 Progress Note: A&P Assessment and plan (1) Diverticulitis: Status: Acute Plan 69-year-old female patient presenting with complaints of abdominal pain, nausea, vomiting, diarrhea initially thought to have gastroenteritis now of concern for diverticulitis possibly with an abscess. Agree with IR consultation for possible IR drainage. Patient currently on Zosyn. Continue NPO pending IR evaluation. Time Spent With Patient Time: Total time managing care of this patient today ____ minutes. Quality Stroke Does the patient have a stroke diagnosis?: No VTE Prior VTE?: No VTE Risk Level:: Surgical - moderate VTE Device Contraindication: N/A - Device Ordered VTE Drug Contraindication: N/A - Med Ordered
--- NOTE | 2024-12-30 08:25 | PHA.MEDREC ---
Addendum entered by Pedro Cheng PharmD 12/30/24 08:34: Reviewed Original Note: Pharmacy Consult ? Medication Reconciliation Pharmacy has completed the medication reconciliation. Spoke with pt and she confirmed her medications. Pt confirmed she is taking her Valcyclovir 1gm tab 1/2 tab (500mg) daily; pt states she has not had any our breaks in a while, even since cutting them in half. Pt states she has not been able to take Amlodipine in about 3-4 days and everything else has not been taken in about 2 weeks.
[2024-12-30 10:15] LABS: INTERNATIONAL NORM RATIO 1.3 (0.9-1.1); Prothrombin Time 14.7 SEC (10.9-12.4)
--- NOTE | 2024-12-30 13:54 | MHC.CM.PN ---
pt lives alone has no services is independent pt reports having own ride home dc plan home no services
--- NOTE | 2024-12-30 14:35 | HO.RADPN ---
RADIOLOGY Narrative Narrative: 10 fr right pelvic drain placed. 220 ml purulent fluid aspirated. Specimen sent for gram stain, culture and cytology. Drain left to bulb suction,
[2024-12-30] MEDS: 0.9 % Sodium Chloride Flush 3 ML SYRINGE IVFLUSH (22:19)
[2024-12-31] VITALS: BP 110/62; PULSE 72; RESP 18; TEMP 37.3; O2SAT 94
[2024-12-31] MEDS: KCl 20 mEq in 0.9 % Sodium ChL 20 MEQ/1,000 ML IV.SOLN 125 MEQ IVCONT ×3 (01:41→17:59)
--- NOTE | 2024-12-31 07:37 | PM.PNGS ---
Subjective Subjective Date of Service: 12/31/24 <Marisol Marks PA-C - Last Filed: 12/31/24 07:40> 12/31/24 <Esa Ritchie MD - Last Filed: 12/31/24 08:08> Interval history: Underwent CT guided drainage yesterday with drainage of 220mL purulent output. Feels much improved this morning, c/o pain only at drain site, denies abd pain. Tolerating liquids. Feels hungry. Passing flatus no BM. <Marisol Marks PA-C - Last Filed: 12/31/24 07:40> Physical Exam Vital Signs: Vital Signs: Last Vital Signs Temp 99.2 F 12/31/24 00:00 Pulse 72 12/31/24 00:00 Resp 18 12/31/24 00:00 BP 110/62 12/31/24 00:00 Pulse Ox 94 12/31/24 00:00 O2 Del Method Room Air 12/31/24 00:00 O2 Flow Rate 2 12/30/24 12:50 BMI result Body Mass Index 20.7 <Marisol Marks PA-C - Last Filed: 12/31/24 07:40> Const: Orientation/consciousness: patient oriented x3 <ESTEBAN Doran Last Filed: 12/31/24 07:40> Resp: Effort & Inspection: normal respiratory effort and able to speak in complete sentences <Marisol Marks PA-C - Last Filed: 12/31/24 07:40> GI: Inspection: No distended <Marisol Marks PA-C - Last Filed: 12/31/24 07:40> Palpation (GI): Soft to palpation and Tenderness to palpation present (GI) (very mild suprapubic) <ESTEBAN Doran Last Filed: 12/31/24 07:40> Percussion: Yes normal to percussion <ESTEBAN Doran Last Filed: 12/31/24 07:40> Back/Spine/Pelvis: Other: pigtail drain in place R posterior, cont with purulent drainage <ESTEBAN Doran Last Filed: 12/31/24 07:40> Skin: General skin exam: no rashes or lesions noted <Marisol Marks PA-C - Last Filed: 12/31/24 07:40> Neuro: General: patient oriented x3 <Marisol Marks PA-C - Last Filed: 12/31/24 07:40> Objective Data Active Medications Acetaminophen (Acetaminophen 325 Mg Tablet) 650 mg PO Q6H PRN PRN Reason: Pain, Mild 1-3,fever,headache Last Admin: 12/30/24 06:26 Dose: 650 mg Documented By: TRACEY Amlodipine Besylate (Amlodipine Besylate 10 Mg Tablet) 10 mg PO DAILY [facility]; Protocol Atorvastatin Calcium (Atorvastatin Calcium 40 Mg Tablet) 40 mg PO BEDTIME [facility] Enoxaparin Sodium (Enoxaparin Sodium 40 Mg/0.4 Ml Syringe) 40 mg SUBCUT 2200 [facility] Last Admin: 12/30/24 22:16 Dose: 40 mg Documented By: JESSICA Potassium Chloride/Sodium Chloride (Kcl 20 Meq In 0.9 % Sodium Chl) 20 meq in 1,000 mls @ 125 mls/hr IVCONT .Q8H [facility] Last Admin: 12/31/24 01:41 Dose: 125 mls/hr Documented By: JESSICA Piperacillin Sod/Tazobactam (Sod 3.375 gm/ Sodium Chloride) 50 mls @ 100 mls/hr IV Q6H [facility] Last Infusion: 12/31/24 02:31 Dose: Infused Documented By: JESSICA Melatonin (Melatonin 3 Mg Tablet) 6 mg PO BEDTIME PRN PRN Reason: Insomnia Last Admin: 12/30/24 02:26 Dose: 6 mg Documented By: TRACEY Morphine Sulfate (Morphine Sulfate 4 Mg/Ml Cartridge) 4 mg IVPUSH RQ4H PRN; Protocol PRN Reason: Pain, Severe (Pain Scale 7-10) Last Admin: 12/31/24 04:18 Dose: 4 mg Documented By: JESSICA Ondansetron HCl (Ondansetron Hcl 4 Mg/2 Ml Vial) 4 mg IVPUSH Q8H PRN PRN Reason: Nausea and Vomiting Pantoprazole Sodium (Pantoprazole Sodium 40 Mg/10 Ml Vial) 40 mg IVPUSH DAILY@0630 [facility] Last Admin: 12/31/24 05:48 Dose: 40 mg Documented By: JESSICA Sodium Chloride (0.9 % Sodium Chloride Flush 3 Ml Syringe) 3 ml IVFLUSH QSHIFT [facility] Last Admin: 12/30/24 22:19 Dose: 3 ml Documented By: JESSICA Valacyclovir HCl (Valacyclovir Hcl 500 Mg Tablet) 500 mg PO DAILY [facility] <Marisol Marks PA-C - Last Filed: 12/31/24 07:40> Labs CBC & Chem 7: 12/30/24 05:23 12/30/24 05:23 <Marisol Marks PA-C - Last Filed: 12/31/24 07:40> Labs: Laboratory Results - last 24 hr 12/30/24 09:58 PT 14.7 H INR 1.3 H <Marisol Marks PA-C - Last Filed: 12/31/24 07:40> Microbiology Microbiology Results: Microbiology 12/29/24 22:38 Blood Culture - Preliminary Blood - Venous No growth after 24 hours. 12/29/24 22:38 Blood Culture - Preliminary Blood - Venous No growth after 24 hours. 12/30/24 12:59 Gram Stain - Final Abdominal Fluid 12/29/24 21:49 Urine Culture - Preliminary Urine clean catch - Clean Catch Midstream No growth to date. <Marisol Marks PA-C - Last Filed: 12/31/24 07:40> Procedures Date of Service Date of Service: 12/31/24 <Marisol Marks PA-C - Last Filed: 12/31/24 07:40> 12/31/24 <Esa Ritchie MD - Last Filed: 12/31/24 08:08> Progress Note: A&P Assessment and plan (1) Diverticulitis of intestine with abscess: Status: Acute <Marisol Marks PA-C - Last Filed: 12/31/24 07:40> Assessment and Plan: S/p CT guided drainage yesterday- now clinically improved. VSS. Abd very benign with mild remaining suprapubic tenderness. Will await repeat CBC, if improved will advance to solid diet later today. Cont IV abx, keep drain in place. Patient comfortable with plan, encouraged OOB/ambulation today. <Marislo Marks PA-C - Last Filed: 12/31/24 07:40> S/p CT guided drainage yesterday- now clinically improved. VSS. Abd very benign with mild remaining suprapubic tenderness. Will await repeat CBC, if improved will advance to solid diet later today. Cont IV abx, keep drain in place. Patient comfortable with plan, encouraged OOB/ambulation today. Patient seen and examined independently and I agree with the above assessment and plan. Large abscess drained by Dr. Houston yesterday, patient feels much improved. Discussed eventual interval sigmoid colectomy once infections resolves. She expressed understanding and agrees with the plan. <Esa Ritchie MD - Last Filed: 12/31/24 08:08> Time Spent With Patient Time: Total time managing care of this patient today ____ minutes. <Marisol Marks PA-C - Last Filed: 12/31/24 07:40> Quality Stroke Does the patient have a stroke diagnosis?: No <Marisol Marks PA-C - Last Filed: 12/31/24 07:40> VTE Prior VTE?: No <Marisol Marks PA-C - Last Filed: 12/31/24 07:40> VTE Risk Level:: Surgical - moderate <Marisol Marks PA-C - Last Filed: 12/31/24 07:40> VTE Device Contraindication: N/A - Device Ordered <Marisol Marks PA-C - Last Filed: 12/31/24 07:40> VTE Drug Contraindication: N/A - Med Ordered <Marisol Marks PA-C - Last Filed: 12/31/24 07:40>
[2024-12-31 07:59] VITALS: BP 114/63; PULSE 70; RESP 17; TEMP 36.8; O2SAT 94
[2024-12-31 10:03] LABS: MANUAL DIFF FLAG NO
[2024-12-31 10:06] LABS: Hematocrit 32.2 % (37.0-47.0); Hemoglobin 11.1 g/dl (12.0-16.0); Imm Gran Abs Auto 0.06 X10*3/uL (0.00-0.03); Imm Gran Pct Auto 0.7 % (0.0-0.4); Lymphocytes Absolute Auto 1.1 X10*3/uL (1.2-4.9); Mean Corpuscular HGB Conc 34.5 g/dl (31.0-35.0); Mean Corpuscular Hemoglobin 34.6 pg (27.0-33.0); Mean Corpuscular Volume 100.3 fL (80.0-98.0); NRBC Abs Auto 0.000 X10*3/uL (0.0-0.012); NRBC Pct Auto 0.0 /100WBC (0.0-0.2); Platelet Count 353 X10*3/uL (160-400); Red Blood Count 3.21 X10*6/uL (4.20-5.50); White Blood Count 8.2 X10*3/uL (4.8-10.8)
[2024-12-31 15:24] VITALS: BP 110/66; PULSE 75; RESP 18; TEMP 36.6; O2SAT 96
[2024-12-31 23:56] VITALS: BP 129/71; PULSE 69; RESP 18; TEMP 36.2; O2SAT 96
[2025-01-01 04:14] VITALS: BP 120/68; PULSE 65; RESP 17; TEMP 36.8; O2SAT 97
--- NOTE | 2025-01-01 06:35 | P.PNGS_ITS ---
Subjective Subjective Date of Service: 01/01/25 <[facility] Last Filed: 01/01/25 06:48> 01/01/25 <Marisol Marks PA-C - Last Filed: 01/01/25 09:01> 01/01/25 <Esa Ritchie MD - Last Filed: 01/01/25 10:29> Interval history: No acute events overnight. She states she slept well. Ambulating OOB independently without issue. Endorses feeling hungry. Has not yet tried eating solids. Denies nausea or vomiting. Passing flatus, still no BM since admission. Abdominal soreness around incision site is less sore than yesterday, 4/10 at worst only when moving around, controlled with PO Tylenol. Denies fevers, chills, shortness of breath, or chest pain. <[facility] Last Filed: 01/01/25 06:48> Physical Exam 2 Vital Signs: Vital Signs: Last Vital Signs Temp 98.3 F 01/01/25 04:14 Pulse 65 01/01/25 04:14 Resp 17 01/01/25 04:14 BP 120/68 01/01/25 04:14 Pulse Ox 97 01/01/25 04:14 O2 Del Method Room Air 01/01/25 04:14 O2 Flow Rate 2 12/30/24 12:50 BMI result Body Mass Index 20.7 <[facility] Last Filed: 01/01/25 06:48> Const: General: comfortable and no acute distress <[facility] Last Filed: 01/01/25 06:48> Orientation/consciousness: patient oriented x3 <[facility] Last Filed: 01/01/25 06:48> Resp: Effort & Inspection: normal respiratory effort and able to speak in complete sentences <[facility] Last Filed: 01/01/25 06:48> GI: Other: Pigtail drain in R posterior with purulent drainage <[facility] Last Filed: 01/01/25 06:48> Palpation (GI): Soft to palpation, nontender, no guarding and not rigid <[facility] Last Filed: 01/01/25 06:48> Skin: General skin exam: no rashes or lesions noted <[facility] Filed: 01/01/25 06:48> Neuro: General: patient oriented x3 <Chata Avendano - Last Filed: 01/01/25 06:48> Objective Data Active Medications Acetaminophen (Acetaminophen 325 Mg Tablet) 650 mg PO Q6H PRN PRN Reason: Pain, Mild 1-3,fever,headache Last Admin: 12/31/24 21:24 Dose: 650 mg Documented By: JESSICA Amlodipine Besylate (Amlodipine Besylate 10 Mg Tablet) 10 mg PO DAILY [facility]; Protocol Last Admin: 12/31/24 08:13 Dose: 10 mg Documented By: PHILIPPE Atorvastatin Calcium (Atorvastatin Calcium 40 Mg Tablet) 40 mg PO BEDTIME [facility] Last Admin: 12/31/24 20:40 Dose: 40 mg Documented By: JESSICA Enoxaparin Sodium (Enoxaparin Sodium 40 Mg/0.4 Ml Syringe) 40 mg SUBCUT 2200 [facility] Last Admin: 12/31/24 21:25 Dose: 40 mg Documented By: JESSICA Piperacillin Sod/Tazobactam (Sod 3.375 gm/ Sodium Chloride) 50 mls @ 100 mls/hr IV Q6H [facility] Last Infusion: 01/01/25 02:55 Dose: Infused Documented By: JESSICA Melatonin (Melatonin 3 Mg Tablet) 6 mg PO BEDTIME PRN PRN Reason: Insomnia Last Admin: 12/30/24 02:26 Dose: 6 mg Documented By: TRACEY Morphine Sulfate (Morphine Sulfate 4 Mg/Ml Cartridge) 4 mg IVPUSH RQ4H PRN; Protocol PRN Reason: Pain, Severe (Pain Scale 7-10) Last Admin: 12/31/24 08:20 Dose: 4 mg Documented By: PHILIPPE Ondansetron HCl (Ondansetron Hcl 4 Mg/2 Ml Vial) 4 mg IVPUSH Q8H PRN PRN Reason: Nausea and Vomiting Pantoprazole Sodium (Pantoprazole Sodium 40 Mg/10 Ml Vial) 40 mg IVPUSH DAILY@0630 [facility] Last Admin: 01/01/25 05:45 Dose: 40 mg Documented By: JESSICA Sodium Chloride (0.9 % Sodium Chloride Flush 3 Ml Syringe) 3 ml IVFLUSH QSHIFT [facility] Last Admin: 12/31/24 23:08 Dose: Not Given Documented By: JESSICA Non-Admin Reason: IV Running Valacyclovir HCl (Valacyclovir Hcl 500 Mg Tablet) 500 mg PO DAILY [facility] Last Admin: 12/31/24 08:14 Dose: 500 mg Documented By: PHILIPPE <Chata Avendano - Last Filed: 01/01/25 06:48> Labs CBC & Chem 7: 12/31/24 09:17 12/30/24 05:23 <Namratakoby Avendano - Last Filed: 01/01/25 06:48> Labs: Laboratory Results - last 24 hr 12/31/24 09:17 MCV 100.3 H MCH 34.6 H MCHC 34.5 RDW 13.5 Plt Count 353 MPV 9.5 Immature Gran % (Auto) 0.7 H Neut % (Auto) 75.8 H Lymph % (Auto) 13.4 L Evans % (Auto) 8.6 Eos % (Auto) 0.9 Baso % (Auto) 0.6 Lymph # (Auto) 1.1 L Evans # (Auto) 0.7 Eos # (Auto) 0.1 Baso # (Auto) 0.1 Abs Immat Gran (auto) 0.06 H Absolute Neuts (auto) 6.2 Absolute Nucleated RBC 0.000 Nucleated RBC % (auto) 0.0 <Chata Avendano - Last Filed: 01/01/25 06:48> Microbiology Microbiology Results: Microbiology 12/29/24 22:38 Blood Culture - Preliminary Blood - Venous No growth after 48 hours. 12/29/24 22:38 Blood Culture - Preliminary Blood - Venous No growth after 48 hours. 12/29/24 21:49 Urine Culture - Final Urine clean catch - Clean Catch Midstream 12/30/24 12:59 Gram Stain - Final Abdominal Fluid Anaerobic Culture - Preliminary Culture in progress. Body Fluid Culture - Preliminary Culture in progress. <Namratakoby Avendano - Last Filed: 01/01/25 06:48> Procedures Date of Service Date of Service: 01/01/25 <Chata Avendano - Last Filed: 01/01/25 06:48> 01/01/25 <Marisol Marks PA-C - Last Filed: 01/01/25 09:01> 01/01/25 <Esa Ritchie MD - Last Filed: 01/01/25 10:29> Progress Note: A&P Assessment and plan (1) Diverticulitis of intestine with abscess: Status: Acute <Chata Torres Last Filed: 01/01/25 06:48> Assessment and Plan: S/p CT guided drainage of diverticular abscess on 12/30. CBC without leukocytosis this AM which is an improvement. Clinically patient is doing well, ambulating OOB frequently. Abdomen is benign. Minimal pain at incision site controlled with PO Tylenol, IV morphine PRN last given yesterday AM. Trial solid diet today. Continue IV Zosyn. Continue with drain in place. Continue to follow with plan for colectomy. <Chata Torres Last Filed: 01/01/25 06:48> S/p CT guided drainage of diverticular abscess on 12/30. CBC without leukocytosis this AM which is an improvement. Clinically patient is doing well, ambulating OOB frequently. Abdomen is benign. Minimal pain at incision site controlled with PO Tylenol, IV morphine PRN last given yesterday AM. Trial solid diet today. Continue IV Zosyn. Continue with drain in place. Continue to follow with plan for colectomy. Seen independently and agree with above assessment by Chata GARCIA. Unfortuantely patient was not given any tray last night and has not had solids. She is well appearing without any abd pain and reports drain site pain is improved. Has had BMs. VSS. Abd exam very benign- soft, nontender. Drain continues with purulent output. WBC normalized yesterday. Abscess culture still pending. Will reassess later this afternoon and if tolerating diet, stable for dc to home on oral abx with drain in place with [facility] services. Follow up in the office for drain removal and discuss elective colectomy. May need repeat colonoscopy prior. <Marisol Marks PA-C - Last Filed: 01/01/25 09:01> Time Spent With Patient Time: Total time managing care of this patient today ____ minutes. <Chata Torres Last Filed: 01/01/25 06:48> Quality Stroke Does the patient have a stroke diagnosis?: No <Chata Gaines Filed: 01/01/25 06:48> VTE Prior VTE?: No <Chata Gaines Filed: 01/01/25 06:48> VTE Risk Level:: Surgical - moderate <Chata Avendano Filed: 01/01/25 06:48> VTE Device Contraindication: N/A - Device Ordered <Chata Avendano Filed: 01/01/25 06:48> VTE Drug Contraindication: N/A - Med Ordered <Chata Avendano Filed: 01/01/25 06:48>
[2025-01-01 07:56] VITALS: BP 123/70; PULSE 73; RESP 16; TEMP 36.5; O2SAT 98
[2025-01-01] MEDS: 0.9 % Sodium Chloride Flush 3 ML SYRINGE IVFLUSH (08:28)
--- NOTE | 2025-01-01 10:54 | MHC.CM.PN ---
Addendum entered by India Fleming 01/01/25 14:21: Patient is discharged to home with [facility] for drain management. She has arranged for transportation home. Original Note: Per documentation patient may be ready to discharge later today or tomorrow. She will need [facility] for drain management. DP Home with [facility] via private transport once surgically cleared.
--- NOTE | 2025-01-01 14:06 | P.F2F_ITS ---
Service Date Service Date: 01/01/25 Encounter Date of encounter: 01/01/25 Reasons for Services Signs and symptoms assessed: abdominal pain, bowel movements, oral intake, drain output, abd exam Reason for [facility]: wound care (drain care) Homebound: Leaving the home is medically contraindicated at this time without the asist of a device and/or another person due th the listed conditions above and below. Reason homebound: weakness related to hospital stay and unable to drive Homebound supporting statement: Ms Taylor was admitted with sigmoid diverticulitis with large abscess and underwent IR drainage. She has the drain in place and will need [facility] for care. Certification: Based on the above findings, I certify that this patient is confined to the home and needs intermittent [facility] care, physical therapy and/or speech therapy, or continues to need occupational therapy. The patient is under my care, and I have initiated the establishment of the plan of care. The patient will be followed by a physician who will periodically review the plan of care. Time Spent With Patient Time: Total time managing care of this patient today ____ minutes.
--- NOTE | 2025-01-01 14:18 | P.DS_ITS ---
DS: Providers Provider Date of Service: 01/01/25 Date of admission: 12/30/24 00:38 Date of discharge: 01/01/25 Primary care physician: Vee Alvarez MD Attending physician on admission: Judy Veronica Attending physician on discharge: Esa Ritchie DS: Diagnosis Discharge Diagnosis (1) Diverticulitis of intestine with abscess: Status: Acute DS: Summary Hospital Course Hospital Course: HPI AT ADMISSION: Yamilet Taylor is a 69 year old female it was increasing and worsening abdominal pain fever at home and as a result came to the emergency room where her white count was noted to be at 16,[address] scan of her abdomen and pelvis showed evidence of colitis/diverticulitis with abscess collection in the pelvis area. Patient was here in the emergency room with the end of November discharged December 25 from in the ER with diagnosis of gastroenteritis. She says on December 16 she ate food that have been sitting in her car for the day and thinks that she got gastroenteritis from the. She had nausea and vomiting she had diarrhea and this extensively got worse. When she came in on December 24 to the emergency room her white count was elevated and at the time her diagnosis was believed to be gastroenteritis and she was discharged. Since then she has not improved and in fact felt worse with increasing abdominal pain and no appetite and not able to eat very much so she came to the emergency room. She denies any chest pain shortness of breath. She has had some operations on her right shoulder and gets physical therapy for this. She has had a colonoscopy in the past about 8 years ago and was told that she should have another 1 in 10 years' time without any concerning findings. She was unaware that she may have diverticulosis. HOSPITAL COURSE: She was admitted to the surgical service for further treatment of the sigmoid diverticulitis with abscess. She was kept NPO and started on IV zosyn and IVF. Treatment options were discussed including attempting n onoperative management with IV abx and IR drainage of the abscess if amenable. It was discussed that surgical intervention with resection of the diseased colon may be necessary if she has no improvement and the collection was deemed undrainable. IR was consulted. The patient underwent CT guided drainage of the pelvic abscess on 12/30/24 without complication and pigtail drain was left in place and 220 mL of purulent fluid was aspirated. She had improvement of her abdominal pain following. Her leukocytosis normalized. Her diet was advanced to clear liquids and then solids as tolerated. She began to have bowel movements. It was discussed proceeding with sigmoid colon resection down the line once her acute episode resolves. She may need a colonoscopy prior. On the day of discharge, she had no abdominal pain and only very mild pain at the drain site. She was tolerating a solid diet. Her abdomen was benign and soft and non tender. Her drain continued with purulent output but decreasing and was left in place. Final culture pending but showed mixed melvin. She was discharged to home on 01/01/25 in stable condition on a course of oral Augmentin with VNA services for drain care. She is to follow up in the office in 1 week. VNA drain care: empty drain, flush with 10cc NS, change drain dressing with dry non woven pad at each visit. Status at Discharge Functional status at discharge: independent ambulation Time Attestation Discharge Coordination Time (in mins): 35 Quality: Safe Use of Opioids Does Pt have an Active Cancer Diagnosis on the Problem List?: No Quality: Stroke Does the patient have a stroke diagnosis?: No Physical Exam Vital Signs: Vital Signs: Last Vital Signs Temp 97.7 F 01/01/25 07:56 Pulse 73 01/01/25 07:56 Resp 16 01/01/25 07:56 BP 123/70 01/01/25 07:56 Pulse Ox 98 01/01/25 07:56 O2 Del Method Room Air 01/01/25 07:56 O2 Flow Rate 2 12/30/24 12:50 BMI result Body Mass Index 20.7 Const: General: comfortable, no acute distress and alert Orientation/consciousness: patient oriented x3 Resp: Effort & Inspection: normal respiratory effort GI: Other: abscess drain with purulent output, scant Palpation (GI): Soft to palpation, nontender and no guarding Neuro: General: patient oriented x3 and moves all extremities DS: Data Data Completed and Pending Pending studies at discharge: Pending at discharge 12/30/24 12:58 Cytology [PTH] Routine Labs on day of discharge: Preliminary micro results at discharge 12/30/24 12:59 Anaerobic Culture - Preliminary Abdominal Fluid Culture in progress. 12/29/24 22:38 Blood Culture - Preliminary Blood - Venous No growth after 48 hours. 12/29/24 22:38 Blood Culture - Preliminary Blood - Venous No growth after 48 hours. Discharge Plan Discharge Anticipated Discharge Date/Time: 01/01/25 13:55 Patient Disposition: Home Health Service Discharge Diagnosis: diverticulitis with abscess Referrals: Ana CONTRERAS [Outside] - 1 Week Vee Alvarez MD [Primary Care Provider, Internal Medicine] - 1 Week Esa Ritchie MD [Physician, General Surgery] - 1 Week Discharge Medications: New amoxicillin-pot clavulanate 875-125 mg tablet 1 tab PO BID Qty: 14 0RF Continued atorvastatin 40 mg tablet 40 mg PO BEDTIME amlodipine 10 mg tablet 10 mg PO DAILY calcium carbonate-vitamin D3 600 mg-5 mcg (200 unit) Tablet 1 tab PO DAILY acetaminophen 325 mg Tablet 650 mg PO Q6H PRN (Reason: Pain, Mild (Pain Scale 1-3), fever or headache) 30 Days Qty: 240 0RF ondansetron 4 mg tablet,disintegrating 4 mg PO Q6H PRN (Reason: nausea and vomiting) Qty: 14 0RF diphenoxylate-atropine [Lomotil] 2.5-0.025 mg tablet 1 tab PO BID PRN (Reason: diarrhea) Qty: 7 0RF valacyclovir 1 gram tablet 500 mg PO DAILY docusate sodium [Colace] 100 mg capsule 200 mg PO DAILY PRN (Reason: Constipation) doxycycline hyclate 50 mg tablet 50 mg PO DAILY Discharge Orders: Discharge Order (Routine); Ordered 01/01/25 Ordered By: Marisol Marks Diet: Low residue diet Activity on Discharge: As tolerated Stand Alone Forms: Patient Portal Discharge page Print Language: Portuguese Activity Restrictions/Additional Instructions: Follow up in the office in a week with Dr. Ritchie. ([phone]) Complete your antibiotics as prescribed. Drain care- empty drain BID and as needed. Record output. Bring record to follow up appointment. Call Your Doctor If: ? ? -Your temperature exceeds 101.5? F? ? ? -You experience excessive pain or swelling ? ? -You have an unexpected reaction to medication ? ? -You experience continued vomiting/nausea Care Plan Goals: Return to baseline health and resume normal activities following recovery period. Health Concerns: Sigmoid diverticulitis with abscess Plan of Treatment: IV transitioned to oral antibiotics CT guided drainage with drain in place Follow up in the office for eventual colon resection Assessment: Improved Discharge Date/Time: 01/01/25 14:40
== END 2025-01-01 14:40 | disposition home health service (06) | DRG 391 ==
LOC: HO.ED 22:01 → HO.EDOVER 12-30 00:46 → HO.S3 12-30 08:52
PROVIDERS: Physician Assistant; Physician Assistant Medical; Physician Assistant Surgical; Radiology Diagnostic Radiology; Admitting Provider Surgery; Emergency Provider Emergency Medicine; PCP Internal Medicine; Visit Provider Surgery
PROC: 0W9J30Z Drainage of Pelvic Cavity with Drainage Device, Percutaneous Approach (ICD-10-PCS; principal; 2024-12-30 10:30)
DX: K57.20 Diverticulitis of large intestine with perforation and abscess without bleeding (principal); K65.1 Peritoneal abscess; I10 Essential (primary) hypertension; E78.5 Hyperlipidemia, unspecified; Z87.891 Personal history of nicotine dependence; Z79.899 Other long term (current) drug therapy
CPT/HCPCS: 36415; 74177; 75989; 80048; 80053; 81001; 83605; 83690; 83735; 85025; 85610; 87040; 87070; 87073; 87086; 87205; 88112; 88305; 99152; 99153; 99285; C1729; C1894; J1171; J1650; J2250; J2270; J2405; J2470; J2543; J3010; J3480; Q9967

== ENCOUNTER → 2024-12-29 20:26 | Outpatient (BNV) | payer MEDICARE, OTHER, SELFPAY | PROVIDERS: Emergency Provider Emergency Medicine; PCP Internal Medicine; Visit Provider Radiology Neuroradiology | DX: K57.92 Diverticulitis of intestine, part unspecified, without perforation or abscess without bleeding (principal); R10.30 Lower abdominal pain, unspecified | CPT/HCPCS: 74177 ==

== ENCOUNTER 2024-12-30 00:38 | Outpatient (BNV) | payer MEDICARE, OTHER, SELFPAY | END 2024-12-30 10:57 | PROVIDERS: Admitting Provider Surgery; Emergency Provider Emergency Medicine; PCP Internal Medicine; Visit Provider Radiology Diagnostic Radiology | DX: L02.31 Cutaneous abscess of buttock (principal) | CPT/HCPCS: 32550; 75989 ==

== ENCOUNTER → 2024-12-30 00:38 | Outpatient (BNV) | payer MEDICARE, OTHER, SELFPAY | PROVIDERS: Admitting Provider Surgery; Emergency Provider Emergency Medicine; PCP Internal Medicine; Visit Provider Surgery | DX: K57.92 Diverticulitis of intestine, part unspecified, without perforation or abscess without bleeding (principal) | CPT/HCPCS: 99223; 99499 ==

== ENCOUNTER 2025-01-16 10:54 | Outpatient (AMB) | payer MEDICARE, OTHER, SELFPAY ==
--- NOTE | 2025-01-16 11:03 | MHC.OFFVIS ---
Vital Signs 01/16/25 11:09 Weight 120 lb BP 119/65 Blood Pressure Location Lt brachial Position Sitting Pulse 85 Intake Visit Reasons: drain removal Intake Note: Patient here for drain removal and discuss colectomy. S/p CT guided drainage of diverticular abscess on 12/30. Patient c/o: no concerns. Looking forward to having drain removed. VNA services for dressing changes on back. Cutting Department Supervisor Required: No Accompanied by: Self / Same As Patient Allergies No Known Allergies (No Known Allergies*) Allergy (Verified 01/16/25 11:09) HPI HPI drain removal: Details: Yamilet Taylor presents for follow up and possible drain removal after a recent hospitalization for sigmoid diverticulitis with large abscess. She was admitted on 12/30/[address] guided drainage of the pelvic abscess that day. Over 200cc purulent drainage was obtained during the procedure. Her symptoms continued to improve and she had resolution of her abdominal pain. Her diet was slowly advanced. She was discharged to home on 01/01/25 with the drain in place on a course of oral Augmentin. She reports doing fairly well since her hospitalization. She has completed her antibiotic course. She denies any abdominal pain. She has been eating ok and her appetite has been coming back. She did lose 14lbs over the past month and she is slowly gaining back her weight. Her drain has had <10cc of output per day since she has been home. She has had home VNA every other day to help care for the drain and change the dressing. She denies fevers, chills, nausea, vomiting, diarrhea, constipation. Her last colonoscopy was about 8 years ago at [facility]. She is unsure of the provider. [facility] Medical History Hx of cold sores Hx of rosacea Osteoporosis Arthritis Hypercholesterolemia HTN (hypertension) Surgical History Hx of colonoscopy History of open reduction and internal fixation (ORIF) procedure (04/11/23) History of foot surgery Social History Household Members: None Housing: House Housing Other:: 3 stairs Are you a primary sub acute care nurse to a significant other at home: No Do you presently have visiting nurse or other home services: No Alcohol intake: current Comment: counts correct Patient Tobacco Use Status: Former Tobacco user Tobacco use type: Cigarette Advance Directives Date on File: 01/03/24 service: No Current occupational status: retired Current occupation: right hand dominant Review of Systems Const All systems reviewed & are unremarkable except as noted in HPI and below Physical Exam Vital Signs: Last Vital Signs Pulse 85 01/16/25 11:09 BP 119/65 01/16/25 11:09 Const General: comfortable, no acute distress, well developed and alert; No ill appearing Orientation/consciousness: patient oriented x3 Resp Effort & Inspection: normal respiratory effort and able to speak in complete sentences GI Other: pigtail drain at right buttock, dressing dry and intact, no surrounding erythema, nontender abdomen soft, nontender Inspection: Yes normal to inspection and No distended Palpation (GI): no guarding and not rigid Percussion: Yes normal to percussion Skin General skin exam: no rashes or lesions noted Neuro General: patient oriented x3 and moves all extremities Assessment & Plan Assessment & Plan (1) Diverticulitis of intestine with abscess: Code(s): K57.80 - Diverticulitis of intestine, part unspecified, with perforation and abscess without bleeding Category: Medical Plan 69 year old female with recent admission for sigmoid diverticulitis with abscess. She underwent IR drainage of the pelvic abscess on 12/30. She has been doing well since discharge and has no further abdominal pain. She is tolerating a solid diet. Her abdomen remains benign. On exam today, her drain unfortunately does continue with purulent appearing drainage although scant. Given the large size of her abscess on imaging at admission with continued purulent appearing drainage, will obtain repeat CT scan to reassess the collection prior to drain removal. She is otherwise doing well and has no concerning symptoms. Once she receives a call regarding her f/u CT scan, she was instructed to call the office and make an appointment with the office for 1-2 days after to discuss the results/hopefully remove the drain. She is to return sooner if she develops concerns. She is comfortable with the plan. It was again reiterated she will need repeat screening colonoscopy prior to any surgical intervention. This can be facilitated at her next follow up. Orders: Orders CT abdomen pelvis w IV con Today K57.80 - Diverticulitis of intestine, part unspecified, with perforation and abscess without bleeding Coding Level of Care Code Tele New Pt Level 3 (61079) Diagnoses Diverticulitis of intestine with abscess K57.80
[2025-01-16 11:09] VITALS: BP 119/65; PULSE 85
--- OUTSIDE RECORDS SUMMARY | 2025-01-16 13:31 | XMS_ITS | Clinical Summary ---
Author Organization [facility] [address] [facility] Address [address] [place] [address] Phone Care Team Providers Care Eligibility Examiner Name Role Phone Vee Alvarez MD Primary Care Provider [phone] Allergies No known active allergies Medications CALCIUM CARBONATE ORAL Calcium Carb-Choleca lciferol 1000-800 MG-UNIT Tab Take by mouth. Active cholecalciferol (VITAMIN D-3) 25 mcg (1,000 unit) capsule Take 1 Capsule by mouth daily. 4 Active doxycycline (VIBRAMYCIN) 50 mg capsule Take 1 Capsule by mouth daily. 2 Active valACYclovir (VALTREX) 500 mg tablet 250 mg. 2 Active amLODIPine (NORVASC) 10 mg tablet Take 1 tablet (10 mg total) by mouth 1 (one) time each day. 90 tablet 1 5 Active atorvastatin (LIPITOR) 40 mg tablet Take 1 tablet (40 mg total) by mouth at bedtime. at bedtime. 90 tablet 1 5 Active acetaminophen (TYLENOL) 325 mg tablet Take 1 tablet (325 mg total) by mouth 1 (one) time each day if needed. 4 Active celecoxib (CeleBREX) 200 mg capsule Take 1 capsule (200 mg total) by mouth 2 (two) times a day. 4 01/11/20 25 Discontinu ed(Therapy completed) Active Problems Problem Noted Date Diagnosed Date [...] Future Compression fracture of L4 v ertebra ([facility] V24, [facility] V28) 02/03/2014 Overview (03/05/2024): Dr. Ez Adams Nontraumatic rupture of tendons of foot and ankl e 04/15/2010 Overview (03/05/2024): Scheduled for tendinorrhaphy by Dr. Jorge Young 01/25/2010 Michelle 12/26/2007 Encounters Date Type Department Care Team Description 01/16/2025 Telephone Adult [address] [phone] Addie Saenz MA 01/14/2025 Results Follow-Up [address] [phone] Vee Alvarez MD 01/10/2025 9:00 AM EDT Office Visit [address] [phone] Vee Alvarez MD Hospital discharge follow-up (Primary Dx); Acute diverticulitis; Abscess 01/10/[address] [phone] Vee Alvarez MD 12/24/[address] [phone] Vee Alvarez MD 12/09/2024 10:07 AM EDT - 12/09/2024 11:59 PM EDT Hospital Encounter [address] [phone] Rib pain on left side Discharge Disposition: Home or Self Care 12/09/2024 9:45 AM EDT Office Visit [address] [phone] Riley Rand PA Rib pain on left side (Primary Dx); Age related osteoporosis, unspecified pathological fracture presence; Essential hypertension from Last 3 Months Immunizations Immunization Administration Dates Next Due Anthrax 09/18/1999, 0,10/29/1998,10/15,10/01/1998 DTaP (Infanrix) 6wks to less than 7yo 10/10/2015 Hepatitis A Adult (Havrix; V aqta) 19yo and older 08/10/1997,08/09/1997,11/02/1996 Hepatitis B (Guvcmpc-R-Vfkhp , Recombivax HB-Adult) 19yo and older 07/12/2003,01/07/2003,10/06/2002 [...] Right Medical History Medical History Date Comments Rosasba 12/26/2007 DX:Rosacea Family History Medical History Relation [...] Sign Reading Time Taken Comments Blood Pressure 102/60 01/10/2025 9:09 AM EDT Pulse 66 01/10/2025 9:09 AM EDT Temperature 36.4 C (97.5 F) 01/10/2025 9:09 AM EDT Respiratory Rate 14 01/10/2025 9:09 AM EDT Oxygen Saturation 98% 01/10/2025 9:09 AM EDT Inhaled Oxygen Concentration - - Weight 53.5 kg (118 lb) 01/10/2025 9:09 AM EDT Height 165.1 cm (5' 5 ) 01/10/2025 9:09 AM EDT Body Mass Index 19.64 01/10/2025 9:09 AM EDT Plan of Treatment Upcoming Encounters Date Type Department Care Team (Late st Contact Info) Description 02/12/2025 8:30 AM EST Office Visit Adult Medicine [facility] [address], [place] [phone] Vee Alvarez MD [address] [place] [address] Health Maintenance Due Date Last Done Comments [...] 10/09/2025 10/09/2024 Hypertension/CHF/CAD Annual BMP Blood Test 01/10/2026 01/10/2025, 10/10/2024, 09/04/2023, Additional history exists Cholesterol Screening (Lipid Panel) 10/10/2029 10/10/2024, 09/04/2023, [...] Procedure Name Priority Date/Time Associated Diagnosis Comments CBC WITH AUTO DIFFERENTIAL Routine 01/10/2025 10:18 AM EDT Acute diverticulitis CBC AND DIFFERENTIAL Routine 01/10/2025 10:18 AM EDT Acute diverticulitis COMPREHENSIVE METABOLIC PANEL Routine 01/10/2025 10:18 AM EDT Acute diverticulitis XR RIBS W CHEST 3+ VIEWS LEFT Routine 12/09/2024 10:15 AM EDT Rib pain on left side LIPID PANEL WITH REFLEX TO DIRECT LDL Routine 10/10/2024 8:06 AM EDT Mixed hyperlipidemia HM DEPRESSION SCREENING Routine 03/09/2023 FALLS RISK ASSESSMENT [...] Recently Relevant to Health Maintenance Results * (ABNORMAL) CBC auto differential (01/10/2025 10:18 AM EDT) WBC 6.6 4.8 - 10.8 K/mcL LAB [facility] RBC 4.00 3.80 - 4.80 M/mcL LAB HEMETOLOGY METHOD [facility] Hemoglobin 13.3 11.5 - 16.0 g/dL LAB HEMETOLOGY METHOD 01/10/2025 12:07 PM [facility] Hematocrit 40.2 35.0 - 47.0 % LAB HEMETOLOGY METHOD 01/10/2025 12:07 PM [facility] MCV 101.3(H) 79.0 - 98.0 FL LAB HEMETOLOGY METHOD 01/10/2025 12:07 PM [facility] MCH 33.5(H) 27.0 - 32.0 pcg LAB HEMETOLOGY METHOD 01/10/2025 12:07 PM [facility] MCHC 33.1 32.0 - 37.0 g/dL LAB HEMETOLOGY METHOD 01/10/2025 12:07 PM [facility] RDW 14.0 11.0 - 15.0 % LAB HEMETOLOGY METHOD 01/10/2025 12:07 PM [facility] Platelets 330 130 - 400 K/mcL LAB HEMETOLOGY METHOD 01/10/2025 12:07 PM [facility] MPV 9.9 7.0 - 11.0 FL LAB HEMETOLOGY METHOD 01/10/2025 12:07 PM [facility] NRBC 0.0 <1.0 % LAB HEMETOLOGY METHOD 01/10/2025 12:07 PM [facility] NRBC Absolute 0.00 <0.10 K/mcL LAB HEMETOLOGY METHOD 01/10/2025 12:07 PM [facility] Neutrophils Relative 59.1 % LAB HEMETOLOGY METHOD 01/10/2025 12:07 PM [facility] Lymphocytes Relative 26.6 % LAB HEMETOLOGY METHOD 01/10/2025 12:07 PM [facility] Monocytes Relative 10.8 % LAB HEMETOLOGY METHOD 01/10/2025 12:07 PM [facility] Eosinophils Relative 1.8 % LAB HEMETOLOGY METHOD 01/10/2025 12:07 PM [facility] Basophils Relative 1.4 % LAB HEMETOLOGY METHOD 01/10/2025 12:07 PM [facility] Immature Granulocytes Relative 0.3 % LAB HEMETOLOGY METHOD 01/10/2025 12:07 PM [facility] Neutrophils Absolute 3.87 1.50 - 7.00 K/mcL LAB HEMETOLOGY METHOD 01/10/2025 12:07 PM [facility] Lymphocytes Absolute 1.74 1.00 - 5.00 K/mcL LAB HEMETOLOGY METHOD 01/10/2025 12:07 PM [facility] Monocytes Absolute 0.71 0.20 - 1.00 K/mcL LAB HEMETOLOGY METHOD 01/10/2025 12:07 PM [facility] Eosinophils Absolute 0.12 0.00 - 0.50 K/[facility] LAB HEMETOLOGY METHOD 01/10/2025 12:07 PM EDT [facility] Basophils Absolute 0.09 0.00 - 0.20 K/[facility] LAB HEMETOLOGY METHOD 01/10/2025 12:07 PM EDT [facility] Immature Granulocytes Absolute 0.02 0.00 - 0.03 K/[facility] LAB HEMETOLOGY METHOD 01/10/2025 12:07 PM T [facility] Blood Venous blood specimen / Unknown Venipuncture / Unknown 01/10/2025 10:18 AM EDT 01/10/2025 10:18 AM EDT us Vee Alvarez MD LAB BLOOD ORDERABLES Final Resul t [facility] [address] [place] [address], * Comprehensive metabolic panel (01/10/2025 10:18 AM EDT) Sodium 139 133 - 145 mmol/L LAB CHEMISTRY METHOD 01/10/2025 4:11 PM [facility] Potassium 4.0 3.5 - 5.5 mmol/L LAB CHEMISTRY METHOD 01/10/2025 4:11 PM [facility] Chloride 103 96 - 110 mmol/L LAB CHEMISTRY METHOD 01/10/2025 4:11 PM [facility] CO2 29 21 - 32 mmol/L LAB CHEMISTRY METHOD 01/10/2025 4:11 PM [facility] Anion Gap 7 3 - 11 LAB CHEMISTRY METHOD 01/10/2025 4:11 PM [facility] Glucose 91 70 - 100 mg/dL LAB CHEMISTRY METHOD 01/10/2025 4:11 PM [facility] BUN 8 5 - 25 mg/dL LAB CHEMISTRY METHOD 01/10/2025 4:11 PM [facility] Creatinine 0.63 0.50 - 1.10 mg/dL LAB CHEMISTRY METHOD 01/10/2025 4:11 PM [facility] eGFR 97 >=60 mL/min/1. 73m2 LAB CHEMISTRY METHOD 01/10/2025 4:11 PM [facility] Comment:Calculation based on the Chronic Kidney Disease Epidemiology Collaboration (CKD-EPI) equation refit without adjustment for race. BUN/Creatinine Ratio 12.7 LAB CHEMISTRY METHOD 01/10/2025 4:11 PM [facility] Calcium 9.5 8.5 - 10.5 mg/dL LAB CHEMISTRY METHOD 01/10/2025 4:11 PM [facility] AST (SGOT) 30 10 - 42 unit/L LAB CHEMISTRY METHOD 01/10/2025 4:11 PM [facility] ALT (SGPT) 30 10 - 60 unit/L LAB CHEMISTRY METHOD 01/10/2025 4:11 PM [facility] Alkaline Phosphatase 91 42 - 121 unit/L LAB CHEMISTRY METHOD 01/10/2025 4:11 PM [facility] Total Protein 7.3 6.0 - 8.0 g/dL LAB CHEMISTRY METHOD 01/10/2025 4:11 PM [facility] Albumin 3.3 3.2 - 5.0 g/dL LAB CHEMISTRY METHOD 01/10/2025 4:11 PM [facility] Total Bilirubin 0.4 0.0 - 1.4 mg/dL LAB CHEMISTRY METHOD 01/10/2025 4:11 PM [facility] Blood Venous blood specimen / Unknown Venipuncture / Unknown 01/10/2025 10:18 AM EDT 01/10/2025 10:18 AM EDT us Vee Alvarez MD LAB BLOOD ORDERABLES Final Resul t [facility] [address] [place] [address], * XR Ribs w Chest 3+ Views [...] Signed Date: 12/09/2024 11:05 ET Workstation ID: [id number] Transcribed By: Self Edit Transcribed Date: 12/09/2024 [...] Signed Date: 12/09/2024 11:05 ET Workstation ID: [id number] Transcribed By: Self Edit Transcribed Date: 12/09/2024 10:59 ET us Riley NGUYEN IMG XR PROCEDURES Final Result * Lipid panel with reflex to direct LDL (10/10/2024 8:06 AM EDT) Cholesterol 174 0 - 200 mg/dL LAB CHEMISTRY METHOD 10/10/2024 12:19 PM EDT [facility] Triglycerides 71 0 - 150 mg/dL LAB CHEMISTRY METHOD 10/10/2024 12:19 PM EDT [facility] HDL 66 >=40 mg/dL LAB CHEMISTRY METHOD 10/10/2024 12:19 PM EDT [facility] LDL Calculated 94 0 - 100 mg/dL LAB CHEMISTRY METHOD 10/10/2024 12:19 PM EDT [facility] VLDL Cholesterol Jus 14.2 mg/dL LAB CHEMISTRY METHOD 10/10/2024 12:19 PM EDT [facility] Non HDL Chol. (LDL+VLDL) 108 <145 mg/dL LAB CHEMISTRY METHOD 10/10/2024 12:19 PM EDT [facility] Chol/HDL Ratio 2.6 0.0 - 4.4 LAB CHEMISTRY METHOD 10/10/2024 12:19 PM EDT [facility] Blood Venous blood specimen / Unknown Venipuncture / Unknown 10/10/2024 8:06 AM EDT 10/10/2024 8:06 AM EDT us Vee Alvarez MD LAB BLOOD ORDERABLES Final Resul t [facility] [address] [place] [address], [place] [phone] * Falls Risk Assessment (03/09/2023) Falls Risk Assessment Abstracted Historical Provider HEALTH MAINTENANCE Final Result * Depression Screening (03/09/2023) HM Depression Screening Abstracted Historical Provider HEALTH [facility] Final Result * SCREENING MAMMOGRAPHY BI 2-VIEW [...] should be classified as having osteoporosis. The [facility] Department of Internal Medicine recommends using National [...] Taylor shouldbe classified as having osteoporosis. The [facility] Department of Internal Medicine recommendsusing National Osteoporosis [...] fracture risk by FRAX. Vee Alvarez MD [facility] DXA PROCEDURES Final Result * Hepatitis C Screening (01/02/2018) [facility] Hepatitis C Screening Abstracted Historical Eva JACOBS HEALTH MAINTENANCE Final Result * Colonoscopy (06/21/2015) [facility] Colonoscopy No Interpretation , Abstracted Anatomical Region Laterality Modality Other Historical Eva JACOBS HEALTH MAINTENANCE Final Result from Last 3 Months or Most Recently Relevant to Health Maintenance Insurance MEDICARE [facility] Advance Directives * Full Code - Confirmed (Latest Code Status on File) Date Activated Date Inactivated Comments 01/10/2025 10:[address] atus was ascertained in the following way: Code status discussion: discussion with patient To update the patient's code status, place a code status order. Do not modify or discontinue any currently active code status orders. Care Teams Eligibility Examiner Relationship Specialty Start Date End Date Vee Alvarez MD [address] [place] [phone] PCP - General Internal Medicine 03/04/24
--- OUTSIDE RECORDS SUMMARY | 2025-01-16 13:31 | XMS_ITS | Encounter Summary ---
Author Organization [facility] Address [address] [place] [address] Care Team Providers Care Windows Migration Technician Name Role Phone Vee Alvarez MD Primary Care Provider [phone] Reason for Visit * Reason Onset Date Comments PRIOR AUTH 01/16/2025 Encounter Details Date Type Department Care Team ([facility] Contact Info) Description 01/16/2025 Telephone Adult Medicine [address] [phone] Addie Saenz MA Social History Tobacco Use Types Packs/Day Years [...] as of this encounter Progress Notes * Addie Saenz MA - 01/16/2025 1:25 PM EDT Beck @General Surgery is requesting a Prior Auth for CT-of Ab and Pelvis.Patient has a perforation in Abscess.Needs MEGHAN they would to do it STAT.[facility] P[facility] FOR A PRIOR AUTH. PLEASE ADVISE. documented in this encounter Plan of Treatment Upcoming Encounters Date Type Department Care Team (Late st Contact Info) Description 02/12/2025 8:30 AM EST Office Visit Adult Medicine [address] [phone] Vee Alvarez MD [address] [place] [address] documented as of this encounter Visit Diagnoses Not on filedocumented in this encounter Additional Health Concerns Assessment Noted Time PHQ-9 Depression Total Score: 0 10/10/19 25 10:21 AM EDT documented as of this encounter Care Teams Windows Migration Technician Relationship Specialty Start Date End Date Vee Alvarez MD [address] [place] [phone] PCP - General Internal Medicine 03/04/24 documented as of this encounter
--- OUTSIDE RECORDS SUMMARY | 2025-01-16 13:31 | XMS_ITS | Encounter Summary ---
Author Organization [facility] Address [address] [place] [address] Care Team Providers Care Plumbing Foreman Name Role Phone Vee Alvarez MD Primary Care Provider [phone] Reason for Visit * Reason Onset Date Comments faxed vna order 01/10/2025 Ana CONTRERAS Eval uation Summary Report Encounter Details Date Type Department Care Team ([facility] Contact Info) Description 01/10/2025 Telephone Adult Medicine [facility] [address] [place] [address] Vee Alvarez MD [address] [place], [place] Social History Tobacco Use Types Packs/Day [...] as of this encounter Progress Notes * Rut De Dios - 01/10/2025 10:04 AM EDT Faxed order received from Ana CONTRERAS Evaluation Summary Report documented in this encounter Plan of Treatment Upcoming Encounters Date Type Department Care Team (Late st Contact Info) Description 02/12/2025 8:30 AM EST Office Visit Adult Medicine [address] [phone] Vee Alvarez MD [address] [place] [address] documented as of this encounter Visit Diagnoses Not on filedocumented in this encounter Additional Health Concerns Assessment Noted Time PHQ-9 Depression Total Score: 0 10/10/19 25 10:21 AM EDT documented as of this encounter Care Teams Plumbing Foreman Relationship Specialty Start Date End Date Vee Alvarez MD [address] [place] [phone] PCP - General Internal Medicine 03/04/24 documented as of this encounter
--- OUTSIDE RECORDS SUMMARY | 2025-01-16 13:31 | XMS_ITS ---
Author Organization [facility] [address] [place] [address] Address [address] [place] [address] Phone Care Team Providers Care Ship'S Engineer Name Role Phone Vee Alvarez MD Primary Care Provider [phone] Transitional Care Management Status:Ongoing (Active) Start date:01/01/2025 Enrollment date:01/01/2025 Enrollment reason:Identified using hospital discharge data Case Team Name Relationship Phone Zayra Borjas LPN(Responsible Staff) Podiatric Medicine Professor Continued Care and Services Coordination
--- OUTSIDE RECORDS SUMMARY | 2025-01-16 13:31 | XMS_ITS | Encounter Summary ---
Author Organization [facility] Address [address] [place] [address] Care Team Providers Care Dry Box Operator Name Role Phone Vee Alvarez MD Primary Care Provider Encounter Details Date Type Department Care Team (Late st Contact Info) Description 01/14/2025 Results Follow-Up Adult Medicine [facility] [address] [place] [address] Vee Alvarez MD [address], [place] Social History Tobacco Use Types Packs/Day [...] on file documented as of this encounter Plan of Treatment Upcoming Encounters Date Type Department Care Team (Late st Contact Info) Description 02/12/2025 8:30 AM EST Office Visit Adult Medicine [address] [phone] Vee Alvarez MD [address] [place] [address] documented as of this encounter Visit Diagnoses Not on filedocumented in this encounter Additional Health Concerns Assessment Noted Time PHQ-9 Depression Total Score: 0 10/10/19 25 10:21 AM EDT documented as of this encounter Care Teams Dry Box Operator Relationship Specialty Start Date End Date Vee Alvarez MD [address] [place] [address] PCP - General Internal Medicine 03/04/24 documented as of this encounter
== END 2025-01-16 11:27 | disposition home or self-care (01) ==
LOC: HO.HGS 10:55
PROVIDERS: PCP Internal Medicine; Visit Provider Physician Assistant Surgical
DX: K57.80 Diverticulitis of intestine, part unspecified, with perforation and abscess without bleeding (principal)
CPT/HCPCS: 99213

== ENCOUNTER → 2025-01-16 10:54 | Outpatient (BNVA) | payer MEDICARE, OTHER, SELFPAY | PROVIDERS: PCP Internal Medicine; Visit Provider Physician Assistant Surgical | DX: K57.80 Diverticulitis of intestine, part unspecified, with perforation and abscess without bleeding (principal); Z48.03 Encounter for change or removal of drains; Z48.89 Encounter for other specified surgical aftercare; Z87.891 Personal history of nicotine dependence | CPT/HCPCS: 99212 ==

== ENCOUNTER 2025-01-17 13:42 | Outpatient (REF) | payer MEDICARE, OTHER, SELFPAY ==
--- NOTE | ~2025-01-17 | CT_ITS ---
EXAMINATION: CT ABDOMEN PELVIS WITH IV CONTRAST HISTORY: K57.80 - Diverticulitis of intestine, part unspecified, with perforation... COMPARISON: Comparison is made with the prior examination dated 12/29/2024 and the prior drainage CT dated 12/30/2024. TECHNIQUE: CT scan of the abdomen and pelvis was performed following administration of 85 mL Omnipaque 350 using standard departmental protocol. Coronal and sagittal reformatted images were generated and reviewed. Oral contrast material was not administered at the request of the referring physician. This CT exam was performed with one or more of the following dose reduction techniques: automated exposure control, adjustment of the mA and/or kV according to patient size, use of iterative reconstruction technique. DLP: 362 mGy-cm FINDINGS: LOWER CHEST: There is scarring at both lung bases. There is no pleural effusion. CARDIOVASCULATURE: The heart is normal in size. There is no pericardial effusion. LIVER: The liver is normal in size and contour. No liver mass is identified. The hepatic and portal veins are patent. GALLBLADDER / BILE DUCTS: There is cholelithiasis. There is no intra or extrahepatic biliary ductal dilatation. SPLEEN: The spleen is normal in size. No focal splenic lesion is identified. PANCREAS: The pancreas is unremarkable in appearance. ADRENAL GLANDS: Within normal limits. KIDNEYS/RETROPERITONEUM: No renal calculi are identified. There is no hydronephrosis. No renal masses are identified. LYMPH NODES: No abdominal or pelvic lymphadenopathy. VASCULATURE: The abdominal aorta demonstrates atherosclerotic calcification, but is normal in caliber. MESENTERY/PERITONEUM: No free fluid. No masses. There is no free intraperitoneal gas. STOMACH: The stomach is collapsed, limiting evaluation. SMALL BOWEL: The small bowel is normal in caliber. COLON: Again seen is extensive diverticulosis of the colon. The cecum is low-lying and extends into the posterior pelvis. A drainage catheter is seen from a right transgluteal approach. No residual fluid is seen around the catheter. Previously seen pelvic abscess has resolved. APPENDIX: The appendix is not seen, however no inflammatory changes are seen adjacent to the cecum. URINARY BLADDER/PELVIC ORGANS: The urinary bladder is collapsed, limiting evaluation. There are calcifications of the uterus, consistent with fibroids. BONES: There is degenerative disc disease of the spine. There are compression deformities of L3 on L4 without change. CT/CT abdomen pelvis w IV con IMPRESSION: Interval placement of a pigtail drainage catheter from a right transgluteal approach into the previously seen pelvic abscess. The abscess has resolved, and no residual fluid is seen around the catheter. Electronically signed by: Luiz Ulrich MD 01/17/2025 03:00 PM EDT
[2025-01-17] MEDS: iohexoL 350 MG/ML 100 ML INFUS..BTL IV (14:47)
--- OUTSIDE RECORDS SUMMARY | 2025-01-17 15:45 | XMS_ITS | Encounter Summary ---
Author Organization [facility] Address [address] [place] [address] Care Team Providers Care Trap Setter Name Role Phone Vee Alvarez MD Primary Care Provider [phone] Reason for Visit * Reason Onset Date Comments faxed vna order 01/10/2025 Ana CONTRERAS Eval uation Summary Report Encounter Details Date Type Department Care Team ([facility] Contact Info) Description 01/10/2025 Telephone Adult Medicine [facility] [address] [place] [address] Vee Alvarez MD [address], [place] Social History Tobacco Use Types Packs/Day [...] 8:30 AM EST Office Visit Adult Medicine [address] [phone] Vee Alvarez MD [address] [place] [address] documented as of this encounter Visit Diagnoses Not on filedocumented in this encounter Additional Health Concerns Assessment Noted Time PHQ-9 Depression Total Score: 0 10/10/19 25 10:21 AM EDT documented as of this encounter Care Teams Trap Setter Relationship Specialty Start Date End Date Vee Alvarez MD [address] [place] [phone] PCP - General Internal Medicine 03/04/24 documented as of this encounter
--- OUTSIDE RECORDS SUMMARY | 2025-01-17 15:46 | XMS_ITS | Encounter Summary ---
Author Organization [facility] Address [address] [place] [address] Care Team Providers Care Clinical Resource Coordinator Name Role Phone Vee Alvarez MD Primary Care Provider [phone] Encounter Details Date Type Department Care Team (Late st Contact Info) Description 01/14/2025 Results Follow-Up Adult Medicine [facility] [address] [place] [address] Vee Alvarez MD [address] [place], [place] Social History Tobacco Use Types Packs/Day [...] AM EST Office Visit Adult Medicine [address] [phone] Vee Alvarez MD [address] [place] [address] documented as of this encounter Visit Diagnoses Not on filedocumented in this encounter Additional Health Concerns Assessment Noted Time PHQ-9 Depression Total Score: 0 10/10/19 25 10:21 AM EDT documented as of this encounter Care Teams Clinical Resource Coordinator Relationship Specialty Start Date End Date Vee Alvarez MD [address] [place] [address] PCP - General Internal Medicine 03/04/24 documented as of this encounter
--- OUTSIDE RECORDS SUMMARY | 2025-01-17 15:46 | XMS_ITS | Encounter Summary ---
Author Organization [facility] Address [address] [place] [address] Care Team Providers Care Safety Net Maker Name Role Phone Vee Alvarez MD Primary Care Provider [phone] Reason for Visit * Reason Onset Date Comments PRIOR AUTH 01/16/2025 Encounter Details Date Type Department Care Team ([facility] Contact Info) Description 01/16/2025 Telephone Adult Medicine [address] [phone] Addie Saenz [place] Social History Tobacco Use [...] as of this encounter Progress Notes * Melanie Madison MA - 01/16/2025 1:39 PM EDT Please forward this request to [facility] . We only make PA for Medications.. Please and thank you .Please Reply Back to [facility] Name Melanie Madison [facility] Prior Ext: [phone] * Addie Saenz MA - 01/16/2025 1:25 [...] 8:30 AM EST Office Visit Adult Medicine [address] [phone] Vee Alvarez MD [address] [place] [address] documented as of this encounter Visit Diagnoses Not on filedocumented in this encounter Additional Health Concerns Assessment Noted Time PHQ-9 Depression Total Score: 0 10/10/19 25 10:21 AM EDT documented as of this encounter Care Teams Safety Net Maker Relationship Specialty Start Date End Date Vee Alvarez MD [address] [place] [address] PCP - General Internal Medicine 03/04/24 documented as of this encounter
--- OUTSIDE RECORDS SUMMARY | 2025-01-17 15:46 | XMS_ITS | Encounter Summary ---
Author Organization [facility] Address [address] [place] [address] Care Team Providers Care Profile Stitching Machine Operator Name Role Phone Vee Alvarez MD Primary Care Provider [phone] Reason for Referral * Consultation (Routine) - Authorized Specialty Diagnoses / Procedures Referred By Barbie gallagher Referred To Contact General Surgery Diagnoses Unspecified abdominal pain Vee Alvarez MD [address] [place] [address] Phone: tel: fax: Marisol Marks PA [facility] [address] [address] [address] [place] [address] Phone: tel: fax: Referral ID Status Reason Start Date Expiration Date Visits Requested Visits Authorized [id number] Authorized Specialty Services Required 01/17/2026 12 12 Reason for Visit * Reason Onset Date Comments Referral 01/17/2025 Encounter Details Date Type Department Care Team (Late st Contact Info) Description 01/17/2025 Telephone Adult Medicine [address] [phone] Vee Alvarez MD [address] [place] [address] Social History Tobacco Use Types Packs/Day Years [...] Progress Notes * Rut De Dios - 01/17/2025 2:34 PM EDT Pended referral to [facility] General Surgeons patient had appt on 01/16/25 with Marisol Marks. documented in this encounter Plan of Treatment Upcoming Encounters Date Type Department Care Team (Late st Contact Info) Description 02/12/2025 8:30 AM EST Office Visit Adult [address] [phone] Vee Alvarez MD [address] [place] [address] Scheduled Referrals Name Type Priority Associated Diagnoses Order Schedule Ambulatory referral to General Surgery Outpatient Referral Routine Unspecified abdominal pain 1 Occurrences starting 01/17/2025 until 01/17/2026 documented as of this encounter Visit Diagnoses Diagnosis Unspecified abdominal pain- Primary documented in this encounter Additional Health Concerns Assessment Noted Time PHQ-9 Depression Total Score: 0 10/10/19 25 10:21 AM EDT documented as of this encounter Care Teams Profile Stitching Machine Operator Relationship Specialty Start Date End Date Vee Alvarez MD [address] [place] [address] PCP - General Internal Medicine 03/04/24 documented as of this encounter
--- OUTSIDE RECORDS SUMMARY | 2025-01-17 15:46 | XMS_ITS | Clinical Summary ---
Author Organization [facility] [address] [facility] Address [address] [place] [address] Phone Care Team Providers Care Medical Sales Specialist Name Role Phone Vee Alvarez MD Primary Care Provider [phone] Allergies No known active allergies Medications CALCIUM [...] Future Compression fracture of L4 v ertebra ([facility] V24, [facility] V28) 02/03/2014 Overview (03/05/2024): Dr. Ez Adams Nontraumatic rupture of tendons of foot and ankl e 04/15/2010 Overview (03/05/2024): Scheduled for tendinorrhaphy by Dr. Jorge Young 01/25/2010 Michelle 12/26/2007 Encounters Date Type Department Care Team Description 01/17/[address] [phone] Vee Alvarez MD 01/16/[address] [phone] Addie Saenz DC 01/14/2025 Results Follow-Up [address] [phone] Vee Alvarez MD 01/10/2025 9:00 AM EDT Office Visit [address] [phone] Vee Alvarez MD Hospital discharge follow-up (Primary Dx); Acute diverticulitis; Abscess 01/10/[address] [phone] Vee Alvarez MD 12/24/[address] [phone] Vee Alvarez MD 12/09/2024 10:07 AM EDT - 12/09/2024 11:59 PM EDT Hospital Encounter [address] [phone] Rib pain on left side Discharge Disposition: Home or Self Care 12/09/2024 9:45 AM EDT Office Visit [address] [phone] Riley Rand PA Rib pain on left side (Primary Dx); Age related osteoporosis, unspecified pathological fracture presence; Essential hypertension from Last 3 Months Immunizations Immunization Administration Dates Next Due Anthrax 09/18/1999, 0,10/29/1998,10/15,10/01/1998 DTaP (Infanrix) 6wks to less than 7yo 10/10/2015 Hepatitis A Adult (Havrix; V aqta) 19yo and older 08/10/1997,08/09/1997,11/02/1996 Hepatitis B (Ponhpub-Q-Igulz , Recombivax HB-Adult) 19yo and older 07/12/2003,01/07/2003,10/06/2002 [...] 02/24/2007 Typhoid Vaccine, Parental, Acetone-Killed, Dried (U.S. Waste2Tricity) 11/02/1996,03/30/1992 Typhoid Vaccine, Parenteral, Other Than Acetone-killed, Dried 12/05/2004,10/06/2002,07/15/2000 Yellow Fever (YF-VAX) 9mo and older 11/03/1996,0 03/31/1984 Zoster recombinant (Shingrix ) 19yo and older 06/08/2022,04/18/2022,04/10/2022 Surgical History Surgery Date Site/Laterality Comments FOOT SURGERY 2009 PROCEDURE: HISTORICAL FOOT SURGERY; COMMENT: left and right bunionectomies SHOULDER SURGERY 03/27/2022 - 03/26/2023 Right Medical History Medical History Date Comments Michelle 12/26/2007 DX:Rosacea Family History Medical History Relation [...] AM EST Office Visit Adult Medicine [facility] [place] [place] [address] [place], [place] [phone] Vee Alvarez MD [address] [place], [place] Health Maintenance Due Date Last Done Comments [...] Routine 10/10/2024 8:06 AM EDT Mixed hyperlipidemia DEPRESSION SCREENING Routine 03/09/2023 FALLS RISK ASSESSMENT [...] K/mcL LAB [facility] RBC 4.00 3.80 - 4.80 M/mcL LAB HEMETOLOGY METHOD 01/10[facility]2025 12:[facility] Hemoglobin 13.3 11.5 - 16.0 g/dL LAB HEMETOLOGY METHOD 01/10/2025 12:07 PM [facility] Hematocrit 40.2 35.0 - 47.0 % LAB HEMETOLOGY METHOD 01/10/2025 12:07 [facility] MCV 101.3(H) 79.0 - 98.0 FL LAB HEMETOLOGY METHOD 01/10/2025 12:07 [facility] MCH 33.5(H) 27.0 - 32.0 pcg LAB HEMETOLOGY METHOD 01/10/2025 12:07 PM [facility] MCHC 33.1 32.0 - 37.0 g/dL LAB HEMETOLOGY METHOD 01/10/2025 12:07 [facility] RDW 14.0 11.0 - 15.0 % LAB HEMETOLOGY METHOD 01/10/2025 12:07 PM EDT [facility] Platelets 330 130 - 400 K/mcL LAB HEMETOLOGY METHOD 01/10/2025 12:07 PM [facility] MPV 9.9 7.0 - 11.0 FL LAB HEMETOLOGY METHOD 01/10/2025 12:07 PM [facility] NRBC 0.0 <1.0 % LAB HEMETOLOGY METHOD 01/10/2025 12:07 PM [facility] NRBC Absolute 0.00 <0.10 K/mcL LAB HEMETOLOGY METHOD 01/10/2025 12:07 PM [facility] Neutrophils Relative 59.1 % LAB HEMETOLOGY METHOD 01/10/2025 12:07 PM [facility] Lymphocytes Relative 26.6 % LAB HEMETOLOGY METHOD 01/10/2025 12:07 PM [facility] Monocytes Relative 10.8 % LAB HEMETOLOGY METHOD 01/10/2025 12:07 PM [facility] Eosinophils Relative 1.8 % LAB HEMETOLOGY METHOD 01/10/2025 12:07 PM [facility] Basophils Relative 1.4 % LAB HEMETOLOGY METHOD 01/10/2025 12:07 PM [facility] Immature Granulocytes Relative 0.3 % LAB HEMETOLOGY METHOD 01/10/2025 12:07 PM [facility] Neutrophils Absolute 3.87 1.50 - 7.00 K/mcL LAB HEMETOLOGY METHOD 01/10/2025 12:07 PM [facility] Lymphocytes Absolute 1.74 1.00 - 5.00 K/mcL LAB HEMETOLOGY METHOD 01/10/2025 12:07 PM [facility] Monocytes Absolute 0.71 0.20 - 1.00 K/[facility] LAB HEMETOLOGY METHOD 01/10/2025 12:07 PM EDT [facility] Eosinophils Absolute 0.12 0.00 - 0.50 K/[facility] LAB HEMETOLOGY METHOD 01/10/2025 12:07 PM EDT [facility] Basophils Absolute 0.09 0.00 - 0.20 K/[facility] LAB HEMETOLOGY METHOD 01/10/2025 12:07 PM EDT [facility] Immature Granulocytes Absolute 0.02 0.00 - 0.03 K/[facility] LAB HEMETOLOGY METHOD 01/10/2025 12:07 PM T [facility] Blood Venous blood specimen / Unknown Venipuncture / Unknown 01/10/2025 10:18 AM EDT 01/10/2025 10:18 AM EDT us Vee Alvarez MD LAB BLOOD ORDERABLES Final Resul t [facility] [address] [place] [address], * Comprehensive metabolic panel (01/10/2025 10:18 AM EDT) Sodium 139 133 - 145 mmol/L LAB CHEMISTRY METHOD 01/10/2025 4:11 PM [facility] Potassium 4.0 3.5 - 5.5 mmol/L LAB CHEMISTRY METHOD 01/10/2025 4:11 PM [facility] Chloride 103 96 - 110 mmol/L LAB CHEMISTRY METHOD 01/10/2025 4:11 PM [facility] CO2 29 21 - 32 mmol/L LAB CHEMISTRY METHOD 01/10/2025 4:11 PM [facility] Anion Gap 7 3 - 11 LAB CHEMISTRY METHOD 01/10/2025 4:11 PM [facility] Glucose 91 70 - 100 mg/dL LAB CHEMISTRY METHOD 01/10/2025 4:11 PM [facility] BUN 8 5 - 25 mg/dL LAB CHEMISTRY METHOD 01/10/2025 4:11 PM [facility] Creatinine 0.63 0.50 - 1.10 mg/dL LAB CHEMISTRY METHOD 01/10/2025 4:11 PM [facility] eGFR 97 >=60 mL/min/1. 73m2 LAB CHEMISTRY METHOD 01/10/2025 4:11 PM [facility] Comment:Calculation based on the Chronic Kidney Disease Epidemiology Collaboration (CKD-EPI) equation refit without adjustment for race. BUN/Creatinine Ratio 12.7 LAB CHEMISTRY METHOD 01/10/2025 4:11 PM [facility] Calcium 9.5 8.5 - 10.5 mg/dL LAB CHEMISTRY METHOD 01/10/2025 4:11 PM [facility] AST (SGOT) 30 10 - 42 unit/L LAB CHEMISTRY METHOD 01/10/2025 4:11 PM [facility] ALT (SGPT) 30 10 - 60 unit/L LAB CHEMISTRY METHOD 01/10/2025 4:11 PM [facility] Alkaline Phosphatase 91 42 - 121 unit/L LAB CHEMISTRY METHOD 01/10/2025 4:11 PM [facility] Total Protein 7.3 6.0 - 8.0 g/dL LAB CHEMISTRY METHOD 01/10/2025 4:11 PM [facility] Albumin 3.3 3.2 - 5.0 g/dL LAB CHEMISTRY METHOD 01/10/2025 4:11 PM [facility] Total Bilirubin 0.4 0.0 - 1.4 mg/dL LAB CHEMISTRY METHOD 01/10/2025 4:11 PM [facility] Blood Venous blood specimen / Unknown Venipuncture / Unknown 01/10/2025 10:18 AM EDT 01/10/2025 10:18 AM EDT us Vee Alvarez MD LAB BLOOD ORDERABLES Final Resul t [facility] [address] [place] [address], [place] [phone] * XR Ribs w Chest 3+ Views [...] Signed Date: 12/09/2024 11:05 ET Workstation ID: [id number] Transcribed By: Self Edit Transcribed Date: 12/09/2024 [...] Signed Date: 12/09/2024 11:05 ET Workstation ID: [id number] Transcribed By: Self Edit Transcribed Date: 12/09/2024 10:59 ET us Riley NGUYEN IMG XR PROCEDURES Final Result * Lipid panel with reflex to direct LDL (10/10/2024 8:06 AM EDT) Cholesterol 174 0 - 200 mg/dL LAB CHEMISTRY METHOD 10/10/2024 12:19 PM EDT [facility] Triglycerides 71 0 - 150 mg/dL LAB CHEMISTRY METHOD 10/10/2024 12:19 PM [facility] HDL 66 >=40 mg/dL LAB CHEMISTRY METHOD 10/10/2024 12:19 PM [facility] LDL Calculated 94 0 - 100 mg/dL LAB CHEMISTRY METHOD 10/10/2024 12:19 PM [facility] VLDL Cholesterol Jus 14.2 mg/dL LAB CHEMISTRY METHOD 10/10/2024 12:19 PM [facility] Non HDL Chol. (LDL+VLDL) 108 <145 mg/dL LAB CHEMISTRY METHOD 10/10/2024 12:19 PM [facility] Chol/HDL Ratio 2.6 0.0 - 4.4 LAB CHEMISTRY METHOD 10/10/2024 12:19 PM [facility] Blood Venous blood specimen / Unknown Venipuncture / Unknown 10/10/2024 8:06 AM EDT 10/10/2024 8:06 AM EDT Vee Alvarez MD LAB BLOOD ORDERABLES Final Resul t [facility] [address] [place] [address], [place] [phone] * Falls Risk Assessment (03/09/2023) Falls Risk Assessment Abstracted Historical Provider HEALTH MAINTENANCE Final Result * Depression Screening (03/09/2023) Depression Screening Abstracted Historical Provider MD HEALTH [...] should be classified as having osteoporosis. [facility] Department of Internal Medicine recommends using National [...] Taylor shouldbe classified as having osteoporosis. [facility] Department of Internal Medicine recommendsusing National Osteoporosis [...] fracture risk by FRAX. Vee Alvarez MD [facility] DXA PROCEDURES Final Result * Hepatitis C Screening (01/02/2018) [facility] Hepatitis C Screening Abstracted Historical Provider HEALTH MAINTENANCE Final Result * Colonoscopy (06/21/2015) [facility] Colonoscopy No Interpretation , Abstracted Anatomical Region Laterality Modality Other Historical Provider HEALTH MAINTENANCE Final Result from Last 3 Months or Most Recently Relevant to Health Maintenance Insurance MEDICARE [facility] Advance Directives * Full Code - Confirmed (Latest Code Status on File) Date Activated Date Inactivated Comments 01/10/2025 10:[address] at[facility] was ascertained in the following way: Code status discussion: discussion with patient To update the patient's code status, place a code status order. Do not modify or discontinue any currently active code status orders. Care Teams Medical Sales Specialist Relationship Specialty Start Date End Date Vee Alvarez MD [address] [place] [phone] PCP - General Internal Medicine 03/04/24
--- OUTSIDE RECORDS SUMMARY | 2025-01-17 15:46 | XMS_ITS ---
Author Organization [facility] [address] [place] [address] Address [address] [place] [address] Phone Care Team Providers Care Author Agent Name Role Phone Vee Alvarez MD Primary Care Provider [phone] Transitional Care Management Status:Ongoing (Active) Start date:01/01/2025 Enrollment date:01/01/2025 Enrollment reason:Identified using hospital discharge data Case Team Name Relationship Phone Zayra Borjas LPN(Responsible Staff) Quality Assurance Representative Continued Care and Services Coordination
== END 2025-01-17 13:43 | disposition home or self-care (01) ==
LOC: HO.CT 13:42
PROVIDERS: PCP Internal Medicine; Visit Provider Physician Assistant Surgical
DX: K57.80 Diverticulitis of intestine, part unspecified, with perforation and abscess without bleeding (principal)
CPT/HCPCS: 74177; Q9967

== ENCOUNTER → 2025-01-17 14:07 | Outpatient (BNV) | payer MEDICARE, OTHER, SELFPAY | PROVIDERS: PCP Internal Medicine; Visit Provider Radiology Diagnostic Radiology | DX: K57.80 Diverticulitis of intestine, part unspecified, with perforation and abscess without bleeding (principal) | CPT/HCPCS: 74177 ==

== ENCOUNTER 2025-01-24 09:46 | Outpatient (AMB) | payer MEDICARE, OTHER, SELFPAY ==
--- NOTE | 2025-01-24 09:53 | A.OFFVIS_ITS ---
Vital Signs 01/24/25 10:00 Weight 121 lb BP 131/70 Blood Pressure Location Lt brachial Position Sitting Pulse 97 Intake Visit Reasons: diverticulitis/possible drain removal Intake Note: Patient here for drain removal and discuss elective colectomy. Needs colonoscopy prior. Patient c/o: reports minimal drainage, this morning 5cc's. ZULAY (AT): 01-17-2025 Imaging: abdomen pelvis CT: 01-17-2025 Wound Care Specialist Required: No Accompanied by: Self / Same As Patient Allergies No Known Allergies (No Known Allergies*) Allergy (Verified 01/24/25 09:59) HPI HPI diverticulitis/possible drain removal: Details: Yamilet Taylor presents for follow up and possible drain removal after a recent hospitalization for sigmoid diverticulitis with large abscess. She was admitted on 12/30/[address] guided drainage of the pelvic abscess that day. Over 200cc purulent drainage was obtained during the procedure. Her symptoms continued to improve and she had resolution of her abdominal pain. Her diet was slowly advanced. She was discharged to home on 01/01/25 with the drain in place on a course of oral Augmentin. At her last follow up visit her drain had <10cc of output per day however it was still somewhat purulent appearing and therefore in view of the size of her initial pelvic abscess, repeat CT scan abd/pelvis was obtained to ensure the collection was resolved prior to drain removal. This showed the abscess has resolved, and no residual fluid is seen around the catheter. She continues to fell well today. Her appetite continues to improve. She denies fevers, chills, abdominal pain, nausea, vomiting, diarrhea, constipation. Her drain continues with <10cc a day. [facility] Medical History Hx of cold sores Hx of rosacea Osteoporosis Arthritis Hypercholesterolemia HTN (hypertension) Surgical History Hx of colonoscopy History of open reduction and internal fixation (ORIF) procedure (04/11/23) History of foot surgery Social History Household Members: None Housing: House Housing Other:: 3 stairs Are you a primary child care development specialist to a significant other at home: No Do you presently have visiting nurse or other home services: No Alcohol intake: current Comment: counts correct Patient Tobacco Use Status: Former Tobacco user Tobacco use type: Cigarette Advance Directives Date on File: 01/03/24 service: No Current occupational status: retired Current occupation: right hand dominant Review of Systems Const All systems reviewed & are unremarkable except as noted in HPI and below Physical Exam Vital Signs: Last Vital Signs Pulse 97 01/24/25 10:00 BP 131/70 01/24/25 10:00 Const General: comfortable, no acute distress and alert Orientation/consciousness: patient oriented x3 Resp Effort & Inspection: normal respiratory effort and able to speak in complete sentences GI Inspection: No distended Palpation (GI): Soft to palpation and nontender Back/Spine/Pelvis Other: pigtail drain right buttock in place; grenade with more thin serous appearing output, scant and was removed uneventfully, dry dressing placed Skin General skin exam: no rashes or lesions noted Neuro General: patient oriented x3 and moves all extremities Assessment & Plan Assessment & Plan (1) Diverticulitis of intestine with abscess: Code(s): K57.80 - Diverticulitis of intestine, part unspecified, with perforation and abscess without bleeding Category: Medical Plan 69 year old female with recent admission for sigmoid diverticulitis with abscess requiring IR drainage of the pelvic abscess on 12/30. Follow up CT scan abd pelvis showed the abscess has resolved, and no residual fluid is seen around the catheter. She has had scant drainage that appears more thin and serous appearing today. Her drain was therefore removed uneventfully. She can keep a dry dressing in place until the site closes. We discussed eventual sigmoid resection given her episode of complicated diverticulitis to prevent recurrence. She is near due for a colonoscopy and this will have to be performed prior. GI referral has been made. She is to call the office following her colonoscopy to make an appointment to discuss/schedule her sigmoid resection. She is to return sooner if she develops concerns. All questions answered, she agrees with the plan. Orders: Referrals Gastroenterology Referral K57.80 - Diverticulitis of intestine, part unspecified, with perforation and abscess without bleeding Coding Level of Care Code Est Pt Level 3 (06904) Diagnoses Diverticulitis of intestine with abscess K57.80
[2025-01-24 10:00] VITALS: BP 131/70; PULSE 97
--- OUTSIDE RECORDS SUMMARY | 2025-01-24 10:56 | XMS_ITS | Encounter Summary ---
Author Organization [facility] Address [address] [place] [address] Care Team Providers Care Busser Name Role Phone Vee Alvarez MD Primary Care Provider [phone] Reason for Visit * Reason Onset Date Comments faxed vna order 01/10/2025 Ana CONTRERAS Eval uation Summary Report Encounter Details Date Type Department Care Team ([facility] Contact Info) Description 01/10/2025 Telephone Adult Medicine [facility] [address] [place] [address] Vee Alvarez MD [address], [place] Social History Tobacco Use Types Packs/Day [...] 8:30 AM EST Office Visit Adult Medicine [address] [phone] Vee Alvarez MD [address] [place] [address] documented as of this encounter Visit Diagnoses Not on filedocumented in this encounter Additional Health Concerns Assessment Noted Time PHQ-9 Depression Total Score: 0 10/10/19 25 10:21 AM EDT documented as of this encounter Care Teams Busser Relationship Specialty Start Date End Date Vee Alvarez MD [address] [place] [phone] PCP - General Internal Medicine 03/04/24 documented as of this encounter
--- OUTSIDE RECORDS SUMMARY | 2025-01-24 10:56 | XMS_ITS ---
Author Organization [facility] [address] [place] [address] Address [address] [place] [address] Phone Care Team Providers Care Residential Advisor Name Role Phone Vee Alvarez MD Primary Care Provider [phone] Transitional Care Management Status:Ongoing (Active) Start date:01/01/2025 Enrollment date:01/01/2025 Enrollment reason:Identified using hospital discharge data Case Team Name Relationship Phone Zayra Borjas LPN(Responsible Staff) Vehicle Leasing And Rental Manager Continued Care and Services Coordination
--- OUTSIDE RECORDS SUMMARY | 2025-01-24 10:57 | XMS_ITS | Encounter Summary ---
Author Organization [facility] Address [address] [place] [address] Care Team Providers Care Exceptional Children Teacher Name Role Phone Vee Alvarez MD Primary Care Provider [phone] Reason for Visit * Reason Onset Date Comments PRIOR AUTH 01/16/2025 Encounter Details Date Type Department Care Team ([facility] Contact Info) Description 01/16/2025 Telephone Adult Medicine [address] [phone] Addie Saenz [place] Social History Tobacco Use [...] as of this encounter Progress Notes * Vee Alvarez MD - 01/17/2025 4:35 PM EDT [facility] was contacting MD as needs to be completed by MD for [facility], they will contact our office if anything additional is needed. * Melanie Madison MA - 01/16/2025 1:39 PM EDT Please forward this request to [facility] pool . We only make PA for Medications.. Please and thank you .Please Reply Back to [facility] Pool Name Melanie Madison [facility] Prior Ext: [phone] * Addie Saenz MA - 01/16/2025 1:25 [...] 8:30 AM EST Office Visit Adult Medicine [address] [phone] Vee Alvarez MD [address] [place] [address] documented as of this encounter Visit Diagnoses Not on filedocumented in this encounter Additional Health Concerns Assessment Noted Time PHQ-9 Depression Total Score: 0 10/10/19 25 10:21 AM EDT documented as of this encounter Care Teams Exceptional Children Teacher Relationship Specialty Start Date End Date Vee Alvarez MD [address] [place] [address] PCP - General Internal Medicine 03/04/24 documented as of this encounter
--- OUTSIDE RECORDS SUMMARY | 2025-01-24 10:57 | XMS_ITS | Clinical Summary ---
Author Organization [facility] [address] [facility] Address [address] [place] [address] Phone Care Team Providers Care Verification Lead Name Role Phone Vee Alvarez MD Primary Care Provider [phone] Allergies No known active allergies Medications CALCIUM [...] Future Compression fracture of L4 v ertebra ([facility] V24, [facility] V28) 02/03/2014 Overview (03/05/2024): Dr. Ez Adams Nontraumatic rupture of tendons of foot and ankl e 04/15/2010 Overview (03/05/2024): Scheduled for tendinorrhaphy by Dr. Jorge Young 01/25/2010 Michelle 12/26/2007 Encounters Date Type Department Care Team Description 01/17/[address] [phone] Vee Alvarez MD 01/16/[address] [phone] Addie Saenz [place] 01/14/2025 Results Follow-Up [address] [phone] Vee Alvarez MD 01/10/2025 9:00 AM EDT Office Visit [address] [phone] Vee Alvarez MD Hospital discharge follow-up (Primary Dx); Acute diverticulitis; Abscess 01/10/[address] [phone] Vee Alvarez MD 12/24/[address] [phone] Vee Alvarez MD 12/09/2024 10:07 AM EDT - 12/09/2024 11:59 PM EDT Hospital Encounter [address] [phone] Rib pain on left side Discharge Disposition: Home or Self Care 12/09/2024 9:45 AM EDT Office Visit [address] [phone] Riley Rand PA Rib pain on left side (Primary Dx); Age related osteoporosis, unspecified pathological fracture presence; Essential hypertension from Last 3 Months Immunizations Immunization Administration Dates Next Due Anthrax 09/18/1999, 0,10/29/1998,10/15,10/01/1998 DTaP (Infanrix) 6wks to less than 7yo 10/10/2015 Hepatitis A Adult (Havrix; V aqta) 19yo and older 08/10/1997,08/09/1997,11/02/1996 Hepatitis B (Jgbbutf-H-Tptcw , Recombivax HB-Adult) 19yo and older 07/12/2003,01/07/2003,10/06/2002 [...] 02/24/2007 Typhoid Vaccine, Parental, Acetone-Killed, Dried ([employer] Satispay) 11/02/1996,03/30/1992 Typhoid Vaccine, Parenteral, Other Than Acetone-killed, [...] 8:30 AM EST Office Visit Adult Medicine [facility] [place] [address] [place], [place] [phone] Vee Alvarez MD [address] [place], [place] Health Maintenance Due Date Last Done [...] Procedure Name Priority Date/Time Associated Diagnosis Comments EXTERNAL CT REPORT 01/17/[address] REPORT 01/17/2025 CBC WITH AUTO DIFFERENTIAL Routine 01/10/2025 10:18 [...] Recently Relevant to Health Maintenance Results * External CT Report (01/17/2025) Only the most recent of2 resultswithin the time period is included. Anatomical Region Laterality Modality Computed Tomogra phy Provider [facility] IM[facility] CT PROCEDURES Final Result * (ABNORMAL) CBC auto differential (01/10/2025 10:18 AM EDT) WBC 6.6 4.8 - 10.8 K/mcL LAB HEMETOLOGY METHOD 01/10/2025 12:07 PM [facility] RBC 4.00 3.80 - 4.80 M/mcL LAB HEMETOLOGY METHOD 01/10/2025 12:07 PM [facility] Hemoglobin 13.3 11.5 - 16.0 g/dL LAB HEMETOLOGY METHOD 01/10/2025 12:07 PM [facility] Hematocrit 40.2 35.0 - 47.0 % LAB HEMETOLOGY METHOD 01/10/2025 12:07 PM [facility] MCV 101.3(H) 79.0 - 98.0 FL LAB HEMETOLOGY METHOD 01/10/2025 12:07 PM [facility] MCH 33.5(H) 27.0 - 32.0 pcg LAB HEMETOLOGY [facility] MCHC 33.1 32.0 - 37.0 g/dL LAB HEMETOLOGY METHOD 01/10/2025 12:07 PM [facility] RDW 14.0 11.0 - 15.0 % LAB HEMETOLOGY METHOD [facility] Platelets 330 130 - 400 K/mcL LAB HEMETOLOGY METHOD 01/10/2025 12:07 PM [facility] MPV 9.9 7.0 - 11.0 FL LAB HEMETOLOGY METHOD 01/10/2025 12:07 PM [facility] NRBC 0.0 <1.0 % LAB HEMETOLOGY METHOD 01/10/2025 12:07 PM [facility] NRBC Absolute 0.00 <0.10 K/mcL LAB HEMETOLOGY METHOD 01/10/2025 12:07 PM [facility] Neutrophils Relative 59.1 % LAB HEMETOLOGY METHOD 01/10/2025 12:07 PM [facility] Lymphocytes Relative 26.6 % LAB HEMETOLOGY METHOD 01/10/2025 12:07 PM [facility] Monocytes Relative 10.8 % LAB HEMETOLOGY METHOD 01/10/2025 12:07 PM [facility] Eosinophils Relative 1.8 % LAB HEMETOLOGY METHOD 01/10/2025 12:07 PM [facility] Basophils Relative 1.4 % LAB HEMETOLOGY METHOD 01/10/2025 12:07 PM [facility] Immature Granulocytes Relative 0.3 % LAB HEMETOLOGY METHOD 01/10/2025 12:07 PM [facility] Neutrophils Absolute 3.87 1.50 - 7.00 K/mcL LAB HEMETOLOGY METHOD 01/10/2025 12:07 PM EDT [facility] Lymphocytes Absolute 1.74 1.00 - 5.00 K/[facility] LAB HEMETOLOGY METHOD 01/10/2025 12:07 PM EDT [facility] Monocytes Absolute 0.71 0.20 - 1.00 K/mcL LAB HEMETOLOGY METHOD 01/10/2025 12:07 PM EDT [facility] Eosinophils Absolute 0.12 0.00 - 0.50 K/[facility] LAB HEMETOLOGY METHOD 01/10/2025 12:07 PM EDT [facility] Basophils Absolute 0.09 0.00 - 0.20 K/mcL LAB HEMETOLOGY METHOD 01/10/2025 12:07 PM EDT [facility] Immature Granulocytes Absolute 0.02 0.00 - 0.03 K/[facility] LAB HEMETOLOGY METHOD 01/10/2025 12:07 PM EDT [facility] Blood Venous blood specimen / Unknown Venipuncture / Unknown 01/10/2025 10:18 AM EDT 01/10/2025 10:18 AM EDT us Vee Alvarez MD LAB BLOOD ORDERABLES Final Resul t [facility] [address] [place] [address], * Comprehensive metabolic panel (01/10/2025 10:18 AM EDT) Sodium 139 133 - 145 mmol/L LAB CHEMISTRY METHOD 01/10/2025 4:11 PM EDT [facility] Potassium 4.0 3.5 - 5.5 mmol/L LAB CHEMISTRY METHOD 01/10/2025 4:11 PM EDT [facility] Chloride 103 96 - 110 mmol/L LAB CHEMISTRY METHOD 01/10/2025 4:11 PM [facility] CO2 29 21 - 32 mmol/L LAB CHEMISTRY METHOD 01/10/2025 4:11 PM [facility] Anion Gap 7 3 - 11 LAB CHEMISTRY METHOD 01/10/2025 4:11 PM [facility] Glucose 91 70 - 100 mg/dL LAB CHEMISTRY METHOD 01/10/2025 4:11 PM [facility] BUN 8 5 - 25 mg/dL LAB CHEMISTRY METHOD 01/10/2025 4:11 PM [facility] Creatinine 0.63 0.50 - 1.10 mg/dL LAB CHEMISTRY METHOD 01/10/2025 4:11 PM [facility] eGFR 97 >=60 mL/min/1. 73m2 LAB CHEMISTRY METHOD 01/10/2025 4:11 PM [facility] Comment:Calculation based on the Chronic Kidney Disease Epidemiology Collaboration (CKD-EPI) equation refit without adjustment for race. BUN/Creatinine Ratio 12.7 LAB CHEMISTRY METHOD 01/10/2025 4:11 PM [facility] Calcium 9.5 8.5 - 10.5 mg/dL LAB CHEMISTRY METHOD 01/10/2025 4:11 PM [facility] AST (SGOT) 30 10 - 42 unit/L LAB CHEMISTRY METHOD 01/10/2025 4:11 PM [facility] ALT (SGPT) 30 10 - 60 unit/L LAB CHEMISTRY METHOD 01/10/2025 4:11 PM [facility] Alkaline Phosphatase 91 42 - 121 unit/L LAB CHEMISTRY METHOD 01/10/2025 4:11 PM [facility] Total Protein 7.3 6.0 - 8.0 g/dL LAB CHEMISTRY METHOD 01/10/2025 4:11 PM [facility] Albumin 3.3 3.2 - 5.0 g/dL LAB CHEMISTRY METHOD 01/10/2025 4:11 PM EDT [facility] Total Bilirubin 0.4 0.0 - 1.4 mg/dL LAB CHEMISTRY METHOD 01/10/2025 4:11 PM EDT [facility] Blood Venous blood specimen / Unknown Venipuncture / Unknown 01/10/2025 10:18 AM EDT 01/10/2025 10:18 AM EDT us Vee Alvarez MD LAB BLOOD ORDERABLES Final Resul t [facility] [address] [place] [address], [place] [phone] * XR Ribs w Chest 3+ Views [...] Signed Date: 12/09/2024 11:05 ET Workstation ID: [id number] Transcribed By: Self Edit Transcribed Date: 12/09/2024 [...] Signed Date: 12/09/2024 11:05 ET Workstation ID: [id number] Transcribed By: Self Edit Transcribed Date: 12/09/2024 10:59 ET Riley NGUYEN IMG XR PROCEDURES Final Result * Lipid panel with reflex to direct LDL (10/10/2024 8:06 AM EDT) Cholesterol 174 0 - 200 mg/dL LAB CHEMISTRY METHOD 10/10/2024 12:19 PM EDT [facility] Triglycerides 71 0 - 150 mg/dL LAB CHEMISTRY METHOD 10/10/2024 12:19 PM EDT [facility] HDL 66 >=40 mg/dL LAB CHEMISTRY METHOD 10/10/2024 12:19 PM EDT [facility] LDL Calculated 94 0 - 100 mg/dL LAB CHE[facility]STRY [facility] VLDL Cholesterol Jus 14.2 mg/dL LAB CHEMISTRY METHOD 10/10/2024 12:19 PM T [facility] Non HDL Chol. (LDL+VLDL) 108 <145 mg/dL LAB CHEMISTRY METHOD 10/10/2024 12:19 PM EDT [facility] Chol/HDL Ratio 2.6 0.0 - 4.4 LAB CHEMISTRY METHOD 10/10/2024 12:19 PM EDT [facility] Blood Venous blood specimen / Unknown Venipuncture / Unknown 10/10/2024 8:06 AM EDT 10/10/2024 8:06 AM EDT Vee Alvarez MD LAB BLOOD ORDERABLES Final Resul t [facility] [address] [place] [address], [place] [phone] * Falls Risk Assessment (03/09/2023) Falls Risk [...] should be classified as having osteoporosis. The [facility] Department of Internal Medicine recommends using [...] Taylor shouldbe classified as having osteoporosis. The [facility] Department of Internal Medicine recommendsusing National [...] fracture risk by FRAX. Vee Alvarez MD [facility] DXA PROCEDURES Final Result * Hepatitis C Screening (01/02/2018) [facility] Hepatitis C Screening Abstracted Historical Provider HEALTH MAINTENANCE Final Result * Colonoscopy (06/21/2015) [facility] Colonoscopy No Interpretation , Abstracted Anatomical Region Laterality Modality Other Historical Provider HEALTH MAINTENANCE Final Result from Last 3 Months or Most Recently Relevant to Health Maintenance Insurance MEDICARE [facility] Advance Directives * Full Code - Confirmed (Latest Code Status on File) Date Activated Date Inactivated Comments 01/10/2025 10:[address] at[facility] was ascertained in the following way: Code status discussion: discussion with patient To update the patient's code status, place a code status order. Do not modify or discontinue any currently active code status orders. Care Teams Verification Lead Relationship Specialty Start Date End Date Vee Alvarez MD [address] [place] [phone] PCP - General Internal Medicine 03/04/24
== END 2025-01-24 10:17 | disposition home or self-care (01) ==
LOC: HO.HGS 09:47
PROVIDERS: PCP Internal Medicine; Visit Provider Physician Assistant Surgical
DX: K57.80 Diverticulitis of intestine, part unspecified, with perforation and abscess without bleeding (principal)
CPT/HCPCS: 99213

== ENCOUNTER → 2025-01-24 09:46 | Outpatient (BNVA) | payer MEDICARE, OTHER, SELFPAY | PROVIDERS: PCP Internal Medicine; Visit Provider Physician Assistant Surgical | DX: K57.80 Diverticulitis of intestine, part unspecified, with perforation and abscess without bleeding (principal); Z48.03 Encounter for change or removal of drains; Z87.891 Personal history of nicotine dependence | CPT/HCPCS: 99212 ==